=== PATIENT | male | born 1935 | race Caucasian/White ===

== ENCOUNTER → 2017-10-01 10:37 | Outpatient (CLI) | payer MEDICARE, OTHER, SELFPAY ==
[2017-10-01 12:13] LABS: INR 1.2 (0.9-1.3)
[2017-10-01 12:28] LABS: BUN Creatinine Ratio 23.9 (6-22); Blood Urea Nitrogen 55 mg/dL (9-20); Calcium 9.1 mg/dL (8.4-10.2); Carbon Dioxide 23 mmol/L (22-32); Chloride 107 mmol/L (98-107); Estimated Glomerular Filt Rate 27.5 mL/min (>60); Glucose 122 mg/dL (80-110); HEMOLYSIS < 15 (0-50); Potassium 4.6 mmol/L (3.4-5.1); Sodium 143 mmol/L (137-145); Triglycerides 289 mg/dL (35-150)
== END ==
PROVIDERS: PCP Family Medicine; Visit Provider Internal Medicine Cardiovascular Disease
DX: I25.10 Atherosclerotic heart disease of native coronary artery without angina pectoris (principal); E11.22 Type 2 diabetes mellitus with diabetic chronic kidney disease; N18.3 Chronic kidney disease, stage 3 (moderate); Z79.4 Long term (current) use of insulin; I26.99 Other pulmonary embolism without acute cor pulmonale
CPT/HCPCS: 36415; 80048; 84478; 85610

== ENCOUNTER → 2018-02-15 11:23 | Outpatient (CLI) | payer MEDICARE, OTHER, SELFPAY ==
[2018-02-15 12:21] LABS: Add Manual Diff / Slide Review NO; Basophils Percent Auto 0.3 % (0-2); Eosinophils Percent Auto 3.6 % (2-4); Hematocrit 40.9 % (41-53); Hemoglobin 13.9 g/dL (13.5-17.5); Lymphocytes Percent Auto 36.6 % (25-40); Mean Corpuscular Hemoglobin 30.9 PG (26-34); Mean Corpuscular Volume 90.9 fL (80-100); Monocytes Percent Auto 7.6 % (3-14); Neutrophils Absolute Auto 3900 /uL (3000-5900); Neutrophils Percent Auto 51.9 % (50-75); Platelet Count 137 X10^3/uL (150-400); Red Cell Distribution Width 13.9 % (11.6-14.8); White Blood Cell Count 7.4 X10^3/uL (4.5-11.0)
[2018-02-15 12:35] LABS: Albumin 4.1 g/dL (3.5-5.0); BUN Creatinine Ratio 22.1 (6-22); Blood Urea Nitrogen 53 mg/dL (9-20); Carbon Dioxide 27 mmol/L (22-32); Chloride 108 mmol/L (98-107); Estimated Glomerular Filt Rate 26.1 mL/min (>60); Glucose 130 mg/dL (80-110); HEMOLYSIS < 15 (0-50); Phosphorous 3.7 mg/dL (2.3-3.7); Potassium 4.8 mmol/L (3.4-5.1); Sodium 148 mmol/L (137-145)
[2018-02-15 15:02] LABS: Creatinine Urine Random 97.4 mg/dL; Protein (Total) Urine Random 43 mg/dL (0-12); Protein Creatinine Ratio Urine 0.44 GRAM/24H
[2018-02-15 15:17] LABS: Vitamin D 25 Hydroxy (D3) 92.8 ng/mL (30.0-100.0)
[2018-02-16 14:46] LABS: Parathyroid Hormone Int 63 pg/mL (14-64)
== END ==
PROVIDERS: Family Provider Family Medicine; PCP Family Medicine; Visit Provider Internal Medicine Nephrology
DX: N18.4 Chronic kidney disease, stage 4 (severe) (principal)
CPT/HCPCS: 36415; 80069; 82306; 82570; 83970; 84156; 85025

== ENCOUNTER → 2018-04-12 10:44 | Outpatient (CLI) | payer MEDICARE, OTHER, SELFPAY ==
[2018-04-12 11:13] LABS: INR 3.5 (0.9-1.3); Prothrombin Time 41.3 SECONDS (10.1-12.7)
== END ==
PROVIDERS: Family Provider Family Medicine; PCP Family Medicine; Visit Provider Family Medicine
DX: I26.99 Other pulmonary embolism without acute cor pulmonale (principal)
CPT/HCPCS: 36415; 85610

== ENCOUNTER → 2018-04-28 10:32 | Outpatient (CLI) | payer MEDICARE, OTHER, SELFPAY ==
[2018-04-28 11:09] LABS: INR 1.9 (0.9-1.3)
[2018-04-28 11:42] LABS: Hemoglobin A1C% w Est Avg Glu 5.5 % (4.0-6.0)
== END ==
PROVIDERS: Family Provider Family Medicine; PCP Family Medicine; Visit Provider Family Medicine
DX: I26.99 Other pulmonary embolism without acute cor pulmonale (principal); E11.9 Type 2 diabetes mellitus without complications
CPT/HCPCS: 36415; 83036; 85610

== ENCOUNTER → 2018-05-28 14:05 | Outpatient (CLI) | payer MEDICARE, OTHER, SELFPAY ==
[2018-05-28 14:52] LABS: INR 1.5 (0.9-1.3); Prothrombin Time 17.4 SECONDS (10.1-12.7)
== END ==
PROVIDERS: PCP Family Medicine; Visit Provider Family Medicine
DX: I26.99 Other pulmonary embolism without acute cor pulmonale (principal)
CPT/HCPCS: 36415; 85610

== ENCOUNTER → 2018-07-05 12:40 | Outpatient (CLI) | payer MEDICARE, OTHER, SELFPAY ==
[2018-07-05 13:50] LABS: Prothrombin Time 23.6 SECONDS (10.1-12.7)
== END ==
PROVIDERS: PCP Family Medicine; Visit Provider Family Medicine
DX: I26.99 Other pulmonary embolism without acute cor pulmonale (principal)
CPT/HCPCS: 36415; 85610

== ENCOUNTER → 2018-08-18 13:51 | Outpatient (CLI) | payer MEDICARE, OTHER, SELFPAY ==
[2018-08-18 14:49] LABS: Hemoglobin A1C% w Est Avg Glu 5.7 % (4.0-6.0)
[2018-08-18 14:50] LABS: INR 1.8 (0.9-1.3); Prothrombin Time 21.4 SECONDS (10.1-12.7)
[2018-08-18 16:03] LABS: Estimated Glomerular Filt Rate 26.1 mL/min (>60)
== END ==
PROVIDERS: PCP Family Medicine; Visit Provider Family Medicine
DX: E11.9 Type 2 diabetes mellitus without complications (principal); I26.99 Other pulmonary embolism without acute cor pulmonale; Z79.01 Long term (current) use of anticoagulants
CPT/HCPCS: 36415; 82565; 83036; 85610

== ENCOUNTER → 2018-10-18 13:54 | Outpatient (CLI) | payer MEDICARE, OTHER, SELFPAY ==
[2018-10-18 14:32] LABS: INR 2.3 (0.9-1.3); Prothrombin Time 26.6 SECONDS (10.1-12.7)
[2018-10-18 14:50] LABS: Add Manual Diff / Slide Review NO; Basophils Absolute Auto 0 /uL (0-100); Basophils Percent Auto 0.5 % (0-2); Eosinophils Absolute Auto 300 /uL (0-450); Eosinophils Percent Auto 3.3 % (2-4); Hematocrit 42.3 % (41-53); Hemoglobin 14.8 g/dL (13.5-17.5); Lymphocytes Absolute Auto 3200 /uL (1100-4500); Lymphocytes Percent Auto 39.9 % (25-40); Mean Corpuscular Hemoglobin 31.1 PG (26-34); Mean Corpuscular Volume 88.8 fL (80-100); Monocytes Absolute Auto 700 /uL (0-900); Monocytes Percent Auto 8.7 % (3-14); Neutrophils Absolute Auto 3900 /uL (1500-7000); Neutrophils Percent Auto 47.6 % (50-75); Platelet Count 159 X10^3/uL (150-400); Red Blood Cell Count 4.76 X10^6/uL (4.5-5.9); Red Cell Distribution Width 13.9 % (11.6-14.8); White Blood Cell Count 8.1 X10^3/uL (4.5-11.0)
[2018-10-18 15:15] LABS: Albumin 4.1 g/dL (3.5-5.0); BUN Creatinine Ratio 19.2 (6-22); Blood Urea Nitrogen 48 mg/dL (9-20); Calcium 9.2 mg/dL (8.4-10.2); Carbon Dioxide 24 mmol/L (22-32); Chloride 109 mmol/L (98-107); Estimated Glomerular Filt Rate 24.9 mL/min (>60); Glucose 109 mg/dL (80-110); HEMOLYSIS < 15 (0-50); Phosphorous 3.4 mg/dL (2.3-3.7); Potassium 4.7 mmol/L (3.4-5.1); Sodium 144 mmol/L (137-145)
[2018-10-18 16:00] LABS: Creatinine Urine Random 113.6 mg/dL; Protein (Total) Urine Random 92 mg/dL (0-12)
[2018-10-18 16:15] LABS: Vitamin D 25 Hydroxy (D3) 82.4 ng/mL (30.0-100.0)
[2018-10-21 14:55] LABS: Parathyroid Hormone Int 82 pg/mL (14-64)
== END ==
PROVIDERS: PCP Family Medicine; Visit Provider Internal Medicine Nephrology
DX: N18.4 Chronic kidney disease, stage 4 (severe) (principal); I26.99 Other pulmonary embolism without acute cor pulmonale
CPT/HCPCS: 36415; 80069; 82306; 82570; 83970; 84156; 85025; 85610

== ENCOUNTER 2018-11-10 07:02 | Day surgery (SDC) | payer MEDICARE, OTHER, SELFPAY ==
--- NOTE | 2018-11-07 15:24 | PM.PREOP ---
Pre-operative Note Interval Note History & Physical reviewed/Exam performed by Physician: Yes Changes to H&P: No H&P completed within 30 days and has changed as indicated here:: Fasting glucose checked prior to surgery and is adequate to proceed.
--- NOTE | 2018-11-07 15:25 | PM.OP.1 ---
Operative Date/Time/Diagnoses Date of procedure: 11/10/18 Time of procedure: 07:45 Procedure & Clinicians Procedure: Preoperative diagnoses: 1. Advanced right nuclear sclerotic and cortical cataract. 2. Diabetes without retinopathy. 3. Keratoconus 4. Previous central retinal artery occlusion left eye. 5. Amblyopia 6. Bipolar disorder 7. Previous pulmonary embolism 8. Obstructive sleep apnea 9. On Eliquis for cardiac status. 10. Peripheral neuropathy. 11. Chronic vertigo. 12. Hypertension Postoperative diagnoses: 1. Cataract removed by phacoemulsification with placement of posterior chamber intraocular lens . Procedure: Phacoemulsification with posterior chamber intraocular lens implant and use of capsular dye. Surgeon: Diane Patton MD Complications: None Specimen: None Implant: ZCBOO+ 13.0 Blood loss: None Anesthesia: Retrobulbar with monitored standby Description of procedure: Patient with a complex medical history presents with a complaint of decreased vision due to cataract which is affecting activities of daily living including distance and reading vision. He has type 2 diabetes, bipolar disorder previous pulmonary embolism, obstructive sleep apnea, peripheral neuropathy among other stable condition and is on Eliquis for his cardiac status. He has recently been cleared for cataract surgery and was admitted to the hospital in the last few months without change in treatment. He has a complicated eye history as well with keratoconus with high astigmatism previous amblyopia, this is his best seeing eye as is otherwise had a central retinal artery occlusion. The patient wants surgery to improve vision. Due to his psychiatric status a retrobulbar block was felt to be the best anesthetic with monitored standby. He start Eliquis for 2 days for surgery. He declines a toric intraocular lens implant. Will require capsular dye due to the density of his cataract. The patient was taken to the operating room and given IV sedation. A retrobulbar block insert consisting of 6 cc of 2% xylocaine without epinephrine mixed half and half with 0.5% Marcaine with 1 cc of hyaluronidase added is placed between the medial and lateral 1/3 of the inferior orbital rim. Lid akinesia is obtain with 1% xylocaine with epinephrine infiltrated along the lid margin. The eye is manually massaged for 30 sec, prepped using Betadine solution, and draped in the usual sterile fashion. Temporal approach was made, a 1 mm side-port incision was made 90? from the proposed clear corneal incision position. Phenylephrine 1.5% mixed with 1% xylocaine 0.2 cc was placed into the anterior chamber. Viscoat followed by Healon was then placed into the anterior chamber. A 2.6 mm clear incision with a 2.6 mm blade was placed. A 360 degree capsulorrhexis style capsulotomy was then performed with a cystitome needle on a Healon. Hydrodelineation and hydrodissection were performed. The phacoemulsification unit is introduced, and sculpting notice used to groove the central lens. It is then removed in chopping mode. Epi nucleus is removed with epinuclear mode and irrigation aspiration was used to remove the peripheral cortex. The posterior capsule is polished. The intraocular lens is selected, inspected, power confirmed, and placed in the posterior chamber. The pupil was constricted with Miostat.. The wound was stromally hydrated and tested for leaks, there was none and it was left sutureless. Vigamox 0.1 cc was placed into the anterior chamber. Kenalog 0.2 cc was placed in the superior subconjunctival space. A drop of antibiotic and was placed and the eye was patched and shielded. The patient was stable and returned to the recovery room in excellent condition. Dictated by: Diane Patton MD Copy to: [facility]
[2018-11-10] MEDS: PROPARACAINE 0.5% OPHTH SOL 2 DROPS EYE-OP (07:24)
[2018-11-10] MEDS: CATARACT EYE COMPOUND (10 DROPS/SYRINGE) 3 DROPS EYE-OP ×4 (07:25→07:46)
[2018-11-10 07:29] VITALS: BMI 29.5
[2018-11-10 07:30] VITALS: BP 124/74; PULSE 62; RESP 16; TEMP 36.1; O2SAT 94
--- NOTE | 2018-11-10 08:17 | SUR.OPER ---
Supine on eye stretcher, head on extension cradle secured with tape. Arms tucked at sides with blanket. Pillow under knees.
[2018-11-10] MEDS: MOXIFLOXACIN OPHTH DROPS 3 ML BOTTLE 2 DROPS INJ ×2 (08:25→08:26)
[2018-11-10] MEDS: TRIAMCINOLONE 50 MG/5 ML VIAL INJ (08:26)
[2018-11-10] MEDS: NEOMYCIN/POLY/DEX OPHTH OINT 1 APPLIC EYE-RIGHT (08:27)
[2018-11-10] MEDS: BALANCED SALT IRRIG SOLN NO.2 15 ML IRR (08:27)
[2018-11-10] MEDS: HYALURONATE SODIUM 10 MG/ML SYRINGE INJ (08:27)
[2018-11-10] MEDS: CARBACHOL 1.5 ML VIAL INJ (08:27)
[2018-11-10] MEDS: CHONDROIDTIN/SOD HYALURONATE 1.05 ML SYRINGE INTRAOCULA (08:27)
[2018-11-10] MEDS: OFLOXACIN 0.3% OPHTH 5 ML 2 DROPS EYE-RIGHT (08:28)
[2018-11-10] MEDS: BALANCED SALT IRRIG SOLN NO.2 500 ML, EPINEPHrine 1 MG IRR (08:30)
[2018-11-10] MEDS: LIDOCAINE 2% 4 ML, BUPIVACAINE 0.5% (PF) 4 ML, HYALURONIDASE 150 UNIT INJ (08:32)
[2018-11-10 08:54] VITALS: BP 108/66; PULSE 58; RESP 16; TEMP 36.6; O2SAT 97
== END 2018-11-10 09:03 | disposition home or self-care (01) ==
PROVIDERS: PCP Family Medicine; Visit Provider Ophthalmology
PROC: (CPT 66984; principal; 2018-11-10 07:45)
DX: H25.811 Combined forms of age-related cataract, right eye (principal); E11.9 Type 2 diabetes mellitus without complications; I10 Essential (primary) hypertension; G47.33 Obstructive sleep apnea (adult) (pediatric); Z79.01 Long term (current) use of anticoagulants; Z86.711 Personal history of pulmonary embolism
CPT/HCPCS: 66984; J0171; J2704; J3301; J3470

== ENCOUNTER 2018-11-24 08:04 | Day surgery (SDC) | payer MEDICARE, OTHER, SELFPAY ==
--- NOTE | 2018-11-22 19:25 | PM.PREOP ---
Pre-operative Note Interval Note History & Physical reviewed/Exam performed by Physician: Yes Changes to H&P: No H&P completed within 30 days and has changed as indicated here:: Glucose checked and stable for surgery. Eliquis stopped for 3 days for surgery.
--- NOTE | 2018-11-22 19:27 | PM.OP.1 ---
Operative Date/Time/Diagnoses Date of procedure: 11/24/18 Time of procedure: 09:45 Procedure & Clinicians Procedure: Preoperative diagnoses: 1. Left cataract surgery with PCIOL.. 2.Advanced nuclear sclerotic and cortical cataract. 3. Aortic valve. 4. Anticoagulation with history of previous pulmonary embolism. 5. Type II Diaetes. 6. Sleep Apnea. 7. Depression. 8. Vertigo and Ataxia 9. CKD stage 4 10. Esophageal reflux with dysphagia 11. HTN 12. Previous central retinal artery occlusion. 13. Keratoconus. 14. Right Amblyopia. Postoperative diagnoses: 1. Left phaciemulsufication surgery with placement of a posterior chamber intraocular lens implant. Surgeon: Diane Patton MD Complications: none Specimen: None Implant : ZCBOO+19.5 Implant: ZCBOO+19.5 Blood loss: None Anesthesia: Retrobulbar with monitored standby. Description of procedure: Dictated by: Diane Patton MD Copy to: [facility] Post operative diagnoses: 1. Left complex cataract removed with use of capsular dye with placement of a posterior chamber intraocular lens. Procedure: Phacoemulsification with posterior chamber intraocular lens implant Surgeon: Diane Patton MD Blood loss: None Anesthesia: Retrobulbar with monitored standby Description of procedure: Patient is a diabetic with multiple medical problems including cardiac disease with an aortic valve, previus pulmonary embolism, previus retinal artery occlusion,depression with anxiety and peripheral europathy with ataxia, dysphagia and vertigo. This is his best seeing eye as he also has keratoconus and right amblyopia. He is in his best possible medical condition and desires cataract surgery as his decreasing vision is limiting his quality of life. has presented with decreased vision due to cataract which is affecting activities of daily living. The patient wants surgery to improve vision. The patient was taken to the operating room and given IV sedation. A retrobulbar block consisting of 6 cc of 2% xylocaine without epinephrine mixed half and half with 0.5% Marcaine with 1 cc of hyaluronidase added is placed between the medial and lateral 1/3 of the inferior orbital rim. Lid akinesia is obtain with 1% xylocaine with epinephrine infiltrated along the lid margin. The eye is manually massaged for 30 sec, prepped using Betadine solution, and draped in the usual sterile fashion. Viscoat followed by Amish was then placed. A 2.6 mm clear incision with a 2.6 mm blade was placed. A 360 degree capsulorrhexis style capsulotomy was then performed with a cystitome needle on a [employer]. Hydrodelineation and hydrodissection were performed. The phacoemulsification unit is introduced, and sculpting used to groove the central lens. It is then removed in chopping mode. Epi nucleus is removed with epinuclear mode and irrigation aspiration was used to remove the peripheral cortex. The posterior capsule is polished. The intraocular lens is selected, inspected, power confirmed, and placed in the posterior chamber. The pupil was constricted with Miostat. The wound was stromally hydrated and tested for leaks, there was none and was left sutureless. Vigamox 0.1 cc was placed into the anterior chamber. Kenalog 0.2 cc was placed in the superior subconjunctival space. A drop of antibiotic and was placed and the eye was patched and shielded. The patient was stable and returned to the recovery room in excellent condition. Dictated by: Diane Patton MD Copy to: [facility]
[2018-11-24 09:09] VITALS: BP 140/70; PULSE 60; RESP 16; TEMP 36.8; O2SAT 96; BMI 29.5
[2018-11-24] MEDS: PROPARACAINE 0.5% OPHTH SOL 2 DROPS EYE-OP (09:20)
[2018-11-24] MEDS: CATARACT EYE COMPOUND (10 DROPS/SYRINGE) 3 DROPS EYE-OP (09:21)
[2018-11-24] MEDS: MOXIFLOXACIN OPHTH DROPS 3 ML BOTTLE 2 DROPS INJ (10:13)
[2018-11-24] MEDS: PHENYLEPHRINE/LIDOCAINE VIAL (OR) 0.2 ML EYE-OP (10:13)
[2018-11-24] MEDS: TRIAMCINOLONE 50 MG/5 ML VIAL INJ (10:14)
[2018-11-24] MEDS: CHONDROIDTIN/SOD HYALURONATE 1.05 ML SYRINGE INTRAOCULA (10:15)
[2018-11-24] MEDS: BALANCED SALT IRRIG SOLN NO.2 15 ML IRR (10:15)
[2018-11-24] MEDS: HYALURONATE SODIUM 10 MG/ML SYRINGE INJ (10:15)
[2018-11-24] MEDS: CARBACHOL 1.5 ML VIAL INJ (10:15)
[2018-11-24] MEDS: NEOMYCIN/POLY/DEX OPHTH OINT 1 APPLIC EYE-LEFT (10:16)
[2018-11-24] MEDS: LIDOCAINE 1% W/EPI INJ 20 ML INJ (10:16)
[2018-11-24] MEDS: OFLOXACIN 0.3% OPHTH 5 ML 2 DROPS EYE-LEFT (10:17)
[2018-11-24] MEDS: BALANCED SALT IRRIG SOLN NO.2 500 ML, EPINEPHrine 1 MG IRR (10:18)
[2018-11-24] MEDS: LIDOCAINE 2% 4 ML, BUPIVACAINE 0.5% (PF) 4 ML, HYALURONIDASE 150 UNIT INJ (10:19)
[2018-11-24 10:49] VITALS: BP 145/71; PULSE 56; RESP 15; TEMP 36.4; O2SAT 97
== END 2018-11-24 11:08 | disposition home or self-care (01) ==
PROVIDERS: Visit Provider Ophthalmology
PROC: (CPT 66984; principal; 2018-11-24 09:45)
DX: H25.812 Combined forms of age-related cataract, left eye (principal); Z79.01 Long term (current) use of anticoagulants; Z86.711 Personal history of pulmonary embolism; E66.9 Obesity, unspecified; G47.30 Sleep apnea, unspecified; N18.4 Chronic kidney disease, stage 4 (severe); I10 Essential (primary) hypertension
CPT/HCPCS: 66984; J0171; J2250; J2704; J3301; J3470

== ENCOUNTER → 2018-12-15 12:10 | Outpatient (CLI) | payer MEDICARE, OTHER, SELFPAY ==
[2018-12-15 12:45] LABS: INR 2.1 (0.9-1.3); Prothrombin Time 24.9 SECONDS (10.1-12.7)
== END ==
PROVIDERS: Visit Provider Student in an Organized Health Care Education/Training Program
DX: I26.99 Other pulmonary embolism without acute cor pulmonale (principal)
CPT/HCPCS: 36415; 85610

== ENCOUNTER → 2019-01-12 13:24 | Outpatient (CLI) | payer MEDICARE, OTHER, SELFPAY ==
[2019-01-12 15:33] LABS: Prothrombin Time 23.9 SECONDS (10.1-12.7)
[2019-01-12 15:42] LABS: Hemoglobin A1C% w Est Avg Glu 5.5 % (4.0-6.0)
== END ==
PROVIDERS: Visit Provider Student in an Organized Health Care Education/Training Program
DX: Z79.01 Long term (current) use of anticoagulants (principal); Z95.2 Presence of prosthetic heart valve; E11.9 Type 2 diabetes mellitus without complications
CPT/HCPCS: 36415; 83036; 85610

== ENCOUNTER → 2019-01-21 16:32 | Outpatient (CLI) | payer MEDICARE, OTHER, SELFPAY ==
--- NOTE | 2019-01-21 16:37 | DI.MRI.S_ITS ---
PROCEDURE: MR HEAD/BRAIN WO/W CON INDICATIONS: HEADACHE. DECREASED BALANCE TECHNIQUE: Noncontrast axial T1 spin echo, axial T2 fast spin echo, sagittal and axial FLAIR, coronal T2 fast spin echo, axial gradient echo, axial diffusion and ADC through the brain. After the administration of contrast, axial and coronal T1 spin echo with fat saturation through the brain. COMPARISON: None. FINDINGS: Image quality: Excellent. CSF spaces: Basal cisterns are patent. No extra-axial fluid collections. Ventricles are normal in size and shape. Brain: No midline shift. No intracranial bleeds or masses. No abnormal intracranial enhancement. There is cerebral volume loss for age. There is periventricular white matter chronic small vessel ischemic change. The brainstem appears normal. Diffusion-weighted images demonstrate no acute ischemic insults. On series 11 image 67, there is a focus of diffusion weighted hyperintensity seen within left frontal lobe deep white matter, yet this focus is hyperintense on T2-weighted imaging and does not demonstrate dark signal on the ADC map. No large chronic ischemic insults. Normal intravascular flow voids are present. Skull and face: Calvarial marrow is normal in signal. Orbits appear normal. Sinuses: There is a small mucous retention cyst seen within the left maxillary sinus. Sinuses and mastoids otherwise appear clear. IMPRESSION: No significant intracranial abnormality is seen for age, with note made of brain parenchymal volume loss and chronic small vessel ischemic change. No findings of acute or subacute infarction can be seen. No masses or abnormal enhancement can be seen. Dictated by: Rupesh Jackson M.D. on 01/21/2019 at 18:10 Approved by: Rupesh Jackson M.D. on 01/21/2019 at 18:13
== END ==
PROVIDERS: Visit Provider Student in an Organized Health Care Education/Training Program
DX: R51 Headache (principal); R26.89 Other abnormalities of gait and mobility
CPT/HCPCS: 70553

== ENCOUNTER → 2019-03-22 10:47 | Outpatient (CLI) | payer MEDICARE, OTHER, SELFPAY ==
[2019-03-22 12:08] LABS: Hemoglobin A1C% w Est Avg Glu 5.6 % (4.0-6.0)
[2019-03-22 12:09] LABS: INR 1.6 (0.9-1.3); Prothrombin Time 19.1 SECONDS (10.1-12.7)
== END ==
PROVIDERS: Visit Provider Student in an Organized Health Care Education/Training Program
DX: Z95.2 Presence of prosthetic heart valve (principal); Z79.01 Long term (current) use of anticoagulants; E11.9 Type 2 diabetes mellitus without complications
CPT/HCPCS: 36415; 83036; 85610

== ENCOUNTER → 2019-03-25 12:10 | Outpatient (CLI) | payer MEDICARE, OTHER, SELFPAY ==
--- NOTE | 2019-03-25 | DI.RAD.S_ITS ---
PROCEDURE: XR CHEST 2V INDICATIONS: cough TECHNIQUE: 2 views of the chest were acquired. COMPARISON: [facility], , CHEST 2 VIEW, 12/19/2014, 16:23. [facility], , CHEST 1 VIEW, 08/17/2017, 19:14. FINDINGS: Surgical changes and devices: Sternotomy wires and CABG clips. Linear density projecting adjacent to the left clavicle is unchanged. Status post TAVR Lungs and pleura: No pleural effusion or pneumothorax. Below, blunted appearance of the costophrenic angles. Scattered submegmental scarring and/or atelectasis. No focal consolidation. On the lateral view posterior pleural thickening/scarring is unchanged Mediastinum: Mediastinal contours are normal. Heart size is normal. Bones and chest wall: No suspicious bony abnormalities. Soft tissues appear unremarkable. IMPRESSION: Blunted appearance of the costophrenic angles, possibly trace pleural fluid, atelectasis or scarring. Scattered submegmental scarring and/or atelectasis. No focal consolidation. Dictated by: Odin Sahu M.D. on 03/25/2019 at 16:44 Approved by: Odin Sahu M.D. on 03/25/2019 at 16:47
== END ==
PROVIDERS: Visit Provider Student in an Organized Health Care Education/Training Program
DX: R05 Cough (principal)
CPT/HCPCS: 71046

== ENCOUNTER → 2019-06-06 16:40 | Outpatient (CLI) | payer MEDICARE, OTHER, SELFPAY ==
[2019-06-06 17:21] LABS: INR 1.8 (0.9-1.3)
[2019-06-06 17:26] LABS: Hemoglobin A1C% w Est Avg Glu 5.7 % (4.0-6.0)
== END ==
PROVIDERS: Referring Provider Student in an Organized Health Care Education/Training Program; Visit Provider Student in an Organized Health Care Education/Training Program
DX: Z95.2 Presence of prosthetic heart valve (principal); Z79.01 Long term (current) use of anticoagulants; E11.9 Type 2 diabetes mellitus without complications
CPT/HCPCS: 36415; 83036; 85610

== ENCOUNTER → 2019-06-10 09:25 | Outpatient (CLI) | payer MEDICARE, OTHER, SELFPAY ==
[2019-06-10 10:44] LABS: BUN Creatinine Ratio 19.1 (6-22); Blood Urea Nitrogen 44 mg/dL (9-20); Calcium 9.4 mg/dL (8.4-10.2); Carbon Dioxide 23 mmol/L (22-32); Chloride 109 mmol/L (98-107); Cholesterol 155 mg/dL (140-199); Estimated Glomerular Filt Rate 27.4 mL/min (>60); Glucose 108 mg/dL (80-110); HDL Cholesterol 23 mg/dL (40-60); HEMOLYSIS < 15 (0-50); LDL Cholesterol Calculated 76 mg/dL (<100); Potassium 5.1 mmol/L (3.4-5.1); Sodium 145 mmol/L (137-145); Triglycerides 278 mg/dL (35-150); VLDL Cholesterol Calculated 56 mg/dL (2-30)
[2019-06-10 10:46] LABS: Creatinine Urine Random 83.8 mg/dL; Protein (Total) Urine Random 71 mg/dL (0-12); Protein Creatinine Ratio Urine 0.84 GRAM/24H
== END ==
PROVIDERS: PCP Student in an Organized Health Care Education/Training Program; Referring Provider Internal Medicine Nephrology; Visit Provider Internal Medicine Nephrology
DX: N18.4 Chronic kidney disease, stage 4 (severe) (principal); E11.9 Type 2 diabetes mellitus without complications
CPT/HCPCS: 36415; 80061; 80069; 82570; 84156

== ENCOUNTER → 2019-06-24 15:34 | Outpatient (CLI) | payer MEDICARE, OTHER, SELFPAY ==
[2019-06-24 16:32] LABS: INR 1.7 (0.9-1.3); Prothrombin Time 19.9 SECONDS (10.1-12.7)
== END ==
PROVIDERS: PCP Student in an Organized Health Care Education/Training Program; Referring Provider Student in an Organized Health Care Education/Training Program; Visit Provider Student in an Organized Health Care Education/Training Program
DX: Z95.2 Presence of prosthetic heart valve (principal); Z79.01 Long term (current) use of anticoagulants; E11.9 Type 2 diabetes mellitus without complications
CPT/HCPCS: 36415; 85610

== ENCOUNTER → 2019-09-14 12:37 | Outpatient (CLI) | payer MEDICARE, OTHER, SELFPAY ==
[2019-09-14 13:31] LABS: INR 1.3 (0.9-1.3); Prothrombin Time 14.5 SECONDS (10.1-12.7)
[2019-09-14 13:41] LABS: Hemoglobin A1C% w Est Avg Glu 5.6 % (4.0-6.0)
== END ==
PROVIDERS: PCP Student in an Organized Health Care Education/Training Program; Referring Provider Student in an Organized Health Care Education/Training Program; Visit Provider Student in an Organized Health Care Education/Training Program
DX: Z95.2 Presence of prosthetic heart valve (principal); Z79.01 Long term (current) use of anticoagulants; E11.9 Type 2 diabetes mellitus without complications
CPT/HCPCS: 36415; 83036; 85610

== ENCOUNTER → 2019-10-06 15:06 | Outpatient (CLI) | payer MEDICARE, OTHER, SELFPAY ==
[2019-10-06 15:48] LABS: INR 1.9 (0.9-1.3); Prothrombin Time 21.8 SECONDS (10.1-12.7)
== END ==
PROVIDERS: PCP Student in an Organized Health Care Education/Training Program; Referring Provider Student in an Organized Health Care Education/Training Program; Visit Provider Student in an Organized Health Care Education/Training Program
DX: E11.9 Type 2 diabetes mellitus without complications (principal); Z79.01 Long term (current) use of anticoagulants; Z95.2 Presence of prosthetic heart valve
CPT/HCPCS: 36415; 85610

== ENCOUNTER → 2019-10-25 13:33 | Outpatient (CLI) | payer MEDICARE, OTHER, SELFPAY ==
[2019-10-25 15:06] LABS: Prothrombin Time 64.2 SECONDS (10.1-12.7)
[2019-10-25 15:07] LABS: Hemoglobin A1C% w Est Avg Glu 5.5 % (4.0-6.0)
[2019-10-25 15:15] LABS: INR 5.8 (0.9-1.3)
== END ==
PROVIDERS: PCP Student in an Organized Health Care Education/Training Program; Referring Provider Student in an Organized Health Care Education/Training Program; Visit Provider Student in an Organized Health Care Education/Training Program
DX: E11.9 Type 2 diabetes mellitus without complications (principal); Z95.2 Presence of prosthetic heart valve; Z79.01 Long term (current) use of anticoagulants
CPT/HCPCS: 36415; 83036; 85610

== ENCOUNTER → 2019-11-11 14:26 | Outpatient (CLI) | payer MEDICARE, OTHER, SELFPAY ==
[2019-11-11 15:46] LABS: INR 2.1 (0.9-1.3); Prothrombin Time 23.9 SECONDS (10.1-12.7)
== END ==
PROVIDERS: PCP Student in an Organized Health Care Education/Training Program; Referring Provider Student in an Organized Health Care Education/Training Program; Visit Provider Student in an Organized Health Care Education/Training Program
DX: E11.9 Type 2 diabetes mellitus without complications (principal); Z95.2 Presence of prosthetic heart valve; Z79.01 Long term (current) use of anticoagulants
CPT/HCPCS: 36415; 85610

== ENCOUNTER → 2019-11-25 12:46 | Outpatient (CLI) | payer MEDICARE, OTHER, SELFPAY ==
[2019-11-25 14:29] LABS: INR 2.1 (0.9-1.3); Prothrombin Time 23.6 SECONDS (10.1-12.7)
[2019-11-25 14:59] LABS: Albumin 4.2 g/dL (3.5-5.0); BUN Creatinine Ratio 20.5 (6-22); Blood Urea Nitrogen 46 mg/dL (9-20); Calcium 9.4 mg/dL (8.4-10.2); Carbon Dioxide 24 mmol/L (22-32); Chloride 107 mmol/L (98-107); Estimated Glomerular Filt Rate 28.2 mL/min (>60); Glucose 125 mg/dL (80-110); HEMOLYSIS 20 (0-50); Potassium 5.1 mmol/L (3.4-5.1); Sodium 140 mmol/L (137-145)
[2019-11-25 15:38] LABS: Creatinine Urine Random 96.5 mg/dL; Protein (Total) Urine Random 64 mg/dL (0-12); Protein Creatinine Ratio Urine 0.66 GRAM/24H
== END ==
PROVIDERS: PCP Student in an Organized Health Care Education/Training Program; Referring Provider Internal Medicine Nephrology; Visit Provider Internal Medicine Nephrology
DX: Z95.2 Presence of prosthetic heart valve (principal); Z79.01 Long term (current) use of anticoagulants; E11.9 Type 2 diabetes mellitus without complications
CPT/HCPCS: 36415; 80069; 82570; 84156; 85610

== ENCOUNTER → 2019-12-20 15:47 | Outpatient (CLI) | payer MEDICARE, OTHER, SELFPAY ==
[2019-12-20 17:10] LABS: INR 1.8 (0.9-1.3); Prothrombin Time 20.6 SECONDS (10.1-12.7)
== END ==
PROVIDERS: PCP Student in an Organized Health Care Education/Training Program; Referring Provider Student in an Organized Health Care Education/Training Program; Visit Provider Student in an Organized Health Care Education/Training Program
DX: E11.9 Type 2 diabetes mellitus without complications (principal); Z95.2 Presence of prosthetic heart valve; Z79.01 Long term (current) use of anticoagulants
CPT/HCPCS: 36415; 85610

== ENCOUNTER → 2020-01-17 15:54 | Outpatient (CLI) | payer MEDICARE, OTHER, SELFPAY ==
[2020-01-17 16:50] LABS: INR 2.4 (0.9-1.3); Prothrombin Time 27.8 SECONDS (10.1-12.7)
== END ==
PROVIDERS: PCP Student in an Organized Health Care Education/Training Program; Referring Provider Student in an Organized Health Care Education/Training Program; Visit Provider Student in an Organized Health Care Education/Training Program
DX: Z95.2 Presence of prosthetic heart valve (principal); Z79.01 Long term (current) use of anticoagulants; E11.9 Type 2 diabetes mellitus without complications
CPT/HCPCS: 36415; 85610

== ENCOUNTER → 2020-02-09 14:00 | Outpatient (CLI) | payer MEDICARE, OTHER, SELFPAY ==
[2020-02-09 15:10] LABS: INR 2.1 (0.9-1.3); Prothrombin Time 24.6 SECONDS (10.1-12.7)
== END ==
PROVIDERS: PCP Student in an Organized Health Care Education/Training Program; Referring Provider Student in an Organized Health Care Education/Training Program; Visit Provider Student in an Organized Health Care Education/Training Program
DX: Z79.01 Long term (current) use of anticoagulants (principal)
CPT/HCPCS: 36415; 85610

== ENCOUNTER → 2020-03-13 12:44 | Outpatient (CLI) | payer MEDICARE, OTHER, SELFPAY ==
[2020-03-13 14:15] LABS: INR 7.7 (0.9-1.3)
== END ==
PROVIDERS: PCP Student in an Organized Health Care Education/Training Program; Referring Provider Student in an Organized Health Care Education/Training Program; Visit Provider Student in an Organized Health Care Education/Training Program
DX: Z95.2 Presence of prosthetic heart valve (principal); Z79.01 Long term (current) use of anticoagulants; E11.9 Type 2 diabetes mellitus without complications
CPT/HCPCS: 36415; 85610

== ENCOUNTER → 2020-03-15 15:15 | Outpatient (CLI) | payer MEDICARE, OTHER, SELFPAY ==
[2020-03-15 16:46] LABS: Hemoglobin A1C% w Est Avg Glu 5.7 % (4.0-6.0)
[2020-03-15 16:50] LABS: Prothrombin Time 58.2 SECONDS (10.1-12.7)
[2020-03-15 16:54] LABS: INR 5.1 (0.9-1.3)
== END ==
PROVIDERS: PCP Student in an Organized Health Care Education/Training Program; Referring Provider Student in an Organized Health Care Education/Training Program; Visit Provider Student in an Organized Health Care Education/Training Program
DX: Z95.2 Presence of prosthetic heart valve (principal); Z79.01 Long term (current) use of anticoagulants; E11.9 Type 2 diabetes mellitus without complications
CPT/HCPCS: 36415; 83036; 85610

== ENCOUNTER → 2020-03-19 13:40 | Outpatient (CLI) | payer MEDICARE, OTHER, SELFPAY ==
[2020-03-19 14:27] LABS: INR 1.5 (0.9-1.3)
[2020-03-19 14:39] LABS: Hemoglobin A1C% w Est Avg Glu 5.7 % (4.0-6.0)
== END ==
PROVIDERS: PCP Student in an Organized Health Care Education/Training Program; Referring Provider Student in an Organized Health Care Education/Training Program; Visit Provider Student in an Organized Health Care Education/Training Program
DX: Z95.2 Presence of prosthetic heart valve (principal); E11.9 Type 2 diabetes mellitus without complications; Z79.01 Long term (current) use of anticoagulants
CPT/HCPCS: 36415; 83036; 85610

== ENCOUNTER → 2020-03-26 14:01 | Outpatient (CLI) | payer MEDICARE, OTHER, SELFPAY ==
[2020-03-26 15:20] LABS: Hemoglobin A1C% w Est Avg Glu 5.7 % (4.0-6.0)
[2020-03-26 15:24] LABS: INR 3.1 (0.9-1.3)
== END ==
PROVIDERS: PCP Student in an Organized Health Care Education/Training Program; Referring Provider Student in an Organized Health Care Education/Training Program; Visit Provider Student in an Organized Health Care Education/Training Program
DX: Z95.2 Presence of prosthetic heart valve (principal); E11.9 Type 2 diabetes mellitus without complications; Z79.01 Long term (current) use of anticoagulants
CPT/HCPCS: 36415; 83036; 85610

== ENCOUNTER → 2020-05-01 12:20 | Outpatient (CLI) | payer MEDICARE, OTHER, SELFPAY ==
[2020-05-01 13:55] LABS: INR 2.5 (0.9-1.3); Prothrombin Time 28.4 SECONDS (10.1-12.7)
[2020-05-01 14:04] LABS: Hemoglobin A1C% w Est Avg Glu 5.9 % (4.0-6.0)
== END ==
PROVIDERS: PCP Student in an Organized Health Care Education/Training Program; Referring Provider Student in an Organized Health Care Education/Training Program; Visit Provider Student in an Organized Health Care Education/Training Program
DX: Z95.2 Presence of prosthetic heart valve (principal); Z79.01 Long term (current) use of anticoagulants; E11.9 Type 2 diabetes mellitus without complications
CPT/HCPCS: 36415; 83036; 85610

== ENCOUNTER → 2020-06-05 15:09 | Outpatient (CLI) | payer MEDICARE, OTHER, SELFPAY ==
[2020-06-05 16:31] LABS: INR 2.3 (0.9-1.3); Prothrombin Time 26.4 SECONDS (10.1-12.7)
== END ==
PROVIDERS: PCP Student in an Organized Health Care Education/Training Program; Referring Provider Student in an Organized Health Care Education/Training Program; Visit Provider Student in an Organized Health Care Education/Training Program
DX: E11.9 Type 2 diabetes mellitus without complications (principal); Z95.2 Presence of prosthetic heart valve; Z79.01 Long term (current) use of anticoagulants
CPT/HCPCS: 36415; 85610

== ENCOUNTER → 2020-08-23 14:15 | Outpatient (CLI) | payer MEDICARE, OTHER, SELFPAY ==
[2020-08-23 15:02] LABS: Hemoglobin A1C% w Est Avg Glu 5.3 % (4.0-6.0); INR 1.7 (0.9-1.3); Prothrombin Time 19.8 SECONDS (10.1-12.7)
== END ==
PROVIDERS: PCP Student in an Organized Health Care Education/Training Program; Referring Provider Student in an Organized Health Care Education/Training Program; Visit Provider Student in an Organized Health Care Education/Training Program
DX: Z95.2 Presence of prosthetic heart valve (principal); E11.9 Type 2 diabetes mellitus without complications; Z79.01 Long term (current) use of anticoagulants
CPT/HCPCS: 36415; 83036; 85610

== ENCOUNTER → 2020-10-08 14:32 | Outpatient (CLI) | payer MEDICARE, OTHER, SELFPAY ==
[2020-10-08 16:22] LABS: INR 1.8 (0.9-1.3); Prothrombin Time 20.2 SECONDS (10.1-12.7)
== END ==
PROVIDERS: PCP Student in an Organized Health Care Education/Training Program; Referring Provider Student in an Organized Health Care Education/Training Program; Visit Provider Student in an Organized Health Care Education/Training Program
DX: I26.99 Other pulmonary embolism without acute cor pulmonale (principal); Z79.01 Long term (current) use of anticoagulants
CPT/HCPCS: 36415; 85610

== ENCOUNTER → 2020-10-19 12:22 | Outpatient (CLI) | payer MEDICARE, OTHER, SELFPAY ==
[2020-10-19 14:09] LABS: INR 2.3 (0.9-1.3); Prothrombin Time 25.8 SECONDS (10.1-12.7)
== END ==
PROVIDERS: PCP Student in an Organized Health Care Education/Training Program; Referring Provider Student in an Organized Health Care Education/Training Program; Visit Provider Student in an Organized Health Care Education/Training Program
DX: I26.99 Other pulmonary embolism without acute cor pulmonale (principal); Z79.01 Long term (current) use of anticoagulants
CPT/HCPCS: 36415; 85610

== ENCOUNTER → 2020-11-08 15:27 | Outpatient (CLI) | payer MEDICARE, OTHER, SELFPAY ==
[2020-11-08 16:02] LABS: INR 3.6 (0.9-1.3); Prothrombin Time 41.8 SECONDS (10.1-12.7)
== END ==
PROVIDERS: PCP Student in an Organized Health Care Education/Training Program; Referring Provider Student in an Organized Health Care Education/Training Program; Visit Provider Student in an Organized Health Care Education/Training Program
DX: Z79.01 Long term (current) use of anticoagulants (principal); I26.99 Other pulmonary embolism without acute cor pulmonale
CPT/HCPCS: 36415; 85610

== ENCOUNTER → 2020-12-10 08:51 | Outpatient (CLI) | payer MEDICARE, OTHER, SELFPAY ==
[2020-12-10 09:48] LABS: Add Manual Diff / Slide Review NO; Basophils Absolute Auto 0 /uL (0-100); Basophils Percent Auto 0.6 % (0-2); Eosinophils Absolute Auto 300 /uL (0-450); Eosinophils Percent Auto 4.1 % (2-4); Hematocrit 38.8 % (41-53); Hemoglobin 13.1 g/dL (13.5-17.5); Lymphocytes Absolute Auto 2900 /uL (1100-4500); Lymphocytes Percent Auto 35.4 % (25-40); Mean Corpuscular HGB Conc 33.7 % (30-36); Mean Corpuscular Hemoglobin 31.1 PG (26-34); Mean Corpuscular Volume 92.4 fL (80-100); Monocytes Absolute Auto 700 /uL (0-900); Monocytes Percent Auto 8.9 % (3-14); Neutrophils Absolute Auto 4200 /uL (1500-7000); Platelet Count 149 X10^3/uL (150-400); Red Cell Distribution Width 13.5 % (11.6-14.8); White Blood Cell Count 8.3 X10^3/uL (4.5-11.0)
[2020-12-10 10:03] LABS: Alanine Aminotransferase 17 IU/L (<50); Albumin 3.8 g/dL (3.5-5.0); Albumin Globulin Ratio 1.2 (1.0-2.8); Alkaline Phosphatase 129 U/L (38-126); Aspartate Aminotransferase 24 IU/L (17-59); BUN Creatinine Ratio 18.9 (6-22); Bilirubin Total 0.2 mg/dL (0.2-1.3); Blood Urea Nitrogen 46 mg/dL (9-20); Calcium 8.6 mg/dL (8.4-10.2); Carbon Dioxide 21 mmol/L (22-32); Chloride 112 mmol/L (98-107); Cholesterol 127 mg/dL (140-199); Estimated Glomerular Filt Rate 25.6 mL/min (>60); Globulin 3.2 g/dL (1.7-4.1); Glucose 120 mg/dL (80-110); HDL Cholesterol 25 mg/dL (40-60); HEMOLYSIS < 15 (0-50); LDL Cholesterol Calculated 52 mg/dL (<100); Potassium 4.6 mmol/L (3.4-5.1); Sodium 142 mmol/L (137-145); Triglycerides 248 mg/dL (35-150)
[2020-12-10 10:04] LABS: Hemoglobin A1C% w Est Avg Glu 5.3 % (4.0-6.0)
== END ==
PROVIDERS: PCP Student in an Organized Health Care Education/Training Program; Referring Provider Student in an Organized Health Care Education/Training Program; Visit Provider Student in an Organized Health Care Education/Training Program
DX: E11.9 Type 2 diabetes mellitus without complications (principal); E78.5 Hyperlipidemia, unspecified; N18.4 Chronic kidney disease, stage 4 (severe); I25.10 Atherosclerotic heart disease of native coronary artery without angina pectoris
CPT/HCPCS: 36415; 80053; 80061; 83036; 85025

== ENCOUNTER → 2020-12-12 15:00 | Outpatient (ROUT) | payer MEDICARE, OTHER, SELFPAY ==
[2020-12-12 15:12] LABS: INR 2.4 (0.9-1.3); Prothrombin Time 27.4 SECONDS (10.1-12.7)
== END ==
PROVIDERS: PCP Student in an Organized Health Care Education/Training Program; Visit Provider Student in an Organized Health Care Education/Training Program
DX: I26.99 Other pulmonary embolism without acute cor pulmonale (principal); Z79.01 Long term (current) use of anticoagulants
CPT/HCPCS: 85610

== ENCOUNTER → 2021-01-03 14:12 | Outpatient (CLI) | payer MEDICARE, OTHER, SELFPAY | PROVIDERS: PCP Student in an Organized Health Care Education/Training Program; Referring Provider Student in an Organized Health Care Education/Training Program; Visit Provider Student in an Organized Health Care Education/Training Program | DX: I26.99 Other pulmonary embolism without acute cor pulmonale (principal); Z79.01 Long term (current) use of anticoagulants | CPT/HCPCS: 36415; 85610 ==

== ENCOUNTER → 2021-02-01 13:07 | Outpatient (CLI) | payer MEDICARE, OTHER, SELFPAY ==
[2021-02-01 13:52] LABS: INR 2.2 (0.9-1.3); Prothrombin Time 25.8 SECONDS (10.1-12.7)
== END ==
PROVIDERS: PCP Student in an Organized Health Care Education/Training Program; Referring Provider Student in an Organized Health Care Education/Training Program; Visit Provider Student in an Organized Health Care Education/Training Program
DX: I26.99 Other pulmonary embolism without acute cor pulmonale (principal); Z79.01 Long term (current) use of anticoagulants
CPT/HCPCS: 36415; 85610

== ENCOUNTER → 2021-03-08 14:11 | Outpatient (CLI) | payer MEDICARE, OTHER, SELFPAY ==
[2021-03-08 15:36] LABS: Hemoglobin A1C% w Est Avg Glu 5.3 % (4.0-6.0)
[2021-03-08 16:48] LABS: INR 2.2 (0.9-1.3); Prothrombin Time 25.6 SECONDS (10.1-12.7)
== END ==
PROVIDERS: PCP Student in an Organized Health Care Education/Training Program; Referring Provider Student in an Organized Health Care Education/Training Program; Visit Provider Student in an Organized Health Care Education/Training Program
DX: E11.9 Type 2 diabetes mellitus without complications (principal); I26.99 Other pulmonary embolism without acute cor pulmonale; Z79.01 Long term (current) use of anticoagulants
CPT/HCPCS: 36415; 83036; 85610

== ENCOUNTER → 2021-03-27 16:06 | Outpatient (ROUT) | payer MEDICARE, OTHER, SELFPAY ==
[2021-03-27 16:20] LABS: INR 2.3 (0.9-1.3)
== END ==
PROVIDERS: PCP Student in an Organized Health Care Education/Training Program; Visit Provider Student in an Organized Health Care Education/Training Program
DX: I26.99 Other pulmonary embolism without acute cor pulmonale (principal); Z79.01 Long term (current) use of anticoagulants
CPT/HCPCS: 85610

== ENCOUNTER → 2021-05-02 11:45 | Outpatient (ROUT) | payer MEDICARE, OTHER, SELFPAY ==
[2021-05-02 11:56] LABS: INR 2.6 (0.9-1.3); Prothrombin Time 29.6 SECONDS (10.1-12.7)
== END ==
PROVIDERS: PCP Student in an Organized Health Care Education/Training Program; Visit Provider Student in an Organized Health Care Education/Training Program
DX: I26.99 Other pulmonary embolism without acute cor pulmonale (principal); Z79.01 Long term (current) use of anticoagulants
CPT/HCPCS: 85610

== ENCOUNTER → 2021-06-17 12:59 | Outpatient (ROUT) | payer MEDICARE, OTHER, SELFPAY ==
[2021-06-17 13:18] LABS: INR 1.9 (0.9-1.3); Prothrombin Time 22.2 SECONDS (10.1-12.7)
== END ==
PROVIDERS: PCP Student in an Organized Health Care Education/Training Program; Visit Provider Student in an Organized Health Care Education/Training Program
DX: I26.99 Other pulmonary embolism without acute cor pulmonale (principal); Z79.01 Long term (current) use of anticoagulants
CPT/HCPCS: 85610

== ENCOUNTER 2021-08-13 17:03 | Emergency (ER) | payer MEDICARE, OTHER, SELFPAY ==
--- NOTE | 2021-08-13 | DI.RAD.S_ITS ---
PROCEDURE: XR HIP W PEL IF DONE RT 2V INDICATIONS: FALL TECHNIQUE: AP pelvis with lateral view(s) of the right hip(s). COMPARISON: [facility], CT, ABDOMEN/PELVIS WITHOUT CONTRAS, 07/16/2016, 0:19. FINDINGS: Bones: No fractures or dislocations. Pelvic ring appears intact. No suspicious bony lesions. Bilateral total hip arthroplasties, grossly stable. Soft tissues: The visualized bowel gas pattern is normal. No suspicious soft tissue calcifications. Femoral artery vascular calcifications. IMPRESSION: No acute osseous abnormality identified. Dictated by: Anil Page M.D. on 08/13/2021 at 18:40 Approved by: Anil Page M.D. on 08/13/2021 at 18:42
--- NOTE | 2021-08-13 | DI.RAD.S_ITS ---
PROCEDURE: XR KNEE LT 3V INDICATIONS: FALL TECHNIQUE: 3 views of the knee were acquired. COMPARISON: [facility], CR, KNEE ARTHRITIC SERIES RT (P), 09/27/2014, 13:08. RG, XR KNEE 2V LT, 02/09/2006, 9:45. FINDINGS: Bones: Total knee arthroplasty appears unchanged. No fractures or dislocations. No suspicious bony lesions. Soft tissues: No significant joint effusion. No suspicious soft tissue calcifications. IMPRESSION: No acute osseous abnormality. Left total knee arthroplasty appears unchanged. Dictated by: Anil Page M.D. on 08/13/2021 at 18:37 Approved by: Anil Page M.D. on 08/13/2021 at 18:40
[2021-08-13 17:06] VITALS: BP 152/70; PULSE 66; RESP 20; TEMP 36.2; O2SAT 100; BMI 31.6
--- NOTE | 2021-08-13 17:10 | DI.RAD.S_ITS ---
PROCEDURE: XR CHEST 1V INDICATIONS: chest pain TECHNIQUE: One view of the chest was acquired. COMPARISON: [facility], CT, CT CERVICAL SPINE WO CON, 08/13/2021, 17:15. [facility], CR, XR CHEST 2V, 03/25/2019, 12:12. [facility], CR, CHEST 1 VIEW, 08/17/2017, 19:14. FINDINGS: Surgical changes and devices: Post median sternotomy and CABG. Wire projecting at the left upper thorax. TAVR stent. Lungs and pleura: Lungs appear clear. Pulmonary vasculature appears prominent. No pleural effusions or pneumothorax. Mediastinum: Mediastinal contours appear normal. Heart size is enlarged. Bones and chest wall: No suspicious bony lesions. Overlying soft tissues appear unremarkable. IMPRESSION: Possible pulmonary vasculature engorgement. Cardiomegaly. Consider follow-up two-view chest x-ray. Dictated by: Anil Page M.D. on 08/13/2021 at 18:35 Approved by: Anil Page M.D. on 08/13/2021 at 18:37
--- NOTE | 2021-08-13 17:10 | DI.CT.S_ITS ---
PROCEDURE: CT CERVICAL SPINE WO CON INDICATIONS: fall TECHNIQUE: Noncontrast 3 mm thick sections acquired from the skull base to the T4 level. Sagittal and coronal reformats were then constructed. For radiation dose reduction, the following was used: automated exposure control, adjustment of mA and/or kV according to patient size. COMPARISON: [facility], CR, XR CHEST 1V, 08/13/2021, 17:13. FINDINGS: Image quality: Excellent. Bones: No fractures or dislocations. Moderate to severe degenerative change in the cervical spine most pronounced at C6-C7. Left V4 vertebral artery atherosclerotic plaque. Visualized superior ribs are intact. Post median sternotomy. Soft tissues: Prevertebral soft tissues are normal in thickness. Carotid bulb atherosclerotic plaque. No paravertebral hematomas. No apical pneumothoraces. Trace mucosal thickening in the maxillary sinuses inferiorly. Small thyroid nodules. IMPRESSION: No acute osseous abnormality. Dictated by: Anil Page M.D. on 08/13/2021 at 18:02 Approved by: Anil Page M.D. on 08/13/2021 at 18:07
--- NOTE | 2021-08-13 17:10 | DI.CT.S_ITS ---
PROCEDURE: CT HEAD/BRAIN WO CON INDICATIONS: fall TECHNIQUE: Noncontrast 4.5 mm thick angled axial sections acquired from the foramen magnum to the vertex, with coronal and sagittal reformats. For radiation dose reduction, the following was used: automated exposure control, adjustment of mA and/or kV according to patient size. COMPARISON: [facility], CT, HEAD WITHOUT CONTRAST, 02/28/2008, 18:59. FINDINGS: Image quality: Excellent. CSF spaces: Basal cisterns are patent. No extra-axial fluid collections. Ventricles are normal in size and shape. Brain: No midline shift. No intracranial masses or hemorrhage. No area of hypodensity in a large vascular distribution to suggest acute infarction. Periventricular hypodensity consistent with chronic microvascular ischemic change. Age-related parenchymal loss. Skull and face: Calvarium and visualized facial bones are intact, without suspicious lesions. Sinuses: Visualized sinuses and mastoids are clear. IMPRESSION: No acute intracranial abnormality. Dictated by: Anil Page M.D. on 08/13/2021 at 18:00 Approved by: Anil Page M.D. on 08/13/2021 at 18:02
--- NOTE | 2021-08-13 17:25 | ED.FALL ---
HPI - Fall <Lalo Elam DO - Last Filed: 08/13/21 17:38> General Chief Complaint: Trauma Stated Complaint: GLF hit head/on blood thinners Time Seen by Provider: 08/13/21 17:05 Source: patient and EMS Mode of arrival: EMS Related Data Home Medications Medication Instructions Recorded Confirmed allopurinol 100 mg tablet 50 mg PO DAILY 08/13/21 08/13/21 amlodipine 2.5 mg tablet 5 mg PO QPM 08/13/21 08/13/21 atorvastatin 40 mg tablet 40 mg PO QPM 08/13/21 08/13/21 cholecalciferol (vitamin D3) 50 50 mcg PO DAILY 08/13/21 08/13/21 mcg (2,000 unit) capsule insulin aspart U-100 100 unit/mL See Rx Instructions .ROUTE .COMPLEX 08/13/21 08/13/21 (3 mL) subcutaneous pen (Novolog Flexpen U-100 Insulin aspart) insulin glargine 100 unit/mL (3 10 unit SUBCUT BID 08/13/21 08/13/21 mL) subcutaneous pen (Basaglar KwikPen U-100 Insulin) isosorbide mononitrate 60 mg 240 mg PO QAM 08/13/21 08/13/21 tablet,extended release 24 hr metoprolol succinate 25 mg 37.5 mg PO BID 08/13/21 08/13/21 tablet,extended release 24 hr multivitamin 1 tab PO QAM 08/13/21 08/13/21 nitroglycerin 0.4 mg sublingual 0.4 mg SUBLINGUAL Q5M PRN 08/13/21 08/13/21 tablet nystatin 100,000 unit/gram topical 1 applic TOPICAL DAILY 08/13/21 08/13/21 cream polyethylene glycol 3350 17 gram 17 g PO DAILY 08/13/21 08/13/21 oral powder packet (Miralax) warfarin 5 mg tablet 2.5 - 5 mg PO DAILY 08/13/21 08/13/21 Allergies Allergy/AdvReac Type Severity Reaction Status Date / Time metoclopramide [From REGLAN] AdvReac Severe Dyskinesia Verified 08/13/21 17:51 morphine [MORPHINE] AdvReac Unknown Hallucinati Verified 08/13/21 17:51 ons Patient History <Lalo Elam DO - Last Filed: 08/13/21 17:38> Medical History Anticoagulation therapy continued upon discharge Arthritis ASCVD (arteriosclerotic cardiovascular disease) Ataxia Chest pain CKD (chronic kidney disease), stage IV Depression with anxiety Gout History of aortic valvular stenosis Hyperlipidemia Hypertension Low back pain Obesity Obstructive sleep apnea Peripheral neuropathy Pulmonary embolism Type II diabetes mellitus Vertigo Vertigo Vitamin D deficiency Surgical History Aortic valve replaced Social History household members: spouse Smoking Status: Former smoker Smoking Status: Former smoker Substance Use Type: does not use Exam <Lalo Elam DO - Last Filed: 08/13/21 17:38> Initial Vital Signs Initial Vital Signs: Vital Signs Temperature 97.2 F L 08/13/21 17:06 Pulse Rate 66 08/13/21 17:06 Respiratory Rate 20 08/13/21 17:06 Blood Pressure 152/70 H 08/13/21 17:06 Pulse Oximetry 100 08/13/21 17:06 <Shannon Vickers MD - Last Filed: 08/13/21 18:38> Initial Vital Signs Initial Vital Signs: Vital Signs Temperature 97.2 F L 08/13/21 17:06 Pulse Rate 66 08/13/21 17:06 Respiratory Rate 20 08/13/21 17:06 Blood Pressure 152/70 H 08/13/21 17:06 Pulse Oximetry 100 08/13/21 17:06 Course <Lalo Elam DO - Last Filed: 08/13/21 17:38> Orders Ordered: ED Orders 08/13/21 17:10 CT cervical spine wo con Stat CT head/brain wo con Stat XR chest 1V Stat EKG-12 Lead Stat 08/13/21 17:55 Complete Blood Count AUTO DIFF Stat Comprehensive Metabolic Panel Stat D Dimer Stat Lipase Stat Magnesium Stat Troponin & CK Cardiac Panel Stat Vital Signs Vital signs: Vital Signs - 8 hr 08/13/21 17:06 08/13/21 17:50 08/13/21 18:00 Temperature 97.2 F L Pulse Rate 66 63 62 Respiratory Rate 20 23 Blood Pressure 152/70 H Pulse Oximetry 100 100 97 08/13/21 18:01 Temperature Pulse Rate 65 Respiratory Rate 17 Blood Pressure 151/74 H Pulse Oximetry 97 <Shannon Vickers MD - Last Filed: 08/13/21 18:38> Orders Ordered: ED Orders 08/13/21 17:10 CT cervical spine wo con Stat CT head/brain wo con Stat XR chest 1V Stat EKG-12 Lead Stat 08/13/21 17:55 Complete Blood Count AUTO DIFF Stat Comprehensive Metabolic Panel Stat D Dimer Stat Lipase Stat Magnesium Stat Troponin & CK Cardiac Panel Stat Vital Signs Vital signs: Vital Signs - 8 hr 08/13/21 17:06 08/13/21 17:50 08/13/21 18:00 Temperature 97.2 F L Pulse Rate 66 63 62 Respiratory Rate 20 23 Blood Pressure 152/70 H Pulse Oximetry 100 100 97 08/13/21 18:01 Temperature Pulse Rate 65 Respiratory Rate 17 Blood Pressure 151/74 H Pulse Oximetry 97 MDM - Fall <Lalo Elam DO - Last Filed: 08/13/21 17:38> Lab Data Result diagrams: 08/13/21 17:55 08/13/21 17:55 Labs: Lab Results 08/13/21 08/13/21 Range/Units 17:55 17:55 WBC 7.9 (4.5-11.0) X10^3/uL RBC 3.65 L (4.5-5.9) X10^6/uL Hgb 11.8 L (13.5-17.5) g/dL Hct 34.3 L (41-53) % MCV 94.0 (80-100) fL MCH 32.5 (26-34) PG MCHC 34.5 (30-36) % RDW 14.5 (11.6-14.8) % Plt Count 135 L (150-400) X10^3/uL Neut % (Auto) 50.9 (50-75) % Lymph % (Auto) 36.6 (25-40) % Ashley % (Auto) 9.0 (3-14) % Eos % (Auto) 3.0 (2-4) % Baso % (Auto) 0.5 (0-2) % Neut # (Auto) 4000 (9444-0179) /uL Lymph # (Auto) 2900 (7044-5808) /uL Ashley # (Auto) 700 (0-900) /uL Eos # (Auto) 200 (0-450) /uL Baso # (Auto) 0 (0-100) /uL Sodium 143 (137-145) mmol/L Potassium 5.5 H (3.4-5.1) mmol/L Chloride 112 H (98-107) mmol/L Carbon Dioxide 23 (22-32) mmol/L BUN 60 H (9-20) mg/dL Creatinine 2.64 H (0.66-1.25) mg/dL Estimated GFR 23.2 L (>60) mL/min BUN/Creatinine Ratio 22.7 H (6-22) Glucose 187 H (80-110) mg/dL Calcium 8.7 (8.4-10.2) mg/dL Magnesium 1.9 (1.6-2.3) mg/dL Total Bilirubin 0.3 (0.2-1.3) mg/dL AST 22 (17-59) IU/L ALT 13 (<50) IU/L Alkaline Phosphatase 97 (38-126) U/L Total Creatine Kinase 42 L (55-170) U/L CK-MB (CK-2) TNP CK-MB (CK-2) Rel Index TNP Total Protein 6.7 (6.3-8.2) g/dL Albumin 3.8 (3.5-5.0) g/dL Globulin 2.9 (1.7-4.1) g/dL Albumin/Globulin Ratio 1.3 (1.0-2.8) Lipase 56 (23-300) U/L <Shannon Vickers MD - Last Filed: 08/13/21 18:38> Lab Data Labs: Lab Results 08/13/21 08/13/21 Range/Units 17:55 17:55 WBC 7.9 (4.5-11.0) X10^3/uL RBC 3.65 L (4.5-5.9) X10^6/uL Hgb 11.8 L (13.5-17.5) g/dL Hct 34.3 L (41-53) % MCV 94.0 (80-100) fL MCH 32.5 (26-34) PG MCHC 34.5 (30-36) % RDW 14.5 (11.6-14.8) % Plt Count 135 L (150-400) X10^3/uL Neut % (Auto) 50.9 (50-75) % Lymph % (Auto) 36.6 (25-40) % Ashley % (Auto) 9.0 (3-14) % Eos % (Auto) 3.0 (2-4) % Baso % (Auto) 0.5 (0-2) % Neut # (Auto) 4000 (9254-9308) /uL Lymph # (Auto) 2900 (9603-5193) /uL Ashley # (Auto) 700 (0-900) /uL Eos # (Auto) 200 (0-450) /uL Baso # (Auto) 0 (0-100) /uL Sodium 143 (137-145) mmol/L Potassium 5.5 H (3.4-5.1) mmol/L Chloride 112 H (98-107) mmol/L Carbon Dioxide 23 (22-32) mmol/L BUN 60 H (9-20) mg/dL Creatinine 2.64 H (0.66-1.25) mg/dL Estimated GFR 23.2 L (>60) mL/min BUN/Creatinine Ratio 22.7 H (6-22) Glucose 187 H (80-110) mg/dL Calcium 8.7 (8.4-10.2) mg/dL Magnesium 1.9 (1.6-2.3) mg/dL Total Bilirubin 0.3 (0.2-1.3) mg/dL AST 22 (17-59) IU/L ALT 13 (<50) IU/L Alkaline Phosphatase 97 (38-126) U/L Total Creatine Kinase 42 L (55-170) U/L CK-MB (CK-2) TNP CK-MB (CK-2) Rel Index TNP Total Protein 6.7 (6.3-8.2) g/dL Albumin 3.8 (3.5-5.0) g/dL Globulin 2.9 (1.7-4.1) g/dL Albumin/Globulin Ratio 1.3 (1.0-2.8) Lipase 56 (23-300) U/L Imaging Data CT scan - head: Radiologist's Impression: FINDINGS:? Image quality:? Excellent.? ? CSF spaces:? Basal cisterns are patent.? No extra-axial fluid collections.? Ventricles are normal in size and shape.? ? Brain:? No midline shift.? No intracranial masses or hemorrhage.? No area of hypodensity in a large vascular distribution to suggest acute infarction. Periventricular hypodensity consistent with chronic microvascular ischemic change. Age-related parenchymal loss. ? Skull and face:? Calvarium and visualized facial bones are intact, without suspicious lesions.? ? Sinuses:? Visualized sinuses and mastoids are clear.? ? IMPRESSION:? No acute intracranial abnormality. ? ? Dictated by: Anil Page M.D. on 08/13/2021 at 18:00? ?? Discharge Plan Departure Prescriptions: No Action multivitamin [Daily Multivitamin] Tablet 1 tab PO QAM 0RF atorvastatin 40 mg tablet 40 mg PO QPM 0RF Label Comments: TAKE 1 TABLET (40 MG) BY MOUTH DAILY. amlodipine 2.5 mg tablet 5 mg PO QPM 0RF allopurinol 100 mg tablet 50 mg PO DAILY 0RF Label Comments: TAKE 1/2 TABLET BY MOUTH ONCE A DAY isosorbide mononitrate 60 mg tablet extended release 24 hr 240 mg PO QAM 0RF Label Comments: TAKE 4 TABLETS BY MOUTH EVERY MORNING nystatin 100,000 unit/gram cream 1 applic TOPICAL DAILY 0RF Label Comments: Apply 1 a small amount to affected area twice a day as needed rash warfarin 5 mg tablet 2.5 - 5 mg PO DAILY 0RF Rx Instructions: alternate 2.5 mg with 5mg every other day. nitroglycerin 0.4 mg tablet, sublingual 0.4 mg sublingual Q5M PRN (Reason: Angina) 0RF Label Comments: Place 1 tablet (0.4 mg) under the tongue every 5 minutes as needed for chest pain for up to 3 doses. If no relief, call 911. metoprolol succinate 25 mg tablet extended release 24 hr 37.5 mg PO BID 0RF Label Comments: Take 1 1/2 tablet by mouth every morning AND TAKE 1 AND 1/2 TABLETS BY MOUTH EVERY EVENING insulin aspart U-100 [Novolog Flexpen U-100 Insulin] 100 unit/mL (3 mL) insulin pen See Rx Instructions .ROUTE .COMPLEX 0RF Label Comments: inject 8 to 14 units subcutaneously three times a day Rx Instructions: SS AC Basaglar KwikPen U-100 Insulin 100 unit/mL (3 mL) insulin pen 10 unit SUBCUT BID 0RF cholecalciferol (vitamin D3) 50 mcg (2,000 unit) Capsule 50 mcg PO DAILY 0RF polyethylene glycol 3350 [Miralax] 17 gram Powder In Packet 17 g PO DAILY 0RF Referrals: Myesha Easton MD [Primary Care Provider] -
[2021-08-13 17:50] VITALS: PULSE 63; O2SAT 100
[2021-08-13 18:00] VITALS: PULSE 62; RESP 23; O2SAT 97
[2021-08-13 18:01] VITALS: BP 151/74; PULSE 65; RESP 17; O2SAT 97
[2021-08-13 18:06] LABS: Add Manual Diff / Slide Review NO; Basophils Absolute Auto 0 /uL (0-100); Basophils Percent Auto 0.5 % (0-2); Eosinophils Absolute Auto 200 /uL (0-450); Hematocrit 34.3 % (41-53); Hemoglobin 11.8 g/dL (13.5-17.5); Lymphocytes Absolute Auto 2900 /uL (1100-4500); Lymphocytes Percent Auto 36.6 % (25-40); Mean Corpuscular HGB Conc 34.5 % (30-36); Mean Corpuscular Hemoglobin 32.5 PG (26-34); Monocytes Absolute Auto 700 /uL (0-900); Neutrophils Absolute Auto 4000 /uL (1500-7000); Neutrophils Percent Auto 50.9 % (50-75); Platelet Count 135 X10^3/uL (150-400); Red Blood Cell Count 3.65 X10^6/uL (4.5-5.9); Red Cell Distribution Width 14.5 % (11.6-14.8); White Blood Cell Count 7.9 X10^3/uL (4.5-11.0)
[2021-08-13 18:28] LABS: Alanine Aminotransferase 13 IU/L (<50); Albumin 3.8 g/dL (3.5-5.0); Albumin Globulin Ratio 1.3 (1.0-2.8); Alkaline Phosphatase 97 U/L (38-126); Aspartate Aminotransferase 22 IU/L (17-59); BUN Creatinine Ratio 22.7 (6-22); Bilirubin Total 0.3 mg/dL (0.2-1.3); Blood Urea Nitrogen 60 mg/dL (9-20); Calcium 8.7 mg/dL (8.4-10.2); Carbon Dioxide 23 mmol/L (22-32); Chloride 112 mmol/L (98-107); Creatine Kinase 42 U/L (55-170); Estimated Glomerular Filt Rate 23.2 mL/min (>60); Globulin 2.9 g/dL (1.7-4.1); Glucose 187 mg/dL (80-110); HEMOLYSIS < 15 (0-50); Lipase 56 U/L (23-300); Magnesium 1.9 mg/dL (1.6-2.3); Sodium 143 mmol/L (137-145); Total Protein 6.7 g/dL (6.3-8.2)
[2021-08-13 18:30] VITALS: BP 164/69; PULSE 63; RESP 25; O2SAT 98
[2021-08-13 18:30] LABS: Potassium 5.5 mmol/L (3.4-5.1)
[2021-08-13 18:33] LABS: D Dimer 379 ng/mL (<230)
[2021-08-13 18:39] LABS: Troponin I < 0.012 ng/mL (0.01-0.034)
--- NOTE | 2021-08-13 18:46 | ED_ITS ---
HPI - General Adult General Chief complaint: Trauma Stated complaint: GLF hit head/on blood thinners Time Seen by Provider: 08/13/21 17:05 Source: patient and EMS Mode of arrival: EMS History of Present Illness HPI narrative: 85-year-old gentleman with a history of type 2 diabetes, coronary artery disease, prior pulmonary emboli with chronic anticoagulation on warfarin, chronic kidney disease, known gait disturbance, who was standing in his kitchen turned to the side lost his balance fell hitting his head. He was able to roll over to his knees and work his way back up to standing and is not complaining of any musculoskeletal pain. A few minutes after the incidence he noted that he generally was not feeling well, developed a headache and decided to present to the ER for further evaluation. He did not complain of any visual changes or change to strength in upper lower extremities no change to his baseline gait disturbance. He has not recently had any fevers, cough, chills, abdominal pain, chest pain or palpitations. Related Data Home Medications Medication Instructions Recorded Confirmed allopurinol 100 mg tablet 50 mg PO DAILY 08/13/21 08/13/21 amlodipine 2.5 mg tablet 5 mg PO QPM 08/13/21 08/13/21 atorvastatin 40 mg tablet 40 mg PO QPM 08/13/21 08/13/21 cholecalciferol (vitamin D3) 50 50 mcg PO DAILY 08/13/21 08/13/21 mcg (2,000 unit) capsule insulin aspart U-100 100 unit/mL See Rx Instructions .ROUTE .COMPLEX 08/13/21 08/13/21 (3 mL) subcutaneous pen (Novolog Flexpen U-100 Insulin aspart) insulin glargine 100 unit/mL (3 10 unit SUBCUT BID 08/13/21 08/13/21 mL) subcutaneous pen (Basaglar KwikPen U-100 Insulin) isosorbide mononitrate 60 mg 240 mg PO QAM 08/13/21 08/13/21 tablet,extended release 24 hr metoprolol succinate 25 mg 37.5 mg PO BID 08/13/21 08/13/21 tablet,extended release 24 hr multivitamin 1 tab PO QAM 08/13/21 08/13/21 nitroglycerin 0.4 mg sublingual 0.4 mg SUBLINGUAL Q5M PRN 08/13/21 08/13/21 tablet nystatin 100,000 unit/gram topical 1 applic TOPICAL DAILY 08/13/21 08/13/21 cream polyethylene glycol 3350 17 gram 17 g PO DAILY 08/13/21 08/13/21 oral powder packet (Miralax) warfarin 5 mg tablet 2.5 - 5 mg PO DAILY 08/13/21 08/13/21 Allergies Allergy/AdvReac Type Severity Reaction Status Date / Time metoclopramide [From REGLAN] AdvReac Severe Dyskinesia Verified 08/13/21 17:51 morphine [MORPHINE] AdvReac Unknown Hallucinati Verified 08/13/21 17:51 ons Review of Systems Review of Systems Narrative: Remainder of complete review of systems is otherwise unremarkable except for that included in the HPI. Patient History Medical History Anticoagulation therapy continued upon discharge Arthritis ASCVD (arteriosclerotic cardiovascular disease) Ataxia Chest pain CKD (chronic kidney disease), stage IV Depression with anxiety Gout History of aortic valvular stenosis Hyperlipidemia Hypertension Low back pain Obesity Obstructive sleep apnea Peripheral neuropathy Pulmonary embolism Type II diabetes mellitus Vertigo Vertigo Vitamin D deficiency Surgical History Aortic valve replaced Social History household members: spouse Smoking Status: Former smoker Smoking Status: Former smoker Substance Use Type: does not use Exam Initial Vital Signs Initial Vital Signs: Vital Signs Temperature 97.2 F L 08/13/21 17:06 Pulse Rate 66 08/13/21 17:06 Respiratory Rate 20 08/13/21 17:06 Blood Pressure 152/70 H 08/13/21 17:06 Pulse Oximetry 100 08/13/21 17:06 General: Chronically ill-appearing but in no acute distress. Well-nourished well-developed HEENT: Moist mucous membranes, normal sclera with reactive pupils, head is atraumatic and normocephalic Neck: No JVD, supple, no midline cervical spine tenderness Respiratory: Lungs are clear to auscultation, no wheezing no rales no rhonchi. Full and symmetrical air movement Cardiac: Regular rate and rhythm no murmurs no bruits Abdomen: Soft, nontender, good bowel tones, no flank pain Skin: Warm and dry, no rashes Neurologic: Slightly slowed speech, globally weak but otherwise Grossly sabina rologically intact with no obvious asymmetries or abnormalities Extremities: No trauma, well perfused, no lower extremity edema Psych: Cooperative, appropriate insight and affect Course Orders Ordered: ED Orders 08/13/21 17:10 CT cervical spine wo con Stat CT head/brain wo con Stat XR chest 1V Stat EKG-12 Lead Stat 08/13/21 17:55 Complete Blood Count AUTO DIFF Stat Comprehensive Metabolic Panel Stat D Dimer Stat Lipase Stat Magnesium Stat Troponin & CK Cardiac Panel Stat Vital Signs Vital signs: Vital Signs - 8 hr 08/13/21 17:06 08/13/21 17:50 08/13/21 18:00 Temperature 97.2 F L Pulse Rate 66 63 62 Respiratory Rate 20 23 Blood Pressure 152/70 H Pulse Oximetry 100 100 97 08/13/21 18:01 Temperature Pulse Rate 65 Respiratory Rate 17 Blood Pressure 151/74 H Pulse Oximetry 97 Medical Decision Making Lab Data Result diagrams: 08/13/21 17:55 08/13/21 17:55 Labs: Lab Results 08/13/21 08/13/21 08/13/21 Range/Units 17:55 17:55 17:55 WBC 7.9 (4.5-11.0) X10^3/uL RBC 3.65 L (4.5-5.9) X10^6/uL Hgb 11.8 L (13.5-17.5) g/dL Hct 34.3 L (41-53) % MCV 94.0 (80-100) fL MCH 32.5 (26-34) PG MCHC 34.5 (30-36) % RDW 14.5 (11.6-14.8) % Plt Count 135 L (150-400) X10^3/uL Neut % (Auto) 50.9 (50-75) % Lymph % (Auto) 36.6 (25-40) % Conway % (Auto) 9.0 (3-14) % Eos % (Auto) 3.0 (2-4) % Baso % (Auto) 0.5 (0-2) % Neut # (Auto) 4000 (5503-0900) /uL Lymph # (Auto) 2900 (2878-5717) /uL Conway # (Auto) 700 (0-900) /uL Eos # (Auto) 200 (0-450) /uL Baso # (Auto) 0 (0-100) /uL D-Dimer 379 H (<230) ng/mL Sodium 143 (137-145) mmol/L Potassium 5.5 H (3.4-5.1) mmol/L Chloride 112 H (98-107) mmol/L Carbon Dioxide 23 (22-32) mmol/L BUN 60 H (9-20) mg/dL Creatinine 2.64 H (0.66-1.25) mg/dL Estimated GFR 23.2 L (>60) mL/min BUN/Creatinine Ratio 22.7 H (6-22) Glucose 187 H (80-110) mg/dL Calcium 8.7 (8.4-10.2) mg/dL Magnesium 1.9 (1.6-2.3) mg/dL Total Bilirubin 0.3 (0.2-1.3) mg/dL AST 22 (17-59) IU/L ALT 13 (<50) IU/L Alkaline Phosphatase 97 (38-126) U/L Total Creatine Kinase 42 L (55-170) U/L CK-MB (CK-2) TNP CK-MB (CK-2) Rel Index TNP Troponin I < 0.012 (0.01-0.034) ng/mL Total Protein 6.7 (6.3-8.2) g/dL Albumin 3.8 (3.5-5.0) g/dL Globulin 2.9 (1.7-4.1) g/dL Albumin/Globulin Ratio 1.3 (1.0-2.8) Lipase 56 (23-300) U/L Imaging Data CT scan - head: Radiologist's Impression: FINDINGS:? Image quality:? Excellent.? ? CSF spaces:? Basal cisterns are patent.? No extra-axial fluid collections.? Ventricles are normal in size and shape.? ? Brain:? No midline shift.? No intracranial masses or hemorrhage.? No area of hypodensity in a large vascular distribution to suggest acute infarction. Periventricular hypodensity consistent with chronic microvascular ischemic change. Age-related parenchymal loss. ? Skull and face:? Calvarium and visualized facial bones are intact, without suspicious lesions.? ? Sinuses:? Visualized sinuses and mastoids are clear.? ? IMPRESSION:? No acute intracranial abnormality. ? ? Dictated by: Anil Page M.D. on 08/13/2021 at 18:00? ?? MDM Narrative Medical decision making narrative: 85-year-old gentleman with a mechanical fall with no obvious injury. Minor concussion symptoms post fall and head CT does not suggest any intracranial bleeding. Reviewed signs and symptoms of developing subdural hematoma and reasons to return to the emergency department. At this point there is no indication of preceding event to suggest infection or sepsis, stroke or TIA, acute cardiac arrhythmia or findings that would require hospitalization or furt her workup at this time. Questions are answered patient is safe for home discharge Discharge Plan Departure Patient Disposition: Home Clinical Impression: Anticoagulated on Coumadin Fall Qualifiers: Encounter type: initial encounter Qualified Code(s): W19.XXXA - Unspecified fall, initial encounter Concussion Qualifiers: Encounter type: initial encounter Loss of consciousness presence/duration: without LOC Qualified Code(s): S06.0X0A - Concussion without loss of consciousness, initial encounter Instructions: DI for Concussion Activity Restrictions/Additional Instructions: Thank you for coming in tonight Fortunately, I am finding no life-threatening issues with your workup today. There is no evidence of bleeding inside your head or fractures to your skull. There are no signs of severe infection, worsening of your chronic kidney disease, acute heart attack like syndrome, stroke or additional issues that would require hospitalization at this time. If you have any worsening symptoms or new findings this evening please feel free to call or return to the emergency department. Prescriptions: No Action multivitamin [Daily Multivitamin] Tablet 1 tab PO QAM 0RF atorvastatin 40 mg tablet 40 mg PO QPM 0RF Label Comments: TAKE 1 TABLET (40 MG) BY MOUTH DAILY. amlodipine 2.5 mg tablet 5 mg PO QPM 0RF allopurinol 100 mg tablet 50 mg PO DAILY 0RF Label Comments: TAKE 1/2 TABLET BY MOUTH ONCE A DAY isosorbide mononitrate 60 mg tablet extended release 24 hr 240 mg PO QAM 0RF Label Comments: TAKE 4 TABLETS BY MOUTH EVERY MORNING nystatin 100,000 unit/gram cream 1 applic TOPICAL DAILY 0RF Label Comments: Apply 1 a small amount to affected area twice a day as needed rash warfarin 5 mg tablet 2.5 - 5 mg PO DAILY 0RF Rx Instructions: alternate 2.5 mg with 5mg every other day. nitroglycerin 0.4 mg tablet, sublingual 0.4 mg sublingual Q5M PRN (Reason: Angina) 0RF Label Comments: Place 1 tablet (0.4 mg) under the tongue every 5 minutes as needed for chest pain for up to 3 doses. If no relief, call 911. metoprolol succinate 25 mg tablet extended release 24 hr 37.5 mg PO BID 0RF Label Comments: Take 1 1/2 tablet by mouth every morning AND TAKE 1 AND 1/2 TABLETS BY MOUTH EVERY EVENING insulin aspart U-100 [Novolog Flexpen U-100 Insulin] 100 unit/mL (3 mL) insuli n pen See Rx Instructions .ROUTE .COMPLEX 0RF Label Comments: inject 8 to 14 units subcutaneously three times a day Rx Instructions: SS AC Basaglar KwikPen U-100 Insulin 100 unit/mL (3 mL) insulin pen 10 unit SUBCUT BID 0RF cholecalciferol (vitamin D3) 50 mcg (2,000 unit) Capsule 50 mcg PO DAILY 0RF polyethylene glycol 3350 [Miralax] 17 gram Powder In Packet 17 g PO DAILY 0RF Referrals: Myesha Easton MD [Primary Care Provider] -
[2021-08-13 19:00] VITALS: BP 140/108; PULSE 62; RESP 18; O2SAT 98
== END 2021-08-13 19:20 | disposition home or self-care (01) ==
PROVIDERS: Emergency Medicine; Emergency Provider Emergency Medicine; PCP Student in an Organized Health Care Education/Training Program
DX: S06.0X0A Concussion without loss of consciousness, initial encounter (principal); Z87.891 Personal history of nicotine dependence; Z79.01 Long term (current) use of anticoagulants; W18.30XA Fall on same level, unspecified, initial encounter; Y92.000 Kitchen of unspecified non-institutional (private) residence as the place of occurrence of the external cause; I10 Essential (primary) hypertension; I25.10 Atherosclerotic heart disease of native coronary artery without angina pectoris; Z95.2 Presence of prosthetic heart valve
CPT/HCPCS: 36415; 70450; 71045; 72125; 73502; 73562; 80053; 82550; 83690; 83735; 84484; 85025; 85379; 93005; 93010; 99284

== ENCOUNTER → 2021-09-13 13:39 | Outpatient (CLI) | payer MEDICARE, OTHER, SELFPAY ==
[2021-09-13 15:06] LABS: INR 1.9 (0.9-1.3); Prothrombin Time 21.5 SECONDS (10.1-12.7)
== END ==
PROVIDERS: PCP Student in an Organized Health Care Education/Training Program; Referring Provider Student in an Organized Health Care Education/Training Program; Visit Provider Student in an Organized Health Care Education/Training Program
DX: Z79.01 Long term (current) use of anticoagulants (principal); I26.99 Other pulmonary embolism without acute cor pulmonale
CPT/HCPCS: 36415; 85610

== ENCOUNTER → 2021-10-18 12:34 | Outpatient (CLI) | payer MEDICARE, OTHER, SELFPAY ==
[2021-10-18 13:30] LABS: INR 1.4 (0.9-1.3)
[2021-10-19 02:01] LABS: Albumin 3.8 g/dL (3.5-5.0); BUN Creatinine Ratio 20.1 (6-22); Blood Urea Nitrogen 56 mg/dL (9-20); Calcium 8.7 mg/dL (8.4-10.2); Carbon Dioxide 20 mmol/L (22-32); Chloride 110 mmol/L (98-107); Estimated Glomerular Filt Rate 22 mL/min (>60); Glucose 100 mg/dL (80-110); HEMOLYSIS < 15 (0-50); Phosphorous 3.8 mg/dL (2.3-3.7); Sodium 141 mmol/L (137-145)
[2021-10-20 14:55] LABS: Hemoglobin A1C% w Est Avg Glu 5.4 % (4.0-6.0)
== END ==
PROVIDERS: PCP Student in an Organized Health Care Education/Training Program; Referring Provider Internal Medicine Nephrology; Visit Provider Internal Medicine Nephrology
DX: N18.4 Chronic kidney disease, stage 4 (severe) (principal); E11.9 Type 2 diabetes mellitus without complications; I26.99 Other pulmonary embolism without acute cor pulmonale; Z79.01 Long term (current) use of anticoagulants
CPT/HCPCS: 36415; 80069; 83036; 85610

== ENCOUNTER → 2021-11-18 12:24 | Outpatient (CLI) | payer MEDICARE, OTHER, SELFPAY ==
[2021-11-18 14:58] LABS: Creatinine Urine Random 62.6 mg/dL; INR 1.3 (0.9-1.3); Protein (Total) Urine Random 133 mg/dL (0-12); Protein Creatinine Ratio Urine 2.12 GRAM/24H; Prothrombin Time 14.7 SECONDS (10.1-12.7)
== END ==
PROVIDERS: PCP Family Medicine; Referring Provider Internal Medicine Nephrology; Visit Provider Internal Medicine Nephrology
DX: N18.4 Chronic kidney disease, stage 4 (severe) (principal); Z79.01 Long term (current) use of anticoagulants; E87.5 Hyperkalemia; I26.99 Other pulmonary embolism without acute cor pulmonale
CPT/HCPCS: 36415; 82570; 84156; 85610

== ENCOUNTER → 2022-02-28 09:28 | Outpatient (CLI) | payer MEDICARE, OTHER, SELFPAY ==
[2022-02-28 10:58] LABS: Add Manual Diff / Slide Review NO; Basophils Absolute Auto 0 /uL (0-100); Basophils Percent Auto 0.3 % (0-2); Eosinophils Absolute Auto 400 /uL (0-450); Eosinophils Percent Auto 3.1 % (2-4); Hematocrit 37.6 % (41-53); Hemoglobin 12.8 g/dL (13.5-17.5); Lymphocytes Absolute Auto 6600 /uL (1100-4500); Lymphocytes Percent Auto 51.8 % (25-40); Mean Corpuscular Hemoglobin 31.8 PG (26-34); Mean Corpuscular Volume 93.6 fL (80-100); Monocytes Absolute Auto 1000 /uL (0-900); Monocytes Percent Auto 7.9 % (3-14); Neutrophils Absolute Auto 4700 /uL (1500-7000); Neutrophils Percent Auto 36.9 % (50-75); Platelet Count 159 X10^3/uL (150-400); Red Blood Cell Count 4.01 X10^6/uL (4.5-5.9); Red Cell Distribution Width 14.3 % (11.6-14.8); White Blood Cell Count 12.7 X10^3/uL (4.5-11.0)
[2022-02-28 11:11] LABS: Hemoglobin A1C% w Est Avg Glu 5.2 % (4.0-6.0)
[2022-02-28 12:02] LABS: Alanine Aminotransferase 16 IU/L (<50); Albumin 3.9 g/dL (3.5-5.0); Albumin Globulin Ratio 1.2 (1.0-2.8); Alkaline Phosphatase 124 U/L (38-126); Aspartate Aminotransferase 19 IU/L (17-59); BUN Creatinine Ratio 19.6 (6-22); Bilirubin Total 0.4 mg/dL (0.2-1.3); Blood Urea Nitrogen 59 mg/dL (9-20); Calcium 8.9 mg/dL (8.4-10.2); Carbon Dioxide 16 mmol/L (22-32); Chloride 116 mmol/L (98-107); Cholesterol 130 mg/dL (140-199); Estimated Glomerular Filt Rate 20 mL/min (>60); Globulin 3.3 g/dL (1.7-4.1); Glucose 50 mg/dL (80-110); HDL Cholesterol 25 mg/dL (40-60); HEMOLYSIS < 15 (0-50); LDL Cholesterol Calculated 70 mg/dL (<100); Potassium 4.4 mmol/L (3.4-5.1); Sodium 144 mmol/L (137-145); Total Protein 7.2 g/dL (6.3-8.2); Triglycerides 176 mg/dL (35-150)
[2022-02-28 12:27] LABS: TSH w/ Reflex to FT4 2.58 uIU/mL (0.47-4.68)
[2022-02-28 12:30] LABS: Prostate Specific Antigen Scrn 4.13 ng/mL (0.1-4.0)
== END ==
PROVIDERS: PCP Family Medicine; Referring Provider Family Medicine; Visit Provider Family Medicine
DX: E78.5 Hyperlipidemia, unspecified (principal); E11.9 Type 2 diabetes mellitus without complications; Z12.5 Encounter for screening for malignant neoplasm of prostate
CPT/HCPCS: 36415; 80053; 80061; 83036; 84443; 85025; G0103

== ENCOUNTER → 2022-04-14 12:37 | Outpatient (CLI) | payer MEDICARE, OTHER, SELFPAY ==
[2022-04-14 13:36] LABS: Blood Urea Nitrogen 56 mg/dL (9-20); Calcium 8.6 mg/dL (8.4-10.2); Carbon Dioxide 23 mmol/L (22-32); Chloride 108 mmol/L (98-107); Estimated Glomerular Filt Rate 21 mL/min (>60); Glucose 97 mg/dL (80-110); HEMOLYSIS 33 (0-50); Phosphorous 3.6 mg/dL (2.3-3.7); Potassium 4.6 mmol/L (3.4-5.1); Sodium 139 mmol/L (137-145)
== END ==
PROVIDERS: PCP Family Medicine; Referring Provider Internal Medicine Nephrology; Visit Provider Internal Medicine Nephrology
DX: N18.4 Chronic kidney disease, stage 4 (severe) (principal)
CPT/HCPCS: 36415; 80069

== ENCOUNTER → 2022-04-15 10:29 | Outpatient (CLI) | payer MEDICARE, OTHER, SELFPAY ==
[2022-04-15 11:43] LABS: Creatinine Urine Random 44.6 mg/dL; Protein (Total) Urine Random 187 mg/dL (0-12); Protein Creatinine Ratio Urine 4.19 GRAM/24H
== END ==
PROVIDERS: PCP Family Medicine; Referring Provider Internal Medicine Nephrology; Visit Provider Internal Medicine Nephrology
DX: N18.4 Chronic kidney disease, stage 4 (severe) (principal)
CPT/HCPCS: 82570; 84156

== ENCOUNTER 2022-08-18 13:24 | Observation (INO) | payer MEDICARE, OTHER, SELFPAY ==
[2022-08-18] VITALS (20 sets, daily range): BP systolic 127–166; BP diastolic 58–124; PULSE 53–72; RESP 18; TEMP 36.2–36.6; O2SAT 93–100; BMI 29.5; BMI 29.1
--- NOTE | 2022-08-18 13:38 | DI.CT.S_ITS ---
PROCEDURE: CT HEAD/BRAIN WO CON INDICATIONS: fall on thinners, pain left hip, hematoma right temperal TECHNIQUE: Noncontrast 4.5 mm thick angled axial sections acquired from the foramen magnum to the vertex, with coronal and sagittal reformats. For radiation dose reduction, the following was used: automated exposure control, adjustment of mA and/or kV according to patient size. COMPARISON: [facility], CT, CT HEAD/BRAIN WO CON, 08/13/2021, 17:15. FINDINGS: Image quality: Excellent. CSF spaces: Basal cisterns are patent. No extra-axial fluid collections. Ventricles are normal in size and shape. Brain: No midline shift. No intracranial masses or hemorrhage. Haney-white matter interface is normal. Skull and face: Calvarium and visualized facial bones are intact, without suspicious lesions. Sinuses: Visualized sinuses and mastoids are clear. IMPRESSION: No acute intracranial pathology. Dictated by: Dave Freire M.D. on 08/18/2022 at 14:33 Approved by: Dave Freire M.D. on 08/18/2022 at 14:34
--- NOTE | 2022-08-18 13:38 | DI.CT.S_ITS ---
PROCEDURE: CT CERVICAL SPINE WO CON INDICATIONS: fall on thinners, pain left hip, hematoma right temperal TECHNIQUE: Noncontrast 3 mm thick sections acquired from the skull base to the T4 level. Sagittal and coronal reformats were then constructed. For radiation dose reduction, the following was used: automated exposure control, adjustment of mA and/or kV according to patient size. COMPARISON: [facility], CT, CT CERVICAL SPINE WO CON, 08/13/2021, 17:15. FINDINGS: Image quality: Excellent. Bones: No fractures or dislocations. Visualized superior ribs are intact. Grade 1 anterolisthesis of C7 on T1 due to facet arthrosis. 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 Moderate disc height loss at C5 through T1. Soft tissues: Prevertebral soft tissues are normal in thickness. No paravertebral hematomas. No apical pneumothoraces. IMPRESSION: No acute, displaced fracture or traumatic subluxation. Dictated by: Dave Freire M.D. on 08/18/2022 at 14:31 Approved by: Dave Freire M.D. on 08/18/2022 at 14:32
--- NOTE | 2022-08-18 13:38 | DI.RAD.S_ITS ---
PROCEDURE: XR HIP W PEL IF DONE LT 2V INDICATIONS: fall on thinners, pain left hip, hematoma right temperal TECHNIQUE: AP pelvis with lateral view(s) of the left hip(s). COMPARISON: [facility], [place], XR HIP W PEL IF DONE RT 2V, 08/13/2021, 17:29. FINDINGS: Bones: Intratrochanteric fracture of the left femur, likely extending to the prosthetic. Soft tissues: The visualized bowel gas pattern is normal. No suspicious soft tissue calcifications. IMPRESSION: Intertrochanteric fracture of the left femur, likely extending to the prosthetic. Dictated by: Dave Freire M.D. on 08/18/2022 at 14:30 Approved by: Dave Freire M.D. on 08/18/2022 at 14:31
--- NOTE | 2022-08-18 13:38 | DI.RAD.S_ITS ---
PROCEDURE: XR FEMUR LT MIN 2V INDICATIONS: fall on thinners, pain left hip, hematoma right temperal TECHNIQUE: 2 views of the femur were acquired. COMPARISON: None. FINDINGS: Bones: Intratrochanteric fracture the left hip, likely extending to the prosthetic. Soft tissues: No suspicious soft tissue calcifications or masses. IMPRESSION: Intratrochanteric fracture of the left hip, likely extending to the prosthetic. Dictated by: Dave Freire M.D. on 08/18/2022 at 14:29 Approved by: Dave Freire M.D. on 08/18/2022 at 14:30
--- NOTE | 2022-08-18 14:25 | ED.GENADULT ---
HPI - General Adult General Chief complaint: Trauma Stated complaint: Fall 08/17, femur pain Time Seen by Provider: 08/18/22 13:49 Source: patient and EMS Mode of arrival: EMS Limitations: no limitations History of Present Illness HPI narrative: Patient is an 86-year-old male who is on anticoagulation who is here for evaluation of left hip/femur pain. Apparently yesterday the patient fell while he was at home. He landed on his left hip. Has been unable to stand on his left hip since then. He did hit his head but there has been no loss of consciousness. He uses his walker at home almost exclusively there was concern that he tripped over this. No interventions prior to arrival. Patient's symptoms were not improving today so his brought to the emergency department by EMS. He reports no upper extremity pain. No right lower extremity pain. No chest pain. No shortness of breath. No abdominal pain. Related Data Home Medications Medication Instructions Recorded Confirmed allopurinol 100 mg tablet 50 mg PO DAILY 08/13/21 08/13/21 amlodipine 2.5 mg tablet 5 mg PO QPM 08/13/21 08/13/21 atorvastatin 40 mg tablet 40 mg PO QPM 08/13/21 08/13/21 cholecalciferol (vitamin D3) 50 50 mcg PO DAILY 08/13/21 08/13/21 mcg (2,000 unit) capsule insulin aspart U-100 100 unit/mL See Rx Instructions .Route .COMPLEX 08/13/21 08/13/21 (3 mL) subcutaneous pen (Novolog FlexPen U-100 Insulin aspart) insulin glargine 100 unit/mL (3 10 unit SUBCUT BID 08/13/21 08/13/21 mL) subcutaneous pen (Basaglar KwikPen U-100 Insulin) isosorbide mononitrate 60 mg 240 mg PO QAM 08/13/21 08/13/21 tablet,extended release 24 hr metoprolol succinate 25 mg 37.5 mg PO BID 08/13/21 08/13/21 tablet,extended release 24 hr multivitamin 1 tab PO QAM 08/13/21 08/13/21 nitroglycerin 0.4 mg sublingual 0.4 mg sublingual Q5M PRN Angina 08/13/21 08/13/21 tablet nystatin 100,000 unit/gram topical 1 applic topical DAILY 08/13/21 08/13/21 cream polyethylene glycol 3350 17 gram 17 g PO DAILY 08/13/21 08/13/21 oral powder packet (Miralax) warfarin 5 mg tablet 2.5 - 5 mg PO DAILY 08/13/21 08/13/21 Allergies Allergy/AdvReac Type Severity Reaction Status Date / Time metoclopramide [From REGLAN] AdvReac Severe Dyskinesia Verified 08/18/22 13:37 morphine [MORPHINE] AdvReac Unknown Hallucinati Verified 08/18/22 13:37 ons narcotics AdvReac Severe Hallucinati Uncoded 08/18/22 13:37 ng Review of Systems Review of Systems ROS Unobtainable: All systems reviewed & are unremarkable except as noted in HPI and below Patient History Medical History Anticoagulation therapy continued upon discharge Arthritis ASCVD (arteriosclerotic cardiovascular disease) Ataxia Chest pain CKD (chronic kidney disease), stage IV Depression with anxiety Gout History of aortic valvular stenosis Hyperlipidemia Hypertension Low back pain Obesity Obstructive sleep apnea Peripheral neuropathy Pulmonary embolism Type II diabetes mellitus Vertigo Vertigo Vitamin D deficiency Surgical History Aortic valve replaced Social History household members: spouse Smoking Status: Former smoker Smoking Status: Former smoker alcohol intake frequency: 0-2 drinks per day Substance Use Type: does not use Exam Initial Vital Signs Initial Vital Signs: Vital Signs Pulse Oximetry 93 08/18/22 13:29 Const General: cooperative, comfortable and No ill appearing [facility] Head: contusion (Right forehead) Face and sinus: normal facial exam Chest Chest: No crepitus and No tenderness Resp Effort & Inspection: normal respiratory effort Auscultation: clear to auscultation bilaterally Cardio Rate: regular rate Rhythm: regular rhythm GI Inspection: normal to inspection Palpation: soft and No tender Skin Other: Multiple contusions to the left upper extremity. Contusion to the right forehead. Neuro General: patient alert, patient awake and moves all extremities Speech: speech normal Extrem General: normal to inspection and capillary refill normal Psych Appearance: grossly normal and well kempt Course Orders Ordered: ED Orders 08/18/22 13:38 CT cervical spine wo con Stat CT head/brain wo con Stat XR femur LT min 2V Stat XR hip w pel if done LT 2V Stat EKG-12 Lead Stat 08/18/22 14:20 Complete Blood Count AUTO DIFF Stat Comprehensive Metabolic Panel Stat Lipase Stat Prothrombin Time INR Stat 08/18/22 15:00 CT pelvis wo con Stat 08/18/22 17:00 Urine Microscopic Stat 08/18/22 17:31 COVID19 -Nasal RAPID Stat Vital Signs Vital signs: Vital Signs - 8 hr 08/18/22 13:32 08/18/22 13:29 08/18/22 13:30 Temperature 97.1 F L Pulse Rate 55 L 58 L Respiratory Rate 18 Blood Pressure 145/68 H Pulse Oximetry 99 93 97 Oxygen Delivery Method Room Air 08/18/22 13:31 08/18/22 13:31 08/18/22 14:10 Temperature Pulse Rate 57 L 56 L Respiratory Rate Blood Pressure 145/68 H Pulse Oximetry 97 99 Oxygen Delivery Method Room Air 08/18/22 15:15 08/18/22 15:16 08/18/22 15:16 Temperature Pulse Rate 65 67 Respiratory Rate Blood Pressure 151/70 H Pulse Oximetry 100 100 Oxygen Delivery Method 08/18/22 15:30 08/18/22 15:31 08/18/22 15:31 Temperature Pulse Rate 72 72 Respiratory Rate Blood Pressure 134/58 L Pulse Oximetry 99 99 Oxygen Delivery Method 08/18/22 16:00 08/18/22 16:01 08/18/22 16:01 Temperature Pulse Rate 53 L 53 L Respiratory Rate Blood Pressure 127/58 L Pulse Oximetry 98 98 Oxygen Delivery Method 08/18/22 16:30 08/18/22 16:31 08/18/22 16:31 Temperature Pulse Rate 55 L 55 L Respiratory Rate Blood Pressure 152/67 H Pulse Oximetry 98 98 Oxygen Delivery Method Medical Decision Making Medical Records Medical records reviewed: Yes I reviewed the patient's medical records. Lab Data Lab results reviewed: Yes I reviewed the patient's lab results. 08/18/22 14:20 08/18/22 14:20 Labs: Lab Results 08/18/22 08/18/22 08/18/22 Range/Units 14:20 14:20 14:20 WBC 9.7 (4.5-11.0) X10^3/uL RBC 3.72 L (4.5-5.9) X10^6/uL Hgb 11.8 L (13.5-17.5) g/dL Hct 35.0 L (41-53) % MCV 94.0 (80-100) fL MCH 31.8 (26-34) PG MCHC 33.8 (30-36) % RDW 14.3 (11.6-14.8) % Plt Count 120 L (150-400) X10^3/uL Neut % (Auto) 56.2 (50-75) % Lymph % (Auto) 29.5 (25-40) % [place] % (Auto) 10.7 (3-14) % Eos % (Auto) 3.0 (2-4) % Baso % (Auto) 0.6 (0-2) % Neut # (Auto) 5400 (5831-7444) /uL Lymph # (Auto) 2900 (9051-3643) /uL [place] # (Auto) 1000 H (0-900) /uL Eos # (Auto) 300 (0-450) /uL Baso # (Auto) 100 (0-100) /uL PT 20.9 H (10.1-12.7) SECONDS INR 1.8 H (0.9-1.3) Sodium 137 (137-145) mmol/L Potassium 5.5 H (3.4-5.1) mmol/L Chloride 108 H (98-107) mmol/L Carbon Dioxide 22 (22-32) mmol/L BUN 69 H (9-20) mg/dL Creatinine 2.70 H (0.66-1.25) mg/dL Estimated GFR 22 L (>60) mL/min BUN/Creatinine Ratio 25.6 H (6-22) Glucose 118 H (80-110) mg/dL Calcium 8.6 (8.4-10.2) mg/dL Total Bilirubin 0.4 (0.2-1.3) mg/dL AST 20 (17-59) IU/L ALT 15 (<50) IU/L Alkaline Phosphatase 128 H (38-126) U/L Total Protein 7.4 (6.3-8.2) g/dL Albumin 3.9 (3.5-5.0) g/dL Globulin 3.5 (1.7-4.1) g/dL Albumin/Globulin Ratio 1.1 (1.0-2.8) Lipase 82 (23-300) U/L Urine RBC (0-5/HPF) Urine WBC (0-5/HPF) Urine Bacteria (None) Ur Culture Indicated? 08/18/22 Range/Units 17:00 WBC (4.5-11.0) X10^3/uL RBC (4.5-5.9) X10^6/uL Hgb (13.5-17.5) g/dL Hct (41-53) % MCV (80-100) fL MCH (26-34) PG MCHC (30-36) % RDW (11.6-14.8) % Plt Count (150-400) X10^3/uL Neut % (Auto) (50-75) % Lymph % (Auto) (25-40) % [place] % (Auto) (3-14) % Eos % (Auto) (2-4) % Baso % (Auto) (0-2) % Neut # (Auto) (8778-2814) /uL Lymph # (Auto) (2176-7884) /uL [place] # (Auto) (0-900) /uL Eos # (Auto) (0-450) /uL Baso # (Auto) (0-100) /uL PT (10.1-12.7) SECONDS INR (0.9-1.3) Sodium (137-145) mmol/L Potassium (3.4-5.1) mmol/L Chloride (98-107) mmol/L Carbon Dioxide (22-32) mmol/L BUN (9-20) mg/dL Creatinine (0.66-1.25) mg/dL Estimated GFR (>60) mL/min BUN/Creatinine Ratio (6-22) Glucose (80-110) mg/dL Calcium (8.4-10.2) mg/dL Total Bilirubin (0.2-1.3) mg/dL AST (17-59) IU/L ALT (<50) IU/L Alkaline Phosphatase (38-126) U/L Total Protein (6.3-8.2) g/dL Albumin (3.5-5.0) g/dL Globulin (1.7-4.1) g/dL Albumin/Globulin Ratio (1.0-2.8) Lipase (23-300) U/L Urine RBC 0-1/hpf (0-5/HPF) Urine WBC 0-1/hpf (0-5/HPF) Urine Bacteria None seen (None) Ur Culture Indicated? Cult not indicated Urine Dip Bedside Urine Glucose Negative Bedside Urine Bilirubin - Negative Bedside Urine Ketone - Negative Urine Specific [place] 1.020 Bedside Urine Occult Blood + Bedside Urine pH 5.5 Bedside Urine Protein ++ 100 Bedside Urine Urobilinogen - Negative Bedside Urine Nitrite - Negative Bedside Urine Leukocytes - Negative Esterase Point of care testing: Urine Dip Bedside Urine Glucose Negative Bedside Urine Bilirubin - Negative Bedside Urine Ketone - Negative Urine Specific [place] 1.020 Bedside Urine Occult Blood + Bedside Urine pH 5.5 Bedside Urine Protein ++ 100 Bedside Urine Urobilinogen - Negative Bedside Urine Nitrite - Negative Bedside Urine Leukocytes - Negative Esterase Imaging Data Extremity x-ray #1: Radiologist's Impression: PROCEDURE:? XR HIP W PEL IF DONE LT 2V ? INDICATIONS:? fall on thinners, pain left hip, hematoma right temperal ? TECHNIQUE:? AP pelvis with lateral view(s) of the left hip(s).? ? COMPARISON:? [facility], CR, XR HIP W PEL IF DONE RT 2V, 08/13/2021, 17:29. ? FINDINGS:? ? Bones:? Intratrochanteric fracture of the left femur, likely extending to the prosthetic. ? Soft tissues:? The visualized bowel gas pattern is normal.? No suspicious soft tissue calcifications.? ? ? IMPRESSION:? Intertrochanteric fracture of the left femur, likely extending to the prosthetic. Extremity x-ray #2: Radiologist's Impression: PROCEDURE:? XR FEMUR LT MIN 2V ? INDICATIONS:? fall on thinners, pain left hip, hematoma right temperal ? TECHNIQUE:? 2 views of the femur were acquired.? ? COMPARISON:? None. ? FINDINGS:? ? Bones:? Intratrochanteric fracture the left hip, likely extending to the prosthetic. ? Soft tissues:? No suspicious soft tissue calcifications or masses.? ? IMPRESSION:? Intratrochanteric fracture of the left hip, likely extending to the prosthetic. CT scan - head: Radiologist's Impression: PROCEDURE:? CT HEAD/BRAIN WO CON ? INDICATIONS:? fall on thinners, pain left hip, hematoma right temperal ? TECHNIQUE:? Noncontrast 4.5 mm thick angled axial sections acquired from the foramen magnum to the vertex, with coronal and sagittal reformats.? For radiation dose reduction, the following was used:? automated exposure control, adjustment of mA and/or kV according to patient size.? ? COMPARISON:? [facility], CT, CT HEAD/BRAIN WO CON, 08/13/2021, 17:15. ? FINDINGS:? Image quality:? Excellent.? ? CSF spaces:? Basal cisterns are patent.? No extra-axial fluid collections.? Ventricles are normal in size and shape.? ? Brain:? No midline shift.? No intracranial masses or hemorrhage.? Haney-white matter interface is normal.? ? Skull and face:? Calvarium and visualized facial bones are intact, without suspicious lesions.? ? Sinuses:? Visualized sinuses and mastoids are clear.? ? IMPRESSION:? No acute intracranial pathology.? CT - cervical spine: Radiologist's Impression: PROCEDURE:? CT CERVICAL SPINE WO CON ? INDICATIONS:? fall on thinners, pain left hip, hematoma right temperal ? TECHNIQUE:? Noncontrast 3 mm thick sections acquired from the skull base to the T4 level.? Sagittal and coronal reformats were then constructed.? For radiation dose reduction, the following was used:? automated exposure control, adjustment of mA and/or kV according to patient size.? ? COMPARISON:? [facility], CT, CT CERVICAL SPINE WO CON, 08/13/2021, 17:15. ? FINDINGS:? Image quality:? Excellent.? ? Bones:? No fractures or dislocations.? Visualized superior ribs are intact.? Grade 1 anterolisthesis of C7 on T1 due to facet arthrosis.? 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 Moderate disc height loss at C5 through T1. ? Soft tissues:? Prevertebral soft tissues are normal in thickness.? No paravertebral hematomas.? No apical pneumothoraces.? ? ? IMPRESSION:? No acute, displaced fracture or traumatic subluxation. CT pelvis: Radiologist's Impression: PROCEDURE:? CT PEL WO CON ? INDICATIONS:? L periprosthetic hip fracture ? TECHNIQUE:? Noncontrast 3 mm axial sections acquired through the bony pelvis, with coronal and sagittal reformatting.? ? COMPARISON:? [facility], CT, ABDOMEN/PELVIS WITHOUT CONTRAS, 07/16/2016, 0:19.? [facility], CR, XR HIP W PEL IF DONE LT 2V, 08/18/2022, 13:38. ? FINDINGS:? Image quality:? Excellent.? ? Bones:? 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 No evidence of hardware failure or loosening.? There is a periprosthetic trochanteric/subtrochanteric fracture of the left hip.? This involves the lateral cortex.? There is no dislocation or other fracture. ? Soft tissues:? Again noted is a multi-septated left lower pole renal cyst.? There is a moderately large rectal fecal impaction. ? ? IMPRESSION:? ? 1. Marta prosthetic trochanteric/subtrochanteric fracture of the left hip. ? 2. Rectal fecal impaction. ECG Data Attestation: I personally reviewed and interpreted this ECG as follows: Interpretation: Sinus rhythm Ventricular rate 66 Wide QRS with a QRS duration of 160 milliseconds Left bundle-branch block MDM Narrative Medical decision making narrative: Workup here in the emergency department is positive for left-sided periprosthetic intertrochanteric hip fracture. I did discuss the case with Dr. Caldwell who is on-call for Orthopedics who did review the x-ray. He recommended the CT scan. After reviewing the CT scan result he stated this would be a nonoperative injury and the patient could be 50% weight-bearing with a walker. Patient has baseline stability issues. He uses a walker at baseline. Here in the emergency department he was unable to put any pressure on his left hip. Patient has a history of responding very poorly to opioid pain medications so would like to avoid those at all cost. Given the fact that the patient can not put any weight on his left leg he does require admission to the hospital. I did discuss the case with Dr. Joyce who is on-call for the patient's primary doctor. We will admit for further evaluation and treatment. Discussed the need for admission with the patient and his at bedside. He expressed understanding and agreement. Discharge Plan Departure Patient Disposition: Admitted As Inpatient Clinical Impression: Closed intertrochanteric fracture of left hip Admit Date/Time: 08/18/22 17:48 Admit Provider: [place] Joyce
[2022-08-18 14:26] LABS: Add Manual Diff / Slide Review NO; Basophils Absolute Auto 100 /uL (0-100); Basophils Percent Auto 0.6 % (0-2); Eosinophils Absolute Auto 300 /uL (0-450); Hemoglobin 11.8 g/dL (13.5-17.5); Lymphocytes Absolute Auto 2900 /uL (1100-4500); Lymphocytes Percent Auto 29.5 % (25-40); Mean Corpuscular HGB Conc 33.8 % (30-36); Mean Corpuscular Hemoglobin 31.8 PG (26-34); Monocytes Absolute Auto 1000 /uL (0-900); Monocytes Percent Auto 10.7 % (3-14); Neutrophils Absolute Auto 5400 /uL (1500-7000); Neutrophils Percent Auto 56.2 % (50-75); Platelet Count 120 X10^3/uL (150-400); Red Blood Cell Count 3.72 X10^6/uL (4.5-5.9); Red Cell Distribution Width 14.3 % (11.6-14.8); White Blood Cell Count 9.7 X10^3/uL (4.5-11.0)
[2022-08-18 14:35] LABS: INR 1.8 (0.9-1.3); Prothrombin Time 20.9 SECONDS (10.1-12.7)
[2022-08-18 14:38] LABS: Alanine Aminotransferase 15 IU/L (<50); Albumin 3.9 g/dL (3.5-5.0); Albumin Globulin Ratio 1.1 (1.0-2.8); Alkaline Phosphatase 128 U/L (38-126); Aspartate Aminotransferase 20 IU/L (17-59); BUN Creatinine Ratio 25.6 (6-22); Bilirubin Total 0.4 mg/dL (0.2-1.3); Blood Urea Nitrogen 69 mg/dL (9-20); Calcium 8.6 mg/dL (8.4-10.2); Carbon Dioxide 22 mmol/L (22-32); Chloride 108 mmol/L (98-107); Estimated Glomerular Filt Rate 22 mL/min (>60); Globulin 3.5 g/dL (1.7-4.1); Glucose 118 mg/dL (80-110); HEMOLYSIS < 15 (0-50); Lipase 82 U/L (23-300); Potassium 5.5 mmol/L (3.4-5.1); Sodium 137 mmol/L (137-145); Total Protein 7.4 g/dL (6.3-8.2)
--- NOTE | 2022-08-18 15:00 | DI.CT.S_ITS ---
PROCEDURE: CT PEL WO CON INDICATIONS: L periprosthetic hip fracture TECHNIQUE: Noncontrast 3 mm axial sections acquired through the bony pelvis, with coronal and sagittal reformatting. COMPARISON: [facility], CT, ABDOMEN/PELVIS WITHOUT CONTRAS, 07/16/2016, 0:19. [facility], CR, XR HIP W PEL IF DONE LT 2V, 08/18/2022, 13:38. FINDINGS: Image quality: Excellent. Bones: Total bilateral hip prostheses are present. No evidence of hardware failure or loosening. There is a periprosthetic trochanteric/subtrochanteric fracture of the left hip. This involves the lateral cortex. There is no dislocation or other fracture. Soft tissues: Again noted is a multi-septated left lower pole renal cyst. There is a moderately large rectal fecal impaction. IMPRESSION: 1. Marta prosthetic trochanteric/subtrochanteric fracture of the left hip. 2. Rectal fecal impaction. Dictated by: Carlos Cobos M.D. on 08/18/2022 at 16:26 Approved by: Carlos Cobos M.D. on 08/18/2022 at 16:38
[2022-08-18 17:29] LABS: Bacteria Urine None Seen; Culture Indicated Urine Cult Not Indicated; RBC Urine 0-1/HPF (0-5/HPF); WBC Urine 0-1/HPF (0-5/HPF)
--- NOTE | 2022-08-18 17:30 | PC.NURSE ---
Per Dr. Mc order, attempted to stand pt with walker. Pt reports severe pain upon standing, only able to remain standing approximately 30 seconds before sitting r/t pain. Assisted back to stretcher and Dr. Mc notified.
[2022-08-18 17:52] LABS: COVID19 -Nasal RAPID Negative (Negative)
--- NOTE | 2022-08-18 21:38 | PC.NURSE ---
Patients stated concern for home medications not starting until tomorrow, this RN spoke to Dr. Joyce at 2120. Dr made aware of HR 57 and BP 166/64. Agreed to hold metoprolol, start amplodipine, atorvastatin, and gabapentin NOW. Orders placed and pt updated on care plan.
[2022-08-18] MEDS: ATORVASTATIN 20 MG TABLET 40 MG PO (21:43)
[2022-08-18] MEDS: AMLODIPINE 5 MG TABLET PO (21:44)
[2022-08-18] MEDS: GABAPENTIN 100 MG CAPSULE PO (21:44)
[2022-08-18] MEDS: ACETAMINOPHEN 325 MG TABLET 650 MG PO (21:44)
[2022-08-18] MEDS: INSULIN GLARGINE 100 UNIT/ML 3ML PEN 10 UNIT SUBCUT (21:45)
[2022-08-19] VITALS (7 sets, daily range): BP systolic 120–151; BP diastolic 59–76; PULSE 54–94; RESP 16–18; TEMP 36.1–36.3; O2SAT 96–98
[2022-08-19] MEDS: PANTOPRAZOLE DR 20 MG TABLET PO (05:53)
[2022-08-19 06:28] LABS: Add Manual Diff / Slide Review NO; Basophils Absolute Auto 100 /uL (0-100); Basophils Percent Auto 0.6 % (0-2); Eosinophils Absolute Auto 300 /uL (0-450); Eosinophils Percent Auto 3.9 % (2-4); Hematocrit 32.3 % (41-53); Hemoglobin 10.9 g/dL (13.5-17.5); Lymphocytes Absolute Auto 2900 /uL (1100-4500); Lymphocytes Percent Auto 34.3 % (25-40); Mean Corpuscular HGB Conc 33.6 % (30-36); Mean Corpuscular Hemoglobin 31.8 PG (26-34); Mean Corpuscular Volume 94.7 fL (80-100); Monocytes Absolute Auto 1000 /uL (0-900); Monocytes Percent Auto 11.6 % (3-14); Neutrophils Absolute Auto 4200 /uL (1500-7000); Neutrophils Percent Auto 49.6 % (50-75); Platelet Count 100 X10^3/uL (150-400); Red Blood Cell Count 3.42 X10^6/uL (4.5-5.9); White Blood Cell Count 8.5 X10^3/uL (4.5-11.0)
[2022-08-19 06:38] LABS: Alanine Aminotransferase 13 IU/L (<50); Albumin 3.3 g/dL (3.5-5.0); Alkaline Phosphatase 97 U/L (38-126); Aspartate Aminotransferase 17 IU/L (17-59); BUN Creatinine Ratio 25.1 (6-22); Bilirubin Total 0.4 mg/dL (0.2-1.3); Blood Urea Nitrogen 68 mg/dL (9-20); Calcium 8.3 mg/dL (8.4-10.2); Carbon Dioxide 19 mmol/L (22-32); Chloride 113 mmol/L (98-107); Estimated Glomerular Filt Rate 22 mL/min (>60); Globulin 3.3 g/dL (1.7-4.1); Glucose 85 mg/dL (80-110); HEMOLYSIS < 15 (0-50); Potassium 4.8 mmol/L (3.4-5.1); Sodium 140 mmol/L (137-145); Total Protein 6.6 g/dL (6.3-8.2)
--- NOTE | 2022-08-19 08:39 | P.HP_ITS ---
History of Present Illness History of Present Illness Date Patient Seen: 08/18/22 Time Patient Seen: 08:39 Date of Onset of Symptoms: 08/18/22 Chief complaint: Fall 08/17, femur pain Narrative: Patient is an 86-year-old gentleman patient of my partner who apparently in his usual state of health until Thursday when he had a fall. Unclear what happened he feels like he just lost his balance but he does not truly know. Had no chest pain palpitations or other changes. Had been feeling pretty well. Had immediate right hip pain. Also hit his head. Has no other significant new change. Due to the fact that he can put weight on his leg and was having extreme pain he was brought to the emergency room. He is otherwise been feeling well. He currently has no headache. No pain unless he moves his leg. No numbness no tingling no bowel or bladder changes. He is had no fevers no chills no other change. Patient has anticoagulation for his aortic valve. No other changes. [facility] Medical History Anticoagulation therapy continued upon discharge Arthritis ASCVD (arteriosclerotic cardiovascular disease) Ataxia Chest pain CKD (chronic kidney disease), stage IV Depression with anxiety Gout History of aortic valvular stenosis Hyperlipidemia Hypertension Low back pain Obesity Obstructive sleep apnea Peripheral neuropathy Pulmonary embolism Type II diabetes mellitus Vertigo Vertigo Vitamin D deficiency Surgical History Aortic valve replaced Social History household members: spouse Smoking Status: Former smoker alcohol intake: never Meds Home Medications and Allergies Home Medications Medication Instructions Recorded Confirmed Type allopurinol 100 mg tablet 50 mg PO DAILY 08/13/21 08/18/22 History amlodipine 2.5 mg tablet 5 mg PO QPM 08/13/21 08/18/22 History atorvastatin 40 mg tablet 40 mg PO QPM 08/13/21 08/18/22 History cholecalciferol (vitamin D3) 50 50 mcg PO DAILY 08/13/21 08/18/22 History mcg (2,000 unit) capsule insulin aspart U-100 100 unit/mL See Rx Instructions .Route .COMPLEX 08/13/21 08/18/22 History (3 mL) subcutaneous pen (Novolog FlexPen U-100 Insulin aspart) insulin glargine 100 unit/mL (3 10 unit SUBCUT BID 08/13/21 08/18/22 History mL) subcutaneous pen (Basaglar KwikPen U-100 Insulin) metoprolol succinate 25 mg 37.5 mg PO BID 08/13/21 08/18/22 History tablet,extended release 24 hr multivitamin 1 tab PO QAM 08/13/21 08/18/22 History polyethylene glycol 3350 17 gram 17 g PO DAILY 08/13/21 08/18/22 History oral powder packet (Miralax) warfarin 5 mg tablet 2.5 - 5 mg PO DAILY 08/13/21 08/18/22 History aspirin 81 mg tablet 81 mg PO DAILY 08/18/22 08/18/22 History gabapentin 100 mg capsule 100 mg PO QPM 08/18/22 08/18/22 History isosorbide mononitrate 60 mg 80 mg PO DAILY 08/18/22 08/18/22 History tablet,extended release 24 hr sertraline 100 mg tablet 125 mg PO DAILY 08/18/22 08/18/22 History Allergies Allergy/AdvReac Type Severity Reaction Status Date / Time metoclopramide [From REGLAN] AdvReac Severe Dyskinesia Verified 08/18/22 13:37 morphine [MORPHINE] AdvReac Unknown Hallucinati Verified 08/18/22 13:37 ons narcotics AdvReac Severe Hallucinati Uncoded 08/18/22 13:37 ng Review of Systems Review of Systems Narrative: See above Exam Vital Signs (past 8 hours): - 08/19/22 01:30 Temperature 97 F L Pulse Rate 57 L Respiratory Rate 16 Blood Pressure 123/61 Pulse Oximetry 96 Oxygen Delivery Method CPAP Oxygen Flow Rate 0 Narrative Exam Narrative: Alert elderly male lying comfortably in bed no acute distress Has small bruise right above his right eye. But no tenderness on his face ot herwise. Scope was otherwise unremarkable. Pupils are equal and responsive to light. No jaw pain neck supple without adenopathy lungs are clear heart is regular rate and rhythm with unchanged murmur abdomen is soft positive bowel sounds nontender extremities without cyanosis clubbing edema did not rotate hip. Neurologic exam is nonfocal. Objective Labs 08/19/22 05:52 08/19/22 05:52 Labs: Laboratory Results - last 24 hr 08/18/22 08/18/22 08/18/22 14:20 14:20 14:20 WBC 9.7 RBC 3.72 L Hgb 11.8 L Hct 35.0 L MCV 94.0 MCH 31.8 MCHC 33.8 RDW 14.3 Plt Count 120 L Neut % (Auto) 56.2 Lymph % (Auto) 29.5 [place] % (Auto) 10.7 Eos % (Auto) 3.0 Baso % (Auto) 0.6 Neut # (Auto) 5400 Lymph # (Auto) 2900 [place] # (Auto) 1000 H Eos # (Auto) 300 Baso # (Auto) 100 PT 20.9 H INR 1.8 H Sodium 137 Potassium 5.5 H Chloride 108 H Carbon Dioxide 22 BUN 69 H Creatinine 2.70 H Estimated GFR 22 L BUN/Creatinine Ratio 25.6 H Glucose 118 H Calcium 8.6 Total Bilirubin 0.4 AST 20 ALT 15 Alkaline Phosphatase 128 H Total Protein 7.4 Albumin 3.9 Globulin 3.5 Albumin/Globulin Ratio 1.1 Lipase 82 Urine RBC Urine WBC Urine Bacteria Ur Culture Indicated? SARS-CoV-2 (PCR) 08/18/22 08/18/22 08/19/22 17:00 17:31 05:52 WBC 8.5 RBC 3.42 L Hgb 10.9 L Hct 32.3 L MCV 94.7 MCH 31.8 MCHC 33.6 RDW 14.0 Plt Count 100 L Neut % (Auto) 49.6 L Lymph % (Auto) 34.3 [place] % (Auto) 11.6 Eos % (Auto) 3.9 Baso % (Auto) 0.6 Neut # (Auto) 4200 Lymph # (Auto) 2900 [place] # (Auto) 1000 H Eos # (Auto) 300 Baso # (Auto) 100 PT INR Sodium Potassium Chloride Carbon Dioxide BUN Creatinine Estimated GFR BUN/Creatinine Ratio Glucose Calcium Total Bilirubin AST ALT Alkaline Phosphatase Total Protein Albumin Globulin Albumin/Globulin Ratio Lipase Urine RBC 0-1/hpf Urine WBC 0-1/hpf Urine Bacteria None seen Ur Culture Indicated? Cult not indicated SARS-CoV-2 (PCR) Negative 08/19/22 05:52 WBC RBC Hgb Hct MCV MCH MCHC RDW Plt Count Neut % (Auto) Lymph % (Auto) [place] % (Auto) Eos % (Auto) Baso % (Auto) Neut # (Auto) Lymph # (Auto) [place] # (Auto) Eos # (Auto) Baso # (Auto) PT INR Sodium 140 Potassium 4.8 Chloride 113 H Carbon Dioxide 19 L BUN 68 H Creatinine 2.71 H Estimated GFR 22 L BUN/Creatinine Ratio 25.1 H Glucose 85 Calcium 8.3 L Total Bilirubin 0.4 AST 17 ALT 13 Alkaline Phosphatase 97 Total Protein 6.6 Albumin 3.3 L Globulin 3.3 Albumin/Globulin Ratio 1.0 Lipase Urine RBC Urine WBC Urine Bacteria Ur Culture Indicated? SARS-CoV-2 (PCR) Assessment & Plan Assessment & Plan narrative: Left hip fracture in hip with previous replacement. Orthopedist was contacted and felt like it would be adequate to rehab with no surgery. Patient understands. At this point patient was unable to ambulate and will get PT OT evaluation. Apparently can give 50% weight bearing and see how the day goes. If unable to slowly work towards home care will need placement. Coronary artery disease stable. Diabetes will cover with Lantus as usual and sliding scale. History of aortic valve. Continue Coumadin. Will have to follow INR tomorrow. Re-evaluate. May need to increase his Coumadin. Would like to hold 1 day. GI prophylaxis no need at this time. Code status. Pulse form from clinic says no code. Will follow. Disposition. Will have to see how today goes. May need placement will see how he does certainly 5th PT and OT will be very significant in this. Quality VTE Deep Vein Thrombosis/Pulmonary Embolism Present on Admission: No
[2022-08-19] MEDS: SERTRALINE 50 MG TABLET 125 MG PO (09:40)
[2022-08-19] MEDS: METOPROLOL ER 25 MG TABLET 37.5 MG PO ×2 (09:41→20:57)
[2022-08-19] MEDS: ASPIRIN 81 MG CHEW TAB PO (09:43)
[2022-08-19] MEDS: CHOLECALCIFEROL (VITAMIN D3) 1,000 UNIT TABLET 2000 UNIT PO (09:43)
[2022-08-19] MEDS: ACETAMINOPHEN 325 MG TABLET 650 MG PO (09:43)
[2022-08-19] MEDS: MULTIVITAMIN 1 TABLET 1 TAB PO (09:43)
[2022-08-19] MEDS: allopurinoL 100 MG TABLET 50 MG PO (09:44)
[2022-08-19] MEDS: polyethylene glycoL 3350 17 GM POWD.PACK PO (09:44)
[2022-08-19] MEDS: INSULIN GLARGINE 100 UNIT/ML 3ML PEN 10 UNIT SUBCUT ×2 (09:45→20:57)
--- NOTE | 2022-08-19 11:02 | PT.IIE ---
Current Diagnoses Fracture of unspecified part of neck of left femur, initial encounter for closed fracture (08/18/22) Surgical History (Last Reviewed 08/19/22 @ 08:42 by Mod[place] Joyce MD) Aortic valve replaced Medical History (Last Reviewed 08/19/22 @ 08:42 by Modesto Joyce MD) Anticoagulation therapy continued upon discharge Arthritis ASCVD (arteriosclerotic cardiovascular disease) Ataxia Chest pain CKD (chronic kidney disease), stage IV Depression with anxiety Gout History of aortic valvular stenosis Hyperlipidemia Hypertension Low back pain Obesity Obstructive sleep apnea Peripheral neuropathy Pulmonary embolism Type II diabetes mellitus Vertigo Vertigo Vitamin D deficiency Physical Therapy Inpatient Evaluation/Re-Eval M1 PT/OT-IP Prior Functional Status Start: 08/19/22 08:06 Freq: NEEDED Status: Active Protocol: Document 08/19/22 10:44 [facility] (Rec: 08/19/22 11:00 [facility] [id number]) Medical Review Prior Functional Status Medical History Reviewed Yes Diet/Fluid Consistency Regular Communication No limitations except [place], wears federico hearing aids Mobility and Gait no limitations, no device, has 4WW, to bring in Activities of Daily Living and IADL's indep Social History Household Members spouse Living Arrangements House Number of Floors (Floors) One Floor Number of Stairs To Enter/Railing? 0 stairs Home Environment Standard Height Toilet,Tub/ Shower Home Equipment Four Wheel Walker,Grab Bars Near Toilet,Grab Bars In Shower M2 PT-IP Current Condition Start: 08/19/22 08:06 Freq: NEEDED Status: Active Protocol: Document 08/19/22 10:44 SAK (Rec: 08/19/22 11:00 [facility] [id number]) Physical Therapy Current Condition Current Condition Evaluation Date 08/19/22 Treatment Diagnosis left hip fracure Onset Date 08/18/22 M3 PT-IP Subjective Start: 08/19/22 08:06 Freq: NEEDED Status: Active Protocol: Document 08/19/22 10:44 SAK (Rec: 08/19/22 11:00 [facility] [id number]) Subjective Physical Therapy Visit Type Type Initial Evaluation Visit Start Time 10:15 Visit Stop Time 10:44 Total Visit Minutes 29 Number of SEAT NAILER Visits 0 Physical Therapy Visit Comments Patient Comments Patient reports no pain laying in bed, states was 14/10 when tried to stand yesterday in ER Patient Goals discharge home with assist of Therapy Pain Assessment Pain When Pain Assessed At Rest Location Left hip / femur Intensity 5 Description Aching,Pressure,Spasm,With Movement Pain Management Techniques Timing of Activity with Medications M4 PT-IP Mobility and Gait Start: 08/19/22 08:06 Freq: NEEDED Status: Active Protocol: Document 08/19/22 10:44 [facility] (Rec: 08/19/22 11:00 [facility] [id number]) PT-Bed Mobility Assessment Supine to Sit Supine to Sit Moderate Assistance Scooting Scooting to Edge of Bed Contact Guard Assistance PT-Transfer Assessment Sit to and From Stand Sit to and from Stand Moderate Assistance Equipment Transfer Assistive Device Gait Belt,Front Wheeled Walker Transfers Transfer Destination Chair Transfer Technique Stand Step Pivot Transfer Ability Level of Assist Moderate Assistance Comments Mobility Comments Patient required moderate physical assist and cues for hand placement, left LE in front with transfers 50% WB allowed. Gait Assessment Gait Gait Assistance Required: Moderate Assistance Distance (Feet) 3 Able to Maintain Weight Bearing Status Yes During Gait Assistive Devices Assistive Device Gait Belt,Front Wheeled Walker Gait Deviations General Gait Pattern Antalgic Factors Limiting Gait Function Factors Limiting Gait Function Decreased Strength,Pain Comments Gait Comments Cues for 50% WB, support with hands, small steps. Stair Climbing Assessment Comments Stair Climbing Comments no stairs at home PT-Balance Assessment Sitting Balance and Reactions Static Sitting Balance Ability Normal Dynamic Sitting Balance Ability Normal Standing Balance and Reactions Static Standing Balance Ability Fair Dynamic Standing Balance Ability Fair Device Used FWW M5 PT-IP Objective Assessments Start: 08/19/22 08:06 Freq: NEEDED Status: Active Protocol: Document 08/19/22 10:44 [facility] (Rec: 08/19/22 11:00 [facility] [id number]) Orientation Orientation/Cognition Level of Alertness Alert Orientation Name,Day of Week,Place, Situation Language Function Ability No Deficits Noted,Hard of Hearing Safety Awareness Understands Safety Issues Memory Description No Deficits Noted Gross Range of Motion Upper Extremity ROM Assessment Within Functional Limits Lower Extremity ROM Assessment Left Impaired Strength Upper Extremity Strength Assessment Within Functional Limits Lower Extremity Strength Assessment Left Impaired Comments Strength Comments No MMT performed. Patient able to perform ankle pumps federico ankles, needed mod assist with left LE supine to sit. Indep LAQ federico LE's Coordination Assessment Gross Coordination Gross Coordination WNL Sensation Assessment Sensation Gross Sensation WNL M6 PT-IP Treatment Start: 08/19/22 08:06 Freq: NEEDED Status: Active Protocol: Document 08/19/22 10:44 [facility] (Rec: 08/19/22 11:00 [facility] [id number]) Physical Therapy Treatment Education Education Provided Precautions,Weight Bearing Status,Safety M7 PT-IP Assessment and Plan Start: 08/19/22 08:06 Freq: NEEDED Status: Active Protocol: Document 08/19/22 10:44 [facility] (Rec: 08/19/22 11:00 [facility] [id number]) PT Summary Assessment and Plan Potential Rehabilitation Potential Good Status of Condition at Evaluation Evolving Summary Impairments Pain,Strength,Bed Mobility, Transfers,Gait,Activity Tolerance Assessment Summary Patient seen for PT evaluation s/p left hip fracture sustained 08/18/22. Fracture deemed non-operative by orthopedist, weight-bearing status ordered 50% left LE. Patient reported minimal pain when supine in bed, required mod assist for bed mobility, transfers, and gait/transfer to bedside chair with FWW 50% WB left LE. He has no stairs at home that he will need to negotiate. Patient reported less pain today than yesterday when trying to move, didn't c /o pain during evaluation, but did report pain 14/10 after transfer to chair despite denying inc pain during mobility. Patient adamant that he wants to be discharged home and have Home Health PT as he has had with prior surgeries, has available to assist. Verbalized understanding that his discharge destination will depend on his mobility needs Goals Bed Mobility Goal Independent,Standby Assistance Transfer Goal Independent,Standby Assistance Gait Goal Independent,Standby Assistance Gait Distance 50 Days to Meet Goals 5 Frequency of Treatment Frequency Of Treatment Twice a Day Treatment Plan Physical Therapy Treatment Plan Bed Mobility Training,Transfer Training,Gait Training, Therapeutic Exercise,Discharge Planning,Hot or Cold Pack Other Recommendations and Next Treatment 50% weight-bearing Focus Weight Bearing Status Weight Bearing Status Partial Weight Bearing Allowed Weight Bearing Amount (enter % 50% or #) (%) Recommendations To Nursing Amount of Assist Needed 2 Person Assist Discharge Recommendations PT Discharge Recommendations Home Health,Home vs SNF,SNF vs Acute Rehab Transportation Needs at Discharge Private Vehicle,Wheelchair/ Cabulance
--- NOTE | 2022-08-19 12:04 | CM.DANOTE ---
Initial DCP Assessment Note Patient is an 86 yo male, resident of [place], arrives to the ER after GLF and subsequent left hip fx that has been determined to be non-operable> Ortho group has consulted, 50% weight bearing on the left side recommended Patient was being prepared for discharge home from the ER when he complained of 14 out of 10 pain when attempting to stand. Patient brought to the acute care floor under an observation status for pain management and PT/OT evals. PT eval this morning identifies two person assist, patient made it from his bed to the chair this morning. Home w/ HH vs SNF recommended PCP Dr Tabitha PEGUERO/[facility] Conversation w/patient and spouse Jacy this morning; introduced self and role. Spoke at length about observation vs inpatient and how observation status effects patient's Medicare SNF benefit, patient will need to pay privately for SNF. Patient A+O, speech is slow and affect is very flat. Patient is adamantly refusing SNF at this time however spouse is challenging patient- she asks that he consider his and her safety if returning home while patient requiring 2 person assist Karen Morales driving up from [place] to assist through the week and weekend. Discussed home health and machine stemmer options Spouse tells this SHIPWRIGHT SUPERVISOR she will consider the dispo options and discuss w/her -the patient. Spouse understands that at this time, they will need to pay privately for SNF r/t OBS status. Spouse asks to speak with someone in the Ortho team which this SHIPWRIGHT SUPERVISOR relayed to Ortho PA Walker Encouraged spouse to consider that patient may be discharged as early as tomorrow, CM team following closely to assist in coordination of DCP RANDAL Leonardo Discharge Planning/Care Management CM Discharge Assessment Start: 08/19/22 11:53 Freq: Status: Active Protocol: Document 08/19/22 11:53 [facility] (Rec: 08/19/22 12:04 [facility] [id number]) Discharge Planning Assessment Assigned Stonemason Helper RANDAL Giles DPOA/Assigned Designee Name Jacy Sánchez, spouse Contact Information [phone] Advance Directives? Yes Advance Directives on File Yes: pt states is on file from previous admission History Provided By Patient,Significant Other, Medical Record Prior Living Arrangements House Household Members spouse Type of transporation used prior to Relies on Others admit Independent with ADL's Yes Is patient alert and oriented? Yes Needs Assistance With Meal Prep,Managing Medications ,Home Chores / Shopping Comment No stairs at home Barriers to Discharge Yes Comment See narrative Discharge Plan Home with Home Health Transportation Arrangement Spouse vs cabulance Additional Comment Patient and spouse still discussing the plan. Following closely for HH vs SNF referral. SNF will need to be paid for privately
--- NOTE | 2022-08-19 14:20 | PT.IPTN ---
Current Diagnoses Fracture of unspecified part of neck of left femur, initial encounter for closed fracture (08/18/22) Physical Therapy Treatment Note M2 PT-IP Current Condition Start: 08/19/22 08:06 Freq: NEEDED Status: Active Protocol: Document 08/19/22 10:44 [facility] (Rec: 08/19/22 11:00 [facility] [id number]) Physical Therapy Current Condition Current Condition Evaluation Date 08/19/22 Treatment Diagnosis left hip fracure Onset Date 08/18/22 M3 PT-IP Subjective Start: 08/19/22 08:06 Freq: NEEDED Status: Active Protocol: Document 08/19/22 14:25 TS (Rec: 08/19/22 14:45 TS [id number]) Subjective Physical Therapy Visit Type Type Treatment Note Visit Start Time 13:58 Visit Stop Time 14:20 Total Visit Minutes 22 Number of SOLAR FIELD SERVICE TECHNICIAN Visits 1 Physical Therapy Visit Comments Patient Comments Pt reports pain is feeling better this afternoon, wants to go home. M4 PT-IP Mobility and Gait Start: 08/19/22 08:06 Freq: NEEDED Status: Active Protocol: Document 08/19/22 14:25 TS (Rec: 08/19/22 14:45 [facility] [id number]) PT-Bed Mobility Assessment Sit to Supine Sit to Supine Moderate Assistance Scooting Scooting Up and Down in Bed Standby Assistance PT-Transfer Assessment Sit to and From Stand Sit to and from Stand Minimal Assistance,Maximum Assistance,1 Person Assistance ,2 Person Assistance Equipment Transfer Assistive Device Gait Belt,Front Wheeled Walker Comments Mobility Comments Pt found resting in bed, agreeable to PT session. PT attempted sit to stand from chair x2 MaxA 1, could not come fully into standing, Sit to stand x1 MaxA x2 from chair with 4ww, pt declined FWW. Pt ambulated ModA around bed ~12 ' before requiring rest break sitting on bed. Pt performed sit to stand x1 from bed Tom (higher surface) in 4ww, provided cues for BUE support pushing from bed. Pt sidestepped EOB x5 w/4ww, stand to sit CGA. Sit to supine ModA for LEs back in bed. Pt scooted to HOB SBA, provided tactile cues and hand over hand assist for use of handrails to pull self up. Pt was left in bed with call light nearby, all needs met. Gait Assessment Gait Gait Assistance Required: Moderate Assistance Distance (Feet) 14 Able to Maintain Weight Bearing Status Yes During Gait Assistive Devices Assistive Device Gait Belt,Front Wheeled Walker Gait Deviations General Gait Pattern Antalgic,Decreased Stride Length,Decreased Feet Clearance,Step-to Gait Factors Limiting Gait Function Factors Limiting Gait Function Decreased Strength,Pain Comments Gait Comments Pt ambulated with ModA in 4WW ~14' with step to gait, posterior lean. Stair Climbing Assessment Comments Stair Climbing Comments no stairs at home PT-Balance Assessment Sitting Balance and Reactions Static Sitting Balance Ability Normal Dynamic Sitting Balance Ability Good Standing Balance and Reactions Static Standing Balance Ability Fair Dynamic Standing Balance Ability Fair Device Used FWW M5 PT-IP Objective Assessments Start: 08/19/22 08:06 Freq: NEEDED Status: Active Protocol: Document 08/19/22 10:44 [facility] (Rec: 08/19/22 11:00 [facility] [id number]) Orientation Orientation/Cognition Level of Alertness Alert Orientation Name,Day of Week,Place, Situation Language Function Ability No Deficits Noted,Hard of Hearing Safety Awareness Understands Safety Issues Memory Description No Deficits Noted Gross Range of Motion Upper Extremity ROM Assessment Within Functional Limits Lower Extremity ROM Assessment Left Impaired Strength Upper Extremity Strength Assessment Within Functional Limits Lower Extremity Strength Assessment Left Impaired Comments Strength Comments No MMT performed. Patient able to perform ankle pumps federico ankles, needed mod assist with left LE supine to sit. Indep LAQ federico LE's Coordination Assessment Gross Coordination Gross Coordination WNL Sensation Assessment Sensation Gross Sensation WNL M6 PT-IP Treatment Start: 08/19/22 08:06 Freq: NEEDED Status: Active Protocol: Document 08/19/22 14:25 TS (Rec: 08/19/22 14:45 TS [id number]) Physical Therapy Treatment Education Education Provided Precautions,Weight Bearing Status,Safety M7 PT-IP Assessment and Plan Start: 08/19/22 08:06 Freq: NEEDED Status: Active Protocol: Document 08/19/22 14:25 TS (Rec: 08/19/22 14:45 TS [id number]) PT Summary Assessment and Plan Potential Rehabilitation Potential Good Status of Condition at Evaluation Evolving Summary Impairments Pain,Strength,Bed Mobility, Transfers,Gait,Activity Tolerance Assessment Summary Pt performed sit to stand x4, initally MaxA x1 with x2 attempts from low chair, required MaxA x2 from chair to come fully into standing, Tom x1 from bed to come into standing from higher service. Pt progressed ambulation to ~ 14' in room ModA for posterior lean. Pt required cue for 50% wbering status prior to ambulation. PT continues to recommend Home w/home health vs SNF at this time. Spoke with pt about getting in touch with spouse and daughter to set up time for caregiver training tomorrow morning to assess how much assist they can provide at home. If family is not comfortable with assist levels pt may need SNF/ acute rehab. Goals Bed Mobility Goal Independent,Standby Assistance Transfer Goal Independent,Standby Assistance Gait Goal Independent,Standby Assistance Gait Distance 50 Days to Meet Goals 5 Frequency of Treatment Frequency Of Treatment Twice a Day Treatment Plan Physical Therapy Treatment Plan Bed Mobility Training,Transfer Training,Gait Training, Therapeutic Exercise,Discharge Planning,Hot or Cold Pack Other Recommendations and Next Treatment 50% weight-bearing Focus Weight Bearing Status Weight Bearing Status Partial Weight Bearing Allowed Weight Bearing Amount (enter % 50% or #) (%) Recommendations To Nursing Amount of Assist Needed 2 Person Assist Discharge Recommendations PT Discharge Recommendations Home Health,Home vs SNF,SNF vs Acute Rehab Transportation Needs at Discharge Private Vehicle,Wheelchair/ Cabulance
[2022-08-19] MEDS: HYDROMORPHONE 2 MG TABLET PO (14:31)
--- NOTE | 2022-08-19 16:34 | OT.IP.EVAL ---
Current Diagnoses Fracture of unspecified part of neck of left femur, initial encounter for closed fracture (08/18/22) Past Medical History (Last Reviewed 08/19/22 @ 08:42 by Modesto Joyce MD) Anticoagulation therapy continued upon discharge Arthritis ASCVD (arteriosclerotic cardiovascular disease) Ataxia Chest pain CKD (chronic kidney disease), stage IV Depression with anxiety Gout History of aortic valvular stenosis Hyperlipidemia Hypertension Low back pain Obesity Obstructive sleep apnea Peripheral neuropathy Pulmonary embolism Type II diabetes mellitus Vertigo Vertigo Vitamin D deficiency Surgical History (Last Reviewed 08/19/22 @ 08:42 by Modesto Joyce MD) Aortic valve replaced Occupational Therapy Inpatient Evaluation/Re-Eval M1 PT/OT-IP Prior Functional Status Start: 08/19/22 16:46 Freq: NEEDED Status: Active Protocol: Document 08/19/22 15:55 [facility] (Rec: 08/19/22 17:25 [facility] [id number]) Medical Review Prior Functional Status Medical History Reviewed Yes Diet/Fluid Consistency Regular Communication No limitations except [place], wears [employer] hearing aids Mobility and Gait no limitations, no device, has 4WW, to bring in Activities of Daily Living and IADL's indep Social History Household Members spouse Living Arrangements House Number of Floors (Floors) One Floor Number of Stairs To Enter/Railing? 0 stairs Home Environment Standard Height Toilet,Tub/ Shower Home Equipment Four Wheel Walker,Grab Bars Near Toilet,Grab Bars In Shower Additional Social History Comment Pt's daughter from [place] coming to assist. M2 OT-IP Current Condition Start: 08/19/22 16:46 Freq: Status: Active Protocol: Document 08/19/22 15:55 [facility] (Rec: 08/19/22 17:25 [facility] [id number]) Occupational Therapy Current Condition Current Condition Evaluation Date 08/19/22 Treatment Diagnosis S/p left interchochanteric hip fx Diagnosis Onset Date 08/18/22 Weight Bearing Status Weight Bearing Status Partial Weight Bearing Allowed Weight Bearing Amount (enter % 50% WBAT for LLE or #) (%) M3 OT- IP Subjective and Pain Start: 08/19/22 16:46 Freq: Status: Active Protocol: Document 08/19/22 15:55 [facility] (Rec: 08/19/22 17:25 [facility] [id number]) OT- Subjective Occupational Therapy Visit Type Type Initial Evaluation Visit Start Time 15:55 Visit Stop Time 16:34 Total Visit Minutes 39 Occupational Therapy Visit Comments Patient Comments Pt's present for caregiver training. Able to notify pt's concerns for of pt taking opiods as pt had a bad reaction and experience last time when he was in the hospital. Patient/Caregiver Goals To go home. OT Pain Assessment Pain When Pain Assessed During Mobility Pain Present Pain Present Pain Reported Location Left hip / femur Intensity 27 M4 OT- IP ADL's Start: 08/19/22 16:46 Freq: Status: Active Protocol: Document 08/19/22 15:55 [facility] (Rec: 08/19/22 17:25 [facility] [id number]) OT HGN-Lrbz-Lctgevo Comments OT Self-Feeding Comments Not at meal time. OT ADL-Grooming Comments OT Grooming Comments Not completed OT ADL-Oral Care Comments Oral Care Comments Not completed. OT ADL-Bathing Comments OT Bathing Comments Sponge bath more appropriate at this time. Pt's able to get a tub bench. M5 OT- IP IADL's Start: 08/19/22 16:46 Freq: Status: Active Protocol: Document 08/19/22 15:55 [facility] (Rec: 08/19/22 17:25 [facility] [id number]) OT-Instrumental Activities of Daily Living Deficits IADL Deficits Identified Deficits Home Safety Awareness Awareness of Need for Assistance at Home Decreased Awareness Home Safety Comments Pt a bit slow to respond to questions. At this time pt's to assist with all needs. M6 OT- IP Functional Cognition Start: 08/19/22 16:46 Freq: Status: Active Protocol: Document 08/19/22 15:55 [facility] (Rec: 08/19/22 17:25 [facility] [id number]) Cognitive Factors Limiting Selfcare Function Cognitive Ability Level of Alertness Alert,Confusional State Patient Orientation Name,Place Attention Span Ability Capable of Focused Attention, Unable to Sustain Attention Ability to Follow Commands Able to Follow One Step Commands with Increased Time, Able to Follow One Step Commands with Repetition Cognitive Comments Cognitive Assessment Comments Pt easily distracted and increased time to process. Pt' s states pt appears to be close to his baseline cognitively. OT- Vision and Hearing OT- Hearing Assessment OT- Hearing Assessment Use of Hearing Aids OT- Vision Assessment Visual Acuity Glasses All The Time M7 OT- IP Mobility and Balance Start: 08/19/22 16:46 Freq: Status: Active Protocol: Document 08/19/22 15:55 [facility] (Rec: 08/19/22 17:25 [facility] [id number]) OT-Transfer Assessment Sit to and From Stand Sit to and from Stand Moderate Assistance,1 Person Assistance Transfers Transfer Ability Moderate Assistance,Maximum Assistance,1 Person Assistance ,2 Person Assistance Technique Transfer Destination Bed Transfer Technique Stand Step Pivot Devices Transfer Assistive Devices Gait Belt,Front Wheeled Walker Comments Mobility Comments Pt at times needing MAX AX 2 to stand from lower surfaces and JON for high surfaces. It was determined that it may be safer for pt to sleep in his lift chair at this time and just use the wheelchair from [facility] to get around after. Therefore just to do transfers only as pt has difficulty to follow the 50 % wb status for LLE. Encourgaed pt to transfer to the right and have his left leg slightly forwards when trying to come to stand and also to push with his hands on the surface to assist to stand. Educated pt' s on how to monik/doff the gait belt. Pt able to take steps however not able to follow 50% weight bearing on the LLE. OT- Balance Assessment Sitting Balance and Reactions Static Sitting Balance Ability Good Dynamic Sitting Balance Ability Fair Standing Balance and Reactions Static Standing Balance Ability Fair Dynamic Standing Balance Ability Poor M8 OT- IP Objective Assessments Start: 08/19/22 16:46 Freq: Status: Active Protocol: Document 08/19/22 15:55 [facility] (Rec: 08/19/22 17:25 [facility] [id number]) OT-Muscle Tone Assessment Muscle Tone WNL Yes M9 OT- IP Assessment and Plan Start: 08/19/22 16:46 Freq: Status: Active Protocol: Document 08/19/22 15:55 [facility] (Rec: 08/19/22 17:25 [facility] [id number]) OT Summary Assessment and Plan Potential Rehabilitation Potential Good Analytic Complexity at Evaluation Low Summary OT Impairments Pain,Balance,Functional Cognition,Functional Mobility, Grooming,Dressing,Toileting, Bathing,Toilet Transfers, Shower Transfers,Activity Tolerance Progress Towards Goals Slow Progress due to Pain,Slow Progress due to Activity Tolerance Assessment Summary Pt MOD complexity and main barriers are pain, decreased strength and pt's ability to follow 50% WB for LLE. Initiated caregiver training for pt's how to assist for ADl and mobility needs. Pt 's able to picker/puller tub bench and wc. Pt's agreeing to get a barriatric FWW issued and to come tomorrow with her daughter for caregiver training. Pt would greatly benefit from skilled rehab , but pt refusing and preferring to go home with home health. Pt will also benefit from a bath aid. Goals Grooming Goal Independent Dressing Goal Minimal Assistance Toileting Goal Minimal Assistance Bathing Goal Moderate Assistance Toilet Transfer Goal Contact Guard Assistance Shower Transfer Goal Minimal Assistance Days to Meet Goals 7 Frequency of Treatment Frequency Of Treatment Once a Day Treatment Plan OT Treatment Plan ADL Training,Functional Cognition Training,Functional Mobility,Patient/Family Education,Discharge Planning Other Treatment Recommendations and Next caregiver training Treatment Focus Discharge Recommendations OT Discharge Recommendations Home with 24/11 Assist Available,Home Health,SNF Rehab,Home vs SNF Home Equipment Needs WC, FWW, shower chair Transportation Needs at Discharge Private Vehicle,Wheelchair/ Cabulance
[2022-08-19] MEDS: INSULIN LISPRO 100 UNIT/ML 3ML VIAL SUBCUT (17:15)
[2022-08-19] MEDS: GABAPENTIN 100 MG CAPSULE PO (17:15)
[2022-08-19] MEDS: ATORVASTATIN 20 MG TABLET 40 MG PO (17:15)
[2022-08-19] MEDS: AMLODIPINE 5 MG TABLET PO (17:15)
[2022-08-19] MEDS: WARFARIN 5 MG TABLET 10 MG PO (17:26)
--- NOTE | 2022-08-19 17:54 | PM.CN ---
History of Present Illness Consult details Date Patient Seen: 08/19/22 Time Patient Seen: 17:55 Chief complaint: Fall 08/17, femur pain Reason for consult: left hip periprosthetic fracture Narrative: Patient had fall on 08/17/2022. His is requesting consult to explain why this is a nonoperative fracture. He originally underwent a left total hip arthroplasty in April of [address] Griffin. He denies any new numbness or tingling. He has significant pain with weight-bearing. He has been working with physical therapy in his working on 50% weight-bearing. His and their friend are at bedside. He also has a history of a left total knee arthroplasty and a right total hip arthroplasty. Meds Home Medications and Allergies Home Medications Medication Instructions Recorded Confirmed Type allopurinol 100 mg tablet 50 mg PO DAILY 08/13/21 08/18/22 History amlodipine 2.5 mg tablet 5 mg PO QPM 08/13/21 08/18/22 History atorvastatin 40 mg tablet 40 mg PO QPM 08/13/21 08/18/22 History cholecalciferol (vitamin D3) 50 50 mcg PO DAILY 08/13/21 08/18/22 History mcg (2,000 unit) capsule insulin aspart U-100 100 unit/mL See Rx Instructions .Route .COMPLEX 08/13/21 08/18/22 History (3 mL) subcutaneous pen (Novolog FlexPen U-100 Insulin aspart) insulin glargine 100 unit/mL (3 10 unit SUBCUT BID 08/13/21 08/18/22 History mL) subcutaneous pen (Basaglar KwikPen U-100 Insulin) metoprolol succinate 25 mg 37.5 mg PO BID 08/13/21 08/18/22 History tablet,extended release 24 hr multivitamin 1 tab PO QAM 08/13/21 08/18/22 History polyethylene glycol 3350 17 gram 17 g PO DAILY 08/13/21 08/18/22 History oral powder packet (Miralax) warfarin 5 mg tablet 2.5 - 5 mg PO DAILY 08/13/21 08/18/22 History aspirin 81 mg tablet 81 mg PO DAILY 08/18/22 08/18/22 History gabapentin 100 mg capsule 100 mg PO QPM 08/18/22 08/18/22 History isosorbide mononitrate 60 mg 80 mg PO DAILY 08/18/22 08/18/22 History tablet,extended release 24 hr sertraline 100 mg tablet 125 mg PO DAILY 08/18/22 08/18/22 History Allergies Allergy/AdvReac Type Severity Reaction Status Date / Time metoclopramide [From REGLAN] AdvReac Severe Dyskinesia Verified 08/18/22 13:37 morphine [MORPHINE] AdvReac Unknown Hallucinati Verified 08/18/22 13:37 ons narcotics AdvReac Severe Hallucinati Uncoded 08/18/22 13:37 ng Exam Vital Signs (past 8 hours): - 08/19/22 17:19 Pulse Rate 59 L Respiratory Rate 16 Blood Pressure 120/60 Pulse Oximetry 97 Oxygen Flow Rate 0 Oxygen Delivery Method Room Air Oxygen Flow Rate 0 Narrative Exam Narrative: Pleasant 86-year-old male, resting comfortably in bed, no acute distress. His and their friend are at bedside. Bilateral lower extremity: Motor functions are grossly intact, sensation is grossly intact to light touch, calves are soft and nontender to palpation. Objective Labs 08/19/22 05:52 08/19/22 05:52 Labs: Laboratory Results - last 24 hr 08/19/22 08/19/22 05:52 05:52 WBC 8.5 RBC 3.42 L Hgb 10.9 L Hct 32.3 L MCV 94.7 MCH 31.8 MCHC 33.6 RDW 14.0 Plt Count 100 L Neut % (Auto) 49.6 L Lymph % (Auto) 34.3 Armstrong % (Auto) 11.6 Eos % (Auto) 3.9 Baso % (Auto) 0.6 Neut # (Auto) 4200 Lymph # (Auto) 2900 Armstrong # (Auto) 1000 H Eos # (Auto) 300 Baso # (Auto) 100 Sodium 140 Potassium 4.8 Chloride 113 H Carbon Dioxide 19 L BUN 68 H Creatinine 2.71 H Estimated GFR 22 L BUN/Creatinine Ratio 25.1 H Glucose 85 Calcium 8.3 L Total Bilirubin 0.4 AST 17 ALT 13 Alkaline Phosphatase 97 Total Protein 6.6 Albumin 3.3 L Globulin 3.3 Albumin/Globulin Ratio 1.0 PFSH Medical History Anticoagulation therapy continued upon discharge Arthritis ASCVD (arteriosclerotic cardiovascular disease) Ataxia Chest pain CKD (chronic kidney disease), stage IV Depression with anxiety Gout History of aortic valvular stenosis Hyperlipidemia Hypertension Low back pain Obesity Obstructive sleep apnea Peripheral neuropathy Pulmonary embolism Type II diabetes mellitus Vertigo Vertigo Vitamin D deficiency Surgical History Aortic valve replaced Social History household members: spouse Tobacco & Substance Use Smoking Status: Former smoker alcohol intake: never Assessment & Plan Assessment & Plan narrative: -left hip subtrochanteric periprosthetic fracture Dr. Caldwell has previously reviewed the XRs and CT and has recommended non operative treatment -mobilize with PT. 50% weight-bearing on left lower extremity x6 weeks. -continue with multimodal pain management -We will need DVT prophylaxis for 4 weeks, aspirin 81 mg b.i.d. if mobilizing well, otherwise per primary team -follow-up with ortho in 2 weeks for repeat x-rays, or sooner as needed
[2022-08-19 20:07] LABS: INR 1.8 (0.9-1.3); Prothrombin Time 21.3 SECONDS (10.1-12.7)
[2022-08-20] MEDS: HYDROMORPHONE 2 MG TABLET PO ×3 (03:21→16:48)
[2022-08-20] MEDS: PANTOPRAZOLE DR 20 MG TABLET PO (06:27)
[2022-08-20 08:30] VITALS: O2SAT 97
[2022-08-20 08:35] LABS: Add Manual Diff / Slide Review NO; Basophils Absolute Auto 0 /uL (0-100); Basophils Percent Auto 0.3 % (0-2); Eosinophils Absolute Auto 300 /uL (0-450); Eosinophils Percent Auto 3.1 % (2-4); Hematocrit 32.1 % (41-53); Hemoglobin 10.9 g/dL (13.5-17.5); Lymphocytes Absolute Auto 3800 /uL (1100-4500); Lymphocytes Percent Auto 37.2 % (25-40); Mean Corpuscular Hemoglobin 32.1 PG (26-34); Mean Corpuscular Volume 94.4 fL (80-100); Monocytes Absolute Auto 1200 /uL (0-900); Monocytes Percent Auto 11.5 % (3-14); Neutrophils Absolute Auto 4800 /uL (1500-7000); Neutrophils Percent Auto 47.9 % (50-75); Platelet Count 100 X10^3/uL (150-400); Red Cell Distribution Width 14.6 % (11.6-14.8); White Blood Cell Count 10.1 X10^3/uL (4.5-11.0)
[2022-08-20 08:44] LABS: INR 2.2 (0.9-1.3)
--- NOTE | 2022-08-20 09:05 | PM.DS.1 ---
History of Present Illness History of Present Illness Date Patient Seen: 08/21/22 Time Patient Seen: 09:05 Date of Onset of Symptoms: 08/18/22 Chief complaint: Fall 08/17, femur pain Narrative: This pleasant elderly gentleman was admitted via ED for GLF and L hip pain at site of prior arthroplasty. Imaging demonstrated new fracture which was deemed nonoperable. He was admitted for pain control and PT/OT eval. Discharge Providers Provider Date of admission: 08/18/22 17:48 Discharge Date: 08/21/22 Primary care physician: Armando Lu MD Consults: 08/18/22 19:34 Consult to Occupational Therapy Evaluate & Treat Comment: Physician Instructions: Evaluate and treat Consult to Physical Therapy Evaluate & Treat Comment: Physician Instructions: Evaluate and Treat 08/19/22 10:19 Consult to Occupational Therapy Evaluate & Treat Comment: Physician Instructions: Evaluate and treat 08/20/22 08:16 Consult to Home Health Routine Comment: Reason For Exam: Home health services upon discharge 08/20/22 08:25 Consult to Physical Therapy Evaluate & Treat Comment: Physician Instructions: Bariatric FWW For Home Use Discharge provider: Armando Lu MD Summary Hospital Course Discharge Diagnosis: #Left hip fracture in hip with previous replacement #Coronary artery disease #Diabetes #History of aortic valve replacement Hospital Course: Pt admitted observation status, did ok with pain control and transferring required max assist - not suitable for going home iwth family - they arranged private pay facility placement. Ortho recommends his his for nonoperative management, 50% nonweight bearing for 6 weeks, reeval at 2 week edgar. ASA bid for anticoagulation with warfarin. Status at Discharge Cognitive/behavioral status at discharge: oriented and calm Functional status at discharge: wheelchair bound Overall status at discharge: patient is not back to baseline Exam Vital Signs (past 8 hours): Oxygen Delivery Method Room Air Oxygen Flow Rate 0 Narrative Exam Narrative: older patient sitting up in bed alert eating agarwal Const Nutritional Appearance: well nourished HENMT Other: contusion on R sabianism Eyes General: appearance normal, both eyes and all related structures Resp Other: moving air well, clear to auscultation bilaterally Cardio Other: regular rate and rhythm GI Other: soft nontender active bowel sounds Neuro General: patient alert, patient awake, patient oriented x3 and moves all extremities Speech: other (delayed speech) Extrem Other: LLE distal NV intact, minimal bruising over lateral L hip Objective Labs 08/20/22 07:57 08/19/22 05:52 Labs: Laboratory Results - last 24 hr 08/19/22 08/20/22 08/20/22 19:51 07:57 07:57 WBC 10.1 RBC 3.40 L Hgb 10.9 L Hct 32.1 L MCV 94.4 MCH 32.1 MCHC 34.0 RDW 14.6 Plt Count 100 L Neut % (Auto) 47.9 L Lymph % (Auto) 37.2 Morrison % (Auto) 11.5 Eos % (Auto) 3.1 Baso % (Auto) 0.3 Neut # (Auto) 4800 Lymph # (Auto) 3800 Morrison # (Auto) 1200 H Eos # (Auto) 300 Baso # (Auto) 0 PT 21.3 H 25.0 H INR 1.8 H 2.2 H PFSH Medical History Anticoagulation therapy continued upon discharge Arthritis ASCVD (arteriosclerotic cardiovascular disease) Ataxia Chest pain CKD (chronic kidney disease), stage IV Depression with anxiety Gout History of aortic valvular stenosis Hyperlipidemia Hypertension Low back pain Obesity Obstructive sleep apnea Peripheral neuropathy Pulmonary embolism Type II diabetes mellitus Vertigo Vertigo Vitamin D deficiency Surgical History Aortic valve replaced Social History household members: spouse Smoking Status: Former smoker alcohol intake: never Discharge Assessment & Plan Assessment and Plan Assessment: #Left hip fracture in hip with previous replacement Per ortho this is non-op, advised rehab with no surgery.? Per PT eval and family consult not able to go home.? Per ortho that limb is 50% weight bearing for 6 weeks they also advised ASA 81 bid for AC if he is mobilizing. Pain controlled does well if he doesn't move. #Coronary artery disease stable continue home meds #Diabetes stable, continue home regimen as usual and sliding scale. #History of aortic valve replacement Continue Coumadin, last INR 2.2 continue to monitor weekly. ? Diet: diabetic - eating well Code status: no code per POLST Disposition: pending placement likely dc tomorrow MDM: Jacy PCP: Tabitha Time spent: 45 min Discharge Plan Discharge Plan Patient Disposition: Xfer Inpatient Rehab Transfer to: [facility] Provider Discharge Comment: mobilize as tolerated 50% WBAT on affected limb aspirin 81 bid for AC oxycodone prn for pain I certify the postop hospital longterm care is medically necessary on a continuing basis for any conditions for which he/ she received care during this hospitalization.: Yes The receiving facility has agreed to accept transfer and provide medical treatment.: Yes Discharge orders & Medications Discharge Orders: Discharge (Order); Ordered 08/21/22 Ordered By: Armando Lu Prescriptions: New aspirin 81 mg Tablet,Chewable 81 mg PO BID 30 Days Qty: 60 0RF oxycodone 5 mg tablet 5 mg PO Q6H PRN (Reason: pain) Qty: 20 0RF Continued multivitamin Tablet 1 tab PO QAM atorvastatin 40 mg tablet 40 mg PO QPM Patient Comments: TAKE 1 TABLET (40 MG) BY MOUTH DAILY. amlodipine 2.5 mg tablet 5 mg PO QPM allopurinol 100 mg tablet 50 mg PO DAILY Patient Comments: TAKE 1/2 TABLET BY MOUTH ONCE A DAY warfarin 5 mg tablet 2.5 - 5 mg PO DAILY Rx Instructions: alternate 2.5 mg with 5mg every other day. metoprolol succinate 25 mg tablet extended release 24 hr 37.5 mg PO BID Patient Comments: Take 1 1/2 tablet by mouth every morning AND TAKE 1 AND 1/2 TABLETS BY MOUTH EVERY EVENING insulin aspart U-100 [Novolog FlexPen U-100 Insulin] 100 unit/mL (3 mL) insulin pen See Rx Instructions .ROUTE .COMPLEX Patient Comments: inject 8 to 14 units subcutaneously three times a day Rx Instructions: SS AC insulin glargine [Basaglar KwikPen U-100 Insulin] 100 unit/mL (3 mL) insulin pen 10 unit SUBCUT BID cholecalciferol (vitamin D3) 50 mcg (2,000 unit) Capsule 50 mcg PO DAILY polyethylene glycol 3350 [Miralax] 17 gram Powder In Packet 17 g PO DAILY sertraline 100 mg tablet 125 mg PO DAILY isosorbide mononitrate 60 mg tablet extended release 24 hr 80 mg PO DAILY gabapentin 100 mg capsule 100 mg PO QPM aspirin 81 mg Tablet 81 mg PO DAILY Follow up/Referrals: Harsh Caldwell MD [Physician] - (Please call as soon as possible to make an appointment in approximately 2 weeks for x-rays in office) Armando Lu MD [Primary Care Provider] - Diet/Activity/Treatments Diet: Carb-consistent/Diabetic Other treatments: - 50% weight-bearing on left lower extremity x6 weeks. Use front-wheeled walker or cane. -follow-up with ortho in 2 weeks for repeat x-rays, or sooner as needed Special Rehabilitation Services Rehab type: Physical therapy and Occupational therapy Visit Report/Discharge Packet Stand Alone Forms: Patient Portal/API, Stroke Signs & Symptoms Discharge Data Primary Care Provider: Armando Lu Attending Provider: [place]esto Joyce Admit Date/Time: 08/18/22 17:48 Quality VTE Deep Vein Thrombosis/Pulmonary Embolism Present on Admission: No
[2022-08-20 09:06] VITALS: BP 125/60; PULSE 71; RESP 16; TEMP 36.6; O2SAT 97
[2022-08-20] MEDS: SERTRALINE 50 MG TABLET 125 MG PO (09:16)
[2022-08-20] MEDS: polyethylene glycoL 3350 17 GM POWD.PACK PO (09:16)
[2022-08-20] MEDS: MULTIVITAMIN 1 TABLET 1 TAB PO (09:17)
[2022-08-20] MEDS: METOPROLOL ER 25 MG TABLET 37.5 MG PO (09:17)
[2022-08-20] MEDS: allopurinoL 100 MG TABLET 50 MG PO (09:17)
[2022-08-20] MEDS: CHOLECALCIFEROL (VITAMIN D3) 1,000 UNIT TABLET 2000 UNIT PO (09:17)
[2022-08-20] MEDS: ASPIRIN 81 MG CHEW TAB PO (09:18)
[2022-08-20] MEDS: INSULIN GLARGINE 100 UNIT/ML 3ML PEN 10 UNIT SUBCUT ×2 (09:18→20:47)
--- NOTE | 2022-08-20 10:39 | OT.IP.TRT ---
Current Diagnoses Fracture of unspecified part of neck of left femur, initial encounter for closed fracture (08/18/22) Occupational Therapy Treatment Note M2 OT-IP Current Condition Start: 08/19/22 16:46 Freq: Status: Active Protocol: Document 08/19/22 15:55 [facility] (Rec: 08/19/22 17:25 [facility] [id number]) Occupational Therapy Current Condition Current Condition Evaluation Date 08/19/22 Treatment Diagnosis S/p left interchochanteric hip fx Diagnosis Onset Date 08/18/22 Weight Bearing Status Weight Bearing Status Partial Weight Bearing Allowed Weight Bearing Amount (enter % 50% WBAT for LLE or #) (%) M3 OT- IP Subjective and Pain Start: 08/19/22 16:46 Freq: Status: Active Protocol: Document 08/20/22 11:11 [facility] (Rec: 08/20/22 11:19 [facility] [id number]) OT- Subjective Occupational Therapy Visit Type Type Treatment Note Visit Start Time 10:15 Visit Stop Time 10:39 Total Visit Minutes 24 Occupational Therapy Visit Comments Patient Comments Pt's and daughter in the room for caregiver training, BIBLIOGRAPHIC SERVICES SPECIALIST also present for part of the session. Patient/Caregiver Goals TO go home, but pt's family realizing that pt's current level is too great for family to take care of at this time. OT Pain Assessment Pain When Pain Assessed During Mobility Pain Present Pain Present Denied Pain M4 OT- IP ADL's Start: 08/19/22 16:46 Freq: Status: Active Protocol: Document 08/19/22 15:55 [facility] (Rec: 08/19/22 17:25 [facility] [id number]) OT [id number] Comments OT Self-Feeding Comments Not at meal time. OT ADL-Grooming Comments OT Grooming Comments Not completed OT ADL-Oral Care Comments Oral Care Comments Not completed. OT ADL-Bathing Comments OT Bathing Comments Sponge bath more appropriate at this time. Pt's able to get a tub bench. M5 OT- IP IADL's Start: 08/19/22 16:46 Freq: Status: Active Protocol: Document 08/19/22 15:55 [facility] (Rec: 08/19/22 17:25 [facility] [id number]) OT-Instrumental Activities of Daily Living Deficits IADL Deficits Identified Deficits Home Safety Awareness Awareness of Need for Assistance at Home Decreased Awareness Home Safety Comments Pt a bit slow to respond to questions. At this time pt's to assist with all needs. M6 OT- IP Functional Cognition Start: 08/19/22 16:46 Freq: Status: Active Protocol: Document 08/20/22 11:11 [facility] (Rec: 08/20/22 11:19 [facility] [id number]) Cognitive Factors Limiting Selfcare Function Cognitive Ability Level of Alertness Alert,Confusional State Patient Orientation Name,Place Attention Span Ability Capable of Focused Attention, Unable to Sustain Attention Ability to Follow Commands Able to Follow One Step Commands with Increased Time, Able to Follow One Step Commands with Repetition Cognitive Comments Cognitive Assessment Comments Pt still needing increased time to follow commands. Pt however is cooperative and pleasant. M7 OT- IP Mobility and Balance Start: 08/19/22 16:46 Freq: Status: Active Protocol: Document 08/20/22 11:11 [facility] (Rec: 08/20/22 11:19 [facility] [id number]) OT- Bed Mobility Assessment Sit to Supine Sit to Supine Assist Maximum Assistance,1 Person Assistance OT-Transfer Assessment Comments Mobility Comments Attempted to do sliding board transfer, pt getting too tired , and also not moving well and unable to come to stand from the recliner from his family. Pt's family realizing that going home will not be work and wanting to look into other possibilities. OT- Balance Assessment Sitting Balance and Reactions Static Sitting Balance Ability Good Dynamic Sitting Balance Ability Fair M8 OT- IP Objective Assessments Start: 08/19/22 16:46 Freq: Status: Active Protocol: Document 08/19/22 15:55 [facility] (Rec: 08/19/22 17:25 [facility] [id number]) OT-Muscle Tone Assessment Muscle Tone WNL Yes M9 OT- IP Assessment and Plan Start: 08/19/22 16:46 Freq: Status: Active Protocol: Document 08/20/22 11:11 [facility] (Rec: 08/20/22 11:19 [facility] [id number]) OT Summary Assessment and Plan Potential Rehabilitation Potential Good Analytic Complexity at Evaluation Low Summary OT Impairments Pain,Balance,Functional Cognition,Functional Mobility, Grooming,Dressing,Toileting, Bathing,Toilet Transfers, Shower Transfers,Activity Tolerance Progress Towards Goals Slow Progress due to Pain,Slow Progress due to Activity Tolerance Assessment Summary Pt's and daughter able to participate in caregiver training and his family unable to get him up as pt needing too much assist at this time. Pt is also 50% WB status for LLE also making it more difficulty for pt to mobilize. Pt will greatly benefit from skilled rehab. Goals Grooming Goal Independent Dressing Goal Minimal Assistance Toileting Goal Minimal Assistance Bathing Goal Moderate Assistance Toilet Transfer Goal Contact Guard Assistance Shower Transfer Goal Minimal Assistance Days to Meet Goals 20 Frequency of Treatment Frequency Of Treatment Once a Day Treatment Plan OT Treatment Plan ADL Training,Functional Cognition Training,Functional Mobility,Patient/Family Education,Discharge Planning Discharge Recommendations OT Discharge Recommendations SNF Rehab Transportation Needs at Discharge Wheelchair/Cabulance
--- NOTE | 2022-08-20 11:37 | CM.DPNOTE ---
DCP Note Caregiver training w/spouse and daughter did not go well this morning; patient is demonstrating no core or upper body strength today, he cannot participate in self transfers - patient and family requesting SNF search today. Offered MCR choice list but family determined that [facility] be given this referral; explained that back up options will be needed if [facility] cannot admit Discussed approx cost of privately paid SNF and spouse Jacy agreeable to this DON Atwood, kindly agreed to discuss this referral w/October at [facility], awaiting review and CB Updated Dr Lu Family aware that patient remains observation JW
--- NOTE | 2022-08-20 13:00 | PT.IPTN ---
Current Diagnoses Fracture of unspecified part of neck of left femur, initial encounter for closed fracture (08/18/22) Physical Therapy Treatment Note M2 PT-IP Current Condition Start: 08/19/22 08:06 Freq: NEEDED Status: Active Protocol: Document 08/19/22 10:44 [facility] (Rec: 08/19/22 11:00 [facility] [id number]) Physical Therapy Current Condition Current Condition Evaluation Date 08/19/22 Treatment Diagnosis left hip fracure Onset Date 08/18/22 M3 PT-IP Subjective Start: 08/19/22 08:06 Freq: NEEDED Status: Active Protocol: Document 08/20/22 13:29 [facility] (Rec: 08/20/22 13:40 [facility] [id number]) Subjective Physical Therapy Visit Type Type Treatment Note Visit Start Time 13:00 Visit Stop Time 13:25 Total Visit Minutes 25 Physical Therapy Visit Comments Patient Comments Pt reports some pain at rest, would like to get up to the chair. Therapy Pain Assessment Pain When Pain Assessed At Rest Pain Present Pain Present Pain Reported M4 PT-IP Mobility and Gait Start: 08/19/22 08:06 Freq: NEEDED Status: Active Protocol: Document 08/20/22 13:29 [facility] (Rec: 08/20/22 13:40 TS [id number]) PT-Bed Mobility Assessment Supine to Sit Supine to Sit Moderate Assistance Scooting Scooting to Edge of Bed Maximum Assistance PT-Transfer Assessment Sit to and From Stand Sit to and from Stand Maximum Assistance,1 Person Assistance Equipment Transfer Assistive Device Gait Belt,Front Wheeled Walker Transfers Transfer Destination Chair Transfer Technique Stand Step Pivot Comments Mobility Comments Pt found resting in bed, agreeable to PT session. Supine to sit ModA with handheld assist for uprighting trunk. PT required MaxA for scooting to EOB, provided cues for BUE support and lifting hips. Sit to stand with FWW x1 and x1 with 4WW MaxA, cues for weight forward, uright posture and UE support. Pt in standing requires cues for 50% wbering precaution, pt unable to maintain 75% of the time. Performed stand step pivot transfer to chair ModA with 4WW, diffuclty maintaining wbering status, requires cues for 4WW management. Pt was left in chair, with call light nearby, chair alarm, nursing staff notified. Gait Assessment Gait Gait Assistance Required: Minimum Assistance Distance (Feet) 4 Able to Maintain Weight Bearing Status Yes During Gait Assistive Devices Assistive Device Gait Belt,Front Wheeled Walker Gait Deviations General Gait Pattern Antalgic,Decreased Stride Length,Decreased Feet Clearance,Step-to Gait Factors Limiting Gait Function Factors Limiting Gait Function Decreased Strength,Pain Comments Gait Comments See mobility comments Stair Climbing Assessment Comments Stair Climbing Comments no stairs at home PT-Balance Assessment Sitting Balance and Reactions Static Sitting Balance Ability Good Dynamic Sitting Balance Ability Fair Standing Balance and Reactions Static Standing Balance Ability Fair Dynamic Standing Balance Ability Poor Device Used FWW Comments Other Balance Tests/Deviations/Treatment Pt requires cues in standing : for 50% wbering, retroleans requiring Tom for correction. M5 PT-IP Objective Assessments Start: 08/19/22 08:06 Freq: NEEDED Status: Active Protocol: Document 08/19/22 10:44 [facility] (Rec: 08/19/22 11:00 [facility] [id number]) Orientation Orientation/Cognition Level of Alertness Alert Orientation Name,Day of Week,Place, Situation Language Function Ability No Deficits Noted,Hard of Hearing Safety Awareness Understands Safety Issues Memory Description No Deficits Noted Gross Range of Motion Upper Extremity ROM Assessment Within Functional Limits Lower Extremity ROM Assessment Left Impaired Strength Upper Extremity Strength Assessment Within Functional Limits Lower Extremity Strength Assessment Left Impaired Comments Strength Comments No MMT performed. Patient able to perform ankle pumps federico ankles, needed mod assist with left LE supine to sit. Indep LAQ federico LE's Coordination Assessment Gross Coordination Gross Coordination WNL Sensation Assessment Sensation Gross Sensation WNL M6 PT-IP Treatment Start: 08/19/22 08:06 Freq: NEEDED Status: Active Protocol: Document 08/20/22 13:29 TS (Rec: 08/20/22 13:40 [id number]) Physical Therapy Treatment Education Education Provided Precautions,Weight Bearing Status,Safety M7 PT-IP Assessment and Plan Start: 08/19/22 08:06 Freq: NEEDED Status: Active Protocol: Document 08/20/22 13:29 TS (Rec: 08/20/22 13:40 TS [id number]) PT Summary Assessment and Plan Potential Rehabilitation Potential Good Status of Condition at Evaluation Evolving Summary Impairments Pain,Strength,Bed Mobility, Transfers,Gait,Activity Tolerance Assessment Summary Pt continues to perform supine to sit with Mod handheld assist and MaxA for sit to stand. Provided education to pt on using FWW vs 4WW, pt wants to use 4WW but has more difficulty performing sit to stand with 4WW and ambulating maintaining his 50% wbering precaution. PT recommends SNF at this time due to family not being able to provide assist level required for return to home. Goals Bed Mobility Goal Independent,Standby Assistance Transfer Goal Independent,Standby Assistance Gait Goal Independent,Standby Assistance Gait Distance 50 Days to Meet Goals 5 Frequency of Treatment Frequency Of Treatment Twice a Day Treatment Plan Physical Therapy Treatment Plan Bed Mobility Training,Transfer Training,Gait Training, Therapeutic Exercise,Discharge Planning,Hot or Cold Pack Other Recommendations and Next Treatment 50% weight-bearing Focus Weight Bearing Status Weight Bearing Status Partial Weight Bearing Allowed Weight Bearing Amount (enter % 50% WBAT for LLE or #) (%) Recommendations To Nursing Amount of Assist Needed 2 Person Assist Discharge Recommendations PT Discharge Recommendations SNF Rehab Transportation Needs at Discharge Private Vehicle,Wheelchair/ Cabulance
--- NOTE | 2022-08-20 16:47 | P.PN_ITS ---
Subjective Subjective Interval history: CC: L hip pain Doing ok today - failed working with PT ruslan does not want him to come home will plan on facility private pay perhaps looking at tomorrow. eating well, slep t well, pain ok if he's not moving. Exam Vital Signs (past 8 hours): - 08/20/22 09:06 Temperature 97.9 F Pulse Rate 71 Respiratory Rate 16 Blood Pressure 125/60 Pulse Oximetry 97 Oxygen Delivery Method Room Air Oxygen Flow Rate 0 Narrative Exam Narrative: cheerful alert elder in bed listening to podcast Const General: cooperative and comfortable Resp Other: clear to auscultation bilaterally Cardio Other: regular rate and rhythm, S1/S2 GI Other: soft nontender nondistended Neuro General: patient alert, patient awake, moves all extremities and normal light touch, pain and propioception Extrem General: other (L leg rotated externally, distal NV ok) Objective Labs 08/20/22 07:57 08/19/22 05:52 Labs: Laboratory Results - last 24 hr 08/19/22 08/20/22 08/20/22 19:51 07:57 07:57 WBC 10.1 RBC 3.40 L Hgb 10.9 L Hct 32.1 L MCV 94.4 MCH 32.1 MCHC 34.0 RDW 14.6 Plt Count 100 L Neut % (Auto) 47.9 L Lymph % (Auto) 37.2 [place] % (Auto) 11.5 Eos % (Auto) 3.1 Baso % (Auto) 0.3 Neut # (Auto) 4800 Lymph # (Auto) 3800 [place] # (Auto) 1200 H Eos # (Auto) 300 Baso # (Auto) 0 PT 21.3 H 25.0 H INR 1.8 H 2.2 H PFSH Medical History Anticoagulation therapy continued upon discharge Arthritis ASCVD (arteriosclerotic cardiovascular disease) Ataxia Chest pain CKD (chronic kidney disease), stage IV Depression with anxiety Gout History of aortic valvular stenosis Hyperlipidemia Hypertension Low back pain Obesity Obstructive sleep apnea Peripheral neuropathy Pulmonary embolism Type II diabetes mellitus Vertigo Vertigo Vitamin D deficiency Surgical History Aortic valve replaced Social History household members: spouse Smoking Status: Former smoker alcohol intake: never Assessment & Plan Assessment & Plan narrative: #Left hip fracture in hip with previous replacement Per ortho this is non-op, advised rehab with no surgery.? Patient understands.? PT eval today not cleared to go home.? Per ortho that limb is 50% weight bearing for 6 weeks they also advised ASA 81 bid for AC if he is mobilizing. pain controlled does well if he doesn't move. #Coronary artery disease stable continue home meds #Diabetes stable, cover with Lantus as usual and sliding scale. #History of aortic valve replacement Continue Coumadin.? Diet: diabetic - eating well Code status: no code per POLST Disposition: pending placement likely dc tomorrow MDM: Jacy PCP: Tabitha Cardenas [facility] Deep Vein Thrombosis/Pulmonary Embolism Present on Admission: No
[2022-08-20] MEDS: GABAPENTIN 100 MG CAPSULE PO (17:11)
[2022-08-20] MEDS: INSULIN LISPRO 100 UNIT/ML 3ML VIAL SUBCUT (17:11)
[2022-08-20] MEDS: AMLODIPINE 5 MG TABLET PO (17:11)
[2022-08-20] MEDS: ATORVASTATIN 20 MG TABLET 40 MG PO (17:11)
[2022-08-20] MEDS: WARFARIN 5 MG TABLET 10 MG PO (17:11)
[2022-08-20 19:00] VITALS: O2SAT 97
[2022-08-20 19:58] VITALS: BP 130/60; PULSE 57; RESP 16; TEMP 36.3; O2SAT 98
[2022-08-20] MEDS: OXYCODONE IR 10 MG TABLET PO (20:39)
[2022-08-20 20:40] VITALS: BP 130/60; PULSE 55
[2022-08-21] MEDS: HYDROMORPHONE 2 MG TABLET PO ×2 (03:19→11:17)
[2022-08-21] MEDS: OXYCODONE IR 10 MG TABLET PO (05:57)
[2022-08-21] MEDS: PANTOPRAZOLE DR 20 MG TABLET PO (05:58)
[2022-08-21 08:00] VITALS: BP 120/68; PULSE 69; RESP 16; TEMP 36.3; O2SAT 97
[2022-08-21] MEDS: CHOLECALCIFEROL (VITAMIN D3) 1,000 UNIT TABLET 2000 UNIT PO (09:18)
[2022-08-21] MEDS: allopurinoL 100 MG TABLET 50 MG PO (09:18)
[2022-08-21] MEDS: MULTIVITAMIN 1 TABLET 1 TAB PO (09:18)
[2022-08-21] MEDS: SERTRALINE 50 MG TABLET 125 MG PO (09:19)
[2022-08-21] MEDS: ASPIRIN 81 MG CHEW TAB PO (09:19)
[2022-08-21 09:20] VITALS: BP 120/68; PULSE 69
[2022-08-21] MEDS: METOPROLOL ER 25 MG TABLET 37.5 MG PO (09:20)
[2022-08-21] MEDS: polyethylene glycoL 3350 17 GM POWD.PACK PO (09:21)
[2022-08-21] MEDS: INSULIN GLARGINE 100 UNIT/ML 3ML PEN 10 UNIT SUBCUT (09:31)
--- NOTE | 2022-08-21 10:39 | CM.DPNOTE ---
DC Note Discharge today. Patient and family decided to pay privately for rehab at [facility] prepared for this admission today and so DON Atwood, kindly agreed to coordinate Transport scheduled for approx 1400, payment arrangements are directly between October/[facility] and family, COVID does not need to be updated Dr Lu completed all DC ppk and this SENIOR JAVA PROGRAMMER completed and signed PASRR Plan: Discharge to [facility] via w/c van, private payment (patient remains OBS) JW
--- NOTE | 2022-08-21 10:41 | PT.IPTN ---
Current Diagnoses Fracture of unspecified part of neck of left femur, initial encounter for closed fracture (08/18/22) Physical Therapy Treatment Note M2 PT-IP Current Condition Start: 08/19/22 08:06 Freq: NEEDED Status: Active Protocol: Document 08/19/22 10:44 [facility] (Rec: 08/19/22 11:00 [facility] [id number]) Physical Therapy Current Condition Current Condition Evaluation Date 08/19/22 Treatment Diagnosis left hip fracure Onset Date 08/18/22 M3 PT-IP Subjective Start: 08/19/22 08:06 Freq: NEEDED Status: Active Protocol: Document 08/21/22 10:18 [facility] (Rec: 08/21/22 11:58 [facility] [id number]) Subjective Physical Therapy Visit Type Type Treatment Note Visit Start Time 10:18 Visit Stop Time 10:41 Total Visit Minutes 23 Notes TELEPHONE CLERK present for additional assistance. Number of INFORMATION SYSTEMS PLANNER Visits 4 Therapy Pain Assessment Pain When Pain Assessed At Rest Pain Present Pain Present Pain Reported Location Left hip / femur Scale Used did not quantify Pain Behaviors Calling Out,Guarding,Holding Area,Wincing Pain Management Techniques Modification of Treatment,Re- positioning,Timing of Activity with Medications M4 PT-IP Mobility and Gait Start: 08/19/22 08:06 Freq: NEEDED Status: Active Protocol: Document 08/21/22 10:18 [facility] (Rec: 08/21/22 11:58 [facility] [id number]) PT-Bed Mobility Assessment Supine to Sit Supine to Sit Moderate Assistance Sit to Supine Sit to Supine Maximum Assistance Scooting Scooting to Edge of Bed Maximum Assistance PT-Transfer Assessment Sit to and From Stand Sit to and from Stand Maximum Assistance,2 Person Assistance,Use of Upper Extremities Equipment Transfer Assistive Device Gait Belt,Front Wheeled Walker Transfers Transfer Destination Bed Transfer Technique sit<>Stand Comments Mobility Comments Pt in bed upon arrival, agreeable to working w/ PT. Required Mod A for Sup<>sit and Max A for scooting EOB. Pt requires repeated cues for correct sequencing. Attempted sit<>Stand w/ FWW but unable and TELEPHONE CLERK arrived to provide additional assistance. Attempted second sit<>stand and unable to fuly complete w/ Max A x2. Successful sit<> Stand on third attempt w/ FWW Max A x2. Able to stand ~ 2 min however required Max A to remains upright due to heavy posterior lean and difficulty maintaining PWB status of LLE. Max A for sit<>sup. Pt left in bed w/ all needs in reach. Gait Assessment Comments Gait Comments Unable Stair Climbing Assessment Comments Stair Climbing Comments no stairs at home PT-Balance Assessment Sitting Balance and Reactions Static Sitting Balance Ability Fair Dynamic Sitting Balance Ability Fair Standing Balance and Reactions Static Standing Balance Ability Poor Dynamic Standing Balance Ability Poor Device Used FWW Comments Other Balance Tests/Deviations/Treatment Pt requires cues in standing : for 50% wbering, retroleans requiring Max A for correction . M5 PT-IP Objective Assessments Start: 08/19/22 08:06 Freq: NEEDED Status: Active Protocol: Document 08/19/22 10:44 [facility] (Rec: 08/19/22 11:00 [facility] [id number]) Orientation Orientation/Cognition Level of Alertness Alert Orientation Name,Day of Week,Place, Situation Language Function Ability No Deficits Noted,Hard of Hearing Safety Awareness Understands Safety Issues Memory Description No Deficits Noted Gross Range of Motion Upper Extremity ROM Assessment Within Functional Limits Lower Extremity ROM Assessment Left Impaired Strength Upper Extremity Strength Assessment Within Functional Limits Lower Extremity Strength Assessment Left Impaired Comments Strength Comments No MMT performed. Patient able to perform ankle pumps federico ankles, needed mod assist with left LE supine to sit. Indep LAQ federico LE's Coordination Assessment Gross Coordination Gross Coordination WNL Sensation Assessment Sensation Gross Sensation WNL M6 PT-IP Treatment Start: 08/19/22 08:06 Freq: NEEDED Status: Active Protocol: Document 08/21/22 10:18 [facility] (Rec: 08/21/22 11:58 [facility] [id number]) Physical Therapy Treatment Education Education Provided Precautions,Weight Bearing Status,Safety M7 PT-IP Assessment and Plan Start: 08/19/22 08:06 Freq: NEEDED Status: Active Protocol: Document 08/21/22 10:18 [facility] (Rec: 08/21/22 11:58 [facility] [id number]) PT Summary Assessment and Plan Potential Rehabilitation Potential Good Summary Impairments Pain,Strength,Bed Mobility, Transfers,Gait,Activity Tolerance Progress Towards Goals Slow Progress due to Pain,Slow Progress due to Activity Tolerance Assessment Summary Pt remains limited by pain and weakness as well as PWB LLE. He requires Mod to Max A for bed mobility and Max A x2 for sit<>stand. He is at high risk for falls and not safe to return home. He will require SNF to improve strength and functional mobility. Goals Bed Mobility Goal Independent,Standby Assistance Transfer Goal Independent,Standby Assistance Gait Goal Independent,Standby Assistance Gait Distance 50 Days to Meet Goals 5 Frequency of Treatment Frequency Of Treatment Twice a Day Treatment Plan Physical Therapy Treatment Plan Bed Mobility Training,Transfer Training,Gait Training, Therapeutic Exercise,Discharge Planning,Hot or Cold Pack Other Recommendations and Next Treatment 50% weight-bearing Focus Weight Bearing Status Weight Bearing Status Partial Weight Bearing Allowed Weight Bearing Amount (enter % 50% WBAT for LLE or #) (%) Recommendations To Nursing Amount of Assist Needed 2 Person Assist Discharge Recommendations PT Discharge Recommendations SNF Rehab Transportation Needs at Discharge Private Vehicle,Wheelchair/ Cabulance
--- NOTE | 2022-08-21 14:35 | OT.IP.TRT ---
Current Diagnoses Fracture of unspecified part of neck of left femur, initial encounter for closed fracture (08/18/22) Occupational Therapy Treatment Note M2 OT-IP Current Condition Start: 08/19/22 16:46 Freq: Status: Active Protocol: Document 08/19/22 15:55 [facility] (Rec: 08/19/22 17:25 [facility] [id number]) Occupational Therapy Current Condition Current Condition Evaluation Date 08/19/22 Treatment Diagnosis S/p left interchochanteric hip fx Diagnosis Onset Date 08/18/22 Weight Bearing Status Weight Bearing Status Partial Weight Bearing Allowed Weight Bearing Amount (enter % 50% WBAT for LLE or #) (%) M3 OT- IP Subjective and Pain Start: 08/19/22 16:46 Freq: Status: Active Protocol: Document 08/21/22 14:27 [facility] (Rec: 08/21/22 14:49 [facility] [id number]) OT- Subjective Occupational Therapy Visit Type Type Treatment Note Visit Start Time 14:27 Visit Stop Time 14:35 Total Visit Minutes 8 Occupational Therapy Visit Comments Patient Comments Pt to be going to skilled rehab. Patient/Caregiver Goals To go to skilled rehab. OT Pain Assessment Pain When Pain Assessed During Mobility Pain Present Pain Present Pain Reported Location Left hip / femur Pain Behaviors Facial Grimacing M4 OT- IP ADL's Start: 08/19/22 16:46 Freq: Status: Active Protocol: Document 08/19/22 15:55 [facility] (Rec: 08/19/22 17:25 [facility] [id number]) OT [id number] Comments OT Self-Feeding Comments Not at meal time. OT ADL-Grooming Comments OT Grooming Comments Not completed OT ADL-Oral Care Comments Oral Care Comments Not completed. OT ADL-Bathing Comments OT Bathing Comments Sponge bath more appropriate at this time. Pt's able to get a tub bench. M5 OT- IP IADL's Start: 08/19/22 16:46 Freq: Status: Active Protocol: Document 08/19/22 15:55 [facility] (Rec: 08/19/22 17:25 [facility] [id number]) OT-Instrumental Activities of Daily Living Deficits IADL Deficits Identified Deficits Home Safety Awareness Awareness of Need for Assistance at Home Decreased Awareness Home Safety Comments Pt a bit slow to respond to questions. At this time pt's to assist with all needs. M6 OT- IP Functional Cognition Start: 08/19/22 16:46 Freq: Status: Active Protocol: Document 08/20/22 11:11 [facility] (Rec: 08/20/22 11:19 [facility] [id number]) Cognitive Factors Limiting Selfcare Function Cognitive Ability Level of Alertness Alert,Confusional State Patient Orientation Name,Place Attention Span Ability Capable of Focused Attention, Unable to Sustain Attention Ability to Follow Commands Able to Follow One Step Commands with Increased Time, Able to Follow One Step Commands with Repetition Cognitive Comments Cognitive Assessment Comments Pt still needing increased time to follow commands. Pt however is cooperative and pleasant. M7 OT- IP Mobility and Balance Start: 08/19/22 16:46 Freq: Status: Active Protocol: Document 08/21/22 14:27 [facility] (Rec: 08/21/22 14:49 [facility] [id number]) OT- Bed Mobility Assessment Supine to Sit Supine to Sit Assist Total Assistance,2 Person Assistance OT-Transfer Assessment Sit to and From Stand Sit to and from Stand Maximum Assistance,2 Person Assistance Comments Mobility Comments Total assist to help move his legs to the edge of the bed and green pad to get his hips over. MAX MAX A x2 to stand to FWW with bed raised so able to switch the bed and wc out. OT- Balance Assessment Sitting Balance and Reactions Static Sitting Balance Ability Fair Standing Balance and Reactions Static Standing Balance Ability Poor M8 OT- IP Objective Assessments Start: 08/19/22 16:46 Freq: Status: Active Protocol: Document 08/19/22 15:55 [facility] (Rec: 08/19/22 17:25 [facility] [id number]) OT-Muscle Tone Assessment Muscle Tone WNL Yes M9 OT- IP Assessment and Plan Start: 08/19/22 16:46 Freq: Status: Active Protocol: Document 08/21/22 14:27 [facility] (Rec: 08/21/22 14:49 [facility] [id number]) OT Summary Assessment and Plan Potential Rehabilitation Potential Fair Analytic Complexity at Evaluation Low Summary OT Impairments Pain,Balance,Functional Cognition,Functional Mobility, Grooming,Dressing,Toileting, Bathing,Toilet Transfers, Shower Transfers,Activity Tolerance Progress Towards Goals Slow Progress due to Pain,Slow Progress due to Activity Tolerance Assessment Summary Pt needing more assist today for mobility needs and needing 3 person assist. Pt going to skilled rehab. Goals Grooming Goal Independent Dressing Goal Minimal Assistance Toileting Goal Minimal Assistance Bathing Goal Moderate Assistance Toilet Transfer Goal Contact Guard Assistance Shower Transfer Goal Minimal Assistance Days to Meet Goals 30 Frequency of Treatment Frequency Of Treatment Once a Day Treatment Plan OT Treatment Plan ADL Training,Functional Cognition Training,Functional Mobility,Patient/Family Education,Discharge Planning Discharge Recommendations OT Discharge Recommendations SNF Rehab Transportation Needs at Discharge Wheelchair/Cabulance
--- NOTE | 2022-08-21 14:49 | PC.NURSE ---
IV removed. Transferred to / and taken out by [employer] transport. Gave report to Sherine- answered all questions.
== END 2022-08-21 14:51 ==
LOC: ED 13:49 → AC 17:51
PROVIDERS: Admitting Provider Family Medicine; Emergency Provider Emergency Medicine; PCP Family Medicine; Referring Provider Emergency Medicine; Visit Provider Family Medicine
DX: S72.092A Other fracture of head and neck of left femur, initial encounter for closed fracture (principal); S00.03XA Contusion of scalp, initial encounter; W01.10XA Fall on same level from slipping, tripping and stumbling with subsequent striking against unspecified object, initial encounter; Y92.009 Unspecified place in unspecified non-institutional (private) residence as the place of occurrence of the external cause; Z96.643 Presence of artificial hip joint, bilateral; E11.9 Type 2 diabetes mellitus without complications; Z79.4 Long term (current) use of insulin; Z79.01 Long term (current) use of anticoagulants; Z95.2 Presence of prosthetic heart valve; I25.10 Atherosclerotic heart disease of native coronary artery without angina pectoris; Z20.822 Contact with and (suspected) exposure to COVID-19
CPT/HCPCS: 36415; 70450; 72125; 72192; 73502; 73552; 80053; 81003; 81015; 82962; 83690; 85025; 85610; 87635; 93005; 93010; 96372; 97162; 97165; 97530; 99284; C9803; G0378; J1815

== ENCOUNTER → 2022-10-03 13:17 | Outpatient (CLI) | payer MEDICARE, OTHER, SELFPAY ==
[2022-08-18 17:56] VITALS: BMI 29.1
--- NOTE | 2022-10-03 | DI.RAD.S_ITS ---
PROCEDURE: XR HIP W PEL IF DONE LT 2V INDICATIONS: Periprosthetic fracture around internal prosthetic left hip TECHNIQUE: AP pelvis with lateral view(s) of the left hip(s). COMPARISON: [facility], CT, CT PEL WO CON, 08/18/2022, 15:11. [facility], CR, XR HIP W PEL IF DONE LT 2V, 08/18/2022, 13:38. FINDINGS: Bones: Stable alignment with less prominent appearance of fracture lucency within the left subtrochanteric region. Bilateral hip arthroplasties are present. Hardware is intact without hardware fracture or periprosthetic lucency to suggest loosening Soft tissues: The visualized bowel gas pattern is normal. No suspicious soft tissue calcifications. IMPRESSION: Stable alignment and mild interval healing of left subtrochanteric fracture. Dictated by: Vianney Martel M.D. on 10/03/2022 at 17:03 Approved by: Vianney Martel M.D. on 10/03/2022 at 17:04
== END ==
PROVIDERS: PCP Family Medicine; Referring Provider Orthopaedic Surgery; Visit Provider Orthopaedic Surgery
DX: M97.02XA Periprosthetic fracture around internal prosthetic left hip joint, initial encounter (principal)
CPT/HCPCS: 73502

== ENCOUNTER → 2022-10-08 10:10 | Outpatient (CLI) | payer MEDICARE, OTHER, SELFPAY ==
[2022-08-18 17:56] VITALS: BMI 29.1
--- NOTE | 2022-10-08 | DI.RAD.S_ITS ---
PROCEDURE: FL BARIUM SWALLOW W SPEECH INDICATIONS: Dysphagia, oropharyngeal phase COMPARISON: None. TECHNIQUE: Examination was conducted in conjunction with speech pathology per standard protocol. In the lateral projection, filming was performed of the patient swallowing. AP projection filming may also be performed with patient swallowing. COMPARISON: FINDINGS: Function: The oral preparatory phase appears abnormal, with early spilling of contrast into the piriform sinuses and vallecula. There is significant residual contrast following a swallow. There was penetration with possible aspiration of residual contrast within the vallecula, following a swallow of water. Morphology: No cricopharyngeal bar is identified. No cervical esophageal webs. No Zenker's diverticulum. No strictures. IMPRESSION: Abnormal exam. Please see dedicated speech pathologist note. Dictated by: Dave Freire M.D. on 10/08/2022 at 11:32 Approved by: Dave Freire M.D. on 10/08/2022 at 11:34
--- NOTE | 2022-10-08 15:33 | ST.SWALLOW ---
Visit Care Team Role Provider Type Armando Lu MD Primary Care Provider Physician Specialty: Family Practice Address: [address] [place], [address] Email: [email or web address] ZACHERY Lozada Attending Provider Non-Staff Referring Provider Specialty: [facility] Address: [address] [place] [address], [id number] Fax: Email: ST Modified Barium Swallow Study UX RESEARCHER Modified Barium Swallow Study Start: 10/08/22 11:16 Freq: Status: Active Protocol: Document 10/08/22 11:17 [facility] (Rec: 10/08/22 11:17 [facility] [id number]) Modified Barium Swallow Study Total Time Visit Start Time 10:30 Visit Stop Time 11:10 Total Visit Minutes 40 Setting Setting Outpatient Care Patient Information Identification Type Name,Date of Patient History Per H&P from inpatient stay in 08/2022: Patient is an 86-year -old gentleman patient who apparently in his usual state of health until Thursday when he had a fall. Unclear what happened he feels like he just lost his balance but he does not truly know. Had no chest pain palpitations or other changes. Had been feeling pretty well. Had immediate right hip pain. Also hit his head. Has no other significant new change. Due to the fact that he can put weight on his leg and was having extreme pain he was brought to the emergency room. He is otherwise been feeling well. He currently has no headache. Since discharge from [facility], the pt has been at a [facility] facility ( [facility]) where he has been receiving PT /OT/ST. UX RESEARCHER at [facility], who is also present at this [facility] evaluation, reports that the pt was admitted with pneumonia which was suspected to be 2/ aspiration. Throughout the course of his stay, pt has continued to exhibit intermittent overt s/sx aspiration on thin liquids. The pt?s dysphagia is exacerbated by difficulty tolerating upright positioning . Due to this, the pt often attempt PO intake while reclined despite UX RESEARCHER recommendations and training. Even while upright, the pt demonstrates overt s/sx aspiration on thin liquids in 25-50% of trials. These overt s/sx are reduced with the use of a thin (coffee stirrer) straw to reduce bolus flow. Chin tuck was attempted but either had no effect or exacerbated symptoms across multiple trials. In addition to dysphagia, the pt has presented with altered mental status throughout his stay at [facility], though not being formally treated for cognition. He is intermittently oriented to time and place, and benefits from external aids for orientation. He does have a dx of CKD stage 4 which may be impacting cognition. The pt benefits from frequent redirection and clear, concise one-step directions. He is referred for this MBS at the request of [facility] UX RESEARCHER (via Emiliano Wei NP) due to concern for silent aspiration given intermittent overt s/sx aspiration. Subjective Observations Pt was accompanied to the MBS by SNF staff to aid in pt transfer to the MBS chair. Pt' s was also present. Instructions and directions were described for the pt who indicated he understood and agreed to continue. Patient Positioning Position View Lateral Imaging Lateral View Textures Administered Trials Presented Thin Liquid via Spoon (IDDSI 0 ),Mildly Thick Liquid via Spoon (IDDSI 2),Mildly Thick Liquid via Cup (IDDSI 2),Puree (IDDSI 4),Minced & Moist ( IDDSI 5),Soft & Bite-sized ( IDDSI The IDDSI Framework Protocol: IDDSI.1 Oral Impairment Source: The Modified Barium Swallow Impairment Profile (MBSImP??) Lip Closure Escape progressing to mid-chin Tongue Control During Bolus Hold Cohesive bolus between tongue to palatal seal Bolus Preparation/Mastication Disorganized chewing/mashing with solid pieces of bolus unchewed Bolus Transport/Lingual Motion Repetitive/disorganized tongue motion Oral Residue Residue collection on oral structures Initiation of Pharyngeal Swallow Bolus head at pyriforms Additional Oral Impairment Observations Pt presented with several teeth missing. Bilateral weakness of the tongue with dyscoordinated lateral movement observed. Slight tremor of tongue body during rest and upon protrusion. Bolus hold in the mouth was adequate. However, A-P transition resulted in disorganized tongue movements and premature spillage of more than half of the bolus to the pyriforms. Swallow initiation was significantly delayed, requiring frequent cuing to swallow by the UX RESEARCHER. Mastication demonstrated a munching pattern of chewing primarily with the anterior teeth. Pharyngeal Impairment Source: The Modified Barium Swallow Impairment Profile (MBSImP??) Soft Palate Elevation No bolus between soft palate & pharyngeal wall Laryngeal Elevation Part.sup.move.thyroid cart/ part.approx.arytenoids to epiglot.petiole Anterior Hyoid Excursion Partial anterior movement Epiglottic Movement Partial inversion Laryngeal Vestibular Closure Complete; no air/contrast in laryngeal vestibule Pharyngeal Stripping Wave Present - diminished Pharyngoesophageal Segment Opening Complete distention & complete duration; no obstruction of flow Tongue Base Retraction Narrow column of contrast/air between tongue base & post. pharyngeal wall Pharyngeal Residue Majority of contrast within/on pharyngeal structures Location Diffuse (>3 areas) Additional Pharyngeal Impairment The pt presented with a Observations significantly delayed swallow response with premature spillage to the pyriforms. All subsequent swallows were significantly delayed. Weak tongue base muscles negatively affected the elevation and movement of the hyolaryngeal structures. The epiglottis partially inverted, contributing to the significant pharyngeal pooling noted, especially following the semi-solid trials (pudding and minced/moist cookie crumbs). The residue of the semi-solid trials was very slow moving and was observed to span the airway from the epiglottis to the pyriforms and the UES. The valecullar residue of the semi-solid foods was noted to thin with secretions and, with subsequent swallows, trace penetration flowed into the larynx from the valeculla. The pt was able to safely tolerate nectar thick liquids as thin liquids were difficult for the pt to control pharyngeally. Additionally, with nectar thick liquids, the pt's swallow response appeared to be improved with less pharyngeal pooling. This may be due to increased awareness of the bolus and NTL being heavier and flow slower than thin liquids, allowing the pt time to initiate swallowing. A/P View The IDDSI Framework Protocol: IDDSI.1 Clinical Impressions Dysphagia Type Oral,Pharyngeal Findings Pt presents with moderately severe oropharyngeal dysphagia characterized by poor OM ROM and strength, reduced coordination of the tongue muscles. Further, the pt appears unaware that the bolus has entered the pharynx to swallow and/or hasa significant difficulty initiating a swallow. Pt is currently on a minced/moist diet texture, which is recommended to continue. Silas thick liquids are recommended as the pt demonstrated improved swallow over thin liquids. Pt was observed to present with neurological s/sx that indicate further assessment. These include bilateral lingual weakness, a lingual tremor art rest and with protrusion, reduced coordination and/or sensation within the oropharyngeal structures. A Additionally, the pt presented with flattened affect and a soft voice. A neurological referral and evaluation is recommended. Rehabilitation Potential Good Patient Appropriate for Therapy Yes: Pt is currently receiving UX RESEARCHER services at [facility] Recommendations Diet Liquids Order Mildly Thick (IDDSI 2) Diet Order Minced & Moist (IDDSI 5) Medication Recommendation Crushed in Carrier Aspiration Precautions Recommended Precautions Upright at 90 Degrees, Alternate Liquids/Solids, Double Swallow Treatment Plan Therapy Recommendations Base of Tongue Exercises Recommended Referrals Neurology Therapy Strategy Recommendations Sitting Upright (90 deg), Double Swallow,Alternate Liquids/Solids Short Term Goals pt to continue ST services while at SNF
== END ==
PROVIDERS: PCP Family Medicine; Referring Provider Nurse Practitioner Family; Visit Provider Nurse Practitioner Family
DX: R13.12 Dysphagia, oropharyngeal phase (principal)
CPT/HCPCS: 74230; 92611

== ENCOUNTER → 2022-10-29 14:11 | Outpatient (CLI) | payer MEDICARE, OTHER, SELFPAY ==
[2022-08-18 17:56] VITALS: BMI 29.1
--- NOTE | 2022-10-29 | DI.RAD.S_ITS ---
PROCEDURE: XR CHEST 2V INDICATIONS: Pneumonitis due to inhalation of food and vomit TECHNIQUE: 2 views of the chest were acquired. COMPARISON: [facility], CR, XR CHEST 2V, 03/25/2019, 12:12. FINDINGS: Surgical changes and devices: Sternotomy and CABG. The most superior sternal wire is fractured. 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 Lungs and pleura: Left lower lobe infiltrate suspicious for pneumonia. No large pleural effusion or pneumothorax. Mediastinum: Mediastinal contours are normal. Heart size is normal. Bones and chest wall: No suspicious bony abnormalities. Soft tissues appear unremarkable. IMPRESSION: Suspect left lower lobe pneumonia. Dictated by: Kimberly Jackson M.D. on 10/29/2022 at 15:42 Approved by: Kimberly Jackson M.D. on 10/29/2022 at 15:44
[2022-10-29 14:54] LABS: Add Manual Diff / Slide Review NO; Basophils Absolute Auto 0 /uL (0-100); Basophils Percent Auto 0.3 % (0-2); Eosinophils Absolute Auto 200 /uL (0-450); Eosinophils Percent Auto 1.1 % (2-4); Hematocrit 33.8 % (41-53); Hemoglobin 10.9 g/dL (13.5-17.5); Lymphocytes Absolute Auto 3600 /uL (1100-4500); Lymphocytes Percent Auto 25.6 % (25-40); Mean Corpuscular HGB Conc 32.3 % (30-36); Mean Corpuscular Hemoglobin 29.3 PG (26-34); Mean Corpuscular Volume 90.6 fL (80-100); Monocytes Absolute Auto 1100 /uL (0-900); Neutrophils Absolute Auto 9200 /uL (1500-7000); Platelet Count 226 X10^3/uL (150-400); Red Blood Cell Count 3.73 X10^6/uL (4.5-5.9); White Blood Cell Count 14.1 X10^3/uL (4.5-11.0)
[2022-10-29 15:13] LABS: BUN Creatinine Ratio 16.3 (6-22); Blood Urea Nitrogen 68 mg/dL (9-20); Calcium 8.5 mg/dL (8.4-10.2); Carbon Dioxide 21 mmol/L (22-32); Chloride 103 mmol/L (98-107); Estimated Glomerular Filt Rate 13 mL/min (>60); Glucose 153 mg/dL (80-110); HEMOLYSIS < 15 (0-50); Potassium 5.1 mmol/L (3.4-5.1); Sodium 136 mmol/L (137-145)
== END ==
PROVIDERS: PCP Family Medicine; Referring Provider Nurse Practitioner Family; Visit Provider Nurse Practitioner Family
DX: J69.0 Pneumonitis due to inhalation of food and vomit (principal); S72.002D Fracture of unspecified part of neck of left femur, subsequent encounter for closed fracture with routine healing; M97.02XD Periprosthetic fracture around internal prosthetic left hip joint, subsequent encounter
CPT/HCPCS: 36415; 71046; 80048; 85025

== ENCOUNTER 2022-10-29 15:57 | Inpatient (IN) | payer MEDICARE, OTHER, SELFPAY ==
[2022-08-18 17:56] VITALS: BMI 29.1
[2022-10-29] VITALS (18 sets, daily range): BP systolic 91–122; BP diastolic 49–65; PULSE 84–91; RESP 14–30; TEMP 36.4–36.9; O2SAT 87–96; BMI 25.2; BMI 24.5
--- NOTE | 2022-10-29 16:06 | ED_ITS ---
HPI - General Adult <Dash Mc DO - Last Filed: 10/29/22 18:30> General Chief complaint: Nausea/Vomiting/Diarrhea Stated complaint: Hypotension, N/V/D Time Seen by Provider: 10/29/22 16:04 Source: patient and EMS Mode of arrival: EMS Limitations: no limitations History of Present Illness HPI narrative: Patient is an 86-year-old male. He is had [facility] after sustaining a femur fracture. For the past couple days he has had nausea vomiting and diarrhea. He is also having generalized abdominal discomfort. He actually states that his nausea has improved but is still having diarrhea. Unsure if he is having blood in his stool. He had his blood pressure taken at the facility and the patient was found to be hypotensive with a systolic blood pressure in the 80s. He is received fluid by EMS prior to arrival. No nausea medication given prior to arrival. No fevers. No chest pain. No shortness of breath. Related Data Home Medications Medication Instructions Recorded Confirmed atorvastatin 40 mg tablet 40 mg PO QPM 08/13/21 10/29/22 cholecalciferol (vitamin D3) 50 2,000 mcg PO DAILY 08/13/21 10/29/22 mcg (2,000 unit) capsule insulin glargine 100 unit/mL (3 10 unit SUBCUT BEDTIME 08/13/21 10/29/22 mL) subcutaneous pen (Basaglar KwikPen U-100 Insulin) metoprolol succinate 25 mg 37.5 mg PO BID 08/13/21 10/29/22 tablet,extended release 24 hr multivitamin 1 tab PO QAM 08/13/21 10/29/22 polyethylene glycol 3350 17 gram 17 g PO DAILY 08/13/21 10/29/22 oral powder packet (Miralax) gabapentin 100 mg capsule 100 mg PO QPM 08/18/22 10/29/22 isosorbide mononitrate 60 mg 80 mg PO DAILY 08/18/22 10/29/22 tablet,extended release 24 hr sertraline 100 mg tablet 125 mg PO DAILY 08/18/22 10/29/22 acetaminophen 500 mg tablet 1,000 mg PO TID PRN Pain (Scale 10/29/22 10/29/22 Score 1-3) bisacodyl 10 mg rectal suppository 10 mg ID DAILY PRN Constipation 10/29/22 10/29/22 (Dulcolax (bisacodyl)) warfarin 1 mg tablet 1 mg PO DAILY 10/29/22 10/29/22 Allergies Allergy/AdvReac Type Severity Reaction Status Date / Time metoclopramide [From REGLAN] AdvReac Severe Dyskinesia Verified 08/18/22 13:37 morphine [MORPHINE] AdvReac Unknown Hallucinati Verified 08/18/22 13:37 ons narcotics AdvReac Severe Hallucinati Uncoded 08/18/22 13:37 ng Review of Systems <Dash Mc DO - Last Filed: 10/29/22 18:30> Constitutional Constitutional: Reports system reviewed and no additional complaints, except as documented Cardiovascular Cardiovascular: Reports system reviewed and no additional complaints, except as documented Respiratory Respiratory: Reports system reviewed and no additional complaints, except as documented Gastrointestinal Gastrointestinal: Reports system reviewed and no additional complaints, except as documented Integumentary/Breasts Skin/Breast: Reports system reviewed and no additional complaints, except as documented Neurologic Neurologic: Reports system reviewed and no additional complaints, except as documented Patient History <Dash Mc DO - Last Filed: 10/29/22 18:30> Medical History Anticoagulation therapy continued upon discharge Arthritis ASCVD (arteriosclerotic cardiovascular disease) Ataxia Chest pain CKD (chronic kidney disease), stage IV Depression with anxiety Gout History of aortic valvular stenosis Hyperlipidemia Hypertension Low back pain Obesity Obstructive sleep apnea Peripheral neuropathy Pulmonary embolism Type II diabetes mellitus Vertigo Vertigo Vitamin D deficiency Surgical History Aortic valve replaced Social History household members: other Smoking Status: Former smoker alcohol intake: never Smoking Status: Former smoker alcohol intake frequency: 0-2 drinks per day Substance Use Type: does not use Exam <DO Shayna España Last Filed: 10/29/22 18:30> Initial Vital Signs Initial Vital Signs: Vital Signs Temperature 97.8 F 10/29/22 16:06 Pulse Rate 85 10/29/22 16:06 Respiratory Rate 20 10/29/22 16:06 Blood Pressure 115/58 L 10/29/22 16:06 Pulse Oximetry 92 10/29/22 16:06 Const General: cooperative, comfortable and No ill appearing [facility] Head: normal to inspection and normocephalic Resp Effort & Inspection: normal respiratory effort Auscultation: clear to auscultation bilaterally Cardio Rate: regular rate Rhythm: regular rhythm GI Inspection: normal to inspection and non-distended Skin General: no rashes or lesions noted Neuro General: patient alert, patient awake, patient oriented x3 and moves all extremities Extrem General: capillary refill normal Psych Appearance: grossly normal and well kempt <Lalo Elam, DO - Last Filed: 10/30/22 01:41> Initial Vital Signs Initial Vital Signs: Vital Signs Temperature 97.8 F 10/29/22 16:06 Pulse Rate 85 10/29/22 16:06 Respiratory Rate 20 10/29/22 16:06 Blood Pressure 115/58 L 10/29/22 16:06 Pulse Oximetry 92 10/29/22 16:06 Course <Dash Mc DO - Last Filed: 10/29/22 18:30> Orders Ordered: ED Orders 10/29/22 18:25 BMP [Basic Metabolic Panel] Stat 10/29/22 18:27 US renal complete Stat XR abdomen min 2V Stat 10/29/22 20:14 Creatinine Urine Random Stat Sodium Urine Random Stat Urinalysis and Microscopic Stat Urine Culture Stat Acetaminophen (Acetaminophen 325 Mg Tablet) 650 mg PO Q6H PRN PRN Reason: Fever/Mild Pain (1-3) Amlodipine Besylate (Amlodipine 5 Mg Tablet) 5 mg PO QPM KASSANDRA Atorvastatin Calcium (Atorvastatin 20 Mg Tablet) 40 mg PO QPM KASSANDRA Gabapentin (Gabapentin 100 Mg Capsule) 100 mg PO QPM KASSANDRA Sodium Chloride (Normal Saline 0.9%) 1,000 mls @ 125 mls/hr IV CONT KASSANDRA Last Admin: 10/30/22 00:18 Dose: 125 mls/hr Documented By: Infusion: 10/30/22 00:18 Dose: 125 mls/hr Documented By: Admin: 10/29/22 18:37 Dose: 125 mls/hr Documented By: JOEY Insulin Glargine (Insulin Glargine 100 Unit/Ml 3ml Pen) 10 unit SUBCUT BID KASSANDRA Isosorbide Mononitrate (Isosorbide Mononitrate Er 30 Mg Tablet) 80 mg PO DAILY KASSANDRA Metoprolol Succinate (Metoprolol Er 25 Mg Tablet) 37.5 mg PO BID KASSANDRA Oxycodone HCl (Oxycodone Ir 5 Mg Tablet) 5 mg PO Q6H PRN PRN Reason: pain Sertraline HCl (Sertraline 50 Mg Tablet) 125 mg PO DAILY KASSANDRA Discontinued Medications Sodium Chloride (Normal Saline 0.9%) 1,000 mls @ 1,000 mls/hr IV BOLUS ONE Stop: 10/29/22 17:03 Last Infusion: 10/29/22 18:30 Dose: 0 mls/hr Documented By: Admin: 10/29/22 17:15 Dose: 1,000 mls/hr Documented By: JOEY Ceftriaxone Sodium 1,000 mg/ (Sodium Chloride) 100 mls @ 200 mls/hr IV NOW ONE Stop: 10/29/22 21:03 Last Infusion: 10/29/22 21:52 Dose: 0 mls/hr Documented By: Admin: 10/29/22 21:11 Dose: 200 mls/hr Documented By: JOEY Lidocaine HCl (Lidocaine 2% (Glydo) 6 Ml Gel) 6 ml TOP NOW ONE Stop: 10/29/22 19:57 Last Admin: 10/29/22 20:03 Dose: 6 ml Documented By: GARY Ondansetron HCl (Ondansetron 4 Mg/2 Ml Inj) 4 mg IV NOW ONE Stop: 10/29/22 17:20 Last Admin: 10/29/22 17:25 Dose: 4 mg Documented By: JOEY Vital Signs Vital signs: Vital Signs - 8 hr 10/29/22 18:00 10/29/22 18:00 10/29/22 18:30 Temperature Pulse Rate 89 Respiratory Rate 30 H Blood Pressure 101/55 L 102/53 L Pulse Oximetry 95 10/29/22 18:30 10/29/22 19:00 10/29/22 19:02 Temperature Pulse Rate 84 89 Respiratory Rate 21 23 Blood Pressure 91/55 L Pulse Oximetry 95 91 10/29/22 19:02 10/29/22 20:22 10/29/22 19:30 Temperature 98.4 F Pulse Rate 88 Respiratory Rate 22 Blood Pressure 106/55 L Pulse Oximetry 92 10/29/22 19:30 10/29/22 20:00 10/29/22 20:00 Temperature Pulse Rate 91 H 85 Respiratory Rate 22 25 H Blood Pressure 98/54 L Pulse Oximetry 93 92 10/29/22 20:29 10/29/22 20:30 10/29/22 20:30 Temperature Pulse Rate 86 86 Respiratory Rate 25 H 20 Blood Pressure 101/57 L Pulse Oximetry 92 91 10/29/22 21:00 10/29/22 21:00 Temperature Pulse Rate 87 Respiratory Rate 15 Blood Pressure 110/56 L Pulse Oximetry 91 <Lalo Elam, DO - Last Filed: 10/30/22 01:41> Orders Ordered: ED Orders 10/29/22 18:25 BMP [Basic Metabolic Panel] Stat 10/29/22 18:27 US renal complete Stat XR abdomen min 2V Stat 10/29/22 20:14 Creatinine Urine Random Stat Sodium Urine Random Stat Urinalysis and Microscopic Stat Urine Culture Stat Acetaminophen (Acetaminophen 325 Mg Tablet) 650 mg PO Q6H PRN PRN Reason: Fever/Mild Pain (1-3) Amlodipine Besylate (Amlodipine 5 Mg Tablet) 5 mg PO QPM KASSANDRA Atorvastatin Calcium (Atorvastatin 20 Mg Tablet) 40 mg PO QPM KASSANDRA Gabapentin (Gabapentin 100 Mg Capsule) 100 mg PO QPM KASSANDRA Sodium Chloride (Normal Saline 0.9%) 1,000 mls @ 125 mls/hr IV CONT KASSANDRA Last Admin: 10/30/22 00:18 Dose: 125 mls/hr Documented By: Infusion: 10/30/22 00:18 Dose: 125 mls/hr Documented By: Admin: 10/29/22 18:37 Dose: 125 mls/hr Documented By: JOEY Insulin Glargine (Insulin Glargine 100 Unit/Ml 3ml Pen) 10 unit SUBCUT BID KASSANDRA Isosorbide Mononitrate (Isosorbide Mononitrate Er 30 Mg Tablet) 80 mg PO DAILY KASSANDRA Metoprolol Succinate (Metoprolol Er 25 Mg Tablet) 37.5 mg PO BID KASSANDRA Oxycodone HCl (Oxycodone Ir 5 Mg Tablet) 5 mg PO Q6H PRN PRN Reason: pain Sertraline HCl (Sertraline 50 Mg Tablet) 125 mg PO DAILY KASSANDRA Discontinued Medications Sodium Chloride (Normal Saline 0.9%) 1,000 mls @ 1,000 mls/hr IV BOLUS ONE Stop: 10/29/22 17:03 Last Infusion: 10/29/22 18:30 Dose: 0 mls/hr Documented By: Admin: 10/29/22 17:15 Dose: 1,000 mls/hr Documented By: JOEY Ceftriaxone Sodium 1,000 mg/ (Sodium Chloride) 100 mls @ 200 mls/hr IV NOW ONE Stop: 10/29/22 21:03 Last Infusion: 10/29/22 21:52 Dose: 0 mls/hr Documented By: Admin: 10/29/22 21:11 Dose: 200 mls/hr Documented By: JOEY Lidocaine HCl (Lidocaine 2% (Glydo) 6 Ml Gel) 6 ml TOP NOW ONE Stop: 10/29/22 19:57 Last Admin: 10/29/22 20:03 Dose: 6 ml Documented By: GARY Ondansetron HCl (Ondansetron 4 Mg/2 Ml Inj) 4 mg IV NOW ONE Stop: 10/29/22 17:20 Last Admin: 10/29/22 17:25 Dose: 4 mg Documented By: JOEY Vital Signs Vital signs: Vital Signs - 8 hr 10/29/22 18:00 10/29/22 18:00 10/29/22 18:30 Temperature Pulse Rate 89 Respiratory Rate 30 H Blood Pressure 101/55 L 102/53 L Pulse Oximetry 95 10/29/22 18:30 10/29/22 19:00 10/29/22 19:02 Temperature Pulse Rate 84 89 Respiratory Rate 21 23 Blood Pressure 91/55 L Pulse Oximetry 95 91 10/29/22 19:02 10/29/22 20:22 10/29/22 19:30 Temperature 98.4 F Pulse Rate 88 Respiratory Rate 22 Blood Pressure 106/55 L Pulse Oximetry 92 10/29/22 19:30 10/29/22 20:00 10/29/22 20:00 Temperature Pulse Rate 91 H 85 Respiratory Rate 22 25 H Blood Pressure 98/54 L Pulse Oximetry 93 92 10/29/22 20:29 10/29/22 20:30 10/29/22 20:30 Temperature Pulse Rate 86 86 Respiratory Rate 25 H 20 Blood Pressure 101/57 L Pulse Oximetry 92 91 10/29/22 21:00 10/29/22 21:00 Temperature Pulse Rate 87 Respiratory Rate 15 Blood Pressure 110/56 L Pulse Oximetry 91 Medical Decision Making <Dash Mc DO - Last Filed: 10/29/22 18:30> Medical Records Medical records reviewed: Yes I reviewed the patient's medical records. Lab Data Lab results reviewed: Yes I reviewed the patient's lab results. 10/29/22 16:34 10/29/22 18:25 Labs: Lab Results 10/29/22 10/29/22 10/29/22 Range/Units 16:34 16:34 16:34 WBC 12.3 H (4.5-11.0) X10^3/uL RBC 3.43 L (4.5-5.9) X10^6/uL Hgb 10.1 L (13.5-17.5) g/dL Hct 31.1 L (41-53) % MCV 90.6 (80-100) fL MCH 29.3 (26-34) PG MCHC 32.4 (30-36) % RDW 16.7 H (11.6-14.8) % Plt Count 164 (150-400) X10^3/uL Neut % (Auto) 86.9 H D (50-75) % Lymph % (Auto) 7.6 L (25-40) % [place] % (Auto) 4.7 (3-14) % Eos % (Auto) 0.6 L (2-4) % Baso % (Auto) 0.2 (0-2) % Neut # (Auto) 45036 H (0299-7929) /uL Lymph # (Auto) 900 L (7431-7773) /uL [place] # (Auto) 600 (0-900) /uL Eos # (Auto) 100 (0-450) /uL Baso # (Auto) 0 (0-100) /uL PT 30.1 H (10.1-12.7) SECONDS INR 2.6 H (0.9-1.3) Sodium 136 L (137-145) mmol/L Potassium 5.1 (3.4-5.1) mmol/L Chloride 106 (98-107) mmol/L Carbon Dioxide 21 L (22-32) mmol/L BUN 66 H (9-20) mg/dL Creatinine 4.00 H (0.66-1.25) mg/dL Estimated GFR 14 L (>60) mL/min BUN/Creatinine Ratio 16.5 (6-22) Glucose 160 H (80-110) mg/dL Calcium 7.9 L (8.4-10.2) mg/dL Total Bilirubin 0.4 (0.2-1.3) mg/dL AST 26 (17-59) IU/L ALT 17 (<50) IU/L Alkaline Phosphatase 138 H (38-126) U/L Total Protein 6.4 (6.3-8.2) g/dL Albumin 2.9 L (3.5-5.0) g/dL Globulin 3.5 (1.7-4.1) g/dL Albumin/Globulin Ratio 0.8 L (1.0-2.8) Lipase 98 (23-300) U/L Urine Color Urine Appearance Urine pH (4.5-8.0) Ur Specific [place] (1.000-1.035) Urine Protein (Negative) Urine Glucose (UA) (Negative) g/dL Urine Ketones (NEGATIVE) Urine Occult Blood (Negative) Urine Nitrate (Negative) Urine Bilirubin (NEGATIVE) Urine Urobilinogen (0.2) E.U./dL Ur Leukocyte Esterase (NEGATIVE) Urine RBC (0-5/HPF) Urine WBC (0-5/HPF) Ur Squamous Epith Cells (0-5/HPF) Urine Bacteria (None) Ur Culture Indicated? Ur Random Sodium (30-90) mmol/L Urine Creatinine mg/dL 10/29/22 10/29/22 10/29/22 Range/Units 18:25 20:14 20:14 WBC (4.5-11.0) X10^3/uL RBC (4.5-5.9) X10^6/uL Hgb (13.5-17.5) g/dL Hct (41-53) % MCV (80-100) fL MCH (26-34) PG MCHC (30-36) % RDW (11.6-14.8) % Plt Count (150-400) X10^3/uL Neut % (Auto) (50-75) % Lymph % (Auto) (25-40) % [place] % (Auto) (3-14) % Eos % (Auto) (2-4) % Baso % (Auto) (0-2) % Neut # (Auto) (8306-8628) /uL Lymph # (Auto) (0191-2656) /uL [place] # (Auto) (0-900) /uL Eos # (Auto) (0-450) /uL Baso # (Auto) (0-100) /uL PT (10.1-12.7) SECONDS INR (0.9-1.3) Sodium 137 (137-145) mmol/L Potassium 5.1 (3.4-5.1) mmol/L Chloride 106 (98-107) mmol/L Carbon Dioxide 22 (22-32) mmol/L BUN 65 H (9-20) mg/dL Creatinine 3.89 H (0.66-1.25) mg/dL Estimated GFR 14 L (>60) mL/min BUN/Creatinine Ratio 16.7 (6-22) Glucose 152 H (80-110) mg/dL Calcium 7.7 L (8.4-10.2) mg/dL Total Bilirubin (0.2-1.3) mg/dL AST (17-59) IU/L ALT (<50) IU/L Alkaline Phosphatase (38-126) U/L Total Protein (6.3-8.2) g/dL Albumin (3.5-5.0) g/dL Globulin (1.7-4.1) g/dL Albumin/Globulin Ratio (1.0-2.8) Lipase (23-300) U/L Urine Color [place] Urine Appearance Sl cloudy Urine pH 6.0 (4.5-8.0) Ur Specific [place] 1.020 (1.000-1.035) Urine Protein 1+ H (Negative) Urine Glucose (UA) Negative (Negative) g/dL Urine Ketones Negative (NEGATIVE) Urine Occult Blood Trace-intact (Negative) Urine Nitrate Positive H (Negative) Urine Bilirubin Negative (NEGATIVE) Urine Urobilinogen 0.2 (0.2) E.U./dL Ur Leukocyte Esterase 3+ H (NEGATIVE) Urine RBC None seen (0-5/HPF) Urine WBC 30-100/hpf H (0-5/HPF) Ur Squamous Epith Cells 0-1 /hpf (0-5/HPF) Urine Bacteria Many (>30) H (None) Ur Culture Indicated? Specimen cultured Ur Random Sodium 40 (30-90) mmol/L Urine Creatinine 85.8 mg/dL ECG Data Attestation: I personally reviewed and interpreted this ECG as follows: Interpretation: Sinus rhythm Ventricular rate 85 First-degree AV block with a ID interval 256 milliseconds Normal QRS Nonspecific ST T wave changes MDM Narrative Medical decision making narrative: 86-year-old male. At least 24 hours if not longer of nausea vomiting and diarrhea. Reported hypotension at his nursing facility. He received 1 L fluids by EMS prior to arrival. He received another L fluids here. He does have an acute kidney injury. His potassium is unremarkable. No fevers. Has a soft abdomen. He states that his nausea is better. Care turned over to Dr. Elam to follow-up on repeat labs to evaluate for improvement of his creatinine and most likely admission for acute kidney injury. <Lalo Elam, DO - Last Filed: 10/30/22 01:41> Lab Data Labs: Lab Results 10/29/22 10/29/22 10/29/22 Range/Units 16:34 16:34 16:34 WBC 12.3 H (4.5-11.0) X10^3/uL RBC 3.43 L (4.5-5.9) X10^6/uL Hgb 10.1 L (13.5-17.5) g/dL Hct 31.1 L (41-53) % MCV 90.6 (80-100) fL MCH 29.3 (26-34) PG MCHC 32.4 (30-36) % RDW 16.7 H (11.6-14.8) % Plt Count 164 (150-400) X10^3/uL Neut % (Auto) 86.9 H D (50-75) % Lymph % (Auto) 7.6 L (25-40) % [place] % (Auto) 4.7 (3-14) % Eos % (Auto) 0.6 L (2-4) % Baso % (Auto) 0.2 (0-2) % Neut # (Auto) 68626 H (0256-5436) /uL Lymph # (Auto) 900 L (6971-1952) /uL [place] # (Auto) 600 (0-900) /uL Eos # (Auto) 100 (0-450) /uL Baso # (Auto) 0 (0-100) /uL PT 30.1 H (10.1-12.7) SECONDS INR 2.6 H (0.9-1.3) Sodium 136 L (137-145) mmol/L Potassium 5.1 (3.4-5.1) mmol/L Chloride 106 (98-107) mmol/L Carbon Dioxide 21 L (22-32) mmol/L BUN 66 H (9-20) mg/dL Creatinine 4.00 H (0.66-1.25) mg/dL Estimated GFR 14 L (>60) mL/min BUN/Creatinine Ratio 16.5 (6-22) Glucose 160 H (80-110) mg/dL Calcium 7.9 L (8.4-10.2) mg/dL Total Bilirubin 0.4 (0.2-1.3) mg/dL AST 26 (17-59) IU/L ALT 17 (<50) IU/L Alkaline Phosphatase 138 H (38-126) U/L Total Protein 6.4 (6.3-8.2) g/dL Albumin 2.9 L (3.5-5.0) g/dL Globulin 3.5 (1.7-4.1) g/dL Albumin/Globulin Ratio 0.8 L (1.0-2.8) Lipase 98 (23-300) U/L Urine Color Urine Appearance Urine pH (4.5-8.0) Ur Specific [place] (1.000-1.035) Urine Protein (Negative) Urine Glucose (UA) (Negative) g/dL Urine Ketones (NEGATIVE) Urine Occult Blood (Negative) Urine Nitrate (Negative) Urine Bilirubin (NEGATIVE) Urine Urobilinogen (0.2) E.U./dL Ur Leukocyte Esterase (NEGATIVE) Urine RBC (0-5/HPF) Urine WBC (0-5/HPF) Ur Squamous Epith Cells (0-5/HPF) Urine Bacteria (None) Ur Culture Indicated? Ur Random Sodium (30-90) mmol/L Urine Creatinine mg/dL 10/29/22 10/29/22 10/29/22 Range/Units 18:25 20:14 20:14 WBC (4.5-11.0) X10^3/uL RBC (4.5-5.9) X10^6/uL Hgb (13.5-17.5) g/dL Hct (41-53) % MCV (80-100) fL MCH (26-34) PG MCHC (30-36) % RDW (11.6-14.8) % Plt Count (150-400) X10^3/uL Neut % (Auto) (50-75) % Lymph % (Auto) (25-40) % [place] % (Auto) (3-14) % Eos % (Auto) (2-4) % Baso % (Auto) (0-2) % Neut # (Auto) (5642-5919) /uL Lymph # (Auto) (7576-7789) /uL [place] # (Auto) (0-900) /uL Eos # (Auto) (0-450) /uL Baso # (Auto) (0-100) /uL PT (10.1-12.7) SECONDS INR (0.9-1.3) Sodium 137 (137-145) mmol/L Potassium 5.1 (3.4-5.1) mmol/L Chloride 106 (98-107) mmol/L Carbon Dioxide 22 (22-32) mmol/L BUN 65 H (9-20) mg/dL Creatinine 3.89 H (0.66-1.25) mg/dL Estimated GFR 14 L (>60) mL/min BUN/Creatinine Ratio 16.7 (6-22) Glucose 152 H (80-110) mg/dL Calcium 7.7 L (8.4-10.2) mg/dL Total Bilirubin (0.2-1.3) mg/dL AST (17-59) IU/L ALT (<50) IU/L Alkaline Phosphatase (38-126) U/L Total Protein (6.3-8.2) g/dL Albumin (3.5-5.0) g/dL Globulin (1.7-4.1) g/dL Albumin/Globulin Ratio (1.0-2.8) Lipase (23-300) U/L Urine Color [place] Urine Appearance Sl cloudy Urine pH 6.0 (4.5-8.0) Ur Specific [place] 1.020 (1.000-1.035) Urine Protein 1+ H (Negative) Urine Glucose (UA) Negative (Negative) g/dL Urine Ketones Negative (NEGATIVE) Urine Occult Blood Trace-intact (Negative) Urine Nitrate Positive H (Negative) Urine Bilirubin Negative (NEGATIVE) Urine Urobilinogen 0.2 (0.2) E.U./dL Ur Leukocyte Esterase 3+ H (NEGATIVE) Urine RBC None seen (0-5/HPF) Urine WBC 30-100/hpf H (0-5/HPF) Ur Squamous Epith Cells 0-1 /hpf (0-5/HPF) Urine Bacteria Many (>30) H (None) Ur Culture Indicated? Specimen cultured Ur Random Sodium 40 (30-90) mmol/L Urine Creatinine 85.8 mg/dL MDM Narrative Medical decision making narrative: 86-year-old male. At least 24 hours if not longer of nausea vomiting and diarrhea. Reported hypotension at his nursing facility. He received 1 L fluids by EMS prior to arrival. He received another L fluids here. He does have an acute kidney injury. His potassium is unremarkable. No fevers. Has a soft abdomen. He states that his nausea is better. Care turned over to Dr. Elam to follow-up on repeat labs to evaluate for improvement of his creatinine and most likely admission for acute kidney injury. [1800] (Papa) Patient received in sign out from [Jesusita]. I have reviewed the clinical course and performed an independent history and physical exam. Not in significant distress. Not yet tolerating orals. Waiting on urine, renal US, AAS. 2000 - bedside US notes full bladder, order for holder placed. 2100 -patient is tolerating orals now and there is a slight downward trend in his creatinine. He is clinically dry with poor skin turgor and dry mucous membranes, he has had vomiting and diarrhea. He has been given fluids. Renal ultrasound demonstrates no obvious obstructive uropathy, he did have urinary retention and Holder catheter is placed. There is evidence of UTI. Patient requires hospitalization for further treatment and stabilization of his cond ition. Dr. Rios happy to admit to his service Discharge Plan Departure Patient Disposition: Admitted As Inpatient Clinical Impression: Acute dehydration, Vomiting, Acute UTI, Acute kidney injury Admit Date/Time: 10/29/22 21:08 Admit Provider: Armando Lu
[2022-10-29 16:48] LABS: INR 2.6 (0.9-1.3); Prothrombin Time 30.1 SECONDS (10.1-12.7)
[2022-10-29 16:54] LABS: Alanine Aminotransferase 17 IU/L (<50); Albumin 2.9 g/dL (3.5-5.0); Albumin Globulin Ratio 0.8 (1.0-2.8); Alkaline Phosphatase 138 U/L (38-126); Aspartate Aminotransferase 26 IU/L (17-59); BUN Creatinine Ratio 16.5 (6-22); Bilirubin Total 0.4 mg/dL (0.2-1.3); Blood Urea Nitrogen 66 mg/dL (9-20); Calcium 7.9 mg/dL (8.4-10.2); Carbon Dioxide 21 mmol/L (22-32); Chloride 106 mmol/L (98-107); Estimated Glomerular Filt Rate 14 mL/min (>60); Globulin 3.5 g/dL (1.7-4.1); Glucose 160 mg/dL (80-110); HEMOLYSIS < 15 (0-50); Lipase 98 U/L (23-300); Potassium 5.1 mmol/L (3.4-5.1); Sodium 136 mmol/L (137-145); Total Protein 6.4 g/dL (6.3-8.2)
[2022-10-29 16:59] LABS: Add Manual Diff / Slide Review NO; Basophils Absolute Auto 0 /uL (0-100); Basophils Percent Auto 0.2 % (0-2); Eosinophils Absolute Auto 100 /uL (0-450); Eosinophils Percent Auto 0.6 % (2-4); Hematocrit 31.1 % (41-53); Hemoglobin 10.1 g/dL (13.5-17.5); Lymphocytes Absolute Auto 900 /uL (1100-4500); Lymphocytes Percent Auto 7.6 % (25-40); Mean Corpuscular HGB Conc 32.4 % (30-36); Mean Corpuscular Hemoglobin 29.3 PG (26-34); Mean Corpuscular Volume 90.6 fL (80-100); Monocytes Absolute Auto 600 /uL (0-900); Monocytes Percent Auto 4.7 % (3-14); Neutrophils Absolute Auto 10700 /uL (1500-7000); Neutrophils Percent Auto 86.9 % (50-75); Platelet Count 164 X10^3/uL (150-400); Red Blood Cell Count 3.43 X10^6/uL (4.5-5.9); Red Cell Distribution Width 16.7 % (11.6-14.8); White Blood Cell Count 12.3 X10^3/uL (4.5-11.0)
[2022-10-29] MEDS: SODIUM CHLORIDE 0.9% 1,000 ML 1000 ML IV (17:15)
[2022-10-29] MEDS: ONDANSETRON 4 MG/2 ML INJ IV (17:25)
--- NOTE | 2022-10-29 18:27 | DI.US.S_ITS ---
PROCEDURE: US RENAL COMPLETE INDICATIONS: RENAL FAILURE TECHNIQUE: Real-time scanning was performed of the kidneys and bladder, with image documentation. COMPARISON: [facility], CT, ABDOMEN/PELVIS WITHOUT CONTRAS, 07/16/2016, 0:19. FINDINGS: Kidneys: Right kidney measures 11.4 cm long; left kidney measures 9.8 cm long. There are multiple cysts noted in the right kidney compatible with previously seen hypodensities on CT. There also numerous noted in the left kidney with elongated appearance of the renal collecting system which may represent minimal hydronephrosis versus multiple renal cyst as suggested on comparison CT. No nephrolithiasis. No suspicious solid mass lesions. Bladder: Pre-void bladder volume was not measured mL. Urinary bladder was mostly decompressed. On pre-void images, bilateral ureteral jets were not visualized with color Doppler interrogation. (Of note, ureteral jets may not be detectable in up to 25% of cases due to insufficient differences in specific gravity between ureteral and bladder urine). Miscellaneous: No free pelvic fluid. IMPRESSION: Multiple bilateral renal cysts consistent with findings seen on prior CT. Possible mild left hydronephrosis versus cysts as noted on comparison CT. No suspicious solid lesions identified in either kidney. No evidence for obstructive uropathy in the right kidney. Dictated by: Gray Stone M.D. on 10/29/2022 at 20:33 Approved by: Gray Stone M.D. on 10/29/2022 at 20:38
--- NOTE | 2022-10-29 18:27 | DI.RAD.S_ITS ---
PROCEDURE: XR ABDOMEN MIN 2V INDICATIONS: N/V, gen abdominal pain TECHNIQUE: 2 views of the abdomen were acquired. COMPARISON: None. FINDINGS: Surgical changes and devices: Median sternotomy wires appear intact. Prior valvular replacement. Bowel: No pneumoperitoneum. The bowel gas pattern is nonobstructive. Soft tissues: No masses; visualized solid organ contours appear normal in size. No suspicious abdominal calcifications. Bones: No suspicious bony abnormalities. Status post bilateral total hip arthroplasty. IMPRESSION: Nonobstructive bowel gas pattern. No acute radiographic abnormalities identified. Dictated by: Gray Stone M.D. on 10/29/2022 at 19:43 Approved by: Gray Stone M.D. on 10/29/2022 at 19:44
[2022-10-29] MEDS: SODIUM CHLORIDE 0.9% 1,000 ML 125 ML IV (18:37)
[2022-10-29 18:46] LABS: BUN Creatinine Ratio 16.7 (6-22); Blood Urea Nitrogen 65 mg/dL (9-20); Calcium 7.7 mg/dL (8.4-10.2); Carbon Dioxide 22 mmol/L (22-32); Chloride 106 mmol/L (98-107); Estimated Glomerular Filt Rate 14 mL/min (>60); Glucose 152 mg/dL (80-110); HEMOLYSIS < 15 (0-50); Potassium 5.1 mmol/L (3.4-5.1); Sodium 137 mmol/L (137-145)
[2022-10-29] MEDS: LIDOCAINE 2% (GLYDO) 6 ML GEL TOP (20:03)
[2022-10-29 20:24] LABS: Appearance Urine UA SL CLOUDY; Bilirubin Urine UA NEGATIVE (NEGATIVE); Color Urine UA ORANGE; Glucose Urine UA NEGATIVE (Negative); Ketones Urine UA NEGATIVE (NEGATIVE); Leukocyte Esterase Urine UA 3+ (NEGATIVE); Nitrite Urine UA POSITIVE (Negative); Occult Blood Urine UA TRACE-INTACT (Negative); Protein Urine UA 1+ (Negative); Urobilinogen Urine UA 0.2 E.U./dL (0.2)
[2022-10-29 20:49] LABS: Creatinine Urine Random 85.8 mg/dL; Sodium Urine Random 40 mmol/L (30-90)
[2022-10-29 20:51] LABS: Bacteria Urine Many (>30); RBC Urine None Seen (0-5/HPF); Squamous Epithelial Cell Urine 0-1 /HPF (0-5/HPF); WBC Urine 30-100/HPF (0-5/HPF)
[2022-10-29 20:52] LABS: Culture Indicated Urine Specimen Cultured
[2022-10-29] MEDS: cefTRIAXone 1,000 MG in SODIUM CHLORIDE 0.9% 100 ML 200 MG IV (21:11)
--- NOTE | 2022-10-29 23:25 | PC.ADMIT ---
[email or web address] Admission Note: The patient,Modesto Renee,86 y/o, was given written information regarding hospital policies, unit procedures and contact persons. Patient's smoking status: Former smoker. Vital Signs - 8 hr 10/29/22 16:06 10/29/22 16:21 10/29/22 16:30 Temperature 97.8 F 97.8 F Pulse Rate 85 85 Respiratory Rate 20 22 Blood Pressure 115/58 L 115/58 L 115/59 L Pulse Oximetry 92 92 Oxygen Delivery Method Room Air 10/29/22 16:30 10/29/22 17:00 10/29/22 17:00 Temperature Pulse Rate 85 85 Respiratory Rate 26 H Blood Pressure 111/53 L Pulse Oximetry 95 93 Oxygen Delivery Method 10/29/22 17:30 10/29/22 17:31 10/29/22 17:31 Temperature Pulse Rate 87 88 Respiratory Rate 24 22 Blood Pressure 94/65 Pulse Oximetry 88 L 87 L Oxygen Delivery Method 10/29/22 18:00 10/29/22 18:00 10/29/22 18:30 Temperature Pulse Rate 89 Respiratory Rate 30 H Blood Pressure 101/55 L 102/53 L Pulse Oximetry 95 Oxygen Delivery Method 10/29/22 18:30 10/29/22 19:00 10/29/22 19:02 Temperature Pulse Rate 84 89 Respiratory Rate 21 23 Blood Pressure 91/55 L Pulse Oximetry 95 91 Oxygen Delivery Method 10/29/22 19:02 10/29/22 20:22 10/29/22 19:30 Temperature 98.4 F Pulse Rate 88 Respiratory Rate 22 Blood Pressure 106/55 L Pulse Oximetry 92 Oxygen Delivery Method 10/29/22 19:30 10/29/22 20:00 10/29/22 20:00 Temperature Pulse Rate 91 H 85 Respiratory Rate 22 25 H Blood Pressure 98/54 L Pulse Oximetry 93 92 Oxygen Delivery Method 10/29/22 20:29 10/29/22 20:30 10/29/22 20:30 Temperature Pulse Rate 86 86 Respiratory Rate 25 H 20 Blood Pressure 101/57 L Pulse Oximetry 92 91 Oxygen Delivery Method 10/29/22 21:00 10/29/22 21:00 10/29/22 21:30 Temperature Pulse Rate 87 Respiratory Rate 15 Blood Pressure 110/56 L 98/49 L Pulse Oximetry 91 Oxygen Delivery Method 10/29/22 21:30 10/29/22 23:15 Temperature Pulse Rate 85 Respiratory Rate 14 Blood Pressure Pulse Oximetry 92 Oxygen Delivery Method Nasal Cannula Patient admitted to room 206 at 2215 per stretcher from ER. He is unable to state reason he was [facility]. His speech is delayed and has word finding difficulty, poor articulation and is soft spoken making it difficult to understand him at times. Is oriented to self and birthdate and does know he is in [place] but not that he is in the hospital. History provided by patient is unreliable. Breath sounds CTA with sat of 96% on oxygen per NC at 2L/min; RT contacted as patient uses CPAP at night and home CPAP is in the room. HRR. Denies nausea but does complain of abdominal discomfort although states it is tolerable. BT present and abdomen is soft. Has what appears to be IV tubing intact to left abdomen which is reported by STAINED GLASS JOINER to be IV for SQ hydration at rehab facility he came from. Indwelling catheter is patent; urine is cloudy, chavo. Is able to turn himself in bed but James score was 16 so will have staff reposition patient q2h to ensure no skin breakdown. Patient reports he is incontinent of stool so is wearing a brief. Per STAINED GLASS JOINER he has been NWB up until 2 weeks ago so basically non ambulatory; will await assessment by PT in a.m. prior to attempting to transfer out of bed. Patient states he was walking at facility but with difficulty and using a walker. Fall risk score is high and bed alarm is activated. Oriented to call light and bed controls.
[2022-10-30] MEDS: SODIUM CHLORIDE 0.9% 1,000 ML 125 ML IV ×3 (00:18→16:43)
[2022-10-30 06:16] LABS: Add Manual Diff / Slide Review NO; Basophils Absolute Auto 0 /uL (0-100); Basophils Percent Auto 0.2 % (0-2); Eosinophils Absolute Auto 0 /uL (0-450); Eosinophils Percent Auto 0.2 % (2-4); Hematocrit 25.4 % (41-53); Hemoglobin 8.5 g/dL (13.5-17.5); Lymphocytes Absolute Auto 2700 /uL (1100-4500); Lymphocytes Percent Auto 25.1 % (25-40); Mean Corpuscular HGB Conc 33.3 % (30-36); Monocytes Absolute Auto 700 /uL (0-900); Monocytes Percent Auto 6.3 % (3-14); Neutrophils Absolute Auto 7400 /uL (1500-7000); Neutrophils Percent Auto 68.2 % (50-75); Platelet Count 136 X10^3/uL (150-400); Red Blood Cell Count 2.83 X10^6/uL (4.5-5.9); Red Cell Distribution Width 16.4 % (11.6-14.8); White Blood Cell Count 10.8 X10^3/uL (4.5-11.0)
[2022-10-30 06:25] LABS: BUN Creatinine Ratio 17.1 (6-22); Blood Urea Nitrogen 64 mg/dL (9-20); Calcium 7.6 mg/dL (8.4-10.2); Carbon Dioxide 21 mmol/L (22-32); Chloride 110 mmol/L (98-107); Estimated Glomerular Filt Rate 15 mL/min (>60); Glucose 110 mg/dL (80-110); HEMOLYSIS < 15 (0-50); Potassium 5.3 mmol/L (3.4-5.1); Sodium 139 mmol/L (137-145)
[2022-10-30 08:00] VITALS: BP 116/55; PULSE 63; RESP 18; TEMP 37; O2SAT 95
[2022-10-30 10:15] VITALS: O2SAT 99
--- NOTE | 2022-10-30 10:39 | PM.HP.1 ---
History of Present Illness History of Present Illness Date Patient Seen: 10/30/22 Time Patient Seen: 09:30 Date of Onset of Symptoms: 10/26/22 Chief complaint: Hypotension, N/V/D Narrative: chief complaint: UTI, renal failure Pt w/hx of non-op hip fx 2 months ago presented to ED from [facility] with hypotension and acute renal failure. The hip has been doing ok with PT and is not weight bearing but he is not back to walking yet and has been fairly immobile. He has also been having some new dysphagia issues and has been on a thickened diet for ease of swallowing. His notes that about 3-4 days before presentation - his cough seemed to get worse and his mentation seemed to decline. Yesterday he appeared quite ill and EMS was summoned where they found him with a systolic pressure of 80 which improved with hydration. He appears to have a urine infection and possibly some obstruction also as notes he had prodigious UOP on placement of catheter in ED. also notes he just has not been that hungry lately and seems to have lost about 50 pounds. Discuss with [facility] they have been working on him last couple months at [facility] he has been on thickened liquids after seeing anything thin seems to aspirate Now he doesn't want thickened fluids wants thin which he will probably aspirate needs a plan for how to proceed will plan on goals of care conversation [facility] Medical History Anticoagulation therapy continued upon discharge Arthritis ASCVD (arteriosclerotic cardiovascular disease) Ataxia Chest pain CKD (chronic kidney disease), stage IV Depression with anxiety Gout History of aortic valvular stenosis Hyperlipidemia Hypertension Low back pain Obesity Obstructive sleep apnea Peripheral neuropathy Pulmonary embolism Type II diabetes mellitus Vertigo Vertigo Vitamin D deficiency Surgical History Aortic valve replaced Social History household members: spouse Smoking Status: Former smoker alcohol intake: never Meds Home Medications and Allergies Home Medications Medication Instructions Recorded Confirmed Type atorvastatin 40 mg tablet 40 mg PO QPM 08/13/21 10/29/22 History cholecalciferol (vitamin D3) 50 2,000 mcg PO DAILY 08/13/21 10/29/22 History mcg (2,000 unit) capsule insulin glargine 100 unit/mL (3 10 unit SUBCUT BEDTIME 08/13/21 10/29/22 History mL) subcutaneous pen (Gerriaglar VictoriaPen U-100 Insulin) metoprolol succinate 25 mg 37.5 mg PO BID 08/13/21 10/29/22 History tablet,extended release 24 hr multivitamin 1 tab PO QAM 08/13/21 10/29/22 History polyethylene glycol 3350 17 gram 17 g PO DAILY 08/13/21 10/29/22 History oral powder packet (Miralax) gabapentin 100 mg capsule 100 mg PO QPM 08/18/22 10/29/22 History isosorbide mononitrate 60 mg 80 mg PO DAILY 08/18/22 10/29/22 History tablet,extended release 24 hr sertraline 100 mg tablet 125 mg PO DAILY 08/18/22 10/29/22 History acetaminophen 500 mg tablet 1,000 mg PO TID PRN Pain (Scale 10/29/22 10/29/22 History Score 1-3) bisacodyl 10 mg rectal suppository 10 mg CA DAILY PRN Constipation 10/29/22 10/29/22 History (Dulcolax (bisacodyl)) warfarin 1 mg tablet 1 mg PO DAILY 10/29/22 10/29/22 History Allergies Allergy/AdvReac Type Severity Reaction Status Date / Time metoclopramide [From REGLAN] AdvReac Severe Dyskinesia Verified 08/18/22 13:37 morphine [MORPHINE] AdvReac Unknown Hallucinati Verified 08/18/22 13:37 ons narcotics AdvReac Severe Hallucinati Uncoded 08/18/22 13:37 ng Review of Systems Review of Systems Narrative: all systems reviewed and negative except as otherwise documented in HPI Exam Vital Signs (past 8 hours): - 10/30/22 08:00 Temperature 98.6 F Pulse Rate 63 Respiratory Rate 18 Blood Pressure 116/55 L Pulse Oximetry 95 Oxygen Flow Rate 2 Oxygen Delivery Method Nasal Cannula Oxygen Flow Rate 2 Narrative Exam Narrative: ill allert elder laying in bed with at bedside Const General: cooperative and well developed Other: appears to have lost weight HENMT Head: normocephalic and atraumatic Resp Other: moving air ok, satting ok on room air, generally clear to auscultation but has deep rattling gurgling cough Cardio Rate: regular rate Heart Sounds: S1 normal and S2 normal GI Other: soft nontender active bowel sounds Other: holder draining clear yellow Neuro General: patient alert and moves all extremities Extrem General: capillary refill normal and no pedal edema Objective Labs 10/30/22 05:30 10/30/22 05:30 Labs: Laboratory Results - last 24 hr 10/29/22 10/29/22 10/29/22 16:34 16:34 16:34 WBC 12.3 H RBC 3.43 L Hgb 10.1 L Hct 31.1 L MCV 90.6 MCH 29.3 MCHC 32.4 RDW 16.7 H Plt Count 164 Neut % (Auto) 86.9 H D Lymph % (Auto) 7.6 L [place] % (Auto) 4.7 Eos % (Auto) 0.6 L Baso % (Auto) 0.2 Neut # (Auto) 40442 H Lymph # (Auto) 900 L [place] # (Auto) 600 Eos # (Auto) 100 Baso # (Auto) 0 PT 30.1 H INR 2.6 H Sodium 136 L Potassium 5.1 Chloride 106 Carbon Dioxide 21 L BUN 66 H Creatinine 4.00 H Estimated GFR 14 L BUN/Creatinine Ratio 16.5 Glucose 160 H Calcium 7.9 L Total Bilirubin 0.4 AST 26 ALT 17 Alkaline Phosphatase 138 H Total Protein 6.4 Albumin 2.9 L Globulin 3.5 Albumin/Globulin Ratio 0.8 L Lipase 98 Urine Color Urine Appearance Urine pH Ur Specific [place] Urine Protein Urine Glucose (UA) Urine Ketones Urine Occult Blood Urine Nitrate Urine Bilirubin Urine Urobilinogen Ur Leukocyte Esterase Urine RBC Urine WBC Ur Squamous Epith Cells Urine Bacteria Ur Culture Indicated? Ur Random Sodium Urine Creatinine 10/29/22 10/29/22 10/29/22 18:25 20:14 20:14 WBC RBC Hgb Hct MCV MCH MCHC RDW Plt Count Neut % (Auto) Lymph % (Auto) [place] % (Auto) Eos % (Auto) Baso % (Auto) Neut # (Auto) Lymph # (Auto) [place] # (Auto) Eos # (Auto) Baso # (Auto) PT INR Sodium 137 Potassium 5.1 Chloride 106 Carbon Dioxide 22 BUN 65 H Creatinine 3.89 H Estimated GFR 14 L BUN/Creatinine Ratio 16.7 Glucose 152 H Calcium 7.7 L Total Bilirubin AST ALT Alkaline Phosphatase Total Protein Albumin Globulin Albumin/Globulin Ratio Lipase Urine Color [place] Urine Appearance Sl cloudy Urine pH 6.0 Ur Specific [place] 1.020 Urine Protein 1+ H Urine Glucose (UA) Negative Urine Ketones Negative Urine Occult Blood Trace-intact Urine Nitrate Positive H Urine Bilirubin Negative Urine Urobilinogen 0.2 Ur Leukocyte Esterase 3+ H Urine RBC None seen Urine WBC 30-100/hpf H Ur Squamous Epith Cells 0-1 /hpf Urine Bacteria Many (>30) H Ur Culture Indicated? Specimen cultured Ur Random Sodium 40 Urine Creatinine 85.8 10/30/22 10/30/22 05:30 05:30 WBC 10.8 RBC 2.83 L Hgb 8.5 L Hct 25.4 L MCV 90.0 MCH 30.0 MCHC 33.3 RDW 16.4 H Plt Count 136 L Neut % (Auto) 68.2 Lymph % (Auto) 25.1 [place] % (Auto) 6.3 Eos % (Auto) 0.2 L Baso % (Auto) 0.2 Neut # (Auto) 7400 H Lymph # (Auto) 2700 [place] # (Auto) 700 Eos # (Auto) 0 Baso # (Auto) 0 PT INR Sodium 139 Potassium 5.3 H Chloride 110 H Carbon Dioxide 21 L BUN 64 H Creatinine 3.74 H Estimated GFR 15 L BUN/Creatinine Ratio 17.1 Glucose 110 Calcium 7.6 L Total Bilirubin AST ALT Alkaline Phosphatase Total Protein Albumin Globulin Albumin/Globulin Ratio Lipase Urine Color Urine Appearance Urine pH Ur Specific [place] Urine Protein Urine Glucose (UA) Urine Ketones Urine Occult Blood Urine Nitrate Urine Bilirubin Urine Urobilinogen Ur Leukocyte Esterase Urine RBC Urine WBC Ur Squamous Epith Cells Urine Bacteria Ur Culture Indicated? Ur Random Sodium Urine Creatinine Assessment & Plan Assessment & Plan narrative: #hypotension #UTI #Urinary retention with Holder placed in ED #Acute on chronic renal failure to level 5 failure #aspiration pneumonia continue rocephin and add azithromycin to cover UTI and PNA with IVF. #Dysphagia thickened feeds only. ST consulted appreciate their input poor PO intake generally - may benefit from megace depending on goals #Hx of L hip fracture 2 months ago Per he is now full weight bearing on that hip but hasn't been able to mobilize much, PT/OT consulted #diabetes takes lantus outpatient, will hold due to poor po intake with fingersticks and si #hx of CAD stable continue home meds Dispo: obs for now, may meet inpatient, coming from [facility] has bed there to go back to potentially diet: thickened code: DNR MDM: Jacy time spent: 60min
[2022-10-30 10:45] VITALS: O2SAT 97
[2022-10-30] MEDS: ISOSORBIDE MONONITRATE ER 30 MG TABLET 75 MG PO (11:50)
[2022-10-30 11:54] VITALS: BP 122/59; PULSE 66
[2022-10-30] MEDS: METOPROLOL ER 25 MG TABLET 37.5 MG PO ×2 (11:54→21:02)
[2022-10-30] MEDS: ENOXAPARIN 30 MG/0.3 ML SYRINGE SUBCUT (11:59)
--- NOTE | 2022-10-30 12:00 | CM.DANOTE ---
DCP Cont: Case received, EMR reviewed and met with patient. Introduced self and role. Was able to obtain information regarding patient's baseline activity level prior to admission. DCP assessment completed with information currently available. Patient is an 86 year old male who admitted yesterday evening to the care of the hospitalist team. PCP: Dr. Lu. Payer: confimed: Medicare/[facility]. Patient came to the hospital via ambulance secondary to having nausea and vomiting. Patient came from [facility], he has been there for rehab from last admission secondary to femur fracture. Patient had been hypotensive, as well. Patient had noted systolic BP in the 80s. He also was noted to have a UTI, urinary obstruction. Patient had holder placed. Patient diagnosed with urinary retention, acute on chronic renal failure. Confirmed with Mariela at [facility] that he is their resident. He just started walking, weight bearing as tolerated, patient is there under private pay, since last admission was non-operative. Spouse, Jacy, at bedside. Had discussion regarding observation versus inpatient, had conversation regarding [facility] care needs for patient. She would like to speak to someone at [facility], is costing them a lot of money for him to be there, and would also like to look into [facility]. Called Mariela at [facility] and asked her to speak to patient's spouse, Jacy. Asked spouse if she has spoken to their INVESTOR RELATIONS ASSOCIATE, Greta, at [facility] regarding some intermediate school teacher planning, and financial burdens, stated that she has been out. P: DCP to continue to follow. Patient will need to return to [facility], as can't yet manage him at home. Patient is currently OBS, unless it changes, spouse is aware. Almita Coleman RN/Nutrition Program Instructor Discharge Planning/Care Management CM Discharge Assessment Start: 10/30/22 11:57 Freq: Status: Active Protocol: Document 10/30/22 11:57 (Rec: 10/30/22 12:00 [id number]) Discharge Planning Assessment Assigned Boarder Machine Almita Coleman RN/Nutrition Program Instructor Advance Directives? Yes Advance Directives on File Yes: pt states is on file from previous admission History Provided By Patient,Medical Record Prior Living Arrangements Skilled Nurse Facility Household Members other Type of transporation used prior to Relies on Others admit Facility Name Admitted From: [facility] Willing to Return to Facility? Yes Independent with ADL's No Is patient alert and oriented? No Needs Assistance With Bathing,Grooming,Meal Prep, Toileting,Managing Medications ,Home Chores / Shopping Caregiver for Another No DME Already Rented / Owned Wheelchair,FWW / Walker Barriers to Discharge No Discharge Plan Half-Way Facility Transportation Arrangement facility Referrals Initiated Half-Way Whiteboard Updated in Patient Room with Yes name and ext. # of Boarder Machine Review Status In Process Next Review Type Continued Stay Review
[2022-10-30] MEDS: DOXYCYCLINE 100 MG in SODIUM CHLORIDE 0.9% 100 ML IV ×2 (12:05→23:27)
--- NOTE | 2022-10-30 13:19 | PT-IP ANOTE ---
checked on pt and with senior case manager in room. checked back on pt and nurse in room doing pt care. checked back again but pt eating lunch. will f/u in the afternoon.
--- NOTE | 2022-10-30 14:25 | PT.IIE ---
Surgical History (Last Reviewed 10/30/22 @ 16:06 by Armando Lu MD) Aortic valve replaced Medical History (Last Reviewed 10/30/22 @ 16:06 by Armando Lu MD) Anticoagulation therapy continued upon discharge Arthritis ASCVD (arteriosclerotic cardiovascular disease) Ataxia Chest pain CKD (chronic kidney disease), stage IV Depression with anxiety Gout History of aortic valvular stenosis Hyperlipidemia Hypertension Low back pain Obesity Obstructive sleep apnea Peripheral neuropathy Pulmonary embolism Type II diabetes mellitus Vertigo Vertigo Vitamin D deficiency Physical Therapy Inpatient Evaluation/Re-Eval M1 PT/OT-IP Prior Functional Status Start: 10/30/22 17:07 Freq: NEEDED Status: Active Protocol: Document 10/30/22 14:25 AB (Rec: 10/30/22 17:25 AB [email or web address]) Medical Review Prior Functional Status Medical History Reviewed Yes Communication able to make needs known; with difficulty following directions and needs repetitions Mobility and Gait pt admitted to the hospital august 18 to of this year s/ p fall sustaining a L hip periprosthetic fx and is non- operable. pt was PWB of 50% at that time. pt d/c to [facility] after hospitalization and has been there since august. Per pt, he has been ambulating at SNF without AD but pt has cognitive and memory issues and may not be providing accurate information. prior to august 18 hospitalization, pt was independent with all mobilities and ambulation without AD Social History Household Members spouse Living Arrangements House Number of Floors (Floors) One Floor Number of Stairs To Enter/Railing? no steps to enter Home Environment Walk in Shower Home Equipment Four Wheel Walker,Shower Seat without Backrest,Hand Held Shower M2 PT-IP Current Condition Start: 10/30/22 17:07 Freq: NEEDED Status: Active Protocol: Document 10/30/22 14:25 AB (Rec: 10/30/22 17:25 AB [email or web address]) Physical Therapy Current Condition Current Condition Evaluation Date 10/30/22 Treatment Diagnosis UTI; acute dehydration; hypotension; difficulty in walking Onset Date 10/29/22 M3 PT-IP Subjective Start: 10/30/22 17:07 Freq: NEEDED Status: Active Protocol: Document 10/30/22 14:25 AB (Rec: 10/30/22 17:25 AB [email or web address]) Subjective Physical Therapy Visit Type Type Initial Evaluation Visit Start Time 14:25 Visit Stop Time 14:57 Total Visit Minutes 32 Number of SHOE STITCHER Visits 0 Physical Therapy Visit Comments Patient Comments agreeable to do PT M4 PT-IP Mobility and Gait Start: 10/30/22 17:07 Freq: NEEDED Status: Active Protocol: Document 10/30/22 14:25 AB (Rec: 10/30/22 17:25 AB [email or web address]) PT-Bed Mobility Assessment Supine to Sit Supine to Sit Maximum Assistance,1 Person Assistance,2 Person Assistance PT-Transfer Assessment Sit to and From Stand Sit to and from Stand Maximum Assistance,1 Person Assistance,2 Person Assistance ,Use of Upper Extremities Equipment Transfer Assistive Device Gait Belt,Front Wheeled Walker Orthotic/Prosthetic Devices or Brace: No Transfers Transfer Destination Chair Transfer Technique Stand Step Pivot Transfer Ability Level of Assist Maximum Assistance,1 Person Assistance,Use of Upper Extremities Comments Mobility Comments [facility] informed that pt is WBAT. BP in supine: 116/55. completed supine to sit max A and max cues. CGA to min A for sitting on EOB. no c/o dizziness. BP: 118/56. completed sit to stand from EOB max A x 1-2 and max cues and step transfer to chair using FWW max A and max cues. pt agreed to ambulate. attempted sit to stand from chair x 4 reps and requires max A x 2 and max cues. pt unable to follow instructions for sit to stand techniques and tends to push backwards instead of downward to stand up. pt ambulated in room using FWW ~ 10 ft max A and max cues and with chair follow . positioned pt on the chair. call light and table placed within reach. BP: 124/59 Gait Assessment Gait Gait Assistance Required: Maximum Assistance Distance (Feet) 10 Able to Maintain Weight Bearing Status Yes During Gait Assistive Devices Assistive Device Gait Belt,Front Wheeled Walker Orthotic/Prosthetic Devices or Brace: No Gait Deviations General Gait Pattern Antalgic,Decreased Stride Length,Decreased Feet Clearance Factors Limiting Gait Function Factors Limiting Gait Function Decreased Activity Tolerance, Decreased Strength,Difficulty Following Directions,Limited Range of Motion,Pain,Poor Balance,Poor Safety Awareness PT-Balance Assessment Sitting Balance and Reactions Static Sitting Balance Ability Good Dynamic Sitting Balance Ability Fair Standing Balance and Reactions Static Standing Balance Ability Poor Dynamic Standing Balance Ability Poor Device Used FWW M5 PT-IP Objective Assessments Start: 10/30/22 17:07 Freq: NEEDED Status: Active Protocol: Document 10/30/22 14:25 AB (Rec: 10/30/22 17:25 AB [email or web address]) Orientation Orientation/Cognition Level of Alertness Alert Orientation Name Safety Awareness Decreased Safety Awareness Memory Description Short Term Impaired,Hydraulic Chair Assembler Impaired Strength Lower Extremity Strength Hip 4-/5 Knee 4-/5 Muscle Tone Muscle Tone WNL Yes M6 PT-IP Treatment Start: 10/30/22 17:07 Freq: NEEDED Status: Active Protocol: Document 10/30/22 14:25 AB (Rec: 10/30/22 17:25 AB [email or web address]) Physical Therapy Treatment Education Education Provided Safety M7 PT-IP Assessment and Plan Start: 10/30/22 17:07 Freq: NEEDED Status: Active Protocol: Document 10/30/22 14:25 AB (Rec: 10/30/22 17:25 AB [email or web address]) PT Summary Assessment and Plan Potential Rehabilitation Potential Fair Status of Condition at Evaluation Evolving Summary Impairments Pain,ROM,Strength,Balance, Coordination,Sensation,Tone, Cognition,Bed Mobility, Transfers,Gait,Activity Tolerance Assessment Summary pt came from [facility] SN[facility] after hospitalization last august due to a fall sustaining a L hip periprosthetic fx that was non-operative. pt was PWB at that time but currently is WBAT per [facility] PT. pt admitted again to the hospital for UTI, acute dehydration and hypotension. Pt requiring max A for bed mobility and max A x 1-2 for transfers and ambulation using FWW ~ 10 ft. pt will need further SNF to improve mobility. will continue to assess progress. Goals Bed Mobility Goal Minimal Assistance Transfer Goal Minimal Assistance,Front Wheeled Walker Gait Goal Minimal Assistance,Front Wheel Walker Gait Distance 50 Other Goals improve bed mobility, transfers and ambulation using FWW 100 ft CGA Days to Meet Goals 10 Frequency of Treatment Frequency Of Treatment Once a Day Treatment Plan Physical Therapy Treatment Plan Bed Mobility Training,Transfer Training,Gait Training, Therapeutic Exercise,Balance Retraining,Discharge Planning, Hot or Cold Pack,Neuromuscular Re-ed,Coordination Retraining ,Manual Therapy Precautions Other Precautions falls Recommendations To Nursing Amount of Assist Needed 2 Person Assist Discharge Recommendations PT Discharge Recommendations SNF Rehab Transportation Needs at Discharge Wheelchair/Cabulance
--- NOTE | 2022-10-30 17:34 | ST.IPIE ---
Visit Care Team Role Provider Type Lalo Elam DO Emergency Provider Physician Referring Provider Specialty: Emergency Medicine Address: [address] [place] [address], [id number] Email: [email or web address] Armando Lu MD Admit Provider Physician Attending Provider Primary Care Provider Specialty: Family Practice Address: [facility] [place], [address] Email: [email or web address] Past Medical History (Last Reviewed 10/30/22 @ 16:06 by Armando Lu MD) Anticoagulation therapy continued upon discharge (Medical) Arthritis (Medical) ASCVD (arteriosclerotic cardiovascular disease) (Medical) Ataxia (Medical) Chest pain (Medical) CKD (chronic kidney disease), stage IV (Medical) Depression with anxiety (Medical) Gout (Medical) History of aortic valvular stenosis (Medical) Hyperlipidemia (Medical) Hypertension (Medical) Low back pain (Medical) Obesity (Medical) Obstructive sleep apnea (Medical) Peripheral neuropathy (Medical) Lower extremity Pulmonary embolism (Medical) Type II diabetes mellitus (Medical) Vertigo (Medical) Vertigo (Medical) Vitamin D deficiency (Medical) ST IP Initial Evaluation Report MUSHROOM CUTTER Adult Cognitive Linguistic Eval Start: 10/30/22 14:41 Freq: Status: Active Protocol: Document 10/30/22 14:43 CG (Rec: 10/30/22 14:53 [id number]) Adult Cognitive Linguistic Evaluation Session Time Visit Start Time 14:55 Visit Stop Time 15:25 Total Visit Minutes 30 Visit Information Visit Number 1 Referral Referring Provider Tabitha Reason for Referral Dysphagia Setting Assessment Location Acute Care Visit Type Note Type Initial evaluation Next Note Type Next Note Type Treatment Note Patient Information Patient History Per H&P: Pt w/hx of non-op hip fx 2 months ago presented to ED from [facility] with hypotension and acute renal failure. The hip has been doign ok with PT and is not weight bearing but he is not back to walking yet and has been fairly immobile. He has also been having some new dysphagia issues and has been on a thickened diet for ease of swallowing. His notes that about 3-4 days before presentation - his cough seemed to get worse and his mentation seemed to decline. Yesterday he appeared quite ill and EMS was summoned where they found him with a systolic pressure of 80 which improved with hydration. He appears to have a urine infection and possibly some obstruction also as notes he had prodigious UOP on placement of catheter in ED. also notes he just has not been that hungry lately and seems to have lost about 50 pounds. This evaluating MUSHROOM CUTTER has previously worked with this pt at [facility]. He was placed on a diet of IDDSI 2 mildly thickened liquids (nectar thick liquids) after completing a modified barium swallow study on 10/08/22 at this hospital. This decision was made after a joint discussion with MUSHROOM CUTTER, pt, and pt's (who is POA). Benefits and limitations of thickened liquids were discussed with regards to safety vs quality of life, and pt and ultimately decided to pursue thickened liquids in order to decrease risk of aspiration and subsequent pneumonia. MUSHROOM CUTTER services at [facility] have focused on monitoring of current diet as well as introduction of pharyngeal strengthening exercises. According to nursing, pt was initially given thin liquids this morning upon admission before orders for thickened liquids had been processed, and was observed to cough with these liquids. Hearing Hearing Level Hearing Aids Previous Therapy Previous Speech-Language Therapy Yes: With evaluating MUSHROOM CUTTER at [facility] Rehab History of Therapy Pt has been seen by the evaluating MUSHROOM CUTTER at [facility] for multiple months. Throughout the course of therapy at [facility], his swallowing and cognitive status has fluctuated in part due to overall health status and concomitant factors including a severe Covid-19 infection. Informal Assessment Receptive Language Normal No Receptive Language Impairment(s) Comprehension of complex yes/ no questions,Following 2-step commands,Comprehension of conversation Expressive Language Normal No: Halting speech Pragmatic Language Normal No Pragmatic Language Impairment(s) Topic maintenance,Flat affect Speech Normal No Speech Impairment(s) Slow speech rate Cognition Normal No Cognitive Impairment(s) Orientation,Attention,Short- term memory,Long-term memory, Executive functioning,Problem solving Findings/Results Language Function Mild-moderately impaired Cognitive Function Moderately-severely impaired Findings Based on informal assessment, pt demonstrates difficulty following multi-step directions and is not oriented to purpose. He has difficulty recalling medical history and his executive functioning limits his safety awareness and understanding of precautions including aspiration precautions. Based on previous experience from treating this pt at [facility], pt appears to be at his cognitive baseline. Cognitive Communication Deficits Self-awareness of Cognitive- Predictive awareness (able to Communication Deficits predict problem; impact of impairments) Prognosis Prognosis Guarded Based on Cognitive status,Comorbidities ,Duration of symptoms/severity Plan of Care Speech-Language Treatment No Discharge Recommendations snf facility,[facility] terminal manager care facility MUSHROOM CUTTER Clinical Swallow Evaluation Start: 10/30/22 14:41 Freq: Status: Active Protocol: Document 10/30/22 14:43 CG (Rec: 10/30/22 14:53 CG [id number]) Clinical Swallow Evaluation Session Time Visit Start Time 14:55 Visit Stop Time 15:25 Total Visit Minutes 30 Referral Referring Provider Tauxe Reason for Referral Dysphagia Setting Assessment Location Acute Care Visit Type Note Type Initial evaluation Next Note Type Next Note Type Treatment Note Patient Information Subjective Observations Pt was seated upright in chair at bedside following PT evaluation upon ST entry to the room. He was alert, but not fully oriented. Did not at first appear to recognize evaluating MUSHROOM CUTTER, thought eventually he stated you were the one that started this mess of goofing up the water. The pt presented with wet, congested vocal quality and cough. After MUSHROOM CUTTER explained role and swallowing evaluation , pt stated he wanted regular water. Throughout the evaluation, he continued requesting thin water despite MUSHROOM CUTTER reminding the pt that he had been put on thickened liquids following an instrumental evaluation and discussion together with his regarding diet orders. Pt's affect is flat, and he presents with prolongued processing time. Additionally , initiation of speech and motor movements appears delayed. Together with cognitive deficits, these symptoms are concerning for neurological etiology. Neurologist referral was put in place by ACTIVITIES SPECIALIST at [facility] following request from this MUSHROOM CUTTER as of 10/08/22. Reported by Patient/Caregiver Other Symptoms Coughing,Difficulty swallowing liquids,History of aspiration or pneumonia,Weight loss Comment Pt has a hx of aspiration pneumonia and has ongoing dysphagia since earlier this spring. He was placed on a diet of thickened liquids and minced and moist solids following a modified barium swallow completed earlier this month. Overt s/sx of aspiration include coughing on thin liquids. Current Diet Minced & Moist (IDDSI 5) Baseline Feeding Method Independent in self-feeding The IDDSI Framework Protocol: IDDSI.1 Objective Assessment Mental Status Alert,Responsive,Confused Oral Integrity WFL Dentition Missing teeth Lip Function Moderate impairment Observation of Lips at Rest Symmetrical Pucker Within normal limits Lip Retraction Within normal limits Alternating Pucker/Lip Retraction Incoordination Tongue Function Moderate impairment Observations of Tongue at Rest Involuntary movement(s) Tongue Protrusion Within normal limits Tongue Lateralization Within normal limits Comment Pt presents with bilateral lingual weakness as well as discoordination, which appears to be due in part to difficulty planning and initiating motor sequences. Pt 's additionally presents with flat affect. During MBSS from 10/08/22, the pt additionally presented with tongue pumping and munch chew pattern, indicative of oral discoordination. Based on affect and lingual movement pattern, there was concern for underlying neurological deficits. This MUSHROOM CUTTER requested neurologist referral from [facility] SPECIAL[facility] at [facility], which was completed, though unsure of the status of this referral. Food and Liquid Trials Position During Assessment Upright (90 degrees) Liquids Trialed Ice chips,Thin (IDDSI 0), Mildly Thick (IDDSI 2) Solid Trials Purred (IDDSI 4) Administration Type Tea spoon,Cup single sip,Self- feeding Oral Impairment Within functional limits Oral Phase Comments Trials nectar/mildly thick via teaspoon: Pt required cues to initiate oral seal around teaspoon. A-P transit appeared adequate and no oral residue was observed. Trials thin via teaspoon: Pt required cues to initiated oral seal around teaspoon. Bolus appeared to move posteriorly within oral cavity before bolus hold was initiated, based on external observations of oral movements , although this cannot be definitively determined without instrumental imaging. Pharyngeal Impairment Moderately impaired Pharyngeal Phase Comments Trials nectar/mildly thick via teaspoon: No overt s/sx aspiration. Trials ice chips: No overt s/ sx aspiration. Trials thin via teaspoon: Delayed cough and wet vocal quality, consistent with aspiration. Trials thin via cup sip: Immediate cough, delayed cough , and wet vocal quality, all consistent with aspiration. Dougherty Swallow Protocol No The IDDSI Framework Protocol: IDDSI.1 Findings Swallowing Function Oropharyngeal phase dysphagia Severity of Swallow Impairment Moderately-severely impaired Contributing Factors to Swallow Difficulty following Impairment directions,Delayed swallow initiation,Impaired airway protection,Excessive pharyngeal residue Prognosis Guarded Based on Cognitive status,History of aspiration/aspiration pneumonia,Comorbidities, Duration of symptoms/severity Impact on Safety and Functioning Risk for aspiration,Risk for inadequate nutrition/hydration Recommendations Instrumental Assessment No Swallowing Treatment Yes Duration Throughout hospital stay Recommended Solids Minced & Moist (IDDSI 5) Recommended Liquids Thin (IDDSI 0) Other Recommendations 1. Initiate new discussion with pt, , and physician regarding goals of care in terms of measures to increase safety vs measures to increase QOL, specifically in regards to providing the pt with thin liquids as requested. 2. While continuing thickened liquids, consider maintaining IV hydration due to pt declining thickened liquids. 3. Check status of neurologist referral. 3. Pt would be a good candidate for Perrin free water protocol; however, this is impossible to implement correctly without strict training of hospital staff and caregivers. 4. Chest x-ray may be considered to determine if aspiration PNA is present. Safety Precautions/Swallowing 1 to 1 distant supervision, Recommendations Feed only when alert,Reduce distractions,Remain upright ( 90 degrees) during all oral intake,Upright position at least 30 minutes after meals, Small bites and sips when eating,Check for pocketing Medication Recommendations Whole in Carrier,Crushed in Carrier Discharge Recommendations snf facility,truck terminal manager care facility,Home with Hospice Referrals Recommended Referrals Neurology Education Patient/Caregiver Education Described results of evaluation,Patient expressed understanding of safety precautions,Patient expressed understanding of feeding recommendations,Patient requires further education/ training,Family/caregivers require further education/ training Goals Short-term Goals Pt will tolerate current diet of nectar thin liquids and minced and moist solids without overt s/sx aspiration/ penetration in order to maintain adequate nutrition and hydration. Pt will complete pharyngeal/ laryngeal strengthening exercises with 80% accuracy given minimal verbal cues from MUSHROOM CUTTER in order to restore and maintain pharyngeal strength and decrease risk of aspiration.
[2022-10-30] MEDS: ATORVASTATIN 20 MG TABLET 40 MG PO (17:35)
[2022-10-30] MEDS: GABAPENTIN 100 MG CAPSULE PO (17:35)
[2022-10-30] MEDS: AMLODIPINE 5 MG TABLET PO (17:35)
--- NOTE | 2022-10-30 18:54 | PC.NURSE ---
During routine skin assessment earlier today, an IV was encountered on patients abdomen. [facility] confirmed that this was a subq IV used to administer fluids when pt had become dehydrated at their facility. OK to remove per Dr. Lu. IV removed without complication at 1845, needle intact, dressing to abdomen c/d/i/.
[2022-10-30 19:00] VITALS: BP 118/58; PULSE 70; RESP 18; TEMP 35.6; O2SAT 98
[2022-10-30] MEDS: DOCUSATE 100 MG CAPSULE PO (21:03)
[2022-10-30] MEDS: cefTRIAXone 1,000 MG in SODIUM CHLORIDE 0.9% 100 ML 200 MG IV (21:07)
[2022-10-30] MEDS: INSULIN GLARGINE 100 UNIT/ML 3ML PEN 10 UNIT SUBCUT (21:08)
[2022-10-30 21:37] VITALS: BP 108/45; PULSE 59
[2022-10-31] MEDS: SODIUM CHLORIDE 0.9% 1,000 ML 125 ML IV ×2 (02:25→10:51)
--- NOTE | 2022-10-31 02:32 | PC.NURSE ---
When taking patients vitals and getting patient ready for bed, I told him I would be back in a couple of hours to check on him and to reposition him again. Patient told me he does not want me to wake him up at all, he would like to wake up naturally, Nurse notified of what patient said.
[2022-10-31 06:06] LABS: Add Manual Diff / Slide Review NO; Basophils Absolute Auto 0 /uL (0-100); Basophils Percent Auto 0.2 % (0-2); Eosinophils Absolute Auto 300 /uL (0-450); Eosinophils Percent Auto 3.5 % (2-4); Hematocrit 23.9 % (41-53); Hemoglobin 7.7 g/dL (13.5-17.5); Lymphocytes Absolute Auto 2900 /uL (1100-4500); Mean Corpuscular HGB Conc 32.3 % (30-36); Mean Corpuscular Hemoglobin 29.4 PG (26-34); Mean Corpuscular Volume 90.9 fL (80-100); Monocytes Absolute Auto 800 /uL (0-900); Monocytes Percent Auto 8.6 % (3-14); Neutrophils Absolute Auto 5300 /uL (1500-7000); Neutrophils Percent Auto 56.7 % (50-75); Platelet Count 126 X10^3/uL (150-400); Red Blood Cell Count 2.63 X10^6/uL (4.5-5.9); White Blood Cell Count 9.4 X10^3/uL (4.5-11.0)
[2022-10-31 06:18] LABS: Alanine Aminotransferase 12 IU/L (<50); Albumin 2.2 g/dL (3.5-5.0); Albumin Globulin Ratio 0.7 (1.0-2.8); Alkaline Phosphatase 102 U/L (38-126); Aspartate Aminotransferase 22 IU/L (17-59); BUN Creatinine Ratio 16.8 (6-22); Bilirubin Total 0.2 mg/dL (0.2-1.3); Blood Urea Nitrogen 55 mg/dL (9-20); Calcium 7.6 mg/dL (8.4-10.2); Carbon Dioxide 20 mmol/L (22-32); Chloride 113 mmol/L (98-107); Estimated Glomerular Filt Rate 18 mL/min (>60); Globulin 3.2 g/dL (1.7-4.1); Glucose 93 mg/dL (80-110); HEMOLYSIS < 15 (0-50); Potassium 4.5 mmol/L (3.4-5.1); Sodium 139 mmol/L (137-145); Total Protein 5.4 g/dL (6.3-8.2)
[2022-10-31 09:00] VITALS: BP 132/57; PULSE 59; RESP 17; TEMP 36.7; O2SAT 99
[2022-10-31] MEDS: ENOXAPARIN 30 MG/0.3 ML SYRINGE SUBCUT (09:14)
[2022-10-31] MEDS: polyethylene glycoL 3350 17 GM POWD.PACK PO (09:15)
[2022-10-31] MEDS: ISOSORBIDE MONONITRATE ER 30 MG TABLET 75 MG PO (09:16)
[2022-10-31 09:17] VITALS: BP 132/57; PULSE 59
[2022-10-31] MEDS: DOCUSATE 100 MG CAPSULE PO ×2 (09:17→20:04)
[2022-10-31] MEDS: METOPROLOL ER 25 MG TABLET 37.5 MG PO ×2 (09:17→20:05)
[2022-10-31] MEDS: SERTRALINE 50 MG TABLET 125 MG PO (09:19)
[2022-10-31 11:14] LABS: Prothrombin Time 46.3 SECONDS (10.1-12.7)
[2022-10-31] MEDS: TAMSULOSIN 0.4 MG CAPSULE PO (12:00)
[2022-10-31] MEDS: DOXYCYCLINE 100 MG in SODIUM CHLORIDE 0.9% 100 ML IV ×2 (12:00→22:53)
[2022-10-31 12:11] VITALS: BP 125/59
--- NOTE | 2022-10-31 14:22 | PT.IPTN ---
Physical Therapy Treatment Note M2 PT-IP Current Condition Start: 10/30/22 17:07 Freq: NEEDED Status: Active Protocol: Document 10/30/22 14:25 AB (Rec: 10/30/22 17:25 AB [id number]) Physical Therapy Current Condition Current Condition Evaluation Date 10/30/22 Treatment Diagnosis UTI; acute dehydration; hypotension; difficulty in walking Onset Date 10/29/22 M3 PT-IP Subjective Start: 10/30/22 17:07 Freq: NEEDED Status: Active Protocol: Document 10/31/22 15:25 TS (Rec: 10/31/22 15:46 TS [id number]) Subjective Physical Therapy Visit Type Type Treatment Note Visit Start Time 14:22 Visit Stop Time 14:54 Total Visit Minutes 32 Notes Spouse present. Number of LAPPING MACHINE OPERATOR Visits 1 Physical Therapy Visit Comments Patient Comments agreeable to do PT M4 PT-IP Mobility and Gait Start: 10/30/22 17:07 Freq: NEEDED Status: Active Protocol: Document 10/31/22 15:25 TS (Rec: 10/31/22 15:46 TS [id number]) PT-Bed Mobility Assessment Sit to Supine Sit to Supine Moderate Assistance PT-Transfer Assessment Sit to and From Stand Sit to and from Stand Maximum Assistance,2 Person Assistance,Use of Upper Extremities Equipment Transfer Assistive Device Gait Belt,Front Wheeled Walker Orthotic/Prosthetic Devices or Brace: No Transfers Transfer Destination Bed Transfer Technique Stand Pivot Transfer Ability Level of Assist Maximum Assistance,2 Person Assistance,Use of Upper Extremities Comments Mobility Comments Pt found resting in chair, agreeable to PT. Sit to stand x3 MaxA x2 from chair, provided cues for UE support pushing from arms of chair to come into standing. In standing pt retroleans and has weight back on heels, slightly improves with weight forward when provided cues. He ambulated ~15' initially MaxA x2 progressed to MaxA x1, pt is unsteady with gait and weight back on heels. Pt fatigued after ~15 with gait and required a rest break in chair. Chair was brenden to side of bed for stand pviot transfer into bed MaxA x2, pt continues to retrolean, requires cues for slow descent into chair, pt wants to fall quickly into sitting. Sit to supine into bed ModA for LEs back into bed. Pt was left in bed with call light nearby, spouse in room. Gait Assessment Gait Gait Assistance Required: Maximum Assistance,1 Person Assist,2 Person Assist Distance (Feet) 10 Able to Maintain Weight Bearing Status Yes During Gait Assistive Devices Assistive Device Gait Belt,Front Wheeled Walker Orthotic/Prosthetic Devices or Brace: No Gait Deviations General Gait Pattern Antalgic,Decreased Stride Length,Decreased Feet Clearance Factors Limiting Gait Function Factors Limiting Gait Function Decreased Activity Tolerance, Decreased Strength,Difficulty Following Directions,Limited Range of Motion,Pain,Poor Balance,Poor Safety Awareness Comments Gait Comments See mobility comments. PT-Balance Assessment Sitting Balance and Reactions Static Sitting Balance Ability Good Dynamic Sitting Balance Ability Fair Standing Balance and Reactions Static Standing Balance Ability Poor Dynamic Standing Balance Ability Poor Device Used FWW M5 PT-IP Objective Assessments Start: 10/30/22 17:07 Freq: NEEDED Status: Active Protocol: Document 10/30/22 14:25 AB (Rec: 10/30/22 17:25 AB [id number]) Orientation Orientation/Cognition Level of Alertness Alert Orientation Name Safety Awareness Decreased Safety Awareness Memory Description Short Term Impaired,Senior Care Impaired Strength Lower Extremity Strength Hip 4-/5 Knee 4-/5 Muscle Tone Muscle Tone WNL Yes M6 PT-IP Treatment Start: 10/30/22 17:07 Freq: NEEDED Status: Active Protocol: Document 10/31/22 15:25 TS (Rec: 10/31/22 15:46 TS [id number]) Physical Therapy Treatment Education Education Provided Safety M7 PT-IP Assessment and Plan Start: 10/30/22 17:07 Freq: NEEDED Status: Active Protocol: Document 10/31/22 15:25 TS (Rec: 10/31/22 15:46 TS [id number]) PT Summary Assessment and Plan Potential Rehabilitation Potential Fair Summary Impairments Pain,ROM,Strength,Balance, Coordination,Sensation,Tone, Cognition,Bed Mobility, Transfers,Gait,Activity Tolerance Progress Towards Goals Slow Progress due to Medical Issues,Slow Progress due to Activity Tolerance Assessment Summary Pt is MaxA x2 for sit to stands x3 from chair, in standing pt retroleans heavily and requires Max cues for weight forward on toes. Pt did progress his ambulation to ~ 15' initially MaxA x2 progressed to MaxAx1. With increased duration with gait pt has more difficulty progressing feet and balance became more unsteady, he required a rest break in chair before getting back to bed. Pt has some confusion but can follow single step instructions well. PT is recommending SNF for progression of bed mobility, transfers and gait. Goals Bed Mobility Goal Minimal Assistance Transfer Goal Minimal Assistance,Front Wheeled Walker Gait Goal Minimal Assistance,Front Wheel Walker Gait Distance 50 Other Goals improve bed mobility, transfers and ambulation using FWW 100 ft CGA Days to Meet Goals 10 Frequency of Treatment Frequency Of Treatment Once a Day Treatment Plan Physical Therapy Treatment Plan Bed Mobility Training,Transfer Training,Gait Training, Therapeutic Exercise,Balance Retraining,Discharge Planning, Hot or Cold Pack,Neuromuscular Re-ed,Coordination Retraining ,Manual Therapy Other Recommendations and Next Treatment 50% weight-bearing Focus Precautions Other Precautions falls Recommendations To Nursing Amount of Assist Needed 2 Person Assist Discharge Recommendations PT Discharge Recommendations SNF Rehab Transportation Needs at Discharge Wheelchair/Cabulance
--- NOTE | 2022-10-31 14:40 | ST.IPDYTX ---
Visit Care Team Role Provider Type Lalo Elam DO Emergency Provider Physician Referring Provider Specialty: Emergency Medicine Address: [address] [place] [address], [id number] Email: [email or web address] Armando Lu MD Admit Provider Physician Attending Provider Primary Care Provider Specialty: Family Practice Address: [facility] [place], [address] Email: [email or web address] ACCOUNT MANAGER Dysphagia Treatment CLAIMS ACCOUNT MANAGER Dysphagia Treatment Start: 10/31/22 14:18 Freq: Status: Active Protocol: Document 10/31/22 14:18 CG (Rec: 10/31/22 14:29 CG [id number]) Dysphagia Treatment Session Time Visit Start Time 13:05 Visit Stop Time 14:05 Total Visit Minutes 60 Visit Information Visit Number 2 Setting Assessment Location Acute Care Next Note Type Next Note Type Treatment Note Patient Information Subjective Observations Pt was seated upright in chair at bedside upon ST entry to room. He was alert and much more oriented than yesterday. He stated that his had just left, but called her to return as CLAIMS ACCOUNT MANAGER needed to discuss goals of care and diet together with pt (pt's is POA). The pt continued to present with wet, congested cough. He was agreeable to continue conversation regarding diet orders with his present. A cup of thickened liquids with ice chips was present at bedside, which had melted to thin out to a liquid consistency thinner than prescribed IDDSI 2 Mildly thick liquids. Pt had been drinking this thinned liquid. Treatment Liquids Trialed Thin (IDDSI 0),Mildly Thick ( IDDSI 2) Solids Trialed Purred (IDDSI 4) Administration Type Cup Single Sip Oral Strategies Upright at 90 degrees Pharyngeal Strategies Sitting Upright (90 deg) Treatment Activities CLAIMS ACCOUNT MANAGER conducted PO trials to assess for tolerance of current diet. Pt tolerated mildly thick liquids and puree solids without overt s/sx aspiration. Pt was observed to sip thinned liquid ( originally thickened but with ice chips that melted) which resulted in immediate cough. Once pt's was present, CLAIMS ACCOUNT MANAGER led the pt and through an extensive discussion regarding goals of care and options for safety versus comfort with regards to swallowing recomendations. Additionally, discussed prognosis for dysphagia and care needed after discharge. Provided pt and caregiver counseling on necessity for rigorous adherance to swallowing exercise regimin in order to increase chance of recovery of function. The IDDSI Framework Protocol: IDDSI.1 Assessment Patient Response to Treatment Good Rehab Potential Fair Assessment of Improvement Pt is tolerating current diet, but continues to request thin liquids and will drink thin liquids if presented to him despite knowing he is on an altered liquid diet. Pt continues to express that he prefers thin liquids; however, he states that his wants him to drink thickened liquids. Based on lengthy discussion regarding plan and goals of care together with pt and pt's , the following was discussed/determined: 1. The pt will continue on current diet order of mildly thick liquids and minced and moist solids. However, ice chips will be added for pt comfort, which may be consumed one at a time while upright. 2. Pt and will continue to have a discussion (possibly together with their physician ) regarding goals for comfort vs. safety in regards to dysphagia. Pt and do not want the pt to become repeatedly hospitalized for pneumonia if he switches to thin liquids for comfort. They want the pt to be able to come home and stay home. 3. Pt and will continue with dysphagia exercises with the goal of rehabilitating swallow ability. 4. Pt and are aware that it is difficult to determine the prognosis of the pt's dysphagia given there is no clear healing pattern occuring after an acute neurologic injury. CLAIMS ACCOUNT MANAGER discussed how it is possible that pt's swallowing ability may be rehabilitated by exercises, but there is a real possibility that pt's dysphagia will be lifelong and goals of care must therefore be considered in this context. 5. Pt's was provided with a handout of IDDSI food texture levels in order to better understand diet texture alteration for safety and in preparation for preparing meals at home if pt is able to return home with . 6. Plan going forward is to continue on current diet order with added ice chips for comfort and continue training on how to accurately complete restorative swallowing exercises. Recommendations Recommendations Continue Current Diet Comment Add ice chips for comfort Liquids Order Thin (IDDSI 0) Diet Order Minced & Moist (IDDSI 5) Medication Recommendations Whole in Carrier,Crushed in Carrier Comments Add ice chips for comfort Aspiration Precautions Recommended Precautions Upright at 90 Degrees,Small Bites/Sips,Check for Pocketing Treatment Plan Placement Recommendation after Discharge Fdc Facility,Long-Term Care Facility Appropriate for Continued Therapy Yes Therapy Recommendations Continue with instruction in dysphagia exercises. Referrals/Other Recommended Referrals Neurology
--- NOTE | 2022-10-31 14:55 | OT.IP.EVAL ---
Current Diagnoses Pneumonitis due to inhalation of food and vomit (10/29/22) Past Medical History (Last Reviewed 10/30/22 @ 16:06 by Armando Lu MD) Anticoagulation therapy continued upon discharge Arthritis ASCVD (arteriosclerotic cardiovascular disease) Ataxia Chest pain CKD (chronic kidney disease), stage IV Depression with anxiety Gout History of aortic valvular stenosis Hyperlipidemia Hypertension Low back pain Obesity Obstructive sleep apnea Peripheral neuropathy Pulmonary embolism Type II diabetes mellitus Vertigo Vertigo Vitamin D deficiency Surgical History (Last Reviewed 10/30/22 @ 16:06 by Armando Lu MD) Aortic valve replaced Occupational Therapy Inpatient Evaluation/Re-Eval M1 PT/OT-IP Prior Functional Status Start: 10/31/22 16:26 Freq: NEEDED Status: Active Protocol: Document 10/31/22 14:23 [facility] (Rec: 10/31/22 16:44 [facility] [id number]) Medical Review Prior Functional Status Medical History Reviewed Yes Communication able to make needs known; with difficulty following directions and needs repetitions Mobility and Gait pt admitted to the hospital august 18 to of this year s/ p fall sustaining a L hip periprosthetic fx and is non- operable. pt was PWB of 50% at that time. pt d/c to [facility] after hospitalization and has been there since august. Per pt, he has been ambulating at SNF without AD but pt has cognitive and memory issues and may not be providing accurate information. prior to august 18 hospitalization, pt was independent with all mobilities and ambulation without AD Activities of Daily Living and IADL's Prior to fall in August, pt's states has progressively having to assist pt more for ADl needs in the past 3 months prior to his fall. Social History Household Members spouse Living Arrangements House Number of Floors (Floors) One Floor Number of Stairs To Enter/Railing? no steps to enter Home Environment Walk in Shower Home Equipment Four Wheel Walker,Shower Seat without Backrest,Hand Held Shower M2 OT-IP Current Condition Start: 10/31/22 16:26 Freq: Status: Active Protocol: Document 10/31/22 14:23 [facility] (Rec: 10/31/22 16:44 [facility] [id number]) Occupational Therapy Current Condition Current Condition Evaluation Date 10/31/22 Treatment Diagnosis UTI, Dehydration Diagnosis Onset Date 10/29/22 Weight Bearing Status Weight Bearing Status Weight Bear as Tolerated M3 OT- IP Subjective and Pain Start: 10/31/22 16:26 Freq: Status: Active Protocol: Document 10/31/22 14:23 [facility] (Rec: 10/31/22 16:44 [facility] [id number]) OT- Subjective Occupational Therapy Visit Type Type Initial Evaluation Visit Start Time 11:32 Visit Stop Time 14:55 Total Visit Minutes 80 Occupational Therapy Visit Comments Patient Comments Able to see pt with RUBBER BELT SPLICER for PM , present. Patient/Caregiver Goals TO get better. OT Pain Assessment Pain When Pain Assessed At Rest Pain Present Pain Present Denied Pain M4 OT- IP ADL's Start: 10/31/22 16:26 Freq: Status: Active Protocol: Document 10/31/22 14:23 [facility] (Rec: 10/31/22 16:44 [facility] [id number]) OT [id number] Comments OT Self-Feeding Comments Pt on thicken liquids OT ADL-Grooming Comments OT Grooming Comments Pt able to wash his face and his able to brush his hair. Pt's RUE tremors at times. OT ADL-Oral Care Comments Oral Care Comments Not performed OT ADL-Dressing General Eval Lower Body Dressing Ability Total Assistance OT ADL-Toileting General Evaluation Toileting Ability Total Assistance Comments OT Toileting Comments Damian in place OT ADL-Bathing Bathing Type Bathing Type Bed Bath Comments OT Bathing Comments bed bath more appropriate at this time M5 OT- IP IADL's Start: 10/31/22 16:26 Freq: Status: Active Protocol: Document 10/31/22 14:23 [facility] (Rec: 10/31/22 16:44 [facility] [id number]) OT-Instrumental Activities of Daily Living Deficits IADL Deficits Identified Deficits Medication Management Medication Management Caregiver Administers Money Management Money Management Caregiver Provides Assistance Meal Preparation Meal Preparation Caregiver Provides Assist Insole Cementer Insole Cementer Caregiver Provides Assist M6 OT- IP Functional Cognition Start: 10/31/22 16:26 Freq: Status: Active Protocol: Document 10/31/22 14:23 [facility] (Rec: 10/31/22 16:44 [facility] [id number]) Cognitive Factors Limiting Selfcare Function Cognitive Ability Level of Alertness Alert Patient Orientation Name Attention Span Ability Capable of Focused Attention, Capable of Sustained Attention Ability to Follow Commands Able to Follow One Step Commands with Increased Time, Able to Follow One Step Commands with Repetition Memory Description Short Term Impaired Cognitive Comments Cognitive Assessment Comments Pt needing concrete cues to follow and reminders to hands placement so able to assist for mobility needs. OT- Vision and Hearing OT- Hearing Assessment OT- Hearing Assessment Use of Hearing Aids M7 OT- IP Mobility and Balance Start: 10/31/22 16:26 Freq: Status: Active Protocol: Document 10/31/22 14:23 [facility] (Rec: 10/31/22 16:44 [facility] [id number]) OT- Bed Mobility Assessment Supine to Sit Supine to Sit Assist Moderate Assistance Sit to Supine Sit to Supine Assist Moderate Assistance OT-Transfer Assessment Sit to and From Stand Sit to and from Stand Maximum Assistance,2 Person Assistance Transfers Transfer Ability Maximum Assistance,2 Person Assistance Technique Transfer Destination Bed,Chair Transfer Technique Stand Step Pivot Devices Transfer Assistive Devices None,Gait Belt,Front Wheeled Walker Comments Mobility Comments MAX AX 2 to stand to FWW and heavily leans to the right and needing cue to lean to the left. Once on his feet when well balanced on his feet able to walk with one person MAX assist and close chair follow. Pt getting too tired to attempt again and needing MAXA x2 squat pivot to the recliner. OT- Balance Assessment Sitting Balance and Reactions Static Sitting Balance Ability Good Dynamic Sitting Balance Ability Fair Standing Balance and Reactions Static Standing Balance Ability Poor Dynamic Standing Balance Ability Poor M8 OT- IP Objective Assessments Start: 10/31/22 16:26 Freq: Status: Active Protocol: Document 10/31/22 14:23 [facility] (Rec: 10/31/22 16:44 [facility] [id number]) OT Gross Range of Motion Upper Extremity Range of Motion Assessment Bilaterally Impaired OT Strength Comments Strength Comments BUE distally 4/5 OT- Coordination Assessment Upper Extremity Finger to Nose Test Left UE Impaired M9 OT- IP Assessment and Plan Start: 10/31/22 16:26 Freq: Status: Active Protocol: Document 10/31/22 14:23 [facility] (Rec: 10/31/22 16:44 [facility] [id number]) OT Summary Assessment and Plan Potential Rehabilitation Potential Fair Analytic Complexity at Evaluation Moderate Summary OT Impairments Pain,Range of Motion,Strength, Balance,Coordination, Functional Cognition, Functional Mobility,Self- Feeding,Grooming,Dressing, Toileting,Bathing,Toilet Transfers,Shower Transfers, Activity Tolerance Progress Towards Goals Slow Progress due to Medical Issues,Slow Progress due to Activity Tolerance,Slow Progress due to Cognition Assessment Summary Pt mod complexity and main barriers are decreased endurance, activity tolerance, strength, and balance. Pt needing extensive two person assist for mobility needs at this time. Pt will benefit from returning to skilled rehab when medically stable. Goals Self-Feeding Goal Standby Assistance Grooming Goal Standby Assistance Dressing Goal Minimal Assistance Toileting Goal Minimal Assistance Bathing Goal Moderate Assistance Toilet Transfer Goal Minimal Assistance Shower Transfer Goal Moderate Assistance Days to Meet Goals 30 Frequency of Treatment Frequency Of Treatment Once a Day Treatment Plan OT Treatment Plan ADL Training,Functional Cognition Training,Functional Mobility,Patient/Family Education,Discharge Planning Other Treatment Recommendations and Next Transfer BSC with MODA X2 with Treatment Focus FWW. Discharge Recommendations OT Discharge Recommendations SNF Rehab Transportation Needs at Discharge Wheelchair/Cabulance
[2022-10-31] MEDS: INSULIN LISPRO 100 UNIT/ML 3ML VIAL SUBCUT (16:55)
[2022-10-31] MEDS: GABAPENTIN 100 MG CAPSULE PO (16:56)
[2022-10-31] MEDS: ATORVASTATIN 20 MG TABLET 40 MG PO (16:56)
[2022-10-31] MEDS: AMLODIPINE 5 MG TABLET PO (16:56)
--- NOTE | 2022-10-31 17:13 | PM.DS.1 ---
History of Present Illness History of Present Illness Date Patient Seen: 10/31/22 Time Patient Seen: 17:00 Chief complaint: Hypotension, N/V/D Narrative: chief complaint: UTI, renal failure Pt w/hx of non-op hip fx 2 months ago presented to ED from [facility] with hypotension and acute renal failure. The hip has been doing ok with PT and is not weight bearing but he is not back to walking yet and has been fairly immobile. He has also been having some new dysphagia issues and has been on a thickened diet for ease of swallowing. His notes that about 3-4 days before presentation - his cough seemed to get worse and his mentation seemed to decline. Yesterday he appeared quite ill and EMS was summoned where they found him with a systolic pressure of 80 which improved with hydration. He appears to have a urine infection and possibly some obstruction also as notes he had prodigious UOP on placement of catheter in ED. also notes he just has not been that hungry lately and seems to have lost about [address]. [address] they have been working on him last couple months at [facility] he has been on thickened liquids after seeing anything thin seems to aspirate Now he doesn't want thickened fluids wants thin which he will probably aspirate needs a plan for how to proceed will plan on goals of care conversation Discharge Providers Provider Date of admission: 10/29/22 21:08 Primary care physician: Armando Lu MD Consults: 10/29/22 23:04 Consult to Dietitian, Adult Routine Comment: Reason For Exam: MNA = 7 10/30/22 09:05 Consult to Occupational Therapy Evaluate & Treat Comment: Physician Instructions: Evaluate and treat 10/30/22 09:06 Consult to Physical Therapy Evaluate & Treat Comment: Physician Instructions: Evaluate and Treat 10/30/22 10:15 Consult to Speech Therapy Evaluate & Treat Comment: Physician Instructions: Evaluate and treat Discharge provider: Armando Lu MD Exam Vital Signs (past 8 hours): - 10/31/22 09:17 10/31/22 12:11 Pulse Rate 59 L Blood Pressure 132/57 L 125/59 L Oxygen Delivery Method Room Air Oxygen Flow Rate 0 Objective Labs 10/31/22 05:38 10/31/22 05:38 Labs: Laboratory Results - last 24 hr 10/31/22 10/31/22 10/31/22 05:38 05:38 10:45 WBC 9.4 RBC 2.63 L Hgb 7.7 L Hct 23.9 L MCV 90.9 MCH 29.4 MCHC 32.3 RDW 17.0 H Plt Count 126 L Neut % (Auto) 56.7 Lymph % (Auto) 31.0 [place] % (Auto) 8.6 Eos % (Auto) 3.5 Baso % (Auto) 0.2 Neut # (Auto) 5300 Lymph # (Auto) 2900 [place] # (Auto) 800 Eos # (Auto) 300 Baso # (Auto) 0 PT 46.3 H D INR 4.0 H Sodium 139 Potassium 4.5 Chloride 113 H Carbon Dioxide 20 L BUN 55 H Creatinine 3.27 H Estimated GFR 18 L BUN/Creatinine Ratio 16.8 Glucose 93 Calcium 7.6 L Total Bilirubin 0.2 AST 22 ALT 12 Alkaline Phosphatase 102 Total Protein 5.4 L Albumin 2.2 L Globulin 3.2 Albumin/Globulin Ratio 0.7 L PFSH Medical History Anticoagulation therapy continued upon discharge Arthritis ASCVD (arteriosclerotic cardiovascular disease) Ataxia Chest pain CKD (chronic kidney disease), stage IV Depression with anxiety Gout History of aortic valvular stenosis Hyperlipidemia Hypertension Low back pain Obesity Obstructive sleep apnea Peripheral neuropathy Pulmonary embolism Type II diabetes mellitus Vertigo Vertigo Vitamin D deficiency Surgical History Aortic valve replaced Social History household members: spouse Smoking Status: Former smoker alcohol intake: never Discharge Plan Discharge Plan Patient Disposition: Home Discharge orders & Medications Prescriptions: Continued multivitamin Tablet 1 tab PO QAM atorvastatin 40 mg tablet 40 mg PO QPM Patient Comments: TAKE 1 TABLET (40 MG) BY MOUTH DAILY. metoprolol succinate 25 mg tablet extended release 24 hr 37.5 mg PO BID Patient Comments: Take 1 1/2 tablet by mouth every morning AND TAKE 1 AND 1/2 TABLETS BY MOUTH EVERY EVENING insulin glargine [Basaglar KwikPen U-100 Insulin] 100 unit/mL (3 mL) insulin pen 10 unit SUBCUT BEDTIME cholecalciferol (vitamin D3) 50 mcg (2,000 unit) Capsule 2,000 mcg PO DAILY polyethylene glycol 3350 [Miralax] 17 gram Powder In Packet 17 g PO DAILY sertraline 100 mg tablet 125 mg PO DAILY isosorbide mononitrate 60 mg tablet extended release 24 hr 80 mg PO DAILY gabapentin 100 mg capsule 100 mg PO QPM acetaminophen 500 mg Tablet 1,000 mg PO TID PRN (Reason: Pain (Scale Score 1-3)) bisacodyl [Dulcolax (bisacodyl)] 10 mg Suppository 10 mg [place] DAILY PRN (Reason: Constipation) warfarin 1 mg Tablet 1 mg PO DAILY Follow up/Referrals: Armando Lu MD [Primary Care Provider] - Visit Report/Discharge Packet Stand Alone Forms: Patient Portal/API, Stroke Signs & Symptoms Discharge Data Primary Care Provider: Armando Lu
--- NOTE | 2022-10-31 17:15 | PM.PN.1 ---
Subjective Subjective Date Patient Seen: 10/31/22 Time Patient Seen: 09:30 Interval history: CC: SOB, weak Doing a bit better today kidneys improving appetite ok, mobilizing with PT admit status inpatient extended retroactively to thursday; will plan on d/c back to rehab tomorrow Exam Vital Signs (past 8 hours): - 10/31/22 09:17 10/31/22 12:11 Pulse Rate 59 L Blood Pressure 132/57 L 125/59 L Oxygen Delivery Method Room Air Oxygen Flow Rate 0 Narrative Exam Narrative: alert in bed with at bedside HENMT Head: normocephalic and atraumatic Eyes General: appearance normal, both eyes and all related structures Resp Other: moving air well clear bilaterally no crackles on auscultation Cardio Other: regular rate and rhythm s1/S2 no pedal edema GI Other: active bowel sounds Neuro General: patient alert, patient awake and patient oriented x3 Objective Labs 10/31/22 05:38 10/31/22 05:38 Labs: Laboratory Results - last 24 hr 10/31/22 10/31/22 10/31/22 05:38 05:38 10:45 WBC 9.4 RBC 2.63 L Hgb 7.7 L Hct 23.9 L MCV 90.9 MCH 29.4 MCHC 32.3 RDW 17.0 H Plt Count 126 L Neut % (Auto) 56.7 Lymph % (Auto) 31.0 [place] % (Auto) 8.6 Eos % (Auto) 3.5 Baso % (Auto) 0.2 Neut # (Auto) 5300 Lymph # (Auto) 2900 [place] # (Auto) 800 Eos # (Auto) 300 Baso # (Auto) 0 PT 46.3 H D INR 4.0 H Sodium 139 Potassium 4.5 Chloride 113 H Carbon Dioxide 20 L BUN 55 H Creatinine 3.27 H Estimated GFR 18 L BUN/Creatinine Ratio 16.8 Glucose 93 Calcium 7.6 L Total Bilirubin 0.2 AST 22 ALT 12 Alkaline Phosphatase 102 Total Protein 5.4 L Albumin 2.2 L Globulin 3.2 Albumin/Globulin Ratio 0.7 L PFSH Medical History Anticoagulation therapy continued upon discharge Arthritis ASCVD (arteriosclerotic cardiovascular disease) Ataxia Chest pain CKD (chronic kidney disease), stage IV Depression with anxiety Gout History of aortic valvular stenosis Hyperlipidemia Hypertension Low back pain Obesity Obstructive sleep apnea Peripheral neuropathy Pulmonary embolism Type II diabetes mellitus Vertigo Vertigo Vitamin D deficiency Surgical History Aortic valve replaced Social History household members: spouse Smoking Status: Former smoker alcohol intake: never Assessment & Plan Assessment & Plan narrative: #hypotension #UTI #Urinary retention with Damian placed in ED #Acute on chronic renal failure to level 5 failure #aspiration pneumonia goal has been 3 days of IVF and abx, improvement noted, ok to dc to rehab on i suggest oral levaquin course #Dysphagia thickened feeds only.? ST consulted they are following patient at [facility], appreciate their input poor PO intake generally - may benefit from megace depending on goals #Hx of L hip fracture 2 months ago Per he is now full weight bearing on that hip but hasn't been mobilized much, PT/OT consulted #diabetes takes lantus outpatient, will adjust due to poor po intake with fingersticks and si, continue on d/c #hx of CAD stable continue home meds Dispo: retroactive inpatient to the , improving, plan to dc back to [facility] tomorrow diet: thickened only no free fluids code: DNR MDM: Jacy time spent: 40min
--- NOTE | 2022-10-31 18:22 | PC.NURSE ---
Day shift: Notified MD Corrales at 1800 as pt reports that MD Corrales told him d/c tomorrow back to SNF and that Medicare will kick in for payment. Did not hear back from [facility] this shift. Pt's has questions about discharge and payment. Relayed this information to shift lab technician RN.
[2022-10-31 19:00] VITALS: BP 123/58; PULSE 69; RESP 16; TEMP 36.9; O2SAT 100
[2022-10-31 20:05] VITALS: BP 125/58; PULSE 69
[2022-10-31] MEDS: INSULIN GLARGINE 100 UNIT/ML 3ML PEN 10 UNIT SUBCUT (20:16)
[2022-11-01] MEDS: SODIUM CHLORIDE 0.9% 1,000 ML 82 ML IV (01:16)
[2022-11-01 05:16] LABS: Add Manual Diff / Slide Review NO; Basophils Absolute Auto 100 /uL (0-100); Basophils Percent Auto 0.7 % (0-2); Eosinophils Absolute Auto 300 /uL (0-450); Eosinophils Percent Auto 4.2 % (2-4); Hematocrit 23.8 % (41-53); Hemoglobin 7.7 g/dL (13.5-17.5); Lymphocytes Absolute Auto 2900 /uL (1100-4500); Mean Corpuscular HGB Conc 32.4 % (30-36); Mean Corpuscular Hemoglobin 29.3 PG (26-34); Mean Corpuscular Volume 90.7 fL (80-100); Monocytes Absolute Auto 700 /uL (0-900); Monocytes Percent Auto 8.8 % (3-14); Neutrophils Absolute Auto 3900 /uL (1500-7000); Neutrophils Percent Auto 49.3 % (50-75); Platelet Count 122 X10^3/uL (150-400); Red Blood Cell Count 2.62 X10^6/uL (4.5-5.9); Red Cell Distribution Width 16.9 % (11.6-14.8); White Blood Cell Count 7.8 X10^3/uL (4.5-11.0)
[2022-11-01 05:25] LABS: Alanine Aminotransferase 12 IU/L (<50); Albumin 2.3 g/dL (3.5-5.0); Albumin Globulin Ratio 0.8 (1.0-2.8); Alkaline Phosphatase 95 U/L (38-126); Aspartate Aminotransferase 21 IU/L (17-59); BUN Creatinine Ratio 16.6 (6-22); Bilirubin Total 0.3 mg/dL (0.2-1.3); Blood Urea Nitrogen 48 mg/dL (9-20); Calcium 7.5 mg/dL (8.4-10.2); Carbon Dioxide 20 mmol/L (22-32); Chloride 116 mmol/L (98-107); Estimated Glomerular Filt Rate 21 mL/min (>60); Glucose 84 mg/dL (80-110); HEMOLYSIS < 15 (0-50); Potassium 4.2 mmol/L (3.4-5.1); Sodium 140 mmol/L (137-145); Total Protein 5.3 g/dL (6.3-8.2)
[2022-11-01 07:00] VITALS: BP 130/63; PULSE 63; RESP 18; TEMP 36.7; O2SAT 94
[2022-11-01] MEDS: polyethylene glycoL 3350 17 GM POWD.PACK PO (08:23)
[2022-11-01] MEDS: SERTRALINE 50 MG TABLET 125 MG PO (08:23)
[2022-11-01] MEDS: DOCUSATE 100 MG CAPSULE PO (08:24)
[2022-11-01] MEDS: ISOSORBIDE MONONITRATE ER 30 MG TABLET 75 MG PO (08:24)
[2022-11-01 08:25] VITALS: BP 130/63; PULSE 63
[2022-11-01] MEDS: METOPROLOL ER 25 MG TABLET 37.5 MG PO (08:25)
[2022-11-01] MEDS: TAMSULOSIN 0.4 MG CAPSULE PO (08:25)
--- NOTE | 2022-11-01 08:25 | P.DS_ITS ---
History of Present Illness History of Present Illness Chief complaint: Hypotension, N/V/D Discharge Providers Provider Date of admission: 10/29/22 21:08 Discharge Date: 11/01/22 Primary care physician: Armando Lu MD Consults: 10/29/22 23:04 Consult to Dietitian, Adult Routine Comment: Reason For Exam: MNA = 7 10/30/22 09:05 Consult to Occupational Therapy Evaluate & Treat Comment: Physician Instructions: Evaluate and treat 10/30/22 09:06 Consult to Physical Therapy Evaluate & Treat Comment: Physician Instructions: Evaluate and Treat 10/30/22 10:15 Consult to Speech Therapy Evaluate & Treat Comment: Physician Instructions: Evaluate and treat Discharge provider: Oni Rios MD Summary Hospital Course Discharge Diagnosis: Acute kidney injury with chronic renal failure stage 4 Aspiration pneumonia Dysphagia with aspiration Acute urinary retention Acute urinary tract infection Anemia chronic status post blood loss from surgery Insulin-dependent diabetes Coronary artery disease without active symptoms Left hip fracture with repair Hospital Course: Patient admitted to the hospital with weakness dehydration acute kidney injury signs and symptoms consistent with infection due to urinary tract infection and aspiration pneumonia. Patient was given IV fluids IV antibiotics. Patient's creatinine and kidney failure improved with hydration he had close monitoring of his electrolytes due to his urinary tract infection and concerns about aspiration pneumonia was started on IV antibiotics. Patient had stabilization. Patient had mild signs of urinary obstruction and had a Damian catheter placed in the emergency department patient was placed on Flomax and urinary catheter was used during the hospital stay to manage this this was removed at the time of discharge. Patient worked with physical therapy during hospital stay. Patient needed 2 person assist. At the time of discharge patient was eating still significantly weak and needing physical therapy had improvement of all laboratory tests. Discharge plan will be back to [facility] Exam Vital Signs (past 8 hours): - 11/01/22 07:00 Temperature 98.1 F Pulse Rate 63 Respiratory Rate 18 Blood Pressure 130/63 Pulse Oximetry 94 Oxygen Delivery Method CPAP Oxygen Flow Rate 0 Objective Labs 11/01/22 05:07 11/01/22 05:07 Labs: Laboratory Results - last 24 hr 10/31/22 11/01/22 11/01/22 10:45 05:07 05:07 WBC 7.8 RBC 2.62 L Hgb 7.7 L Hct 23.8 L MCV 90.7 MCH 29.3 MCHC 32.4 RDW 16.9 H Plt Count 122 L Neut % (Auto) 49.3 L Lymph % (Auto) 37.0 [place] % (Auto) 8.8 Eos % (Auto) 4.2 H Baso % (Auto) 0.7 Neut # (Auto) 3900 Lymph # (Auto) 2900 [place] # (Auto) 700 Eos # (Auto) 300 Baso # (Auto) 100 PT 46.3 H D INR 4.0 H Sodium 140 Potassium 4.2 Chloride 116 H Carbon Dioxide 20 L BUN 48 H Creatinine 2.90 H Estimated GFR 21 L BUN/Creatinine Ratio 16.6 Glucose 84 Calcium 7.5 L Total Bilirubin 0.3 AST 21 ALT 12 Alkaline Phosphatase 95 Total Protein 5.3 L Albumin 2.3 L Globulin 3.0 Albumin/Globulin Ratio 0.8 L PFSH Medical History Anticoagulation therapy continued upon discharge Arthritis ASCVD (arteriosclerotic cardiovascular disease) Ataxia Chest pain CKD (chronic kidney disease), stage IV Depression with anxiety Gout History of aortic valvular stenosis Hyperlipidemia Hypertension Low back pain Obesity Obstructive sleep apnea Peripheral neuropathy Pulmonary embolism Type II diabetes mellitus Vertigo Vertigo Vitamin D deficiency Surgical History Aortic valve replaced Social History household members: spouse Smoking Status: Former smoker alcohol intake: never Discharge Plan Discharge Plan Patient Disposition: Home Discharge orders & Medications Prescriptions: New tamsulosin [Flomax] 0.4 mg capsule 0.4 mg PO BEDTIME Qty: 30 0RF levofloxacin 500 mg tablet 500 mg PO DAILY 5 Days Qty: 5 0RF Continued multivitamin Tablet 1 tab PO QAM atorvastatin 40 mg tablet 40 mg PO QPM Patient Comments: TAKE 1 TABLET (40 MG) BY MOUTH DAILY. metoprolol succinate 25 mg tablet extended release 24 hr 37.5 mg PO BID Patient Comments: Take 1 1/2 tablet by mouth every morning AND TAKE 1 AND 1/2 TABLETS BY MOUTH EVERY EVENING insulin glargine [Basaglar KwikPen U-100 Insulin] 100 unit/mL (3 mL) insulin pen 10 unit SUBCUT BEDTIME cholecalciferol (vitamin D3) 50 mcg (2,000 unit) Capsule 2,000 mcg PO DAILY polyethylene glycol 3350 [Miralax] 17 gram Powder In Packet 17 g PO DAILY sertraline 100 mg tablet 125 mg PO DAILY isosorbide mononitrate 60 mg tablet extended release 24 hr 80 mg PO DAILY gabapentin 100 mg capsule 100 mg PO QPM acetaminophen 500 mg Tablet 1,000 mg PO TID PRN (Reason: Pain (Scale Score 1-3)) bisacodyl [Dulcolax (bisacodyl)] 10 mg Suppository 10 mg [place] DAILY PRN (Reason: Constipation) warfarin 1 mg Tablet 1 mg PO DAILY Follow up/Referrals: Armando Lu MD [Primary Care Provider] - Visit Report/Discharge Packet Stand Alone Forms: Patient Portal/API, Stroke Signs & Symptoms Discharge Data Primary Care Provider: Armando Lu
--- NOTE | 2022-11-01 09:07 | CM.DPC ---
DCP Discharge SNF Per MD, pt is medically stable to d/c to SNF today and no identified barriers to discharge and d/c'd holder. JARROD called [facility] admissions October and confirmed they can still accept pt today and will provide transport at 1100 and since pt is a return no PASRR needed. Pt does not need to void prior to d/c and they will monitor with bladder scanner etc if pt hasn't voided by transport. SW updated pt bedside and he remains agreeable to d/c to [facility] and requested SW call spouse to update. SW called spouse and updated on d/c at 1100 to [facility] and she is very appreciative and inquired if pt met his 3 night qualifying medicare stay and SW confirmed that EHR deemed pt Inpt since time of admit and pt has had his 3 night qualifying stay and spouse very relieved as they have been paying privately for some time for rehab. JARROD updated RN, information systems security specialist and PRESSER MACHINE. JARROD faxed signed med list, no PASRR needed, no covid swab needed, MD orders and d/c summary completed. Plan: Patient to d/c back to [facility] for ongoing rehab before plan of return home with spouse. RANDAL [place]
--- NOTE | 2022-11-01 09:44 | ST.IPDYTX ---
Visit Care Team Role Provider Type Lalo Elam DO Emergency Provider Physician Referring Provider Specialty: Emergency Medicine Address: [address] [place] [address], [id number] Email: [email or web address] Armando Lu MD Admit Provider Physician Attending Provider Primary Care Provider Specialty: Family Practice Address: [facility] [place], [address] Email: [email or web address] FLAT BED OPERATOR Dysphagia Treatment FLAT BED OPERATOR Dysphagia Treatment Start: 10/31/22 14:18 Freq: Status: Active Protocol: Document 11/01/22 09:33 MG (Rec: 11/01/22 09:43 MG [id number]) Dysphagia Treatment Session Time Visit Start Time 09:20 Visit Stop Time 09:35 Total Visit Minutes 15 Visit Information Visit Number 3 Setting Assessment Location Acute Care Next Note Type Next Note Type Treatment Note Patient Information Subjective Observations Pt was resting in bed with the lights off upon FLAT BED OPERATOR arrival. Agreeable to ST entering the room. Pt has discharge orders and planned pickup at 11:00 this morning. Nothing to note of breakfast - the pt reported it was hard to eat due to the texture/taste of the meal vs the difficulty of swallowing it. Treatment Treatment Activities FLAT BED OPERATOR went over discharge recommendations and exercises with the pt. Pt demonstrated using them with this FLAT BED OPERATOR and mentioned that they feel hard to do. FLAT BED OPERATOR answered any questions/concerns the pt had prior to leaving the room. The IDDSI Framework Protocol: IDDSI.1 Assessment Patient Response to Treatment Good Rehab Potential Fair Assessment of Improvement Pt appears to be tolerating diet of thickened liquids and miced & moist solids at this time and has been made aware of ST recommendations and safe swallowing precautions. Recommend continue to see ST at care facility for diet tolerance and follow up of exercise program. Recommendations Recommendations Continue Current Diet Comment Add ice chips for comfort Liquids Order Thin (IDDSI 0) Diet Order Minced & Moist (IDDSI 5) Medication Recommendations Whole in Carrier,Crushed in Carrier Comments Add ice chips for comfort Aspiration Precautions Recommended Precautions Upright at 90 Degrees,Small Bites/Sips,Check for Pocketing Treatment Plan Placement Recommendation after Discharge Longterm Facility,[facility] Appropriate for Continued Therapy Yes Therapy Recommendations Continue with instruction in dysphagia exercises. Dysphagia Goals Pt will tolerate least restrictive diet without demonstrating overt s/sx of aspiration. Pt will follow through on exercise program to improve swallowing function. Referrals/Other Recommended Referrals Neurology,Dietary Consult
[2022-11-01 09:45] VITALS: BP 122/49; PULSE 62
[2022-11-01 10:11] VITALS: BP 122/49; PULSE 62
--- NOTE | 2022-11-01 11:39 | PC.NURSE ---
Day shift: Called MD Rios this AM due to laboratory results coming back with sensitivities for bacteria. changed discharge antibiotic prescription per pharmacist request. D/c'ed holder. D/c'ed PIV. Called report to DNS at [facility]. Pt discharged to [facility] this AM. Gave packet to transport employee of [facility]. Let Jacy, pt's , know about change in PO antibiotic prescription that was discussed and ordered by MD Rios. 2 person assist to wheelchair for transport. Pt was able to stand and pivot safely with walker and gait belt. Pt's went with him to [facility]. All belongings went with patient.
== END 2022-11-01 11:00 | DRG 178 ==
LOC: ED 21:02 → AC 22:03
PROVIDERS: Emergency Medicine; Admitting Provider Family Medicine; Emergency Provider Emergency Medicine; PCP Family Medicine; Referring Provider Emergency Medicine; Visit Provider Family Medicine
DX: J69.0 Pneumonitis due to inhalation of food and vomit (principal); N17.9 Acute kidney failure, unspecified; N39.0 Urinary tract infection, site not specified; N18.4 Chronic kidney disease, stage 4 (severe); R13.10 Dysphagia, unspecified; I25.10 Atherosclerotic heart disease of native coronary artery without angina pectoris; N13.9 Obstructive and reflux uropathy, unspecified; R33.9 Retention of urine, unspecified; I12.9 Hypertensive chronic kidney disease with stage 1 through stage 4 chronic kidney disease, or unspecified chronic kidney disease; E86.0 Dehydration; E11.22 Type 2 diabetes mellitus with diabetic chronic kidney disease; E78.5 Hyperlipidemia, unspecified; F32.A Depression, unspecified; Z79.01 Long term (current) use of anticoagulants; Z87.891 Personal history of nicotine dependence; Z20.822 Contact with and (suspected) exposure to COVID-19; Z66 Do not resuscitate; Z87.81 Personal history of (healed) traumatic fracture; Z79.4 Long term (current) use of insulin; S72.002D Fracture of unspecified part of neck of left femur, subsequent encounter for closed fracture with routine healing; M97.02XD Periprosthetic fracture around internal prosthetic left hip joint, subsequent encounter
CPT/HCPCS: 36415; 51702; 51798; 71046; 74019; 76770; 80048; 80053; 81001; 82570; 82962; 83690; 84300; 85025; 85610; 87077; 87086; 87186; 92523; 92526; 92610; 93005; 93010; 96365; 96375; 97116; 97162; 97166; 97530; 99284; 99285; J0696; J1650; J1815; J2405

== ENCOUNTER → 2022-11-14 13:30 | Outpatient (CLI) | payer MEDICARE, OTHER, SELFPAY ==
[2022-10-29 22:47] VITALS: BMI 24.5
--- NOTE | 2022-11-14 | DI.RAD.S_ITS ---
PROCEDURE: XR HIP W PEL IF DONE RT 2V INDICATIONS: right hip pain TECHNIQUE: AP pelvis with lateral view(s) of the right hip(s). COMPARISON: [facility], CR, XR HIP W PEL IF DONE LT 2V, 10/03/2022, 14:07. [facility], CR, XR HIP W PEL IF DONE LT 2V, 08/18/2022, 13:38. FINDINGS: Bones: Bilateral hip arthroplasties are present. Right hip arthroplasty hardware and imaged portions of the left hip arthroplasty hardware appear intact. No acute fracture identified. No evidence of right hip dislocation. Soft tissues: No pathologically dilated gas-filled loops of bowel. Large rectal stool ball present. Vascular calcifications are present. IMPRESSION: No acute osseous abnormality. If symptoms persist, follow-up radiographs and/or CT may be helpful for further evaluation. Dictated by: Dong Monzon M.D. on 11/14/2022 at 16:51 Approved by: Dong Monzon M.D. on 11/14/2022 at 16:54
== END ==
PROVIDERS: PCP Family Medicine; Referring Provider Nurse Practitioner Family; Visit Provider Nurse Practitioner Family
DX: M25.551 Pain in right hip (principal); R29.6 Repeated falls
CPT/HCPCS: 73502

== ENCOUNTER 2022-12-11 08:17 | Emergency (ER) | payer MEDICARE, OTHER, SELFPAY ==
[2022-10-29 22:47] VITALS: BMI 24.5
[2022-12-11] VITALS (23 sets, daily range): BP systolic 117–145; BP diastolic 56–67; PULSE 56–66; RESP 12–22; TEMP 36.4; O2SAT 97–100
--- NOTE | 2022-12-11 08:28 | DI.RAD.S_ITS ---
PROCEDURE: XR CHEST 1V INDICATIONS: chest pain TECHNIQUE: One view of the chest was acquired. COMPARISON: [facility], CT, CT CERVICAL SPINE WO CON, 08/18/2022, 14:05. [facility], CR, XR CHEST 2V, 10/29/2022, 14:11. FINDINGS: Surgical changes and devices: CABG, percutaneous aortic valve. Fracture of the most superior cerclage wire with multiple wire fragments present at a distance from the initial placement. This is unchanged. Lungs and pleura: Slight improvement in patchy density in the left lung base, suggesting improving pneumonia with possible underlying scarring. No pleural effusions or pneumothorax. Mediastinum: Mediastinal contours appear normal. Heart size is normal. Bones and chest wall: No suspicious bony lesions. Overlying soft tissues appear unremarkable. Bilateral chronic rotator cuff tears. IMPRESSION: Improving left basilar pneumonia and possible underlying scarring. No acute process. Dictated by: Carlos Cobos M.D. on 12/11/2022 at 9:03 Approved by: Carlos Cobos M.D. on 12/11/2022 at 9:06
--- NOTE | 2022-12-11 08:29 | ED_ITS ---
HPI - Syncope General Chief Complaint: Syncope Stated Complaint: syncope Time Seen by Provider: 12/11/22 08:25 Source: patient, EMS, RN notes reviewed and old records reviewed Mode of arrival: EMS Limitations: other (dementia) History of Present Illness HPI narrative: This is an 86-year-old male with history of type 2 diabetes, coronary artery disease, prior pulmonary emboli on warfarin, chronic kidney disease, history of gait disturbance and reported memory issues. Patient came from [facility], he was seated in a wheelchair and had a witnessed episode where he passed out. Patient states his knees are bothering him a little bit. He denies any other symptoms currently. Medics state when they arrived they were told he did not have a heart rate but he did have a pulse and did not have any other interventions on scene. Patient's glucose was 120s in the field. Systolic pressure was 80 seated was 100 lying flat. Patient did start to receive fluids EN route. Patient denies any chest pain, no shortness of breath, no lightheadedness or feeling like he is going to pass out. No headache. No vision changes. No numbness, tingling or weakness. Denies any nausea or vomiting. Denies any diarrhea or constipation, denies any urinary symptoms such as dysuria urgency frequency or incontinence. Patient states he was doing something he was not supposed to be doing prior to the episode. When asked specifically he states he was trying to work with his boat. When asked if he has memory issues he states that he does. Patient has had prior knee surgery and reports prior valve replacement. Allergies include Reglan, morphine and other narcotics causing hallucinations. Former tobacco user, no alcohol or illicit. Related Data Home Medications Medication Instructions Recorded Confirmed atorvastatin 40 mg tablet 40 mg PO QPM 08/13/21 10/29/22 cholecalciferol (vitamin D3) 50 2,000 mcg PO DAILY 08/13/21 10/29/22 mcg (2,000 unit) capsule insulin glargine 100 unit/mL (3 10 unit SUBCUT BEDTIME 08/13/21 10/29/22 mL) subcutaneous pen (Basaglar KwikPen U-100 Insulin) metoprolol succinate 25 mg 37.5 mg PO BID 08/13/21 10/29/22 tablet,extended release 24 hr multivitamin 1 tab PO QAM 08/13/21 10/29/22 polyethylene glycol 3350 17 gram 17 g PO DAILY 08/13/21 10/29/22 oral powder packet (Miralax) gabapentin 100 mg capsule 100 mg PO QPM 08/18/22 10/29/22 isosorbide mononitrate 60 mg 80 mg PO DAILY 08/18/22 10/29/22 tablet,extended release 24 hr sertraline 100 mg tablet 125 mg PO DAILY 08/18/22 10/29/22 acetaminophen 500 mg tablet 1,000 mg PO TID PRN Pain (Scale 10/29/22 10/29/22 Score 1-3) bisacodyl 10 mg rectal suppository 10 mg ME DAILY PRN Constipation 10/29/22 10/29/22 (Dulcolax (bisacodyl)) warfarin 1 mg tablet 1 mg PO DAILY 10/29/22 10/29/22 Previous Rx's Medication Instructions Recorded cefdinir 300 mg capsule 300 mg PO BID #10 caps 11/01/22 tamsulosin 0.4 mg capsule (Flomax) 0.4 mg PO BEDTIME #30 caps 11/01/22 Allergies Allergy/AdvReac Type Severity Reaction Status Date / Time metoclopramide [From REGLAN] AdvReac Severe Dyskinesia Verified 12/11/22 08:32 morphine [MORPHINE] AdvReac Unknown Hallucinati Verified 12/11/22 08:32 ons narcotics AdvReac Severe Hallucinati Uncoded 12/11/22 08:32 ng Review of Systems Review of Systems ROS Unobtainable: All systems reviewed & are unremarkable except as noted in HPI and below Patient History Medical History Anticoagulation therapy continued upon discharge Arthritis ASCVD (arteriosclerotic cardiovascular disease) Ataxia Chest pain CKD (chronic kidney disease), stage IV Depression with anxiety Gout History of aortic valvular stenosis Hyperlipidemia Hypertension Low back pain Obesity Obstructive sleep apnea Peripheral neuropathy Pulmonary embolism Type II diabetes mellitus Vertigo Vertigo Vitamin D deficiency Surgical History Aortic valve replaced Social History household members: spouse Smoking Status: Former smoker alcohol intake: never Smoking Status: Former smoker alcohol intake frequency: 0-2 drinks per day Substance Use Type: does not use Exam Narrative Exam Narrative: GEN: Well-nourished male, alert and oriented x 2 self and location as well as majority of medical history, patient does have issues with more short term history, patient appears to be in mild distress. HEENT: Atraumatic, pupils are equal round reactive to light, extraocular movements are intact, nares are clear, TMs are clear with no fluid, there is no conjunctival pallor. Throat is clear without any exudates, erythema, tonsillar enlargement or uvular deviation, no facial droop HEART: Regular rate and rhythm without murmur, clicks, rubs. Pulses are equal in upper and lower extremities LUNGS:Lungs clear to auscultation, no wheezes, rales, crackles, chest moves symmetrically ABD:bowel sounds normal, soft, non-tender, no guarding, rebound, rigidity, no masses noted, no hepatosplenomegaly :No CVA tenderness MSCL: Non-tender, no muscle atrophy, muscles strength 5/5 upper and lower extre mities, full range of motion, no drift. NEURO:CN 2-12 intact, sensation normal SKIN: No rash, erythema or other skin changes noted. Initial Vital Signs Initial Vital Signs: Vital Signs Temperature 97.5 F L 12/11/22 08:15 Pulse Rate 63 12/11/22 08:15 Respiratory Rate 20 12/11/22 08:15 Blood Pressure 145/65 H 12/11/22 08:15 Pulse Oximetry 98 12/11/22 08:15 Oxygen Delivery Method Room Air 12/11/22 08:15 Course Orders Ordered: ED Orders 12/11/22 10:15 Trop I [Troponin I] Stat 12/11/22 10:25 EKG-12 Lead Stat 12/11/22 10:26 US perip venous low extrem bi Stat Discontinued Medications Sodium Chloride (Normal Saline 0.9%) 1,000 mls @ 1,000 mls/hr IV BOLUS ONE Stop: 12/11/22 09:28 Last Infusion: 12/11/22 10:30 Dose: 0 mls/hr Documented By: Admin: 12/11/22 08:50 Dose: 1,000 mls/hr Documented By: OW Vital Signs Vital signs: Vital Signs - 8 hr 12/11/22 11:00 12/11/22 11:00 12/11/22 11:15 Pulse Rate 60 58 L Respiratory Rate 21 20 Blood Pressure 139/65 Pulse Oximetry 99 98 12/11/22 11:15 12/11/22 11:30 12/11/22 11:30 Pulse Rate 57 L Respiratory Rate 16 Blood Pressure 140/63 120/59 L Pulse Oximetry 100 12/11/22 11:45 12/11/22 11:45 12/11/22 12:00 Pulse Rate 57 L Respiratory Rate 13 Blood Pressure 121/59 L 126/60 Pulse Oximetry 97 12/11/22 12:00 12/11/22 12:15 12/11/22 12:15 Pulse Rate 60 58 L Respiratory Rate 13 14 Blood Pressure 136/64 Pulse Oximetry 97 97 12/11/22 12:30 12/11/22 12:30 12/11/22 12:45 Pulse Rate 56 L 57 L Respiratory Rate 17 12 Blood Pressure 129/62 Pulse Oximetry 98 12/11/22 12:45 12/11/22 13:00 12/11/22 13:00 Pulse Rate 61 Respiratory Rate 15 Blood Pressure 137/66 137/65 Pulse Oximetry 99 MDM - Syncope Lab Data 12/11/22 08:18 12/11/22 08:18 Labs: Lab Results 12/11/22 12/11/22 12/11/22 Range/Units 08:18 08:18 08:18 WBC 10.4 (4.5-11.0) X10^3/uL RBC 3.21 L (4.5-5.9) X10^6/uL Hgb 9.8 L (13.5-17.5) g/dL Hct 29.1 L (41-53) % MCV 90.9 (80-100) fL MCH 30.5 (26-34) PG MCHC 33.6 (30-36) % RDW 16.0 H (11.6-14.8) % Plt Count 151 (150-400) X10^3/uL Neut % (Auto) 34.0 L (50-75) % Lymph % (Auto) 55.5 H (25-40) % Randolph % (Auto) 7.3 (3-14) % Eos % (Auto) 2.6 (2-4) % Baso % (Auto) 0.6 (0-2) % Neut # (Auto) 3500 (0688-1177) /uL Lymph # (Auto) 5800 H (9121-7981) /uL Randolph # (Auto) 800 (0-900) /uL Eos # (Auto) 300 (0-450) /uL Baso # (Auto) 100 (0-100) /uL PT 12.3 (10.1-12.7) SECONDS INR 1.1 (0.9-1.3) APTT 28 (26-36) SECONDS D-Dimer 1606 H (<500) ng/ml Sodium 138 (137-145) mmol/L Potassium 4.6 (3.4-5.1) mmol/L Chloride 106 (98-107) mmol/L Carbon Dioxide 26 (22-32) mmol/L BUN 47 H (9-20) mg/dL Creatinine 3.73 H (0.66-1.25) mg/dL Estimated GFR 15 L (>60) mL/min BUN/Creatinine Ratio 12.6 (6-22) Glucose 113 H (80-110) mg/dL Calcium 8.6 (8.4-10.2) mg/dL Total Bilirubin 0.2 (0.2-1.3) mg/dL AST 24 (17-59) IU/L ALT 13 (<50) IU/L Alkaline Phosphatase 127 H (38-126) U/L Total Creatine Kinase 21 L (55-170) U/L Troponin I 0.054 H (0.01-0.034) ng/mL NT-Pro-B Natriuret Pep 6180 H (<450) pg/mL Total Protein 6.4 (6.3-8.2) g/dL Albumin 3.2 L (3.5-5.0) g/dL Globulin 3.2 (1.7-4.1) g/dL Albumin/Globulin Ratio 1.0 (1.0-2.8) Lipase 74 (23-300) U/L Urine RBC (0-5/HPF) Urine WBC (0-5/HPF) Ur Squamous Epith Cells (0-5/HPF) Urine Bacteria (None) Ur Culture Indicated? 12/11/22 12/11/22 Range/Units 09:06 10:15 WBC (4.5-11.0) X10^3/uL RBC (4.5-5.9) X10^6/uL Hgb (13.5-17.5) g/dL Hct (41-53) % MCV (80-100) fL MCH (26-34) PG MCHC (30-36) % RDW (11.6-14.8) % Plt Count (150-400) X10^3/uL Neut % (Auto) (50-75) % Lymph % (Auto) (25-40) % Randolph % (Auto) (3-14) % Eos % (Auto) (2-4) % Baso % (Auto) (0-2) % Neut # (Auto) (9618-8567) /uL Lymph # (Auto) (3096-9479) /uL Randolph # (Auto) (0-900) /uL Eos # (Auto) (0-450) /uL Baso # (Auto) (0-100) /uL PT (10.1-12.7) SECONDS INR (0.9-1.3) APTT (26-36) SECONDS D-Dimer (<500) ng/ml Sodium (137-145) mmol/L Potassium (3.4-5.1) mmol/L Chloride (98-107) mmol/L Carbon Dioxide (22-32) mmol/L BUN (9-20) mg/dL Creatinine (0.66-1.25) mg/dL Estimated GFR (>60) mL/min BUN/Creatinine Ratio (6-22) Glucose (80-110) mg/dL Calcium (8.4-10.2) mg/dL Total Bilirubin (0.2-1.3) mg/dL AST (17-59) IU/L ALT (<50) IU/L Alkaline Phosphatase (38-126) U/L Total Creatine Kinase (55-170) U/L Troponin I 0.048 H (0.01-0.034) ng/mL NT-Pro-B Natriuret Pep (<450) pg/mL Total Protein (6.3-8.2) g/dL Albumin (3.5-5.0) g/dL Globulin (1.7-4.1) g/dL Albumin/Globulin Ratio (1.0-2.8) Lipase (23-300) U/L Urine RBC None seen (0-5/HPF) Urine WBC None seen (0-5/HPF) Ur Squamous Epith Cells None seen (0-5/HPF) Urine Bacteria None seen (None) Ur Culture Indicated? Cult not indicated Point of Care Testing Glucose POC 122 Urine Dip Bedside Urine Glucose Negative Bedside Urine Bilirubin - Negative Bedside Urine Ketone - Negative Urine Specific [place] 1 Bedside Urine Occult Blood - Negative Bedside Urine pH 8 Bedside Urine Protein +/- 15 Bedside Urine Urobilinogen - Negative Bedside Urine Nitrite - Negative Bedside Urine Leukocytes - Negative Esterase Imaging Data Chest x-ray: Radiologist's Impression: Close Chest X-Ray (Signed) Carlos Cobos - 12/11/22 Hip X-Ray (Signed) Dong Monzon - 11/14/22 Renal Ultrasound (Signed) Gray Stone - 10/29/22 Abdomen X-Ray (Signed) Gray Stone - 10/29/22 Chest X-Ray (Signed) Kimberly Jackson - 10/29/22 Modified Barium Swallow (Signed) Dave Freire - 10/08/22 Hip X-Ray (Signed) Vianney Martel - 10/03/[address] (Signed) Carlos Cobos - 08/18/22 Hip X-Ray (Signed) Dave Freire - 08/18/[address] (Signed) Dave Freire - 08/18/22 Femur X-Ray (Signed) Dave Freire - 08/18/[address] (Signed) Dave Freire - 08/18/[address] (Signed) Call,Anil - 08/13/21 Chest X-Ray (Signed) Call,Anil - 08/13/[address] (Signed) Call,Anil - 08/13/21 Knee X-Ray (Signed) Call,Anil - 08/13/21 Hip X-Ray (Signed) Call,Anil - 08/13/21 Chest X-Ray (Signed) Odin Sahu - 03/25/19 Brain MRI (Signed) Rupesh Jackson - 01/21/19 Telemetry Strips 08/17/17 Launch?[address] [address] XRay Report Signed Patient: Modesto Renee MR#: [id number] : 1935 Acct:[id number] Age/Sex: 86 / M Date of Service: 12/11/22 Loc: ED Accession Number: [id number] ?? Procedure: XR chest 1V Ordering Provider: Yudy Rodney D.O. PROCEDURE:? XR CHEST 1V ? INDICATIONS:? chest pain ? TECHNIQUE:? One view of the chest was acquired.? ? COMPARISON:? [facility], CT, CT CERVICAL SPINE WO CON, 08/18/2022, 14:05.? [facility], CR, XR CHEST 2V, 10/29/2022, 14:11. ? FINDINGS:? ? Surgical changes and devices:? CABG, percutaneous aortic valve.? Fracture of the most superior cerclage wire with multiple wire fragments present at a distance from the initial placement.? This is unchanged. ? Lungs and pleura:? Slight improvement in patchy density in the left lung base, suggesting improving pneumonia with possible underlying scarring.? No pleural effusions or pneumothorax.? ? Mediastinum:? Mediastinal contours appear normal.? Heart size is normal.? ? Bones and chest wall:? No suspicious bony lesions.? Overlying soft tissues appear unremarkable.? Bilateral chronic rotator cuff tears.? ? IMPRESSION:? Improving left basilar pneumonia and possible underlying scarring.? No acute process. ? ? Dictated by: Carlos Cobos M.D. on 12/11/2022 at 9:03 ? ? Approved by: Carlos Cobos M.D. on 12/11/2022 at 9:06?? US - DVT: Radiologist's Impression: Close Vascular Ultrasound (Signed) Carlos Cobos - 12/11/22 Chest X-Ray (Signed) Carlos Cobos - 12/11/22 Launch?[place] [address] Ultrasound Report Signed Patient: Modesto Renee MR#: [id number] : 1935 Acct:[id number] Age/Sex: 86 / M Date of Service: 12/11/22 Loc: ED Accession Number: [id number] ?? Procedure: US periph venous low extrem bi Ordering Provider: Yudy Rodney D.O. PROCEDURE:? US PERIPH VENOUS LOW EXTREM BI ? INDICATIONS:? SYNCOPE, CKD ? TECHNIQUE:? Real-time imaging, as well as color and pulse Doppler interrogation, were performed of the deep veins of both legs from the inguinal ligament to the popliteal fossa, with documentation of the visualized calf veins.? ? COMPARISON:? None. ? FINDINGS:? ? Right: The common femoral, femoral, popliteal, and the visualized calf veins are normally compressible, and free of intraluminal thrombus.? Color and pulse Doppler demo nstrate normal phasic intravascular flow.? There is normal augmentation response to distal compression maneuver.? ? Left: The common femoral, femoral, popliteal, and the visualized calf veins are normally compressible, and free of intraluminal thrombus.? Color and pulse Doppler demonstrate normal phasic intravascular flow.? There is normal augmentation response to distal compression maneuver.? ? ? IMPRESSION:? No findings of deep venous thrombosis in either lower extremity. ? ? Dictated by: Carlos Cobos M.D. on 12/11/2022 at 11:42 ? ? Approved by: Carlos Cobos M.D. on 12/11/2022 at 11:42?? ECG Data Attestation: I personally reviewed and interpreted this ECG as follows: Interpretation: Sinus rhythm first-degree AV block with prolonged ME 432. QRS is 98 and QTC is 470. Patient does not appear to have any dropped beats or prolonging ME interval. Patient has priors, 10/29/2022. Similar ME at that time was 2:56 a.m. prior show a ME in the 340 range. No acute ST changes appreciated. Sinus bradycardia first-degree block rate of 58 ME 328 QRS of 98 QTC of 481. No acute ST elevation or depression. MDM Narrative Medical decision making narrative: This is an 86 year old male with reported witnessed syncopal episode who regained consciousness was hypotensive in the field at 80 systolic normal glucose, patient's EKG does show prolonged ME interval of 432 but no 2nd degree block appreciated prior EKGs do have a first-degree AV block 340s ME appears to be she on prior. Patient has had labs, chest x-ray, urine CBC shows hemoglobin of 9.8 was 7.7 in November, white count 10 platelets are 151, INR is 1.1 patient is still reportedly on warfarin he was INR of 4 in October of 2022, dimer was elevated at 16 0 6 he had reported history of hip fracture in August. Patient's creatinine is 3.73 he has ranged between and 2.9 recently in the past 2 months. Patient's electrolytes otherwise normal troponin was 0.054 with a BNP of 6100. Point of care urine is negative. Chest x-ray shows improvement of prior aspiration pneumonia. Patient case was discussed with the . He has been doing PT daily but has been lying around in bed a lot. We discussed possibility of DVTs or pulmonary emboli, he is not hypoxic he is not tachycardic but is on medication that could patient's decrease his cardiac response. Because of his renal function will hold off on CT with contrast but will obtain bilateral lower extremity DVTs and repeat troponin. She notes his blood pressures been 90 systolic more recently over the past several months. He has had a decrease in weight and muscle mass and she notes they have been dropping his insulin levels. She is not sure if they have decreased his blood pressure medication such as his metoprolol for that time. Patient has bilateral lower extremity DVTs are negative. Repeat troponin is trending down words. After discussing with she feels comfortable holding off on CT angio we discussed there is a small chance that he could have blood clot but seems less likely at this time. We discussed whether not to adjust his anticoagulation she defers to his primary care. Spoke with Dr. Lu, his PCP. Patient had appointment today at 4:30 p.m. he will see patient tomorrow asked that family call today to reschedule. He and I discussed his anticoagulation will hold off on additional anticoagulation but increase his warfarin to 2 mg today and have recheck tomorrow with close follow- up. Also reviewed patient's creatinine has bumped up somewhat from his last but still within range of priors over the past 1-2 months. Patient and family both note that he is DNR/DNI with limited intervention so they feel comfortable with him returning home to his facility today. Updated patient and . All questions answered. Discharge Plan Departure Patient Disposition: Home Clinical Impression: Syncope, Subtherapeutic anticoagulation Activity Restrictions/Additional Instructions: Follow up with Dr. Lu tomorrow. Please call the office today to reschedule a time. You can let the front office assistant know that Dr. Spear wants to see him tomorrow. Increase your warfarin to [address] Lu will follow with your INR and adjust your warfarin/coumadin level as needed. Continue your other home medications as prescribed. Please return for new or worsening symptoms, recurrent episodes of passing out, chest pain, shortness of breath, persistent vomiting, black or bloody stools, new swelling of your extremities or other new or concerning changes. Prescriptions: No Action multivitamin Tablet 1 tab PO QAM atorvastatin 40 mg tablet 40 mg PO QPM Patient Comments: TAKE 1 TABLET (40 MG) BY MOUTH DAILY. metoprolol succinate 25 mg tablet extended release 24 hr 37.5 mg PO BID Patient Comments: Take 1 1/2 tablet by mouth every morning AND TAKE 1 AND 1/2 TABLETS BY MOUTH EVERY EVENING insulin glargine [Basaglar KwikPen U-100 Insulin] 100 unit/mL (3 mL) insulin pen 10 unit SUBCUT BEDTIME cholecalciferol (vitamin D3) 50 mcg (2,000 unit) Capsule 2,000 mcg PO DAILY polyethylene glycol 3350 [Miralax] 17 gram Powder In Packet 17 g PO DAILY sertraline 100 mg tablet 125 mg PO DAILY isosorbide mononitrate 60 mg tablet extended release 24 hr 80 mg PO DAILY gabapentin 100 mg capsule 100 mg PO QPM acetaminophen 500 mg Tablet 1,000 mg PO TID PRN (Reason: Pain (Scale Score 1-3)) bisacodyl [Dulcolax (bisacodyl)] 10 mg Suppository 10 mg ME DAILY PRN (Reason: Constipation) warfarin 1 mg Tablet 1 mg PO DAILY tamsulosin [Flomax] 0.4 mg capsule 0.4 mg PO BEDTIME Qty: 30 0RF cefdinir 300 mg Capsule 300 mg PO BID Qty: 10 0RF Rx Instructions: 300mg BID for 5 days Referrals: Armando Lu MD [Primary Care Provider] - Stand Alone Forms: Patient Portal/API
[2022-12-11 08:36] LABS: Add Manual Diff / Slide Review NO; Basophils Absolute Auto 100 /uL (0-100); Basophils Percent Auto 0.6 % (0-2); Eosinophils Absolute Auto 300 /uL (0-450); Eosinophils Percent Auto 2.6 % (2-4); Hematocrit 29.1 % (41-53); Hemoglobin 9.8 g/dL (13.5-17.5); Lymphocytes Absolute Auto 5800 /uL (1100-4500); Lymphocytes Percent Auto 55.5 % (25-40); Mean Corpuscular HGB Conc 33.6 % (30-36); Mean Corpuscular Hemoglobin 30.5 PG (26-34); Mean Corpuscular Volume 90.9 fL (80-100); Monocytes Absolute Auto 800 /uL (0-900); Monocytes Percent Auto 7.3 % (3-14); Neutrophils Absolute Auto 3500 /uL (1500-7000); Platelet Count 151 X10^3/uL (150-400); Red Blood Cell Count 3.21 X10^6/uL (4.5-5.9); White Blood Cell Count 10.4 X10^3/uL (4.5-11.0)
--- NOTE | 2022-12-11 08:37 | PC.NURSE ---
Pt arrived with POLST form indicating DNR. form placed in pt's chart.
[2022-12-11 08:40] LABS: INR 1.1 (0.9-1.3); Prothrombin Time 12.3 SECONDS (10.1-12.7)
[2022-12-11 08:42] LABS: Alanine Aminotransferase 13 IU/L (<50); Albumin 3.2 g/dL (3.5-5.0); Alkaline Phosphatase 127 U/L (38-126); Aspartate Aminotransferase 24 IU/L (17-59); BUN Creatinine Ratio 12.6 (6-22); Bilirubin Total 0.2 mg/dL (0.2-1.3); Blood Urea Nitrogen 47 mg/dL (9-20); Calcium 8.6 mg/dL (8.4-10.2); Carbon Dioxide 26 mmol/L (22-32); Chloride 106 mmol/L (98-107); Creatine Kinase 21 U/L (55-170); D Dimer 1606 ng/ml (<500); Estimated Glomerular Filt Rate 15 mL/min (>60); Globulin 3.2 g/dL (1.7-4.1); Glucose 113 mg/dL (80-110); HEMOLYSIS < 15 (0-50); Lipase 74 U/L (23-300); Potassium 4.6 mmol/L (3.4-5.1); Sodium 138 mmol/L (137-145); Total Protein 6.4 g/dL (6.3-8.2)
[2022-12-11 08:43] LABS: PTT Partial Thromboplastin Tim 28 SECONDS (26-36)
[2022-12-11] MEDS: SODIUM CHLORIDE 0.9% 1,000 ML 1000 ML IV (08:50)
[2022-12-11 08:54] LABS: NT-proBNP (BNP-Adult 18+) 6180 pg/mL (<450); Troponin I 0.054 ng/mL (0.01-0.034)
[2022-12-11 09:27] LABS: Bacteria Urine None Seen; Culture Indicated Urine Cult Not Indicated; RBC Urine None Seen (0-5/HPF); Squamous Epithelial Cell Urine None Seen (0-5/HPF); WBC Urine None Seen (0-5/HPF)
--- NOTE | 2022-12-11 10:26 | DI.US.S_ITS ---
PROCEDURE: US PERIPH VENOUS LOW EXTREM BI INDICATIONS: SYNCOPE, CKD TECHNIQUE: Real-time imaging, as well as color and pulse Doppler interrogation, were performed of the deep veins of both legs from the inguinal ligament to the popliteal fossa, with documentation of the visualized calf veins. COMPARISON: None. FINDINGS: Right: The common femoral, femoral, popliteal, and the visualized calf veins are normally compressible, and free of intraluminal thrombus. Color and pulse Doppler demonstrate normal phasic intravascular flow. There is normal augmentation response to distal compression maneuver. Left: The common femoral, femoral, popliteal, and the visualized calf veins are normally compressible, and free of intraluminal thrombus. Color and pulse Doppler demonstrate normal phasic intravascular flow. There is normal augmentation response to distal compression maneuver. IMPRESSION: No findings of deep venous thrombosis in either lower extremity. Dictated by: Carlos Cobos M.D. on 12/11/2022 at 11:42 Approved by: Carlos Cobos M.D. on 12/11/2022 at 11:42
[2022-12-11 10:45] LABS: Troponin I 0.048 ng/mL (0.01-0.034)
== END 2022-12-11 13:47 | disposition home or self-care (01) ==
PROVIDERS: Emergency Provider Emergency Medicine; PCP Family Medicine
DX: R55 Syncope and collapse (principal); R07.9 Chest pain, unspecified; R79.89 Other specified abnormal findings of blood chemistry; Z79.01 Long term (current) use of anticoagulants; Z79.899 Other long term (current) drug therapy
CPT/HCPCS: 36415; 71045; 80053; 81003; 81015; 82550; 83690; 83880; 84484; 85025; 85379; 85610; 85730; 87086; 93005; 93010; 93970; 99284

== ENCOUNTER → 2022-12-12 11:42 | Outpatient (ROUT) | payer MEDICARE, OTHER, SELFPAY ==
[2022-10-29 22:47] VITALS: BMI 24.5
[2022-12-12 12:02] LABS: INR 1.2 (0.9-1.3); Prothrombin Time 13.2 SECONDS (10.1-12.7)
== END ==
PROVIDERS: PCP Family Medicine; Visit Provider Family Medicine
DX: Z51.81 Encounter for therapeutic drug level monitoring (principal)
CPT/HCPCS: 85610

== ENCOUNTER → 2022-12-24 07:05 | Outpatient (ROUT) | payer MEDICARE, OTHER, SELFPAY ==
[2022-10-29 22:47] VITALS: BMI 24.5
[2022-12-24 08:14] LABS: INR 3.9 (0.9-1.3)
== END ==
PROVIDERS: PCP Family Medicine; Visit Provider Family Medicine
DX: I48.91 Unspecified atrial fibrillation (principal)
CPT/HCPCS: 36415; 85610

== ENCOUNTER → 2022-12-29 13:11 | Outpatient (ROUT) | payer MEDICARE, OTHER, SELFPAY ==
[2022-10-29 22:47] VITALS: BMI 24.5
[2022-12-29 13:36] LABS: Prothrombin Time 64.7 SECONDS (10.1-12.7)
[2022-12-29 13:37] LABS: INR 5.5 (0.9-1.3)
== END ==
PROVIDERS: PCP Family Medicine; Visit Provider Family Medicine
DX: Z51.81 Encounter for therapeutic drug level monitoring (principal); Z79.01 Long term (current) use of anticoagulants
CPT/HCPCS: 85610

== ENCOUNTER 2022-12-30 09:39 | Emergency (ER) | payer MEDICARE, OTHER, SELFPAY ==
[2022-10-29 22:47] VITALS: BMI 24.5
[2022-12-30] VITALS (9 sets, daily range): BP systolic 166–194; BP diastolic 74–76; PULSE 56–63; RESP 12–23; TEMP 36.4; O2SAT 96–99
--- NOTE | 2022-12-30 09:41 | DI.CT.S_ITS ---
PROCEDURE: CT CERVICAL SPINE WO CON INDICATIONS: Fall on warfarin TECHNIQUE: Noncontrast 3 mm thick sections acquired from the skull base to the T4 level. Sagittal and coronal reformats were then constructed. For radiation dose reduction, the following was used: automated exposure control, adjustment of mA and/or kV according to patient size. COMPARISON: [facility], CT, CT CERVICAL SPINE WO CON, 08/18/2022, 14:05. FINDINGS: Image quality: Excellent. Bones: No fractures or dislocations. Visualized superior ribs are intact. Diffuse spondylitic change. There is chronic mild anterolisthesis of C7 on T1. There is multilevel disc height loss and uncovertebral joint hypertrophy and facet hypertrophy. There is severe bilateral foraminal narrowing secondary to osteophyte at C5-C6 and C6-C7. Soft tissues: Prevertebral soft tissues are normal in thickness. No paravertebral hematomas. No apical pneumothoraces. IMPRESSION: 1. No acute cervical fracture or dislocation. 2. Cervical spondylosis. Dictated by: Carlos Cobos M.D. on 12/30/2022 at 10:12 Approved by: Carlos Cobos M.D. on 12/30/2022 at 10:16
--- NOTE | 2022-12-30 09:41 | DI.CT.S_ITS ---
PROCEDURE: CT HEAD/BRAIN WO CON INDICATIONS: Fall on warfarin TECHNIQUE: Noncontrast 4.5 mm thick angled axial sections acquired from the foramen magnum to the vertex, with coronal and sagittal reformats. For radiation dose reduction, the following was used: automated exposure control, adjustment of mA and/or kV according to patient size. COMPARISON: [facility], CT, CT HEAD/BRAIN WO CON, 08/18/2022, 14:05. FINDINGS: Image quality: Excellent. CSF spaces: Basal cisterns are patent. No extra-axial fluid collections. The ventricles are symmetric in size and shape. Brain: No intracranial bleeds or masses. There is cerebral volume loss for age, with resultant ventricular and sulcal prominence. There are periventricular and deep white matter chronic small vessel ischemic changes. There is intracranial internal carotid artery atherosclerosis. Skull and face: Calvarium and visualized facial bones appear intact, without suspicious lesions. Sinuses: Visualized sinuses and mastoids are clear. IMPRESSION: No acute intracranial pathology Dictated by: Carlos Cobos M.D. on 12/30/2022 at 10:17 Approved by: Carlos Cobos M.D. on 12/30/2022 at 10:20
--- NOTE | 2022-12-30 09:42 | ED.GENADULT ---
HPI - General Adult General Chief complaint: Fall Stated complaint: fall on warfarin Time Seen by Provider: 12/30/22 09:41 Source: patient and EMS Mode of arrival: EMS History of Present Illness HPI narrative: Patient is a 87-year-old male. Is on anticoagulation. Was brought to EMS from the nursing facility where he lives for evaluation potential injuries sustained from a fall. Patient reports that he is unsure exactly how he fell. He states he does remember falling. He states he ?just fell over? he is no specific pain. Does have a skin tear to his left forearm. This was an unwitnessed fall. Related Data Home Medications Medication Instructions Recorded Confirmed atorvastatin 40 mg tablet 40 mg PO QPM 08/13/21 10/29/22 cholecalciferol (vitamin D3) 50 2,000 mcg PO DAILY 08/13/21 10/29/22 mcg (2,000 unit) capsule insulin glargine 100 unit/mL (3 10 unit SUBCUT BEDTIME 08/13/21 10/29/22 mL) subcutaneous pen (YesmywineikPen U-100 Insulin) metoprolol succinate 25 mg 37.5 mg PO BID 08/13/21 10/29/22 tablet,extended release 24 hr multivitamin 1 tab PO QAM 08/13/21 10/29/22 polyethylene glycol 3350 17 gram 17 g PO DAILY 08/13/21 10/29/22 oral powder packet (Miralax) gabapentin 100 mg capsule 100 mg PO QPM 08/18/22 10/29/22 isosorbide mononitrate 60 mg 80 mg PO DAILY 08/18/22 10/29/22 tablet,extended release 24 hr sertraline 100 mg tablet 125 mg PO DAILY 08/18/22 10/29/22 acetaminophen 500 mg tablet 1,000 mg PO TID PRN Pain (Scale 10/29/22 10/29/22 Score 1-3) bisacodyl 10 mg rectal suppository [address] DAILY PRN Constipation 10/29/22 10/29/22 (Dulcolax (bisacodyl)) warfarin 1 mg tablet 1 mg PO DAILY 10/29/22 10/29/22 Previous Rx's Medication Instructions Recorded cefdinir 300 mg capsule 300 mg PO BID #10 caps 11/01/22 tamsulosin 0.4 mg capsule (Flomax) 0.4 mg PO BEDTIME #30 caps 11/01/22 Allergies Allergy/AdvReac Type Severity Reaction Status Date / Time metoclopramide [From REGLAN] AdvReac Severe Dyskinesia Verified 12/11/22 08:32 morphine [MORPHINE] AdvReac Unknown Hallucinati Verified 12/11/22 08:32 ons narcotics AdvReac Severe Hallucinati Uncoded 12/11/22 08:32 ng Review of Systems Cardiovascular Comments: Denies chest pain Respiratory Comments: Denies shortness of breath Gastrointestinal Comments: Denies abdominal pain or nausea or vomiting Musculoskeletal Comments: No arm or leg pain Integumentary/Breasts Comments: Skin tear to left forearm Patient History Medical History Anticoagulation therapy continued upon discharge Arthritis ASCVD (arteriosclerotic cardiovascular disease) Ataxia Chest pain CKD (chronic kidney disease), stage IV Depression with anxiety Gout History of aortic valvular stenosis Hyperlipidemia Hypertension Low back pain Obesity Obstructive sleep apnea Peripheral neuropathy Pulmonary embolism Type II diabetes mellitus Vertigo Vertigo Vitamin D deficiency Surgical History Aortic valve replaced Social History household members: spouse Smoking Status: Former smoker alcohol intake: never Smoking Status: Former smoker alcohol intake frequency: 0-2 drinks per day Substance Use Type: does not use Exam Initial Vital Signs Initial Vital Signs: Vital Signs Temperature 97.6 F 12/30/22 09:47 Pulse Rate 62 12/30/22 09:47 Respiratory Rate 17 12/30/22 09:47 Blood Pressure 194/75 H 12/30/22 09:47 Pulse Oximetry 96 12/30/22 09:47 Oxygen Delivery Method Room Air 12/30/22 09:47 Const General: cooperative, comfortable and No ill appearing HENMT Head: normal to inspection and normocephalic Resp Effort & Inspection: normal respiratory effort Auscultation: clear to auscultation bilaterally Cardio Rate: regular rate Rhythm: regular rhythm GI Inspection: normal to inspection Skin Other: Patient with a skin tear to his left forearm Neuro Other: Alert to person and place. Does have some recollection of falling. Does not know what year it is. Extrem Other: No discomfort with palpation of hips. No gross deformities noted. Course Orders Ordered: ED Orders 12/30/22 09:41 CT cervical spine wo con Stat CT head/brain wo con Stat EKG-12 Lead Stat 12/30/22 09:55 Prothrombin Time INR Stat 12/30/22 10:01 Covid-19 + FLU A/B + RSV - PCR Stat 12/30/22 10:25 Urine Microscopic Stat Discontinued Medications Bacitracin (Bacitracin Oint 0.9 Gm Pckt) 1 applic TOP NOW ONE Stop: 12/30/22 09:42 Last Admin: 12/30/22 11:30 Dose: 1 applic Vital Signs Vital signs: Vital Signs - 8 hr 12/30/22 09:47 12/30/22 09:57 12/30/22 10:08 Temperature 97.6 F Pulse Rate 62 63 59 L Respiratory Rate 17 19 Blood Pressure 194/75 H Pulse Oximetry 96 99 Oxygen Delivery Method Room Air 12/30/22 10:10 12/30/22 10:10 12/30/22 10:30 Temperature Pulse Rate 59 L Respiratory Rate 18 Blood Pressure 173/76 H 176/76 H Pulse Oximetry 96 Oxygen Delivery Method 12/30/22 10:30 12/30/22 11:00 12/30/22 11:00 Temperature Pulse Rate 56 L 56 L Respiratory Rate 12 16 Blood Pressure 166/74 H Pulse Oximetry 98 99 Oxygen Delivery Method 12/30/22 11:30 12/30/22 11:31 12/30/22 11:31 Temperature Pulse Rate 56 L 56 L Respiratory Rate 17 Blood Pressure 173/75 H Pulse Oximetry 99 99 Oxygen Delivery Method Medical Decision Making Medical Records Medical records reviewed: Yes I reviewed the patient's medical records. Lab Data Lab results reviewed: Yes I reviewed the patient's lab results. Labs: Lab Results 12/30/22 12/30/22 12/30/22 Range/Units 09:55 10:01 10:25 PT 56.5 H D (10.1-12.7) SECONDS INR 4.8 H* (0.9-1.3) Urine RBC 0-1/hpf (0-5/HPF) Urine WBC None seen (0-5/HPF) Ur Squamous Epith Cells 0-1 /hpf (0-5/HPF) Urine Bacteria None seen (None) Ur Culture Indicated? Cult not indicated SARS-CoV-2 (PCR) Negative (Negative) Influenza A (RT-PCR) Flu a negative (NEGATIVE) Influenza B (RT-PCR) Flu b negative (NEGATIVE) RSV (PCR) Negative (Negative) Urine Dip Bedside Urine Glucose Negative Bedside Urine Bilirubin - Negative Bedside Urine Ketone - Negative Urine Specific [place] 1.010 Bedside Urine Occult Blood - Negative Bedside Urine pH 7.5 Bedside Urine Protein +/- 15 Bedside Urine Urobilinogen - Negative Bedside Urine Nitrite - Negative Bedside Urine Leukocytes - Negative Esterase Point of care testing: Urine Dip Bedside Urine Glucose Negative Bedside Urine Bilirubin - Negative Bedside Urine Ketone - Negative Urine Specific [place] 1.010 Bedside Urine Occult Blood - Negative Bedside Urine pH 7.5 Bedside Urine Protein +/- 15 Bedside Urine Urobilinogen - Negative Bedside Urine Nitrite - Negative Bedside Urine Leukocytes - Negative Esterase Imaging Data CT scan - head: Radiologist's Impression: PROCEDURE:? CT HEAD/BRAIN WO CON ? INDICATIONS:? Fall on warfarin ? TECHNIQUE:? Noncontrast 4.5 mm thick angled axial sections acquired from the foramen magnum to the vertex, with coronal and sagittal reformats.? For radiation dose reduction, the following was used:? automated exposure control, adjustment of mA and/or kV according to patient size.? ? COMPARISON:? [place], CT, CT HEAD/BRAIN WO CON, 08/18/2022, 14:05. ? FINDINGS:? Image quality:? Excellent.? ? CSF spaces:? Basal cisterns are patent.? No extra-axial fluid collections.? The ventricles are symmetric in size and shape.? ? Brain:? No intracranial bleeds or masses.? There is cerebral volume loss for age, with resultant ventricular and sulcal prominence.? There are periventricular and deep white matter chronic small vessel ischemic changes.? There is intracranial internal carotid artery atherosclerosis.? ? Skull and face:? Calvarium and visualized facial bones appear intact, without suspicious lesions.? ? Sinuses:? Visualized sinuses and mastoids are clear.? ? IMPRESSION:? No acute intracranial pathology CT - cervical spine: Radiologist's Impression: PROCEDURE:? CT CERVICAL SPINE WO CON ? INDICATIONS:? Fall on warfarin ? TECHNIQUE:? Noncontrast 3 mm thick sections acquired from the skull base to the T4 level.? Sagittal and coronal reformats were then constructed.? For radiation dose reduction, the following was used:? automated exposure control, adjustment of mA and/or kV according to patient size.? ? COMPARISON:? [facility], CT, CT CERVICAL SPINE WO CON, 08/18/2022, 14:05. ? FINDINGS:? Image quality:? Excellent.? ? Bones:? No fractures or dislocations.? Visualized superior ribs are intact.? Diffuse spondylitic change.? There is chronic mild anterolisthesis of C7 on T1.? There is multilevel disc height loss and uncovertebral joint hypertrophy and facet hypertrophy.? There is severe bilateral foraminal narrowing secondary to osteophyte at C5-C6 and C6-C7. ? Soft tissues:? Prevertebral soft tissues are normal in thickness.? No paravertebral hematomas.? No apical pneumothoraces.? ? ? IMPRESSION:? ? 1. No acute cervical fracture or dislocation. ? 2. Cervical spondylosis. ECG Data Attestation: I personally reviewed and interpreted this ECG as follows: Interpretation: Sinus bradycardia Ventricular rate of 57 First-degree AV block CT interval 402 milliseconds Some artifact noted Nonspecific ST T wave changes MDM Narrative Medical decision making narrative: Patient is at his baseline mental status. His imaging studies here in the ER are unremarkable. He is a skin tear on his left arm that was bandaged not requiring any repair. His INR is 4.8. Yesterday was 5.5. His is at bedside. She is unsure as to whether not they made any changes to his Coumadin after yesterday's INR. She does not think that he is taken any of his warfarin today. The plan will be to have him hold on his warfarin for 2 days and then have his INR rechecked. He was given return precautions. and patient expressed agreement with plan. Discharge Plan Departure Patient Disposition: Home Clinical Impression: Supratherapeutic INR, Skin tear, Fall Instructions: How to Prevent Falls Activity Restrictions/Additional Instructions: I do recommend that his Coumadin is held for the next 2 days and then he will need a repeat INR to see if this needs to be held longer or if he can start back on his normal dose. Prescriptions: No Action multivitamin Tablet 1 tab PO QAM atorvastatin 40 mg tablet 40 mg PO QPM Patient Comments: TAKE 1 TABLET (40 MG) BY MOUTH DAILY. metoprolol succinate 25 mg tablet extended release 24 hr 37.5 mg PO BID Patient Comments: Take 1 1/2 tablet by mouth every morning AND TAKE 1 AND 1/2 TABLETS BY MOUTH EVERY EVENING insulin glargine [Basaglar KwikPen U-100 Insulin] 100 unit/mL (3 mL) insulin pen 10 unit SUBCUT BEDTIME cholecalciferol (vitamin D3) 50 mcg (2,000 unit) Capsule 2,000 mcg PO DAILY polyethylene glycol 3350 [Miralax] 17 gram Powder In Packet 17 g PO DAILY sertraline 100 mg tablet 125 mg PO DAILY isosorbide mononitrate 60 mg tablet extended release 24 hr 80 mg PO DAILY gabapentin 100 mg capsule 100 mg PO QPM acetaminophen 500 mg Tablet 1,000 mg PO TID PRN (Reason: Pain (Scale Score 1-3)) bisacodyl [Dulcolax (bisacodyl)] 10 mg Suppository [address] DAILY PRN (Reason: Constipation) warfarin 1 mg Tablet 1 mg PO DAILY tamsulosin [Flomax] 0.4 mg capsule 0.4 mg PO BEDTIME Qty: 30 0RF cefdinir 300 mg Capsule 300 mg PO BID Qty: 10 0RF Rx Instructions: 300mg BID for 5 days Referrals: Armando Lu MD [Primary Care Provider] - Stand Alone Forms: Patient Portal/API
[2022-12-30 10:18] LABS: Prothrombin Time 56.5 SECONDS (10.1-12.7)
[2022-12-30 10:19] LABS: INR 4.8 (0.9-1.3)
[2022-12-30 11:02] LABS: Influenza A - CEPHEID Flu A NEGATIVE (NEGATIVE); Influenza B - CEPHEID Flu B NEGATIVE (NEGATIVE); Respiratory Syncytial Virus Negative (Negative)
[2022-12-30 11:03] LABS: COVID-19 CEPHEID 4-PLEX PCR Negative (Negative)
--- NOTE | 2022-12-30 11:13 | PC.NURSE ---
Jacy at bedside. Reports that pt's mentation and communication are at current baseline.
[2022-12-30] MEDS: BACITRACIN OINT 0.9 GM PCKT 1 APPLIC TOP (11:30)
--- NOTE | 2022-12-30 11:30 | PC.NURSE ---
Dressed skin tear
[2022-12-30 11:33] LABS: Bacteria Urine None Seen; RBC Urine 0-1/HPF (0-5/HPF); Squamous Epithelial Cell Urine 0-1 /HPF (0-5/HPF); WBC Urine None Seen (0-5/HPF)
[2022-12-30 11:34] LABS: Culture Indicated Urine Cult Not Indicated
== END 2022-12-30 12:00 | disposition home or self-care (01) ==
PROVIDERS: Emergency Provider Emergency Medicine; PCP Family Medicine
DX: S51.812A Laceration without foreign body of left forearm, initial encounter (principal); W18.30XA Fall on same level, unspecified, initial encounter; Z79.01 Long term (current) use of anticoagulants; Z79.899 Other long term (current) drug therapy; Z20.822 Contact with and (suspected) exposure to COVID-19; R00.1 Bradycardia, unspecified; I44.0 Atrioventricular block, first degree
CPT/HCPCS: 0241U; 70450; 72125; 81003; 81015; 85610; 93005; 99284

== ENCOUNTER 2022-12-31 12:05 | Emergency (ER) | payer MEDICARE, OTHER, SELFPAY ==
[2022-10-29 22:47] VITALS: BMI 24.5
[2022-12-31 12:12] VITALS: BP 116/58; PULSE 69; RESP 16; TEMP 36.4; O2SAT 99
--- NOTE | 2022-12-31 12:14 | DI.RAD.S_ITS ---
PROCEDURE: XR HIP W PEL IF DONE LT 2V INDICATIONS: fall t-1, lef thip pain TECHNIQUE: AP pelvis with lateral view(s) of the left hip(s). COMPARISON: [facility], , XR HIP W PEL IF DONE RT 2V, 11/14/2022, 13:31. FINDINGS: Bones: Expected appearance of total left hip arthroplasty. No evidence of hardware failure or loosening. Incompletely imaged total right hip arthroplasty is unremarkable as visualized. No fractures or dislocations. Pelvic ring appears intact. No suspicious bony lesions. Soft tissues: The visualized bowel gas pattern is normal. No suspicious soft tissue calcifications. IMPRESSION: No acute bony abnormality. Expected appearance of total left hip arthroplasty. Comment: If clinically suspect occult fracture, consider CT. Dictated by: Carlos Cobos M.D. on 12/31/2022 at 12:41 Approved by: Carlos Cobos M.D. on 12/31/2022 at 12:43
[2022-12-31 12:54] VITALS: BP 104/58; PULSE 65; O2SAT 100
[2022-12-31 13:00] VITALS: BP 110/56; PULSE 67; O2SAT 100
[2022-12-31 13:30] VITALS: BP 119/61; PULSE 67; O2SAT 99
--- NOTE | 2022-12-31 13:46 | ED.LOWEXIN ---
HPI - Extremity Injury (Lower) General Chief Complaint: Extremity Injury, Lower Stated Complaint: L Hip Pain Time Seen by Provider: 12/31/22 13:36 Source: patient, family and EMS Mode of arrival: EMS Limitations: no limitations History of Present Illness HPI Narrative: Patient is an 87-year-old male. I evaluated him here in the emergency department yesterday after having a fall. He was not complaining of left hip pain during that time. Patient was brought back to the emergency department by EMS because last evening he apparently started to have left hip pain. His was at bedside stated that she was notified about this from the facility about that time. It was not until this morning when he was being rolled back and forth and during occupational therapy where they tried to stand him that he had fairly significant left hip pain. At the time of my evaluation he states he is having some discomfort but is much better than what it was. No other orthopedic complaints. Related Data Home Medications Medication Instructions Recorded Confirmed atorvastatin 40 mg tablet 40 mg PO QPM 08/13/21 10/29/22 cholecalciferol (vitamin D3) 50 2,000 mcg PO DAILY 08/13/21 10/29/22 mcg (2,000 unit) capsule insulin glargine 100 unit/mL (3 10 unit SUBCUT BEDTIME 08/13/21 10/29/22 mL) subcutaneous pen (Basaglar KwikPen U-100 Insulin) metoprolol succinate 25 mg 37.5 mg PO BID 08/13/21 10/29/22 tablet,extended release 24 hr multivitamin 1 tab PO QAM 08/13/21 10/29/22 polyethylene glycol 3350 17 gram 17 g PO DAILY 08/13/21 10/29/22 oral powder packet (Miralax) gabapentin 100 mg capsule 100 mg PO QPM 08/18/22 10/29/22 isosorbide mononitrate 60 mg 80 mg PO DAILY 08/18/22 10/29/22 tablet,extended release 24 hr sertraline 100 mg tablet 125 mg PO DAILY 08/18/22 10/29/22 acetaminophen 500 mg tablet 1,000 mg PO TID PRN Pain (Scale 10/29/22 10/29/22 Score 1-3) bisacodyl 10 mg rectal suppository 10 mg [place] DAILY PRN Constipation 06/28/23 06/28/23 (Dulcolax (bisacodyl)) warfarin 1 mg tablet 1 mg PO DAILY 10/29/22 10/29/22 Previous Rx's Medication Instructions Recorded cefdinir 300 mg capsule 300 mg PO BID #10 caps 11/01/22 tamsulosin 0.4 mg capsule (Flomax) 0.4 mg PO BEDTIME #30 caps 11/01/22 Allergies Allergy/AdvReac Type Severity Reaction Status Date / Time metoclopramide [From REGLAN] AdvReac Severe Dyskinesia Verified 12/11/22 08:32 morphine [MORPHINE] AdvReac Unknown Hallucinati Verified 12/11/22 08:32 ons narcotics AdvReac Severe Hallucinati Uncoded 12/11/22 08:32 ng Review of Systems Constitutional Constitutional: Reports system reviewed and no additional complaints, except as documented Musculoskeletal Musculoskeletal: Reports system reviewed and no additional complaints, except as documented Integumentary/Breasts Skin/Breast: Reports system reviewed and no additional complaints, except as documented Neurologic Neurologic: Reports system reviewed and no additional complaints, except as documented Hematologic/Lymphatic On Anticoagulants: No Patient History Medical History Anticoagulation therapy continued upon discharge Arthritis ASCVD (arteriosclerotic cardiovascular disease) Ataxia Chest pain CKD (chronic kidney disease), stage IV Depression with anxiety Gout History of aortic valvular stenosis Hyperlipidemia Hypertension Low back pain Obesity Obstructive sleep apnea Peripheral neuropathy Pulmonary embolism Type II diabetes mellitus Vertigo Vertigo Vitamin D deficiency Surgical History Aortic valve replaced Social History household members: spouse Smoking Status: Former smoker alcohol intake: never Smoking Status: Former smoker alcohol intake frequency: 0-2 drinks per day Substance Use Type: does not use Exam Initial Vital Signs Initial Vital Signs: Vital Signs Temperature 97.6 F 12/31/22 12:12 Pulse Rate 69 12/31/22 12:12 Respiratory Rate 16 12/31/22 12:12 Blood Pressure 116/58 L 12/31/22 12:12 Pulse Oximetry 99 12/31/22 12:12 Oxygen Delivery Method Room Air 12/31/22 12:12 Const General: cooperative Resp Effort & Inspection: normal respiratory effort GI Inspection: normal to inspection and non-distended Skin General: no rashes or lesions noted Extrem Other: Patient is able to flex and extend had his left knee and left hip. He is some discomfort to palpation over the left greater trochanter. There is no gross deformities. Course Orders Ordered: ED Orders 12/31/22 12:14 XR hip w pel if done LT 2V Stat Vital Signs Vital signs: Vital Signs - 8 hr 12/31/22 12:12 12/31/22 12:54 12/31/22 12:54 Temperature 97.6 F Pulse Rate 69 65 Respiratory Rate 16 Blood Pressure 116/58 L 104/58 L Pulse Oximetry 99 100 Oxygen Delivery Method Room Air 12/31/22 13:00 12/31/22 13:00 12/31/22 13:30 Temperature Pulse Rate 67 Respiratory Rate Blood Pressure 110/56 L 119/61 Pulse Oximetry 100 Oxygen Delivery Method 12/31/22 13:30 12/31/22 14:00 12/31/22 14:00 Temperature Pulse Rate 67 66 Respiratory Rate Blood Pressure 112/62 Pulse Oximetry 99 99 Oxygen Delivery Method MDM - Extremity Injury (Lower) Imaging Data Extremity x-ray #1: Radiologist's Impression: No acute bony abnormality expected appearance of total left hip arthroplasty MDM Narrative Medical decision making narrative: X-ray shows no acute fracture. He is a very small bruise on his left lateral hip. Patient is able to stand at bedside. He is able to take a few steps and seems to be at baseline with this. I do not feel the need for advanced imaging. He states he is not having any discomfort right now. He did not receive any pain medication here in the emergency department or by EMS so whatever they gave him at the facility where he lives seems to be working for him. His thinks that this is just Tylenol. Will discharge patient home with return precautions. Discharge Plan Departure Patient Disposition: Home Clinical Impression: Hip pain Instructions: DI for Hip Pain Activity Restrictions/Additional Instructions: Or were no fractures noted on the x-ray and [place] was able to stand on his left leg here in the ER. He received no pain medications here in the emergency department or by EMS so whatever he was given at the facility does seem to be working. I recommend that he continue to take all of this has directed. Return to the emergency department for new symptoms. Prescriptions: No Action multivitamin Tablet 1 tab PO QAM atorvastatin 40 mg tablet 40 mg PO QPM Patient Comments: TAKE 1 TABLET (40 MG) BY MOUTH DAILY. metoprolol succinate 25 mg tablet extended release 24 hr 37.5 mg PO BID Patient Comments: Take 1 1/2 tablet by mouth every morning AND TAKE 1 AND 1/2 TABLETS BY MOUTH EVERY EVENING insulin glargine [Basaglar KwikPen U-100 Insulin] 100 unit/mL (3 mL) insulin pen 10 unit SUBCUT BEDTIME cholecalciferol (vitamin D3) 50 mcg (2,000 unit) Capsule 2,000 mcg PO DAILY polyethylene glycol 3350 [Miralax] 17 gram Powder In Packet 17 g PO DAILY sertraline 100 mg tablet 125 mg PO DAILY isosorbide mononitrate 60 mg tablet extended release 24 hr 80 mg PO DAILY gabapentin 100 mg capsule 100 mg PO QPM acetaminophen 500 mg Tablet 1,000 mg PO TID PRN (Reason: Pain (Scale Score 1-3)) bisacodyl [Dulcolax (bisacodyl)] 10 mg Suppository 10 mg [place] DAILY PRN (Reason: Constipation) warfarin 1 mg Tablet 1 mg PO DAILY tamsulosin [Flomax] 0.4 mg capsule 0.4 mg PO BEDTIME Qty: 30 0RF cefdinir 300 mg Capsule 300 mg PO BID Qty: 10 0RF Rx Instructions: 300mg BID for 5 days Referrals: Armando Lu MD [Primary Care Provider] - Stand Alone Forms: Patient Portal/API
[2022-12-31 14:00] VITALS: BP 112/62; PULSE 66; O2SAT 99
--- NOTE | 2022-12-31 14:14 | PC.NURSE ---
pt sat up to side of bed with minimal assistance. gait belt place around patient waist and walker set in front of patient. patient was able to stand with minimal assistance. states that this did not cause him any pain.
== END 2022-12-31 14:37 | disposition home or self-care (01) ==
PROVIDERS: Emergency Provider Emergency Medicine; PCP Family Medicine
DX: M25.552 Pain in left hip (principal)
CPT/HCPCS: 73502; 99281; 99282

== ENCOUNTER → 2023-01-08 12:53 | Outpatient (CLI) | payer MEDICARE, OTHER, SELFPAY ==
[2022-10-29 22:47] VITALS: BMI 24.5
[2023-01-08 13:21] LABS: INR 3.8 (0.9-1.3); Prothrombin Time 44.6 SECONDS (10.1-12.7)
== END ==
PROVIDERS: PCP Family Medicine; Referring Provider Family Medicine; Visit Provider Family Medicine
DX: I48.20 Chronic atrial fibrillation, unspecified (principal)
CPT/HCPCS: 36415; 85610

== ENCOUNTER → 2023-01-15 12:39 | Outpatient (CLI) | payer MEDICARE, OTHER, SELFPAY ==
[2022-10-29 22:47] VITALS: BMI 24.5
[2023-01-15 13:50] LABS: Albumin 3.4 g/dL (3.5-5.0); BUN Creatinine Ratio 16.9 (6-22); Blood Urea Nitrogen 58 mg/dL (9-20); Calcium 8.5 mg/dL (8.4-10.2); Carbon Dioxide 24 mmol/L (22-32); Chloride 105 mmol/L (98-107); Estimated Glomerular Filt Rate 17 mL/min (>60); Glucose 147 mg/dL (80-110); HEMOLYSIS < 15 (0-50); Phosphorous 4.2 mg/dL (2.3-3.7); Sodium 139 mmol/L (137-145)
[2023-01-15 16:18] LABS: Creatinine Urine Random 111.2 mg/dL; Protein (Total) Urine Random 40 mg/dL (0-12); Protein Creatinine Ratio Urine 0.35 GRAM/24H
== END ==
PROVIDERS: Family Provider Family Medicine; PCP Family Medicine; Referring Provider Internal Medicine Nephrology; Visit Provider Internal Medicine Nephrology
DX: N18.4 Chronic kidney disease, stage 4 (severe) (principal)
CPT/HCPCS: 36415; 80069; 82570; 84156

== ENCOUNTER → 2023-01-16 10:51 | Outpatient (CLI) | payer MEDICARE, OTHER, SELFPAY ==
[2022-10-29 22:47] VITALS: BMI 24.5
[2023-01-16 13:39] LABS: INR 3.9 (0.9-1.3); Prothrombin Time 45.9 SECONDS (10.1-12.7)
== END ==
PROVIDERS: Family Provider Family Medicine; PCP Family Medicine; Referring Provider Family Medicine; Visit Provider Family Medicine
DX: R79.1 Abnormal coagulation profile (principal)
CPT/HCPCS: 36415; 85610

== ENCOUNTER → 2023-01-28 07:15 | Outpatient (ROUT) | payer MEDICARE, OTHER, SELFPAY ==
[2022-10-29 22:47] VITALS: BMI 24.5
[2023-01-28 07:27] LABS: Prothrombin Time 71.1 SECONDS (10.1-12.7)
[2023-01-28 08:11] LABS: INR 6.1 (0.9-1.3)
== END ==
PROVIDERS: Family Provider Family Medicine; PCP Family Medicine; Visit Provider Family Medicine
DX: I48.19 Other persistent atrial fibrillation (principal)
CPT/HCPCS: 36415; 85610

== ENCOUNTER → 2023-03-18 13:24 | Outpatient (CLI) | payer MEDICARE, OTHER, SELFPAY ==
[2022-10-29 22:47] VITALS: BMI 24.5
[2023-03-18 14:50] LABS: Bilirubin Urine UA NEGATIVE (NEGATIVE); Color Urine UA YELLOW; Glucose Urine UA NEGATIVE (Negative); Ketones Urine UA NEGATIVE (NEGATIVE); Leukocyte Esterase Urine UA 2+ (NEGATIVE); Nitrite Urine UA NEGATIVE (Negative); Occult Blood Urine UA NEGATIVE (Negative); Protein Urine UA 2+ (Negative); Urobilinogen Urine UA 0.2 E.U./dL (0.2); pH Urine UA 5.5 (4.5-8.0)
[2023-03-18 15:01] LABS: Appearance Urine UA Slightly Cloudy; Bacteria Urine Moderate (10-30); Culture Indicated Urine Specimen Cultured; RBC Urine 0-1/HPF (0-5/HPF); Squamous Epithelial Cell Urine 1-5 /HPF (0-5/HPF); WBC Urine 30-100/HPF (0-5/HPF)
== END ==
PROVIDERS: Family Provider Family Medicine; PCP Family Medicine; Referring Provider Family Medicine; Visit Provider Family Medicine
DX: R39.9 Unspecified symptoms and signs involving the genitourinary system (principal)
CPT/HCPCS: 81001; 87077; 87086; 87147; 87186

== ENCOUNTER → 2023-03-31 13:44 | Outpatient (CLI) | payer MEDICARE, OTHER, SELFPAY ==
[2022-10-29 22:47] VITALS: BMI 24.5
[2023-03-31 14:36] LABS: Albumin 3.7 g/dL (3.5-5.0); BUN Creatinine Ratio 19.3 (6-22); Blood Urea Nitrogen 70 mg/dL (9-20); Calcium 9.1 mg/dL (8.4-10.2); Carbon Dioxide 27 mmol/L (22-32); Chloride 104 mmol/L (98-107); Estimated Glomerular Filt Rate 16 mL/min (>60); Glucose 166 mg/dL (80-110); HEMOLYSIS < 15 (0-50); Phosphorous 4.1 mg/dL (2.3-3.7); Sodium 138 mmol/L (137-145)
[2023-03-31 14:40] LABS: Potassium 5.9 mmol/L (3.4-5.1)
[2023-03-31 19:22] LABS: Creatinine Urine Random 79.6 mg/dL; Protein (Total) Urine Random 136 mg/dL (0-12)
== END ==
PROVIDERS: Family Provider Family Medicine; PCP Family Medicine; Referring Provider Internal Medicine Nephrology; Visit Provider Internal Medicine Nephrology
DX: N18.4 Chronic kidney disease, stage 4 (severe) (principal)
CPT/HCPCS: 36415; 80069; 82570; 84156

== ENCOUNTER 2023-04-16 14:30 | Outpatient (RCR) | payer MEDICARE, OTHER, SELFPAY ==
[2022-10-29 22:47] VITALS: BMI 24.5
--- NOTE | 2023-02-05 15:27 | PT.OIE ---
Current Diagnoses Muscle weakness (generalized) (02/05/23) Unsteadiness on feet (02/05/23) Other fatigue (02/05/23) History of falling (02/05/23) Past Medical History (Last Reviewed 12/31/22 @ 13:53 by Dash Mc DO) Anticoagulation therapy continued upon discharge Arthritis ASCVD (arteriosclerotic cardiovascular disease) Ataxia Chest pain CKD (chronic kidney disease), stage IV Depression with anxiety Gout History of aortic valvular stenosis Hyperlipidemia Hypertension Low back pain Obesity Obstructive sleep apnea Peripheral neuropathy Pulmonary embolism Type II diabetes mellitus Vertigo Vertigo Vitamin D deficiency Past Surgical History (Last Reviewed 12/11/22 @ 08:32 by Yudy Rodney DO) Aortic valve replaced Visit Care Team Role Provider Type Armando Lu MD Attending Provider Physician Family Provider Primary Care Provider Referring Provider Specialty: [facility] Address: [facility] [place], [facility] Email: [email or web address] Physical Therapy Initial Evaluation PT-OP-A Visit Information Start: 02/05/23 14:49 Freq: Status: Active Protocol: Document 02/05/23 12:00 DCW (Rec: 02/05/23 15:11 [facility] [id number]) Out-Patient Physical Therapy Visit Information Visit Information Visit Type Initial Evaluation Visit Start Time 12:00 Visit Stop Time 12:45 Total Visit Minutes 45 Visit Number 1 Number of ART FRAMING MANAGER Visits 0 Evaluation Information Evaluation Date 02/05/23 PT-OP-B Current Condition Start: 02/05/23 14:49 Freq: Status: Active Protocol: Document 02/05/23 12:00 DCW (Rec: 02/05/23 15:11 [facility] [id number]) Current Condition History of Current Condition Onset Date 08/17/22 Current Complaints Decreased mobility, gait difficulty, poor activity tolerance, weakness History of Current Condition Pt is an 87 year old male presenting to skilled therapy nearly six month after a fall at home, resulting in an intratrochanteric fracture of the left hip, which extended into 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 Following in-patient stay, pt was put on NWB status, and was discharged to a SNF due to inability for his family to care for him at home. Pt was NWB for approximately 3 months , and is now staying at [facility], attempting to return to prior levels of ambulation, strength, and activity tolerance in order to return home. Pt has finished home health pt at [facility], and patient, family, and [facility] feel he will benefit most from participating in out-patient therapy at this time. Has had multiple falls recently. Notes through this ordeal, he has not been moving much, and actually reports a 50 pound weight loss. Currently mostly gets around using a manual wheelchair, which he can self- propel using his LEs, does get up and walk a few hundred feet at [facility], usually with a w/c follow due to fatigue. Has had multiple falls since this all began in August. Treatment Goals Patient/Caregiver Goals Strengthen his legs, improve his gait, and decrease falls in order to be able to safely return home with family. PT-OP-C Subjective Start: 02/05/23 14:49 Freq: Status: Active Protocol: Document 02/05/23 12:00 DCW (Rec: 02/05/23 15:11 DCW [id number]) OP-PT Subjective Patient Comments Patient Comments Pt reports he uses a FWW for transfers, and a 4WW for walking, but his 4WW is different that the available 4WW at PT, so he doesn't feel as confident using it. PT-OP-E Functional Tests Start: 02/05/23 14:49 Freq: Status: Active Protocol: Document 02/05/23 12:00 DCW (Rec: 02/05/23 15:11 DCW [id number]) Functional Tests 2 Minute Walk Test Distance 115' Device Used 4WW Comments 0.95 ft/sec 30 Second Sit to Stand Test Score x5 repetitions Comments Raised table to height of 21.5 Timed Up and Go (TUG) Score 33.35 /c 4WW Comments Single Trial - required repeated instructions TUG Impairment Rating 100% Impaired (Score 20) PT-OP-M Strength Start: 02/05/23 14:49 Freq: Status: Active Protocol: Document 02/05/23 12:00 DCW (Rec: 02/05/23 15:11 DCW [id number]) Hip Strength Hip Manual Muscle Testing Right Flexion (L2) 4 Good Abduction 3+ Fair+ Adduction 4- Good- External Rotation 4 Good Internal Rotation 4 Good Left Flexion (L2) 4 Good Abduction 3+ Fair+ Adduction 4- Good- External Rotation 3+ Fair+ Internal Rotation 4 Good Knee Strength Knee Manual Muscle Testing Right Flexion (S2) 5 Normal Extension (L3) 5 Normal Left Flexion (S2) 5 Normal Extension (L3) 5 Normal Ankle/Foot Strength Ankle and Foot Manual Muscle Testing Right Dorsiflexion (L4) 4+ Good+ Left Dorsiflexion (L4) 4- Good- PT-OP-T Assessment and Plan Start: 02/05/23 14:49 Freq: Status: Active Protocol: Document 02/05/23 12:00 DCW (Rec: 02/05/23 15:27 DCW [id number]) Physical Therapy Assessment Rehab Potential Rehabilitation Potential Good Evaluation Complexity Number of Personal Factors/Comorbidities 3 or More Number of Body Systems Impaired 4 or More Clinical Presentation at Evaluation Unstable Impairments Impairments Activity Tolerance,Balance, Functional Activities, Functional Mobility,Gait,Soft Tissue Mobility,Strength, Transfers Goals Three Impairment TUG score of 33.35 places pt within an increased falls risk category Half-Way Goal (LTG) Pt should improve TUG score to a max time of 19 using the LRAD in order to demonstrate a decreasing falls risk LTG Duration 05/06/23 Two Impairment Pt ambulates 115' using a 4WW during a Two Minute Walk test Reflow Operator Goal (LTG) A gait speed less than 1.97 ft /sec is indicative of a risk of further functional decline in older adults. Pt should demonstrate ability to ambulate at least 709' during a 6MWT in order to demonstrate improved activity tolerance and an increased gait speed. LTG Duration 05/06/23 One Impairment Pt does not have an appropriate home exercise program Short Term Goal (STG) Pt to be independent and compliant with an appropriate HEP STG Duration 03/28/23 Assessment Summary Assessment Pt presents with LE weakness, increased falls risk, poor activity tolerance, gait and balance difficulty, and increased burden of care nearly 6 weeks s/p intratrochanteric fracture of the left hip, which extended into 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 Pt spent an extended time during recovery non-weight bearing, which has greatly impacted his functional mobility and level of independence. Pt currently living at [facility] due to inability of his to care for him at home. Pt should greatly benefit from skilled therapy focusing on improving activity tolerance, gait, balance, and LE/UE strength. Very important to decrease falls risk going forward, and decrease burden of care to the point pt can safely return home. Physical Therapy Plan Frequency and Duration Frequency of Treatment 2x/Week Plan of Care Start Date 02/05/23 Plan of Care End Date 05/06/23 Therapeutic Interventions Therapeutic Interventions Balance Training,Gait Training ,Home Exercise Program,Manual Therapy,Neuromuscular Re- education,Patient/Caregiver Education,Self-Care/Home Management,Soft Tissue Mobilization,Therapeutic Activities,Therapeutic Exercises,Wheelchair Management Modalities Cold Pack/Ice Massage,Hot Packs Next Visit Focus/Plan Next Note Type Treatment Note Next Visit Plan LE/UE strengthening, activity tolerance, gait training, AD use, balance challenges
--- NOTE | 2023-02-05 15:28 | PT.OPPOC ---
Physical, Occupational & Speech Therapy At [facility] Current Diagnoses Muscle weakness (generalized) (02/05/23) Unsteadiness on feet (02/05/23) Other fatigue (02/05/23) History of falling (02/05/23) Visit Care Team Role Provider Type Armando Lu MD Attending Provider Physician Family Provider Primary Care Provider Referring Provider Specialty: [facility] Address: [facility] [place], [facility] Email: [email or web address] Plan Of Care PT-OP-T Assessment and Plan Start: 02/05/23 14:49 Freq: Status: Active Protocol: Document 02/05/23 12:00 DCW (Rec: 02/05/23 15:27 DCW [id number]) Physical Therapy Assessment Rehab Potential Rehabilitation Potential Good Evaluation Complexity Number of Personal Factors/Comorbidities 3 or More Number of Body Systems Impaired 4 or More Clinical Presentation at Evaluation Unstable Impairments Impairments Activity Tolerance,Balance, Functional Activities, Functional Mobility,Gait,Soft Tissue Mobility,Strength, Transfers Goals Three Impairment TUG score of 33.35 places pt within an increased falls risk category Fci Goal (LTG) Pt should improve TUG score to a max time of 19 using the LRAD in order to demonstrate a decreasing falls risk LTG Duration 05/06/23 Two Impairment Pt ambulates 115' using a 4WW during a Two Minute Walk test Steam Boiler Fireman Goal (LTG) A gait speed less than 1.97 ft /sec is indicative of a risk of further functional decline in older adults. Pt should demonstrate ability to ambulate at least 709' during a 6MWT in order to demonstrate improved activity tolerance and an increased gait speed. LTG Duration 05/06/23 One Impairment Pt does not have an appropriate home exercise program Short Term Goal (STG) Pt to be independent and compliant with an appropriate HEP STG Duration 03/28/23 Assessment Summary Assessment Pt presents with LE weakness, increased falls risk, poor activity tolerance, gait and balance difficulty, and increased burden of care nearly 6 weeks s/p intratrochanteric fracture of the left hip, which extended into 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 Pt spent an extended time during recovery non-weight bearing, which has greatly impacted his functional mobility and level of independence. Pt currently living at [facility] due to inability of his to care for him at home. Pt should greatly benefit from skilled therapy focusing on improving activity tolerance, gait, balance, and LE/UE strength. Very important to decrease falls risk going forward, and decrease burden of care to the point pt can safely return home. Physical Therapy Plan Frequency and Duration Frequency of Treatment 2x/Week Plan of Care Start Date 02/05/23 Plan of Care End Date 05/06/23 Therapeutic Interventions Therapeutic Interventions Balance Training,Gait Training ,Home Exercise Program,Manual Therapy,Neuromuscular Re- education,Patient/Caregiver Education,Self-Care/Home Management,Soft Tissue Mobilization,Therapeutic Activities,Therapeutic Exercises,Wheelchair Management Modalities Cold Pack/Ice Massage,Hot Packs Next Visit Focus/Plan Next Note Type Treatment Note Next Visit Plan LE/UE strengthening, activity tolerance, gait training, AD use, balance challenges Plan of Care Dates Plan of Care Start Date 02/05/23 Plan of Care End Date 05/06/23 Electronically Signed by: Jaziel Uriarte, PT 02/05/23 1528 If you are in agreement with this Plan of Care, please return a signed and dated copy. I have reviewed this Plan of Care and certify that the skilled therapy services above are required to meet the patient?s needs. Physician Signature Date Printed Name and Credentials Clinical Instructor Signature Printed Name and Credentials
--- NOTE | 2023-02-10 13:36 | PT.OTN ---
Current Diagnoses Muscle weakness (generalized) (02/10/23) Unsteadiness on feet (02/10/23) Other fatigue (02/10/23) History of falling (02/10/23) Physical Therapy Treatment Note PT-OP-A Visit Information Start: 02/05/23 14:49 Freq: Status: Active Protocol: Document 02/10/23 12:49 DCW (Rec: 02/10/23 13:36 DCW [id number]) Out-Patient Physical Therapy Visit Information Visit Information Visit Type Treatment Note Visit Start Time 12:49 Visit Stop Time 13:30 Total Visit Minutes 41 Visit Number 2 Number of ETCHER PHOTOENGRAVING Visits 0 Evaluation Information Evaluation Date 02/05/23 PT-OP-B Current Condition Start: 02/05/23 14:49 Freq: Status: Active Protocol: Document 02/05/23 12:00 DCW (Rec: 02/05/23 15:11 DCW [id number]) Current Condition History of Current Condition Onset Date 08/17/22 Current Complaints Decreased mobility, gait difficulty, poor activity tolerance, weakness History of Current Condition Pt is an 87 year old male presenting to skilled therapy nearly six month after a fall at home, resulting in an intratrochanteric fracture of the left hip, which extended into 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 Following in-patient stay, pt was put on NWB status, and was discharged to a SNF due to inability for his family to care for him at home. Pt was NWB for approximately 3 months , and is now staying at [facility], attempting to return to prior levels of ambulation, strength, and activity tolerance in order to return home. Pt has finished home health pt at [facility], and patient, family, and [facility] feel he will benefit most from participating in out-patient therapy at this time. Has had multiple falls recently. Notes through this ordeal, he has not been moving much, and actually reports a 50 pound weight loss. Currently mostly gets around using a manual wheelchair, which he can self- propel using his LEs, does get up and walk a few hundred feet at [facility], usually with a w/c follow due to fatigue. Has had multiple falls since this all began in August. Treatment Goals Patient/Caregiver Goals Strengthen his legs, improve his gait, and decrease falls in order to be able to safely return home with family. PT-OP-C Subjective Start: 02/05/23 14:49 Freq: Status: Active Protocol: Document 02/10/23 12:49 DCW (Rec: 02/10/23 13:36 DCW [id number]) OP-PT Subjective Patient Comments Patient Comments Pt notes he was asleep until about 20 minutes ago, didn't sleep wel last night. PT-OP-E Functional Tests Start: 02/05/23 14:49 Freq: Status: Active Protocol: Document 02/05/23 12:00 DCW (Rec: 02/05/23 15:11 DCW [id number]) Functional Tests 2 Minute Walk Test Distance 115' Device Used 4WW Comments 0.95 ft/sec 30 Second Sit to Stand Test Score x5 repetitions Comments Raised table to height of 21.5 Timed Up and Go (TUG) Score 33.35 /c 4WW Comments Single Trial - required repeated instructions TUG Impairment Rating 100% Impaired (Score 20) PT-OP-M Strength Start: 02/05/23 14:49 Freq: Status: Active Protocol: Document 02/05/23 12:00 DCW (Rec: 02/05/23 15:11 DCW [id number]) Hip Strength Hip Manual Muscle Testing Right Flexion (L2) 4 Good Abduction 3+ Fair+ Adduction 4- Good- External Rotation 4 Good Internal Rotation 4 Good Left Flexion (L2) 4 Good Abduction 3+ Fair+ Adduction 4- Good- External Rotation 3+ Fair+ Internal Rotation 4 Good Knee Strength Knee Manual Muscle Testing Right Flexion (S2) 5 Normal Extension (L3) 5 Normal Left Flexion (S2) 5 Normal Extension (L3) 5 Normal Ankle/Foot Strength Ankle and Foot Manual Muscle Testing Right Dorsiflexion (L4) 4+ Good+ Left Dorsiflexion (L4) 4- Good- PT-OP-Q Treatments Start: 02/05/23 14:49 Freq: Status: Active Protocol: Document 02/10/23 12:49 DCW (Rec: 02/10/23 13:36 DCW [id number]) Cardio Equipment Recumbent Elliptical (Biodex) Duration (Minutes) 5 Resistance 5 Seat Position 13 Gym Equipment Shuttle Recovery Bilateral Heel Raises Resistance 50# Reps/Time Tactile cues for knee extension Unilateral Squats Resistance 37# L, 25# R Shuttle Recovery Platform Stable Reps/Time x10 Bilateral Squats Resistance 62# Shuttle Recovery Platform Stable Therapeutic Exercises Standing Exercises Toe-taps Standing Exercise Name Toe-taps Side bilateral Resistance 4# Hip Extension Standing Exercise Name Extension Side bilateral Resistance Yellow Hip Abduction Standing Exercise Name Abduction Side bilateral Resistance Yellow Gait Training Gait Activity 4WW Description 4WW ambulation between equipment Device Used 4WW Level of Assistance Min Ax1 Distance/Duration 40', 20', 20', 30' PT-OP-T Assessment and Plan Start: 02/05/23 14:49 Freq: Status: Active Protocol: Document 02/10/23 12:49 DCW (Rec: 02/10/23 13:36 DCW [id number]) Physical Therapy Assessment Impairments Impairments Activity Tolerance,Balance, Functional Activities, Functional Mobility,Gait,Soft Tissue Mobility,Strength, Transfers Goals Three Impairment TUG score of 33.35 places pt within an increased falls risk category Remedial Teacher Goal (LTG) Pt should improve TUG score to a max time of 19 using the LRAD in order to demonstrate a decreasing falls risk LTG Duration 05/06/23 Two Impairment Pt ambulates 115' using a 4WW during a Two Minute Walk test Remedial Teacher Goal (LTG) A gait speed less than 1.97 ft /sec is indicative of a risk of further functional decline in older adults. Pt should demonstrate ability to ambulate at least 709' during a 6MWT in order to demonstrate improved activity tolerance and an increased gait speed. LTG Duration 05/06/23 One Impairment Pt does not have an appropriate home exercise program Short Term Goal (STG) Pt to be independent and compliant with an appropriate HEP STG Duration 03/28/23 Assessment Summary Assessment Pt clearly very fatigued at start of session, increased difficulty with his sit<-> stand today, required increased verbal cues for sequencing and hand placement. Put in fairly good effort overall despite fatigue, did require repeated short rest breaks. Sent home with band for hip abduction and extension Physical Therapy Plan Frequency and Duration Frequency of Treatment 2x/Week Plan of Care Start Date 02/05/23 Plan of Care End Date 05/06/23 Therapeutic Interventions Therapeutic Interventions Balance Training,Gait Training ,Home Exercise Program,Manual Therapy,Neuromuscular Re- education,Patient/Caregiver Education,Self-Care/Home Management,Soft Tissue Mobilization,Therapeutic Activities,Therapeutic Exercises,Wheelchair Management Modalities Cold Pack/Ice Massage,Hot Packs Next Visit Focus/Plan Next Note Type Treatment Note Next Visit Plan LE/UE strengthening, activity tolerance, gait training, AD use, balance challenges
--- NOTE | 2023-02-12 13:34 | PT.OTN ---
Current Diagnoses Muscle weakness (generalized) (02/12/23) Unsteadiness on feet (02/12/23) Other fatigue (02/12/23) History of falling (02/12/23) Physical Therapy Treatment Note PT-OP-A Visit Information Start: 02/05/23 14:49 Freq: Status: Active Protocol: Document 02/12/23 12:45 DCW (Rec: 02/12/23 13:34 DCW [id number]) Out-Patient Physical Therapy Visit Information Visit Information Visit Type Treatment Note Visit Start Time 12:45 Visit Stop Time 13:30 Total Visit Minutes 45 Visit Number 2 Number of IMPROVEMENT DIRECTOR Visits 0 Evaluation Information Evaluation Date 02/05/23 PT-OP-B Current Condition Start: 02/05/23 14:49 Freq: Status: Active Protocol: Document 02/05/23 12:00 DCW (Rec: 02/05/23 15:11 DCW [id number]) Current Condition History of Current Condition Onset Date 08/17/22 Current Complaints Decreased mobility, gait difficulty, poor activity tolerance, weakness History of Current Condition Pt is an 87 year old male presenting to skilled therapy nearly six month after a fall at home, resulting in an intratrochanteric fracture of the left hip, which extended into 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 Following in-patient stay, pt was put on NWB status, and was discharged to a SNF due to inability for his family to care for him at home. Pt was NWB for approximately 3 months , and is now staying at [facility], attempting to return to prior levels of ambulation, strength, and activity tolerance in order to return home. Pt has finished home health pt at [facility], and patient, family, and [facility] feel he will benefit most from participating in out-patient therapy at this time. Has had multiple falls recently. Notes through this ordeal, he has not been moving much, and actually reports a 50 pound weight loss. Currently mostly gets around using a manual wheelchair, which he can self- propel using his LEs, does get up and walk a few hundred feet at [facility], usually with a w/c follow due to fatigue. Has had multiple falls since this all began in August. Treatment Goals Patient/Caregiver Goals Strengthen his legs, improve his gait, and decrease falls in order to be able to safely return home with family. PT-OP-C Subjective Start: 02/05/23 14:49 Freq: Status: Active Protocol: Document 02/12/23 12:45 DCW (Rec: 02/12/23 13:34 DCW [id number]) OP-PT Subjective Patient Comments Patient Comments Pt feeling better overall today. PT-OP-E Functional Tests Start: 02/05/23 14:49 Freq: Status: Active Protocol: Document 02/05/23 12:00 DCW (Rec: 02/05/23 15:11 DCW [id number]) Functional Tests 2 Minute Walk Test Distance 115' Device Used 4WW Comments 0.95 ft/sec 30 Second Sit to Stand Test Score x5 repetitions Comments Raised table to height of 21.5 Timed Up and Go (TUG) Score 33.35 /c 4WW Comments Single Trial - required repeated instructions TUG Impairment Rating 100% Impaired (Score 20) PT-OP-M Strength Start: 02/05/23 14:49 Freq: Status: Active Protocol: Document 02/05/23 12:00 DCW (Rec: 02/05/23 15:11 DCW [id number]) Hip Strength Hip Manual Muscle Testing Right Flexion (L2) 4 Good Abduction 3+ Fair+ Adduction 4- Good- External Rotation 4 Good Internal Rotation 4 Good Left Flexion (L2) 4 Good Abduction 3+ Fair+ Adduction 4- Good- External Rotation 3+ Fair+ Internal Rotation 4 Good Knee Strength Knee Manual Muscle Testing Right Flexion (S2) 5 Normal Extension (L3) 5 Normal Left Flexion (S2) 5 Normal Extension (L3) 5 Normal Ankle/Foot Strength Ankle and Foot Manual Muscle Testing Right Dorsiflexion (L4) 4+ Good+ Left Dorsiflexion (L4) 4- Good- PT-OP-Q Treatments Start: 02/05/23 14:49 Freq: Status: Active Protocol: Document 02/12/23 12:45 DCW (Rec: 02/12/23 13:34 DCW [id number]) Cardio Equipment Recumbent Elliptical (Biodex) Duration (Minutes) 5 Resistance 5 Seat Position 13 Gym Equipment Shuttle Recovery Bilateral Heel Raises Resistance 50# Reps/Time Tactile cues for knee extension Unilateral Squats Resistance 37# Shuttle Recovery Platform Stable Reps/Time x15 Bilateral Squats Resistance 75# (No new) Shuttle Recovery Platform Stable Reps/Time x20 Therapeutic Activity Therapeutic Activity Sit Stand Name StS Reps/Minutes x5 Gait Training Gait Activity Stairs Device Used 6 step, B rail Distance/Duration 4 steps x2 Comments Step-to Ascend/Descend 4WW Description 4WW ambulation between equipment Device Used 4WW Level of Assistance Min Ax1 Distance/Duration 73', 30', 30' Neuro Re-Education Treatment Balance Activities Tandem Details Semi-tandem Foam Stance Details DL stance Surface Blue foam PT-OP-T Assessment and Plan Start: 02/05/23 14:49 Freq: Status: Active Protocol: Document 02/12/23 12:45 DCW (Rec: 02/12/23 13:34 DCW [id number]) Physical Therapy Assessment Impairments Impairments Activity Tolerance,Balance, Functional Activities, Functional Mobility,Gait,Soft Tissue Mobility,Strength, Transfers Goals Three Impairment TUG score of 33.35 places pt within an increased falls risk category Lacquer Sizer Goal (LTG) Pt should improve TUG score to a max time of 19 using the LRAD in order to demonstrate a decreasing falls risk LTG Duration 05/06/23 Two Impairment Pt ambulates 115' using a 4WW during a Two Minute Walk test Lacquer Sizer Goal (LTG) A gait speed less than 1.97 ft /sec is indicative of a risk of further functional decline in older adults. Pt should demonstrate ability to ambulate at least 709' during a 6MWT in order to demonstrate improved activity tolerance and an increased gait speed. LTG Duration 05/06/23 One Impairment Pt does not have an appropriate home exercise program Short Term Goal (STG) Pt to be independent and compliant with an appropriate HEP STG Duration 03/28/23 Assessment Summary Assessment Pt continues to fatigue, but did much better today with activity tolerance and controlled sit<->stand. Does complain regularly if he feels a chair is too low, and would prefer higher chairs to sit on. Physical Therapy Plan Frequency and Duration Frequency of Treatment 2x/Week Plan of Care Start Date 02/05/23 Plan of Care End Date 05/06/23 Therapeutic Interventions Therapeutic Interventions Balance Training,Gait Training ,Home Exercise Program,Manual Therapy,Neuromuscular Re- education,Patient/Caregiver Education,Self-Care/Home Management,Soft Tissue Mobilization,Therapeutic Activities,Therapeutic Exercises,Wheelchair Management Modalities Cold Pack/Ice Massage,Hot Packs Next Visit Focus/Plan Next Note Type Treatment Note Next Visit Plan LE/UE strengthening, activity tolerance, gait training, AD use, balance challenges
--- NOTE | 2023-02-18 11:52 | PT.OTN ---
Current Diagnoses Muscle weakness (generalized) (02/18/23) Unsteadiness on feet (02/18/23) Other fatigue (02/18/23) History of falling (02/18/23) Physical Therapy Treatment Note PT-OP-A Visit Information Start: 02/05/23 14:49 Freq: Status: Active Protocol: Document 02/18/23 11:00 DCW (Rec: 02/18/23 11:52 DCW [id number]) Out-Patient Physical Therapy Visit Information Visit Information Visit Type Treatment Note Visit Start Time 11:00 Visit Stop Time 11:45 Total Visit Minutes 45 Visit Number 4 Number of ELECTROCHEMIST Visits 0 Evaluation Information Evaluation Date 02/05/23 PT-OP-B Current Condition Start: 02/05/23 14:49 Freq: Status: Active Protocol: Document 02/05/23 12:00 DCW (Rec: 02/05/23 15:11 DCW [id number]) Current Condition History of Current Condition Onset Date 08/17/22 Current Complaints Decreased mobility, gait difficulty, poor activity tolerance, weakness History of Current Condition Pt is an 87 year old male presenting to skilled therapy nearly six month after a fall at home, resulting in an intratrochanteric fracture of the left hip, which extended into 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 Following in-patient stay, pt was put on NWB status, and was discharged to a SNF due to inability for his family to care for him at home. Pt was NWB for approximately 3 months , and is now staying at [facility], attempting to return to prior levels of ambulation, strength, and activity tolerance in order to return home. Pt has finished home health pt at [facility], and patient, family, and [facility] feel he will benefit most from participating in out-patient therapy at this time. Has had multiple falls recently. Notes through this ordeal, he has not been moving much, and actually reports a 50 pound weight loss. Currently mostly gets around using a manual wheelchair, which he can self- propel using his LEs, does get up and walk a few hundred feet at [facility], usually with a w/c follow due to fatigue. Has had multiple falls since this all began in August. Treatment Goals Patient/Caregiver Goals Strengthen his legs, improve his gait, and decrease falls in order to be able to safely return home with family. PT-OP-C Subjective Start: 02/05/23 14:49 Freq: Status: Active Protocol: Document 02/18/23 11:00 DCW (Rec: 02/18/23 11:52 DCW [id number]) OP-PT Subjective Patient Comments Patient Comments Pt feeling marginal today, notes he felt sick yesterday. PT-OP-E Functional Tests Start: 02/05/23 14:49 Freq: Status: Active Protocol: Document 02/05/23 12:00 DCW (Rec: 02/05/23 15:11 DCW [id number]) Functional Tests 2 Minute Walk Test Distance 115' Device Used 4WW Comments 0.95 ft/sec 30 Second Sit to Stand Test Score x5 repetitions Comments Raised table to height of 21.5 Timed Up and Go (TUG) Score 33.35 /c 4WW Comments Single Trial - required repeated instructions TUG Impairment Rating 100% Impaired (Score 20) PT-OP-M Strength Start: 02/05/23 14:49 Freq: Status: Active Protocol: Document 02/05/23 12:00 DCW (Rec: 02/05/23 15:11 DCW [id number]) Hip Strength Hip Manual Muscle Testing Right Flexion (L2) 4 Good Abduction 3+ Fair+ Adduction 4- Good- External Rotation 4 Good Internal Rotation 4 Good Left Flexion (L2) 4 Good Abduction 3+ Fair+ Adduction 4- Good- External Rotation 3+ Fair+ Internal Rotation 4 Good Knee Strength Knee Manual Muscle Testing Right Flexion (S2) 5 Normal Extension (L3) 5 Normal Left Flexion (S2) 5 Normal Extension (L3) 5 Normal Ankle/Foot Strength Ankle and Foot Manual Muscle Testing Right Dorsiflexion (L4) 4+ Good+ Left Dorsiflexion (L4) 4- Good- PT-OP-Q Treatments Start: 02/05/23 14:49 Freq: Status: Active Protocol: Document 02/18/23 11:00 DCW (Rec: 02/18/23 11:52 DCW [id number]) Cardio Equipment Recumbent Stepper (Sci-Fit) Duration (Minutes) 5 Resistance 3 Seat Position 13 Gym Equipment Shuttle Recovery Bilateral Heel Raises Resistance 50# Reps/Time Tactile cues for knee extension Unilateral Squats Resistance 37# Shuttle Recovery Platform Stable Reps/Time x20 Bilateral Squats Resistance 75# (No new) Shuttle Recovery Platform Stable Reps/Time x20 Therapeutic Exercises Supine Exercises Hamstring Stretch Supine Exercise Name HS stretch Side bilateral Comments Manual SLR Prone Exercises Hip Flexor stretch Prone Exercise Name Prone hip flexor stretch Standing Exercises Hamstring Curls Standing Exercise Name HS Curls Side bilateral Resistance 5# Toe-taps Standing Exercise Name Toe-taps Side bilateral Resistance 4# Gait Training Gait Activity 4WW Description 4WW ambulation between equipment Device Used 4WW Level of Assistance Min Ax1 Distance/Duration 73', 30', 30' PT-OP-T Assessment and Plan Start: 02/05/23 14:49 Freq: Status: Active Protocol: Document 02/18/23 11:00 DCW (Rec: 02/18/23 11:52 DCW [id number]) Physical Therapy Assessment Assessment Summary Assessment Pt struggling more today with extending hips and knees to get straight legs in standing. Worked some on hamstring and hip flexor stretching. Appears to have good response to stretch, knees extended better afterward. Physical Therapy Plan Frequency and Duration Frequency of Treatment 2x/Week Plan of Care Start Date 02/05/23 Plan of Care End Date 05/06/23 Therapeutic Interventions Therapeutic Interventions Balance Training,Gait Training ,Home Exercise Program,Manual Therapy,Neuromuscular Re- education,Patient/Caregiver Education,Self-Care/Home Management,Soft Tissue Mobilization,Therapeutic Activities,Therapeutic Exercises,Wheelchair Management Modalities Cold Pack/Ice Massage,Hot Packs Next Visit Focus/Plan Next Note Type Treatment Note Next Visit Plan Hip/knee stretching, LE/UE strengthening, activity tolerance, gait training, AD use, balance challenges
--- NOTE | 2023-02-24 13:35 | PT.OTN ---
Current Diagnoses Muscle weakness (generalized) (02/24/23) Unsteadiness on feet (02/24/23) Other fatigue (02/24/23) History of falling (02/24/23) Physical Therapy Treatment Note PT-OP-A Visit Information Start: 02/05/23 14:49 Freq: Status: Active Protocol: Document 02/24/23 12:52 SP (Rec: 02/24/23 13:36 SP [id number]) Out-Patient Physical Therapy Visit Information Visit Information Visit Type Treatment Note Visit Note arrived with pt, went to make phone call beginnging. Visit Start Time 12:52 Visit Stop Time 13:35 Total Visit Minutes 43 Visit Number 5 Number of MILLED RUBBER TENDER Visits 1 Evaluation Information Evaluation Date 02/05/23 PT-OP-B Current Condition Start: 02/05/23 14:49 Freq: Status: Active Protocol: Document 02/05/23 12:00 DCW (Rec: 02/05/23 15:11 DCW [id number]) Current Condition History of Current Condition Onset Date 08/17/22 Current Complaints Decreased mobility, gait difficulty, poor activity tolerance, weakness History of Current Condition Pt is an 87 year old male presenting to skilled therapy nearly six month after a fall at home, resulting in an intratrochanteric fracture of the left hip, which extended into 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 Following in-patient stay, pt was put on NWB status, and was discharged to a SNF due to inability for his family to care for him at home. Pt was NWB for approximately 3 months , and is now staying at [facility], attempting to return to prior levels of ambulation, strength, and activity tolerance in order to return home. Pt has finished home health pt at [facility], and patient, family, and [facility] feel he will benefit most from participating in out-patient therapy at this time. Has had multiple falls recently. Notes through this ordeal, he has not been moving much, and actually reports a 50 pound weight loss. Currently mostly gets around using a manual wheelchair, which he can self- propel using his LEs, does get up and walk a few hundred feet at [facility], usually with a w/c follow due to fatigue. Has had multiple falls since this all began in August. Treatment Goals Patient/Caregiver Goals Strengthen his legs, improve his gait, and decrease falls in order to be able to safely return home with family. PT-OP-C Subjective Start: 02/05/23 14:49 Freq: Status: Active Protocol: Document 02/24/23 12:52 SP (Rec: 02/24/23 13:36 SP [id number]) OP-PT Subjective Patient Comments Patient Comments Pt reports went to the hospital yesterday and had a serious test and when got back to the room, had some show and tell. PT-OP-E Functional Tests Start: 02/05/23 14:49 Freq: Status: Active Protocol: Document 02/05/23 12:00 DCW (Rec: 02/05/23 15:11 DCW [id number]) Functional Tests 2 Minute Walk Test Distance 115' Device Used 4WW Comments 0.95 ft/sec 30 Second Sit to Stand Test Score x5 repetitions Comments Raised table to height of 21.5 Timed Up and Go (TUG) Score 33.35 /c 4WW Comments Single Trial - required repeated instructions TUG Impairment Rating 100% Impaired (Score 20) PT-OP-M Strength Start: 02/05/23 14:49 Freq: Status: Active Protocol: Document 02/05/23 12:00 DCW (Rec: 02/05/23 15:11 DCW [id number]) Hip Strength Hip Manual Muscle Testing Right Flexion (L2) 4 Good Abduction 3+ Fair+ Adduction 4- Good- External Rotation 4 Good Internal Rotation 4 Good Left Flexion (L2) 4 Good Abduction 3+ Fair+ Adduction 4- Good- External Rotation 3+ Fair+ Internal Rotation 4 Good Knee Strength Knee Manual Muscle Testing Right Flexion (S2) 5 Normal Extension (L3) 5 Normal Left Flexion (S2) 5 Normal Extension (L3) 5 Normal Ankle/Foot Strength Ankle and Foot Manual Muscle Testing Right Dorsiflexion (L4) 4+ Good+ Left Dorsiflexion (L4) 4- Good- PT-OP-Q Treatments Start: 02/05/23 14:49 Freq: Status: Active Protocol: Document 02/24/23 12:52 SP (Rec: 02/24/23 13:36 SP [id number]) Cardio Equipment Recumbent Stepper (Sci-Fit) Duration (Minutes) 7 Other 44mph, 0.79 miles (UBE/BLEs) Gym Equipment Shuttle Recovery Unilateral Squats Details challenged with TKE, tires quickly R>L Resistance 37# (old bands) Shuttle Recovery Platform Stable Reps/Time x10 Bilateral Squats Details cued quad improve extension last few reps Resistance 75# (old bands) >62# (1new band) Shuttle Recovery Platform Stable Reps/Time x20 Therapeutic Exercises Standing Exercises Hamstring Curls Standing Exercise Name HS Curls Side bilateral Resistance 5# leg wt Equipment Used //bars Reps/Minutes x10 Comments cued for taller posturing improved TKE on opp LE Toe-taps Standing Exercise Name Toe-taps Side bilateral Resistance 5# leg wt Equipment Used //bars, 6step Reps/Minutes x10 Comments cued for taller posturing improved TKE on opp LE Therapeutic Activity Therapeutic Activity SSPT, squat pivot transfer Name w/c<>scifit, gait>sit on shuttle recovery (Min w/ AD, Mod A squat pivot) Comments cued for 4WW, hand placement, body positioning w/ marching step and back up fully to seat , increased taller posturing improved TKE stance LE. Gait Training Gait Activity 4WW Description 4WW ambulation hallway, around clinic Device Used 4WW, w/c follow for seated rest (PT AIde followed) Level of Assistance CG-10% Ax1 Distance/Duration 74', 90' Treatment Focus increase stride, foot clearance, safety w/4WW Comments Occasional cues for proximity to 4WW and brake mgt for pacing. PT-OP-T Assessment and Plan Start: 02/05/23 14:49 Freq: Status: Active Protocol: Document 02/24/23 12:52 SP (Rec: 02/24/23 13:36 SP [id number]) Physical Therapy Assessment Goals Three Impairment TUG score of 33.35 places pt within an increased falls risk category Group Home Goal (LTG) Pt should improve TUG score to a max time of 19 using the LRAD in order to demonstrate a decreasing falls risk LTG Duration 05/06/23 Two Impairment Pt ambulates 115' using a 4WW during a Two Minute Walk test Group Home Goal (LTG) A gait speed less than 1.97 ft /sec is indicative of a risk of further functional decline in older adults. Pt should demonstrate ability to ambulate at least 709' during a 6MWT in order to demonstrate improved activity tolerance and an increased gait speed. LTG Duration 05/06/23 One Impairment Pt does not have an appropriate home exercise program Short Term Goal (STG) Pt to be independent and compliant with an appropriate HEP STG Duration 03/28/23 Assessment Summary Assessment Pt decreased strength requiring reduction in resistance and reps today on shuttle recovery (end tx). He was able to increase distance gait w/ 4WW, occasional cues for posturing/proximity brake mgt with seated rest between stances and hydration requests needed. Physical Therapy Plan Frequency and Duration Frequency of Treatment 2x/Week Plan of Care Start Date 02/05/23 Plan of Care End Date 05/06/23 Therapeutic Interventions Therapeutic Interventions Balance Training,Gait Training ,Home Exercise Program,Manual Therapy,Neuromuscular Re- education,Patient/Caregiver Education,Self-Care/Home Management,Soft Tissue Mobilization,Therapeutic Activities,Therapeutic Exercises,Wheelchair Management Modalities Cold Pack/Ice Massage,Hot Packs Next Visit Focus/Plan Next Note Type Treatment Note Next Visit Plan Continue stretching and use of AD during transfers for increased functional I in mobility. TKE and glut strength standing. POC: Hip/knee stretching, LE/ UE strengthening, activity tolerance, gait training, AD use, balance challenges
--- NOTE | 2023-02-26 13:42 | PT.OTN ---
Current Diagnoses Muscle weakness (generalized) (02/26/23) Unsteadiness on feet (02/26/23) Other fatigue (02/26/23) History of falling (02/26/23) Physical Therapy Treatment Note PT-OP-A Visit Information Start: 02/05/23 14:49 Freq: Status: Active Protocol: Document 02/26/23 12:51 SP (Rec: 02/26/23 14:24 SP [id number]) Out-Patient Physical Therapy Visit Information Visit Information Visit Type Treatment Note Visit Note observed and TREASURER initiated CGT including transfer training with pt assimulation to 180deg positioned chair and SPT 90 deg in bathroom use grab bar across from toilet at [facility] . Visit Start Time 12:51 Visit Stop Time 13:42 Total Visit Minutes 51 Visit Number 6 Number of TREASURER Visits 2 Evaluation Information Evaluation Date 02/05/23 PT-OP-B Current Condition Start: 02/05/23 14:49 Freq: Status: Active Protocol: Document 02/05/23 12:00 DCW (Rec: 02/05/23 15:11 DCW [id number]) Current Condition History of Current Condition Onset Date 08/17/22 Current Complaints Decreased mobility, gait difficulty, poor activity tolerance, weakness History of Current Condition Pt is an 87 year old male presenting to skilled therapy nearly six month after a fall at home, resulting in an intratrochanteric fracture of the left hip, which extended into 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 Following in-patient stay, pt was put on NWB status, and was discharged to a SNF due to inability for his family to care for him at home. Pt was NWB for approximately 3 months , and is now staying at [facility], attempting to return to prior levels of ambulation, strength, and activity tolerance in order to return home. Pt has finished home health pt at [facility], and patient, family, and [facility] feel he will benefit most from participating in out-patient therapy at this time. Has had multiple falls recently. Notes through this ordeal, he has not been moving much, and actually reports a 50 pound weight loss. Currently mostly gets around using a manual wheelchair, which he can self- propel using his LEs, does get up and walk a few hundred feet at [facility], usually with a w/c follow due to fatigue. Has had multiple falls since this all began in August. Treatment Goals Patient/Caregiver Goals Strengthen his legs, improve his gait, and decrease falls in order to be able to safely return home with family. PT-OP-C Subjective Start: 02/05/23 14:49 Freq: Status: Active Protocol: Document 02/26/23 12:51 SP (Rec: 02/26/23 14:24 SP [id number]) OP-PT Subjective Patient Comments Patient Comments Pt report I felt ok after last time. PT-OP-E Functional Tests Start: 02/05/23 14:49 Freq: Status: Active Protocol: Document 02/05/23 12:00 DCW (Rec: 02/05/23 15:11 DCW [id number]) Functional Tests 2 Minute Walk Test Distance 115' Device Used 4WW Comments 0.95 ft/sec 30 Second Sit to Stand Test Score x5 repetitions Comments Raised table to height of 21.5 Timed Up and Go (TUG) Score 33.35 /c 4WW Comments Single Trial - required repeated instructions TUG Impairment Rating 100% Impaired (Score 20) PT-OP-M Strength Start: 02/05/23 14:49 Freq: Status: Active Protocol: Document 02/05/23 12:00 DCW (Rec: 02/05/23 15:11 DCW [id number]) Hip Strength Hip Manual Muscle Testing Right Flexion (L2) 4 Good Abduction 3+ Fair+ Adduction 4- Good- External Rotation 4 Good Internal Rotation 4 Good Left Flexion (L2) 4 Good Abduction 3+ Fair+ Adduction 4- Good- External Rotation 3+ Fair+ Internal Rotation 4 Good Knee Strength Knee Manual Muscle Testing Right Flexion (S2) 5 Normal Extension (L3) 5 Normal Left Flexion (S2) 5 Normal Extension (L3) 5 Normal Ankle/Foot Strength Ankle and Foot Manual Muscle Testing Right Dorsiflexion (L4) 4+ Good+ Left Dorsiflexion (L4) 4- Good- PT-OP-Q Treatments Start: 02/05/23 14:49 Freq: Status: Active Protocol: Document 02/26/23 12:51 SP (Rec: 02/26/23 14:24 SP [id number]) Cardio Equipment Recumbent Stepper (Sci-Fit) Duration (Minutes) 7 Other 39-44mph, 0.77 miles (UBE/BLEs ) Therapeutic Exercises Standing Exercises sit<>stand Equipment Used mesh chair, personal wc, low wc (assimulate toilet w/ arms) Reps/Minutes multiple reps througout tx Comments cues for scoot forward, feet underneath him, use BUE on chair arm std>4WW Therapeutic Activity Therapeutic Activity SSPT, squat pivot transfer Name stand step pivot TFR: w/c<> scifit, w/ 4WW w/c<> other chairs Comments cued for 4WW, hand placement, body positioning w/ marching step and back up fully to seat , increased taller posturing improved TKE stance LE. Gait Training Gait Activity 4WW Description 4WW ambulation hallway, around clinic Device Used 4WW, w/c follow for seated rest (PT AIde followed) Level of Assistance CG-10% Ax1 Distance/Duration 71', 90' Treatment Focus increase stride, foot clearance, safety w/4WW Comments Occasional cues for proximity to 4WW, Mod cues for taller posture, heel toe- improved foot clearance. trailing with wc and verbal response understanding and will give pt same cues at his room in [facility]. Self-Care/Home Management Treatment Education Patient Education Body Mechanics,Fall Risk, Posture,Safety Caregiver Education extensive time spent CGT with spouse on transfer tranining strategies 180 deg and 90 deg in bathroom: her position, pt (his) proper BUE/trunk/LE positioning for increase independence/ less support required. PT-OP-T Assessment and Plan Start: 02/05/23 14:49 Freq: Status: Active Protocol: Document 02/26/23 12:51 SP (Rec: 02/26/23 14:24 SP [id number]) Physical Therapy Assessment Goals Three Impairment TUG score of 33.35 places pt within an increased falls risk category Green Jobs Trainer Goal (LTG) Pt should improve TUG score to a max time of 19 using the LRAD in order to demonstrate a decreasing falls risk LTG Duration 05/06/23 Two Impairment Pt ambulates 115' using a 4WW during a Two Minute Walk test Green Jobs Trainer Goal (LTG) A gait speed less than 1.97 ft /sec is indicative of a risk of further functional decline in older adults. Pt should demonstrate ability to ambulate at least 709' during a 6MWT in order to demonstrate improved activity tolerance and an increased gait speed. 02/26/23: able to walk 70ft 1st distance before needing to sit, then 90ft c/4WW, not timed. LTG Duration 05/06/23 progressing 02/26/23 One Impairment Pt does not have an appropriate home exercise program Short Term Goal (STG) Pt to be independent and compliant with an appropriate HEP STG Duration 03/28/23 Assessment Summary Assessment Pt provided multiple comments his 4WW is much easier to use than in PT. DIscussed with spouse if able to get his 4WW with him to PT. Tx focused on primarily stand step pivot transfer training 90 deg use of grab bar and 180 deg c/4ww including caregiver training with patient a spouse. Improved less support required from spouse post ed and cuing from TREASURER to pt and spouse for proper hand placement, body positioning and use of gait belt front and back. Pt reported B knees little sore coming to standing from low clinic w/c but was fine from his wc/. Good feedback from spouse was suprised that pt could assist himself more with improved positioning and support learned today. Pt improved steady BLE into extension during gait and transfers with cuing for stand taller, look back to center body front of the chair before reach back and slowly sit. Physical Therapy Plan Frequency and Duration Frequency of Treatment 2x/Week Plan of Care Start Date 02/05/23 Plan of Care End Date 05/06/23 Therapeutic Interventions Therapeutic Interventions Balance Training,Gait Training ,Home Exercise Program,Manual Therapy,Neuromuscular Re- education,Patient/Caregiver Education,Self-Care/Home Management,Soft Tissue Mobilization,Therapeutic Activities,Therapeutic Exercises,Wheelchair Management Modalities Cold Pack/Ice Massage,Hot Packs Next Visit Focus/Plan Next Note Type Treatment Note Next Visit Plan Continue transfer training with spouse smaller space ( bathroom set up), stretching and use of AD/grab bar during transfers for increased functional I in mobility and toileting. Cue taller posture, TKE in standing. POC: Hip/knee stretching, LE/ UE strengthening, activity tolerance, gait training, AD use, balance challenges
--- NOTE | 2023-03-03 11:12 | PT.OTN ---
Current Diagnoses Muscle weakness (generalized) (03/03/23) Unsteadiness on feet (03/03/23) Other fatigue (03/03/23) History of falling (03/03/23) Physical Therapy Treatment Note PT-OP-A Visit Information Start: 02/05/23 14:49 Freq: Status: Active Protocol: Document 03/03/23 10:15 DCW (Rec: 03/03/23 11:11 DCW [id number]) Out-Patient Physical Therapy Visit Information Visit Information Visit Type Treatment Note Visit Note observed treatment session Visit Start Time 10:15 Visit Stop Time 11:00 Total Visit Minutes 45 Visit Number 7 Number of COP Visits 0 Evaluation Information Evaluation Date 02/05/23 PT-OP-B Current Condition Start: 02/05/23 14:49 Freq: Status: Active Protocol: Document 02/05/23 12:00 DCW (Rec: 02/05/23 15:11 DCW [id number]) Current Condition History of Current Condition Onset Date 08/17/22 Current Complaints Decreased mobility, gait difficulty, poor activity tolerance, weakness History of Current Condition Pt is an 87 year old male presenting to skilled therapy nearly six month after a fall at home, resulting in an intratrochanteric fracture of the left hip, which extended into 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 Following in-patient stay, pt was put on NWB status, and was discharged to a SNF due to inability for his family to care for him at home. Pt was NWB for approximately 3 months , and is now staying at [facility], attempting to return to prior levels of ambulation, strength, and activity tolerance in order to return home. Pt has finished home health pt at [facility], and patient, family, and [facility] feel he will benefit most from participating in out-patient therapy at this time. Has had multiple falls recently. Notes through this ordeal, he has not been moving much, and actually reports a 50 pound weight loss. Currently mostly gets around using a manual wheelchair, which he can self- propel using his LEs, does get up and walk a few hundred feet at [facility], usually with a w/c follow due to fatigue. Has had multiple falls since this all began in August. Treatment Goals Patient/Caregiver Goals Strengthen his legs, improve his gait, and decrease falls in order to be able to safely return home with family. PT-OP-C Subjective Start: 02/05/23 14:49 Freq: Status: Active Protocol: Document 03/03/23 10:15 DCW (Rec: 03/03/23 11:12 DCW [id number]) OP-PT Subjective Patient Comments Patient Comments Pt's reports that he had his FLu and COVID shots Thursday , and was a little more lethargic afterward, but seems to be perking up today. PT-OP-E Functional Tests Start: 02/05/23 14:49 Freq: Status: Active Protocol: Document 02/05/23 12:00 DCW (Rec: 02/05/23 15:11 DCW [id number]) Functional Tests 2 Minute Walk Test Distance 115' Device Used 4WW Comments 0.95 ft/sec 30 Second Sit to Stand Test Score x5 repetitions Comments Raised table to height of 21.5 Timed Up and Go (TUG) Score 33.35 /c 4WW Comments Single Trial - required repeated instructions TUG Impairment Rating 100% Impaired (Score 20) PT-OP-M Strength Start: 02/05/23 14:49 Freq: Status: Active Protocol: Document 02/05/23 12:00 DCW (Rec: 02/05/23 15:11 DCW [id number]) Hip Strength Hip Manual Muscle Testing Right Flexion (L2) 4 Good Abduction 3+ Fair+ Adduction 4- Good- External Rotation 4 Good Internal Rotation 4 Good Left Flexion (L2) 4 Good Abduction 3+ Fair+ Adduction 4- Good- External Rotation 3+ Fair+ Internal Rotation 4 Good Knee Strength Knee Manual Muscle Testing Right Flexion (S2) 5 Normal Extension (L3) 5 Normal Left Flexion (S2) 5 Normal Extension (L3) 5 Normal Ankle/Foot Strength Ankle and Foot Manual Muscle Testing Right Dorsiflexion (L4) 4+ Good+ Left Dorsiflexion (L4) 4- Good- PT-OP-Q Treatments Start: 02/05/23 14:49 Freq: Status: Active Protocol: Document 03/03/23 10:15 DCW (Rec: 03/03/23 11:11 DCW [id number]) Cardio Equipment Recumbent Stepper (Sci-Fit) Duration (Minutes) 7 Resistance 4 Seat Position 14 Other 0.73 miles Gym Equipment Shuttle Recovery Unilateral Squats Details challenged with TKE, tires quickly R>L Resistance 37# (one new band) Shuttle Recovery Platform Stable Reps/Time x10 Bilateral Squats Details cued quad improve extension last few reps Resistance 62# (2 new bands) Shuttle Recovery Platform Stable Reps/Time x20 Therapeutic Exercises Sitting Exercises Hamstring stretch Sitting Exercise Name Hamstring Stretch Side bilateral Marching Sitting Exercise Name Marching Side bilateral Resistance 5# LAQ Sitting Exercise Name LAQ Side bilateral Resistance 5# Therapeutic Activity Therapeutic Activity Using 4WW as seat Name Turning at 4WW to use as a seat Comments Struggled standing from 4WW Gait Training Gait Activity 4WW Description 4WW ambulation hallway, around clinic Device Used 4WW, w/c follow for seated rest (PT AIde followed) Level of Assistance CG-10% Ax1 Distance/Duration 136', 194' Treatment Focus increase stride, foot clearance, safety w/4WW Comments Occasional cues for proximity to 4WW, Mod cues for taller posture, heel toe- improved foot clearance. trailing with wc PT-OP-T Assessment and Plan Start: 02/05/23 14:49 Freq: Status: Active Protocol: Document 03/03/23 10:15 DCW (Rec: 03/03/23 11:11 DCW [id number]) Physical Therapy Assessment Goals Three Impairment TUG score of 33.35 places pt within an increased falls risk category Bedspread Cutter Hand Goal (LTG) Pt should improve TUG score to a max time of 19 using the LRAD in order to demonstrate a decreasing falls risk LTG Duration 05/06/23 Two Impairment Pt ambulates 115' using a 4WW during a Two Minute Walk test Retirement Goal (LTG) A gait speed less than 1.97 ft /sec is indicative of a risk of further functional decline in older adults. Pt should demonstrate ability to ambulate at least 709' during a 6MWT in order to demonstrate improved activity tolerance and an increased gait speed. 02/26/23: able to walk 70ft 1st distance before needing to sit, then 90ft c/4WW, not timed. LTG Duration 05/06/23 progressing 02/26/23 One Impairment Pt does not have an appropriate home exercise program Short Term Goal (STG) Pt to be independent and compliant with an appropriate HEP STG Duration 03/28/23 Assessment Summary Assessment Pt showing improvement with gait, activity tolerance, and transfers, requires fewer verbal cues for taller posture . Physical Therapy Plan Frequency and Duration Frequency of Treatment 2x/Week Plan of Care Start Date 02/05/23 Plan of Care End Date 05/06/23 Therapeutic Interventions Therapeutic Interventions Balance Training,Gait Training ,Home Exercise Program,Manual Therapy,Neuromuscular Re- education,Patient/Caregiver Education,Self-Care/Home Management,Soft Tissue Mobilization,Therapeutic Activities,Therapeutic Exercises,Wheelchair Management Modalities Cold Pack/Ice Massage,Hot Packs Next Visit Focus/Plan Next Note Type Treatment Note Next Visit Plan Continue transfer training with spouse smaller space ( bathroom set up), stretching and use of AD/grab bar during transfers for increased functional I in mobility and toileting. Cue taller posture, TKE in standing. POC: Hip/knee stretching, LE/ UE strengthening, turning at 4WW to allow pt and to walk without w/c follow.
--- NOTE | 2023-03-05 11:03 | PT.OTN ---
Current Diagnoses Muscle weakness (generalized) (03/05/23) Unsteadiness on feet (03/05/23) Other fatigue (03/05/23) History of falling (03/05/23) Physical Therapy Treatment Note PT-OP-A Visit Information Start: 02/05/23 14:49 Freq: Status: Active Protocol: Document 03/05/23 10:15 DCW (Rec: 03/05/23 11:03 DCW [id number]) Out-Patient Physical Therapy Visit Information Visit Information Visit Type Treatment Note Visit Note observed treatment session Visit Start Time 10:15 Visit Stop Time 11:00 Total Visit Minutes 45 Visit Number 8 Number of DIRECTOR TALENT Visits 0 Evaluation Information Evaluation Date 02/05/23 PT-OP-B Current Condition Start: 02/05/23 14:49 Freq: Status: Active Protocol: Document 02/05/23 12:00 DCW (Rec: 02/05/23 15:11 DCW [id number]) Current Condition History of Current Condition Onset Date 08/17/22 Current Complaints Decreased mobility, gait difficulty, poor activity tolerance, weakness History of Current Condition Pt is an 87 year old male presenting to skilled therapy nearly six month after a fall at home, resulting in an intratrochanteric fracture of the left hip, which extended into 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 Following in-patient stay, pt was put on NWB status, and was discharged to a SNF due to inability for his family to care for him at home. Pt was NWB for approximately 3 months , and is now staying at [facility], attempting to return to prior levels of ambulation, strength, and activity tolerance in order to return home. Pt has finished home health pt at [facility], and patient, family, and [facility] feel he will benefit most from participating in out-patient therapy at this time. Has had multiple falls recently. Notes through this ordeal, he has not been moving much, and actually reports a 50 pound weight loss. Currently mostly gets around using a manual wheelchair, which he can self- propel using his LEs, does get up and walk a few hundred feet at [facility], usually with a w/c follow due to fatigue. Has had multiple falls since this all began in August. Treatment Goals Patient/Caregiver Goals Strengthen his legs, improve his gait, and decrease falls in order to be able to safely return home with family. PT-OP-C Subjective Start: 02/05/23 14:49 Freq: Status: Active Protocol: Document 03/05/23 10:15 DCW (Rec: 03/05/23 11:03 DCW [id number]) OP-PT Subjective Patient Comments Patient Comments Pt's reports she was very happy with how much walking he was last visit. PT-OP-E Functional Tests Start: 02/05/23 14:49 Freq: Status: Active Protocol: Document 02/05/23 12:00 DCW (Rec: 02/05/23 15:11 DCW [id number]) Functional Tests 2 Minute Walk Test Distance 115' Device Used 4WW Comments 0.95 ft/sec 30 Second Sit to Stand Test Score x5 repetitions Comments Raised table to height of 21.5 Timed Up and Go (TUG) Score 33.35 /c 4WW Comments Single Trial - required repeated instructions TUG Impairment Rating 100% Impaired (Score 20) PT-OP-M Strength Start: 02/05/23 14:49 Freq: Status: Active Protocol: Document 02/05/23 12:00 DCW (Rec: 02/05/23 15:11 DCW [id number]) Hip Strength Hip Manual Muscle Testing Right Flexion (L2) 4 Good Abduction 3+ Fair+ Adduction 4- Good- External Rotation 4 Good Internal Rotation 4 Good Left Flexion (L2) 4 Good Abduction 3+ Fair+ Adduction 4- Good- External Rotation 3+ Fair+ Internal Rotation 4 Good Knee Strength Knee Manual Muscle Testing Right Flexion (S2) 5 Normal Extension (L3) 5 Normal Left Flexion (S2) 5 Normal Extension (L3) 5 Normal Ankle/Foot Strength Ankle and Foot Manual Muscle Testing Right Dorsiflexion (L4) 4+ Good+ Left Dorsiflexion (L4) 4- Good- PT-OP-Q Treatments Start: 02/05/23 14:49 Freq: Status: Active Protocol: Document 03/05/23 10:15 DCW (Rec: 03/05/23 11:03 DCW [id number]) Cardio Equipment Recumbent Stepper (Sci-Fit) Duration (Minutes) 7 Resistance 4 Seat Position 14 Other 0.73 miles Gym Equipment Shuttle Recovery Unilateral Squats Details VCs for TKE Resistance 37# (one new band) Shuttle Recovery Platform Stable Reps/Time x10 Bilateral Squats Details VCs for TKE Resistance 62# (2 new bands) Shuttle Recovery Platform Stable Reps/Time x20 Therapeutic Activity Therapeutic Activity Using 4WW as seat Name Turning at 4WW to use as a seat Reps/Minutes x3 Comments Struggled standing from 4WW Gait Training Gait Activity 4WW Description 4WW ambulation hallway, around clinic Device Used 4WW, w/c follow for seated rest (PT AIde followed) Level of Assistance CG-10% Ax1 Distance/Duration 70', 30', 82', 105' Treatment Focus increase stride, foot clearance, safety w/4WW Comments Occasional cues for proximity to 4WW, Mod cues for taller posture, heel toe- improved foot clearance. trailing with wc PT-OP-T Assessment and Plan Start: 02/05/23 14:49 Freq: Status: Active Protocol: Document 03/05/23 10:15 DCW (Rec: 03/05/23 11:03 DCW [id number]) Physical Therapy Assessment Impairments Impairments Activity Tolerance,Balance, Functional Activities, Functional Mobility,Gait,Soft Tissue Mobility,Strength, Transfers Goals Three Impairment TUG score of 33.35 places pt within an increased falls risk category Alf Goal (LTG) Pt should improve TUG score to a max time of 19 using the LRAD in order to demonstrate a decreasing falls risk LTG Duration 05/06/23 Two Impairment Pt ambulates 115' using a 4WW during a Two Minute Walk test Alf Goal (LTG) A gait speed less than 1.97 ft /sec is indicative of a risk of further functional decline in older adults. Pt should demonstrate ability to ambulate at least 709' during a 6MWT in order to demonstrate improved activity tolerance and an increased gait speed. 02/26/23: able to walk 70ft 1st distance before needing to sit, then 90ft c/4WW, not timed. LTG Duration 05/06/23 progressing 02/26/23 One Impairment Pt does not have an appropriate home exercise program Short Term Goal (STG) Pt to be independent and compliant with an appropriate HEP STG Duration 03/28/23 Assessment Summary Assessment Pt a bit more fatigued today, not doing as well with ambulation tolerance, but did show good improvement with sit <->stand transfers while using his 4WW to rest during ambulation. Physical Therapy Plan Frequency and Duration Frequency of Treatment 2x/Week Plan of Care Start Date 02/05/23 Plan of Care End Date 05/06/23 Therapeutic Interventions Therapeutic Interventions Balance Training,Gait Training ,Home Exercise Program,Manual Therapy,Neuromuscular Re- education,Patient/Caregiver Education,Self-Care/Home Management,Soft Tissue Mobilization,Therapeutic Activities,Therapeutic Exercises,Wheelchair Management Modalities Cold Pack/Ice Massage,Hot Packs Next Visit Focus/Plan Next Note Type Treatment Note Next Visit Plan Continue transfer training with spouse smaller space ( bathroom set up), stretching and use of AD/grab bar during transfers for increased functional I in mobility and toileting. Cue taller posture, TKE in standing. POC: Hip/knee stretching, LE/ UE strengthening, turning at 4WW to allow pt and to walk without w/c follow.
--- NOTE | 2023-03-12 14:24 | PT.OTN ---
Current Diagnoses Muscle weakness (generalized) (03/12/23) Unsteadiness on feet (03/12/23) Other fatigue (03/12/23) History of falling (03/12/23) Physical Therapy Treatment Note PT-OP-A Visit Information Start: 02/05/23 14:49 Freq: Status: Active Protocol: Document 03/12/23 14:20 ED (Rec: 03/12/23 14:24 ED [id number]) Out-Patient Physical Therapy Visit Information Visit Information Visit Type Treatment Note Visit Note observed treatment session Visit Start Time 12:45 Visit Stop Time 13:30 Total Visit Minutes 45 Visit Number 9 Number of TRACK LAYER HEAD Visits 0 PT-OP-B Current Condition Start: 02/05/23 14:49 Freq: Status: Active Protocol: Document 02/05/23 12:00 DCW (Rec: 02/05/23 15:11 DCW [id number]) Current Condition History of Current Condition Onset Date 08/17/22 Current Complaints Decreased mobility, gait difficulty, poor activity tolerance, weakness History of Current Condition Pt is an 87 year old male presenting to skilled therapy nearly six month after a fall at home, resulting in an intratrochanteric fracture of the left hip, which extended into 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 Following in-patient stay, pt was put on NWB status, and was discharged to a SNF due to inability for his family to care for him at home. Pt was NWB for approximately 3 months , and is now staying at [facility], attempting to return to prior levels of ambulation, strength, and activity tolerance in order to return home. Pt has finished home health pt at [facility], and patient, family, and [facility] feel he will benefit most from participating in out-patient therapy at this time. Has had multiple falls recently. Notes through this ordeal, he has not been moving much, and actually reports a 50 pound weight loss. Currently mostly gets around using a manual wheelchair, which he can self- propel using his LEs, does get up and walk a few hundred feet at [facility], usually with a w/c follow due to fatigue. Has had multiple falls since this all began in August. Treatment Goals Patient/Caregiver Goals Strengthen his legs, improve his gait, and decrease falls in order to be able to safely return home with family. PT-OP-C Subjective Start: 02/05/23 14:49 Freq: Status: Active Protocol: Document 03/12/23 14:20 ED (Rec: 03/12/23 14:24 ED [id number]) OP-PT Subjective Patient Comments Patient Comments bring 4WW for patient to use for walking today. States he still has a way to go before she feels comfortable taking care of him at home. PT-OP-E Functional Tests Start: 02/05/23 14:49 Freq: Status: Active Protocol: Document 02/05/23 12:00 DCW (Rec: 02/05/23 15:11 DCW [id number]) Functional Tests 2 Minute Walk Test Distance 115' Device Used 4WW Comments 0.95 ft/sec 30 Second Sit to Stand Test Score x5 repetitions Comments Raised table to height of 21.5 Timed Up and Go (TUG) Score 33.35 /c 4WW Comments Single Trial - required repeated instructions TUG Impairment Rating 100% Impaired (Score 20) PT-OP-M Strength Start: 02/05/23 14:49 Freq: Status: Active Protocol: Document 02/05/23 12:00 DCW (Rec: 02/05/23 15:11 DCW [id number]) Hip Strength Hip Manual Muscle Testing Right Flexion (L2) 4 Good Abduction 3+ Fair+ Adduction 4- Good- External Rotation 4 Good Internal Rotation 4 Good Left Flexion (L2) 4 Good Abduction 3+ Fair+ Adduction 4- Good- External Rotation 3+ Fair+ Internal Rotation 4 Good Knee Strength Knee Manual Muscle Testing Right Flexion (S2) 5 Normal Extension (L3) 5 Normal Left Flexion (S2) 5 Normal Extension (L3) 5 Normal Ankle/Foot Strength Ankle and Foot Manual Muscle Testing Right Dorsiflexion (L4) 4+ Good+ Left Dorsiflexion (L4) 4- Good- PT-OP-Q Treatments Start: 02/05/23 14:49 Freq: Status: Active Protocol: Document 03/12/23 14:20 ED (Rec: 03/12/23 14:24 ED [id number]) Cardio Equipment Recumbent Stepper (Sci-Fit) Duration (Minutes) 7 Resistance 4 Seat Position 14 Therapeutic Activity Therapeutic Activity Sit Stand Name STS Reps/Minutes 3x10 Comments raised seat height no UE assist CGA - Reanna required Gait Training Gait Activity 4WW Description 4WW ambulation hallway, around clinic Device Used 4WW, w/c follow for seated rest (PT AIde followed) Level of Assistance CG-10% Ax1 Distance/Duration 1x80', 1x120' Treatment Focus increase stride, foot clearance, safety w/4WW Comments Occasional cues for proximity to 4WW, Mod cues for taller posture, heel toe- improved foot clearance. trailing with wc PT-OP-T Assessment and Plan Start: 02/05/23 14:49 Freq: Status: Active Protocol: Document 03/12/23 14:20 ED (Rec: 03/12/23 14:24 ED [id number]) Physical Therapy Assessment Goals Three Impairment TUG score of 33.35 places pt within an increased falls risk category Snf Goal (LTG) Pt should improve TUG score to a max time of 19 using the LRAD in order to demonstrate a decreasing falls risk LTG Duration 05/06/23 Two Impairment Pt ambulates 115' using a 4WW during a Two Minute Walk test Snf Goal (LTG) A gait speed less than 1.97 ft /sec is indicative of a risk of further functional decline in older adults. Pt should demonstrate ability to ambulate at least 709' during a 6MWT in order to demonstrate improved activity tolerance and an increased gait speed. 02/26/23: able to walk 70ft 1st distance before needing to sit, then 90ft c/4WW, not timed. LTG Duration 05/06/23 progressing 02/26/23 One Impairment Pt does not have an appropriate home exercise program Short Term Goal (STG) Pt to be independent and compliant with an appropriate HEP STG Duration 03/28/23 Assessment Summary Assessment Pt worked on sit <> stands and ambulating primarily. Pt performed 2x10 sit<>stands from elevated seat height w/o UE assistance. PT provided CGA - min A during movement. Pt consistently retropulsive when in standing and did not respond to verbal and tactile cues to bring weight more forward towards toes. Ambulated well using 4WW for distances of 80' and 120'. Physical Therapy Plan Frequency and Duration Frequency of Treatment 2x/Week Plan of Care Start Date 02/05/23 Plan of Care End Date 05/06/23 Therapeutic Interventions Therapeutic Interventions Balance Training,Gait Training ,Home Exercise Program,Manual Therapy,Neuromuscular Re- education,Patient/Caregiver Education,Self-Care/Home Management,Soft Tissue Mobilization,Therapeutic Activities,Therapeutic Exercises,Wheelchair Management Modalities Cold Pack/Ice Massage,Hot Packs Next Visit Focus/Plan Next Note Type Treatment Note Next Visit Plan Continue transfer training with spouse smaller space ( bathroom set up), stretching and use of AD/grab bar during transfers for increased functional I in mobility and toileting. Cue taller posture, TKE in standing. POC: Hip/knee stretching, LE/ UE strengthening, turning at 4WW to allow pt and to walk without w/c follow.
--- NOTE | 2023-03-17 14:33 | PT.OTN ---
Current Diagnoses Muscle weakness (generalized) (03/17/23) Unsteadiness on feet (03/17/23) Other fatigue (03/17/23) History of falling (03/17/23) Physical Therapy Treatment Note PT-OP-A Visit Information Start: 02/05/23 14:49 Freq: Status: Active Protocol: Document 03/17/23 13:47 SP (Rec: 03/17/23 16:47 SP [id number]) Out-Patient Physical Therapy Visit Information Visit Information Visit Type Treatment Note Visit Note observed treatment session, feedback on bathroom set up Visit Start Time 13:47 Visit Stop Time 14:33 Total Visit Minutes 44 Visit Number 10 Number of SHANKER OUT Visits 1 Evaluation Information Evaluation Date 02/05/23 PT-OP-B Current Condition Start: 02/05/23 14:49 Freq: Status: Active Protocol: Document 02/05/23 12:00 DCW (Rec: 02/05/23 15:11 DCW [id number]) Current Condition History of Current Condition Onset Date 08/17/22 Current Complaints Decreased mobility, gait difficulty, poor activity tolerance, weakness History of Current Condition Pt is an 87 year old male presenting to skilled therapy nearly six month after a fall at home, resulting in an intratrochanteric fracture of the left hip, which extended into 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 Following in-patient stay, pt was put on NWB status, and was discharged to a SNF due to inability for his family to care for him at home. Pt was NWB for approximately 3 months , and is now staying at [facility], attempting to return to prior levels of ambulation, strength, and activity tolerance in order to return home. Pt has finished home health pt at [facility], and patient, family, and [facility] feel he will benefit most from participating in out-patient therapy at this time. Has had multiple falls recently. Notes through this ordeal, he has not been moving much, and actually reports a 50 pound weight loss. Currently mostly gets around using a manual wheelchair, which he can self- propel using his LEs, does get up and walk a few hundred feet at [facility], usually with a w/c follow due to fatigue. Has had multiple falls since this all began in August. Treatment Goals Patient/Caregiver Goals Strengthen his legs, improve his gait, and decrease falls in order to be able to safely return home with family. PT-OP-C Subjective Start: 02/05/23 14:49 Freq: Status: Active Protocol: Document 03/17/23 13:47 SP (Rec: 03/17/23 16:47 SP [id number]) OP-PT Subjective Patient Comments Patient Comments Pt's reported hoping to get pt stronger in standing to allow bathroom transfers with less assistance. She states his pants fall down when he comes to standing from toilet and afraid will trip him up. He has to reach far forward for grab bar front toilet support come to stand. PT-OP-E Functional Tests Start: 02/05/23 14:49 Freq: Status: Active Protocol: Document 02/05/23 12:00 DCW (Rec: 02/05/23 15:11 DCW [id number]) Functional Tests 2 Minute Walk Test Distance 115' Device Used 4WW Comments 0.95 ft/sec 30 Second Sit to Stand Test Score x5 repetitions Comments Raised table to height of 21.5 Timed Up and Go (TUG) Score 33.35 /c 4WW Comments Single Trial - required repeated instructions TUG Impairment Rating 100% Impaired (Score 20) PT-OP-M Strength Start: 02/05/23 14:49 Freq: Status: Active Protocol: Document 02/05/23 12:00 DCW (Rec: 02/05/23 15:11 DCW [id number]) Hip Strength Hip Manual Muscle Testing Right Flexion (L2) 4 Good Abduction 3+ Fair+ Adduction 4- Good- External Rotation 4 Good Internal Rotation 4 Good Left Flexion (L2) 4 Good Abduction 3+ Fair+ Adduction 4- Good- External Rotation 3+ Fair+ Internal Rotation 4 Good Knee Strength Knee Manual Muscle Testing Right Flexion (S2) 5 Normal Extension (L3) 5 Normal Left Flexion (S2) 5 Normal Extension (L3) 5 Normal Ankle/Foot Strength Ankle and Foot Manual Muscle Testing Right Dorsiflexion (L4) 4+ Good+ Left Dorsiflexion (L4) 4- Good- PT-OP-Q Treatments Start: 02/05/23 14:49 Freq: Status: Active Protocol: Document 03/17/23 13:47 SP (Rec: 03/17/23 16:47 SP [id number]) Cardio Equipment Recumbent Stepper (Sci-Fit) Duration (Minutes) 7 Resistance 4 Seat Position 14 Other cues 55 RPMs Therapeutic Exercises Standing Exercises step ups Standing Exercise Name initiated inPT Resistance AROM Equipment Used bottom 4 stairs, BUE support on B HRs Reps/Minutes 10 reps each LE, step to patterning Comments Intermittent cue each step, tall posture, TKE and glut firing pelvis under Therapeutic Activity Therapeutic Activity static stand, pant mgt assimulation Name mini squat, lateral reach side of knee (assimulate pull up pants) Reps/Minutes 2x5 reps each side Comments -bottom 4 stairs, 1 UE on rail -cued taller posture, TKE, glut firing coming to stand- no BLEs buckle -CGA, Max cues for performance SSPT, squat pivot transfer Name stand step pivot TFR assimulation commode >w/c Reps/Minutes 2 reps Comments assimulated seated on toilet, feet stride stance with increase EVA (allow pants to maintain at knees come to stand), hand placement reach forward for rail front, pull 1 UE/push from chair opp UE, reach down lateral knee each UE and opp UE on rail, after each side BUE on rail and steps fwd, body positioning w / marching lateral and back up fully to seat on R ( assimulate where wc sits in bathroom). Cued as needed for increased taller posturing during stepping (BUE on R rail ) noted improved TKE and reach back slow sit. Gait Training Gait Activity 4WW Description 4WW ambulation gym Device Used 4WW, w/c follow for seated rest ( followed) Level of Assistance CG-20% Ax1 Distance/Duration 124 ft Treatment Focus increase stride, foot clearance, safety w/4WW Comments Occasional cues for proximity to 4WW, Mod cues for taller posture, TKE, heel toe- improved foot clearance. trailing with wc PT-OP-T Assessment and Plan Start: 02/05/23 14:49 Freq: Status: Active Protocol: Document 03/17/23 13:47 SP (Rec: 03/17/23 16:47 SP [id number]) Physical Therapy Assessment Goals Three Impairment TUG score of 33.35 places pt within an increased falls risk category Spool Maker Goal (LTG) Pt should improve TUG score to a max time of 19 using the LRAD in order to demonstrate a decreasing falls risk LTG Duration 05/06/23 Two Impairment Pt ambulates 115' using a 4WW during a Two Minute Walk test Fpc Goal (LTG) A gait speed less than 1.97 ft /sec is indicative of a risk of further functional decline in older adults. Pt should demonstrate ability to ambulate at least 709' during a 6MWT in order to demonstrate improved activity tolerance and an increased gait speed. 02/26/23: able to walk 70ft 1st distance before needing to sit, then 90ft c/4WW, not timed. LTG Duration 05/06/23 progressing 02/26/23 One Impairment Pt does not have an appropriate home exercise program Short Term Goal (STG) Pt to be independent and compliant with an appropriate HEP STG Duration 03/28/23 Assessment Summary Assessment Pt improved TKE and ability to follow 1 step instructions to allow assimulation pant mgt in standing this tx for decrease risk if pants falling down and tripping him during transition commode>stand>w/c. Will continue to work on this. Good quad&glut firing during step ups with cues for posture and TKE. Physical Therapy Plan Frequency and Duration Frequency of Treatment 2x/Week Plan of Care Start Date 02/05/23 Plan of Care End Date 05/06/23 Therapeutic Interventions Therapeutic Interventions Balance Training,Gait Training ,Home Exercise Program,Manual Therapy,Neuromuscular Re- education,Patient/Caregiver Education,Self-Care/Home Management,Soft Tissue Mobilization,Therapeutic Activities,Therapeutic Exercises,Wheelchair Management Modalities Cold Pack/Ice Massage,Hot Packs Next Visit Focus/Plan Next Note Type Treatment Note Next Visit Plan PN in 2 visits. Continue transfer training with spouse smaller space ( bathroom set up), use of AD/ grab bar during transfers for increased functional I in mobility and toileting, include pants mgt during sequence for increase I and stability standing. POC: stretching and Cue taller posture, TKE in standing. POC: Hip/knee stretching, LE/ UE strengthening, turning at 4WW to allow pt and to walk without w/c follow.
--- NOTE | 2023-03-19 09:45 | PT.OTN ---
Current Diagnoses Muscle weakness (generalized) (03/19/23) Unsteadiness on feet (03/19/23) Other fatigue (03/19/23) History of falling (03/19/23) Physical Therapy Treatment Note PT-OP-A Visit Information Start: 02/05/23 14:49 Freq: Status: Active Protocol: Document 03/19/23 09:05 SP (Rec: 03/19/23 09:49 SP [id number]) Out-Patient Physical Therapy Visit Information Visit Information Visit Type Treatment Note Visit Note observed treatment session, feedback on bathroom set up. Visit Start Time 09:05 Visit Stop Time 09:45 Total Visit Minutes 40 Visit Number 11 Number of SENIOR JAVA SOFTWARE DEVELOPER Visits 2 Evaluation Information Evaluation Date 02/05/23 PT-OP-B Current Condition Start: 02/05/23 14:49 Freq: Status: Active Protocol: Document 02/05/23 12:00 DCW (Rec: 02/05/23 15:11 DCW [id number]) Current Condition History of Current Condition Onset Date 08/17/22 Current Complaints Decreased mobility, gait difficulty, poor activity tolerance, weakness History of Current Condition Pt is an 87 year old male presenting to skilled therapy nearly six month after a fall at home, resulting in an intratrochanteric fracture of the left hip, which extended into 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 Following in-patient stay, pt was put on NWB status, and was discharged to a SNF due to inability for his family to care for him at home. Pt was NWB for approximately 3 months , and is now staying at [facility], attempting to return to prior levels of ambulation, strength, and activity tolerance in order to return home. Pt has finished home health pt at [facility], and patient, family, and [facility] feel he will benefit most from participating in out-patient therapy at this time. Has had multiple falls recently. Notes through this ordeal, he has not been moving much, and actually reports a 50 pound weight loss. Currently mostly gets around using a manual wheelchair, which he can self- propel using his LEs, does get up and walk a few hundred feet at [facility], usually with a w/c follow due to fatigue. Has had multiple falls since this all began in August. Treatment Goals Patient/Caregiver Goals Strengthen his legs, improve his gait, and decrease falls in order to be able to safely return home with family. PT-OP-C Subjective Start: 02/05/23 14:49 Freq: Status: Active Protocol: Document 03/19/23 09:05 SP (Rec: 03/19/23 09:49 SP [id number]) OP-PT Subjective Patient Comments Patient Comments Pt reports doing ok today. PT-OP-E Functional Tests Start: 02/05/23 14:49 Freq: Status: Active Protocol: Document 02/05/23 12:00 DCW (Rec: 02/05/23 15:11 DCW [id number]) Functional Tests 2 Minute Walk Test Distance 115' Device Used 4WW Comments 0.95 ft/sec 30 Second Sit to Stand Test Score x5 repetitions Comments Raised table to height of 21.5 Timed Up and Go (TUG) Score 33.35 /c 4WW Comments Single Trial - required repeated instructions TUG Impairment Rating 100% Impaired (Score 20) PT-OP-M Strength Start: 02/05/23 14:49 Freq: Status: Active Protocol: Document 02/05/23 12:00 DCW (Rec: 02/05/23 15:11 DCW [id number]) Hip Strength Hip Manual Muscle Testing Right Flexion (L2) 4 Good Abduction 3+ Fair+ Adduction 4- Good- External Rotation 4 Good Internal Rotation 4 Good Left Flexion (L2) 4 Good Abduction 3+ Fair+ Adduction 4- Good- External Rotation 3+ Fair+ Internal Rotation 4 Good Knee Strength Knee Manual Muscle Testing Right Flexion (S2) 5 Normal Extension (L3) 5 Normal Left Flexion (S2) 5 Normal Extension (L3) 5 Normal Ankle/Foot Strength Ankle and Foot Manual Muscle Testing Right Dorsiflexion (L4) 4+ Good+ Left Dorsiflexion (L4) 4- Good- PT-OP-Q Treatments Start: 02/05/23 14:49 Freq: Status: Active Protocol: Document 03/19/23 09:05 SP (Rec: 03/19/23 09:49 SP [id number]) Cardio Equipment Recumbent Elliptical (Biodex) Duration (Minutes) 5 Resistance 3 Seat Position 13 Other LEs only, 35RPM Gym Equipment Shuttle Recovery Unilateral Squats Details VCs for TKE Resistance 37# > 25#(one new band) 03/19 Shuttle Recovery Platform Stable Reps/Time 2x10 LLE, 8 reps and 10 reps RLE Bilateral Squats Details VCs for TKE Resistance 62#>50 (2 new bands) Shuttle Recovery Platform Stable Reps/Time 2x10 Therapeutic Exercises Supine Exercises LTR Supine Exercise Name LS rotation stretch Resistance AAROM Comments manual Piriformis Supine Exercise Name stretch Comments manual Hamstring Stretch Supine Exercise Name HS stretch Side bilateral Comments Manual SLR Standing Exercises step ups Standing Exercise Name in PT Resistance AROM Equipment Used bottom 4 stairs, BUE support on B HRs Reps/Minutes 10 reps each LE, step to patterning Comments Intermittent cue tall posture, improved glut and ES fac Gait Training Gait Activity 4WW Description 4WW ambulation gym Device Used 4WW, w/c follow for seated rest ( followed) Level of Assistance CG-20% Ax1 Distance/Duration 124 ft Treatment Focus increase stride, foot clearance, safety w/4WW Comments Occasional cues for proximity to 4WW, Mod cues for taller posture, TKE, heel toe- improved foot clearance. trailing with wc PT-OP-T Assessment and Plan Start: 02/05/23 14:49 Freq: Status: Active Protocol: Document 03/19/23 09:05 SP (Rec: 03/19/23 09:49 SP [id number]) Physical Therapy Assessment Goals Three Impairment TUG score of 33.35 places pt within an increased falls risk category Electroneurodiagnostic Technologist Goal (LTG) Pt should improve TUG score to a max time of 19 using the LRAD in order to demonstrate a decreasing falls risk LTG Duration 05/06/23 Two Impairment Pt ambulates 115' using a 4WW during a Two Minute Walk test [facility] Goal (LTG) A gait speed less than 1.97 ft /sec is indicative of a risk of further functional decline in older adults. Pt should demonstrate ability to ambulate at least 709' during a 6MWT in order to demonstrate improved activity tolerance and an increased gait speed. 02/26/23: able to walk 70ft 1st distance before needing to sit, then 90ft c/4WW, not timed. LTG Duration 05/06/23 progressing 02/26/23 One Impairment Pt does not have an appropriate home exercise program Short Term Goal (STG) Pt to be independent and compliant with an appropriate HEP STG Duration 03/28/23 Assessment Summary Assessment Pt improved taller posture and improved TKE and hip extension post manual support stretching with less cues for glut squeeze during step ups. Pt was able to increase gait 124 ft after seated rest post ther ex. Physical Therapy Plan Frequency and Duration Frequency of Treatment 2x/Week Plan of Care Start Date 02/05/23 Plan of Care End Date 05/06/23 Therapeutic Interventions Therapeutic Interventions Balance Training,Gait Training ,Home Exercise Program,Manual Therapy,Neuromuscular Re- education,Patient/Caregiver Education,Self-Care/Home Management,Soft Tissue Mobilization,Therapeutic Activities,Therapeutic Exercises,Wheelchair Management Modalities Cold Pack/Ice Massage,Hot Packs Next Visit Focus/Plan Next Note Type Progress Note Next Visit Plan 11th visit next tx. POC: Continue transfer training with spouse smaller space (bathroom set up), use of AD/grab bar during transfers for increased functional I in mobility and toileting, include pants mgt during sequence for increase I and stability standing. POC: stretching and Cue taller posture, TKE in standing. POC: Hip/knee stretching, LE/ UE strengthening, turning at 4WW to allow pt and to walk without w/c follow.
--- NOTE | 2023-03-23 14:30 | PT.OTN ---
Current Diagnoses Muscle weakness (generalized) (03/23/23) Unsteadiness on feet (03/23/23) Other fatigue (03/23/23) History of falling (03/23/23) Physical Therapy Treatment Note PT-OP-A Visit Information Start: 02/05/23 14:49 Freq: Status: Active Protocol: Document 03/23/23 13:52 SP (Rec: 03/23/23 14:35 SP [id number]) Out-Patient Physical Therapy Visit Information Visit Information Visit Type Treatment Note Visit Note observed treatment session, feedback on bathroom set up. Visit Start Time 13:52 Visit Stop Time 14:30 Total Visit Minutes 38 Visit Number 12 Number of PHYSICIAN PRACTICE CONSULTANT Visits 3 Evaluation Information Evaluation Date 02/05/23 PT-OP-B Current Condition Start: 02/05/23 14:49 Freq: Status: Active Protocol: Document 02/05/23 12:00 DCW (Rec: 02/05/23 15:11 DCW [id number]) Current Condition History of Current Condition Onset Date 08/17/22 Current Complaints Decreased mobility, gait difficulty, poor activity tolerance, weakness History of Current Condition Pt is an 87 year old male presenting to skilled therapy nearly six month after a fall at home, resulting in an intratrochanteric fracture of the left hip, which extended into 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 Following in-patient stay, pt was put on NWB status, and was discharged to a SNF due to inability for his family to care for him at home. Pt was NWB for approximately 3 months , and is now staying at [facility], attempting to return to prior levels of ambulation, strength, and activity tolerance in order to return home. Pt has finished home health pt at [facility], and patient, family, and [facility] feel he will benefit most from participating in out-patient therapy at this time. Has had multiple falls recently. Notes through this ordeal, he has not been moving much, and actually reports a 50 pound weight loss. Currently mostly gets around using a manual wheelchair, which he can self- propel using his LEs, does get up and walk a few hundred feet at [facility], usually with a w/c follow due to fatigue. Has had multiple falls since this all began in August. Treatment Goals Patient/Caregiver Goals Strengthen his legs, improve his gait, and decrease falls in order to be able to safely return home with family. PT-OP-C Subjective Start: 02/05/23 14:49 Freq: Status: Active Protocol: Document 03/23/23 13:52 SP (Rec: 03/23/23 14:35 SP [id number]) OP-PT Subjective Patient Comments Patient Comments reported he took a TYlenol later in the evening due to R lateral quad discomfort/pull feeling. She reported PT-OP-E Functional Tests Start: 02/05/23 14:49 Freq: Status: Active Protocol: Document 02/05/23 12:00 DCW (Rec: 02/05/23 15:11 DCW [id number]) Functional Tests 2 Minute Walk Test Distance 115' Device Used 4WW Comments 0.95 ft/sec 30 Second Sit to Stand Test Score x5 repetitions Comments Raised table to height of 21.5 Timed Up and Go (TUG) Score 33.35 /c 4WW Comments Single Trial - required repeated instructions TUG Impairment Rating 100% Impaired (Score 20) PT-OP-M Strength Start: 02/05/23 14:49 Freq: Status: Active Protocol: Document 02/05/23 12:00 DCW (Rec: 02/05/23 15:11 DCW [id number]) Hip Strength Hip Manual Muscle Testing Right Flexion (L2) 4 Good Abduction 3+ Fair+ Adduction 4- Good- External Rotation 4 Good Internal Rotation 4 Good Left Flexion (L2) 4 Good Abduction 3+ Fair+ Adduction 4- Good- External Rotation 3+ Fair+ Internal Rotation 4 Good Knee Strength Knee Manual Muscle Testing Right Flexion (S2) 5 Normal Extension (L3) 5 Normal Left Flexion (S2) 5 Normal Extension (L3) 5 Normal Ankle/Foot Strength Ankle and Foot Manual Muscle Testing Right Dorsiflexion (L4) 4+ Good+ Left Dorsiflexion (L4) 4- Good- PT-OP-Q Treatments Start: 02/05/23 14:49 Freq: Status: Active Protocol: Document 03/23/23 13:52 SP (Rec: 03/23/23 14:35 SP [id number]) Therapeutic Exercises Standing Exercises ankle strategy rocking Standing Exercise Name reviewed self HEP: ankle DF/PF Resistance AROM Equipment Used KENNEDY, facing //bar (#39) Reps/Minutes 2x10 Comments Max cues elongated posture, occasional B TKE, not to close to bar side stepping Side bilateral Equipment Used //bars (#39), BUE> 1 UE Reps/Minutes 2 laps before required sit rest Comments Mod cues for taller posturing, TKE Therapeutic Activity Therapeutic Activity Using 4WW as seat Name pivot turns to sit on 4WW, ed position if available against facing wall Reps/Minutes x4 reps between gait distances Comments Struggled standing from 4WW Mod A, cued scoot fwd and trunk wt shift fwd, downward pressure through handles and added support come to stand completed on on 3rd attempt, tends lean back and unsafely tip 4WW back. Gait Training Gait Activity 4WW Description 4WW ambulation gym Device Used 4WW, w/c follow for seated rest ( followed) Level of Assistance CG-20% Ax1 Distance/Duration 107, 32, 87ft Treatment Focus increase stride, foot clearance, safety w/4WW Comments Max cues for proximity to 4WW, Mod cues for taller posture, TKE, heel toe- improved foot clearance. trailing with wc but not needed. PT-OP-T Assessment and Plan Start: 02/05/23 14:49 Freq: Status: Active Protocol: Document 03/23/23 13:52 SP (Rec: 03/23/23 14:35 SP [id number]) Physical Therapy Assessment Goals Three Impairment TUG score of 33.35 places pt within an increased falls risk category Correction Goal (LTG) Pt should improve TUG score to a max time of 19 using the LRAD in order to demonstrate a decreasing falls risk LTG Duration 05/06/23 Two Impairment Pt ambulates 115' using a 4WW during a Two Minute Walk test Correction Goal (LTG) A gait speed less than 1.97 ft /sec is indicative of a risk of further functional decline in older adults. Pt should demonstrate ability to ambulate at least 709' during a 6MWT in order to demonstrate improved activity tolerance and an increased gait speed. 02/26/23: able to walk 70ft 1st distance before needing to sit, then 90ft c/4WW, not timed. LTG Duration 05/06/23 progressing 02/26/23 One Impairment Pt does not have an appropriate home exercise program Short Term Goal (STG) Pt to be independent and compliant with an appropriate HEP STG Duration 03/28/23 Assessment Summary Assessment Tx focused safe transfers and proper positioning use of 4ww to sit on if needed while in community and around his PATT[place]. Pt improved taller posture and marching pivot turns within 4WW when preparing to sit and stand with max 1 step cues. He struggles to come to stand without additional support and max cues for hip hinge and wt shift fwd with BUE downward pressure to complet come to stand Mod A throught gait belt. Pt continues to require cuing for proximity to 4WW, increase posture and TKE which assists support improved foot clearnace and stride. Pt would benefit from continued stretching and step up strengthening, which noted is performing ankle strategy rocking over KENNEDY wedge in his room with CGA and reviewed today in tx for safety, good to support strengthening standing bathroom endurance for pericare/pants mgt. Physical Therapy Plan Frequency and Duration Frequency of Treatment 2x/Week Plan of Care Start Date 02/05/23 Plan of Care End Date 05/06/23 Therapeutic Interventions Therapeutic Interventions Balance Training,Gait Training ,Home Exercise Program,Manual Therapy,Neuromuscular Re- education,Patient/Caregiver Education,Self-Care/Home Management,Soft Tissue Mobilization,Therapeutic Activities,Therapeutic Exercises,Wheelchair Management Modalities Cold Pack/Ice Massage,Hot Packs Next Visit Focus/Plan Next Note Type Progress Note Next Visit Plan PN 13th visit 03/30. POC: Continue transfer training with 4WW and with spouse smaller space (bathroom set up), use of AD/grab bar during transfers for increased functional I in mobility and toileting, include pants mgt during sequence for increase I and stability standing. POC: stretching and Cue taller posture, TKE in standing. POC: Hip/knee stretching, LE/ UE strengthening, turning at 4WW to allow pt and to walk without w/c follow.
--- NOTE | 2023-03-30 16:07 | PT.OTN ---
Current Diagnoses Muscle weakness (generalized) (03/30/23) Unsteadiness on feet (03/30/23) Other fatigue (03/30/23) History of falling (03/30/23) Physical Therapy Treatment Note PT-OP-A Visit Information Start: 02/05/23 14:49 Freq: Status: Active Protocol: Document 03/30/23 15:15 DCW (Rec: 03/30/23 16:07 DCW [id number]) Out-Patient Physical Therapy Visit Information Visit Information Visit Type Progress Note Visit Note observed treatment session Visit Start Time 15:15 Visit Stop Time 16:00 Total Visit Minutes 45 Visit Number 13 Number of TOOL REPAIRER Visits 0 Evaluation Information Evaluation Date 02/05/23 PT-OP-B Current Condition Start: 02/05/23 14:49 Freq: Status: Active Protocol: Document 02/05/23 12:00 DCW (Rec: 02/05/23 15:11 DCW [id number]) Current Condition History of Current Condition Onset Date 08/17/22 Current Complaints Decreased mobility, gait difficulty, poor activity tolerance, weakness History of Current Condition Pt is an 87 year old male presenting to skilled therapy nearly six month after a fall at home, resulting in an intratrochanteric fracture of the left hip, which extended into 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 Following in-patient stay, pt was put on NWB status, and was discharged to a SNF due to inability for his family to care for him at home. Pt was NWB for approximately 3 months , and is now staying at [facility], attempting to return to prior levels of ambulation, strength, and activity tolerance in order to return home. Pt has finished home health pt at [facility], and patient, family, and [facility] feel he will benefit most from participating in out-patient therapy at this time. Has had multiple falls recently. Notes through this ordeal, he has not been moving much, and actually reports a 50 pound weight loss. Currently mostly gets around using a manual wheelchair, which he can self- propel using his LEs, does get up and walk a few hundred feet at [facility], usually with a w/c follow due to fatigue. Has had multiple falls since this all began in August. Treatment Goals Patient/Caregiver Goals Strengthen his legs, improve his gait, and decrease falls in order to be able to safely return home with family. PT-OP-C Subjective Start: 02/05/23 14:49 Freq: Status: Active Protocol: Document 03/30/23 15:15 DCW (Rec: 03/30/23 16:07 DCW [id number]) OP-PT Subjective Patient Comments Patient Comments Pt had his best Thanksgiving ever last week. PT-OP-E Functional Tests Start: 02/05/23 14:49 Freq: Status: Active Protocol: Document 02/05/23 12:00 DCW (Rec: 02/05/23 15:11 DCW [id number]) Functional Tests 2 Minute Walk Test Distance 115' Device Used 4WW Comments 0.95 ft/sec 30 Second Sit to Stand Test Score x5 repetitions Comments Raised table to height of 21.5 Timed Up and Go (TUG) Score 33.35 /c 4WW Comments Single Trial - required repeated instructions TUG Impairment Rating 100% Impaired (Score 20) PT-OP-M Strength Start: 02/05/23 14:49 Freq: Status: Active Protocol: Document 02/05/23 12:00 DCW (Rec: 02/05/23 15:11 DCW [id number]) Hip Strength Hip Manual Muscle Testing Right Flexion (L2) 4 Good Abduction 3+ Fair+ Adduction 4- Good- External Rotation 4 Good Internal Rotation 4 Good Left Flexion (L2) 4 Good Abduction 3+ Fair+ Adduction 4- Good- External Rotation 3+ Fair+ Internal Rotation 4 Good Knee Strength Knee Manual Muscle Testing Right Flexion (S2) 5 Normal Extension (L3) 5 Normal Left Flexion (S2) 5 Normal Extension (L3) 5 Normal Ankle/Foot Strength Ankle and Foot Manual Muscle Testing Right Dorsiflexion (L4) 4+ Good+ Left Dorsiflexion (L4) 4- Good- PT-OP-Q Treatments Start: 02/05/23 14:49 Freq: Status: Active Protocol: Document 03/30/23 15:15 DCW (Rec: 03/30/23 16:07 DCW [id number]) Cardio Equipment Recumbent Elliptical (Biodex) Duration (Minutes) 6 Resistance 3 Seat Position 13 Other LEs only, 319 steps Gym Equipment Shuttle Recovery Unilateral Squats Details VCs for TKE Resistance 37# (One new band) Shuttle Recovery Platform Stable Reps/Time 2x10 LLE, 8 reps and 10 reps RLE Bilateral Squats Details VCs for TKE Resistance 75# (Three new bands) Shuttle Recovery Platform Stable Reps/Time x15 Gait Training Gait Activity 4WW Description 4WW ambulation gym Device Used 4WW, w/c follow for seated rest ( followed) Level of Assistance CG-20% Ax1 Distance/Duration 70', 180', 30' Treatment Focus increase stride, foot clearance, safety w/4WW Comments Occasional cues for proximity to 4WW, Mod cues for taller posture, TKE. trailing with wc but not needed. Neuro Re-Education Treatment Balance Activities Hurdles Details Hurdles Equipment // bars Comments Fwd, Side-stepping PT-OP-T Assessment and Plan Start: 02/05/23 14:49 Freq: Status: Active Protocol: Document 03/30/23 15:15 DCW (Rec: 03/30/23 16:07 DCW [id number]) Physical Therapy Assessment Impairments Impairments Activity Tolerance,Balance, Functional Activities, Functional Mobility,Gait,Soft Tissue Mobility,Strength, Transfers Goals Three Impairment TUG score of 33.35 places pt within an increased falls risk category Marketing Consultant Goal (LTG) Pt should improve TUG score to a max time of 19 using the LRAD in order to demonstrate a decreasing falls risk LTG Duration 05/06/23 Two Impairment Pt ambulates 115' using a 4WW during a Two Minute Walk test Marketing Consultant Goal (LTG) A gait speed less than 1.97 ft /sec is indicative of a risk of further functional decline in older adults. Pt should demonstrate ability to ambulate at least 709' during a 6MWT in order to demonstrate improved activity tolerance and an increased gait speed. 02/26/23: able to walk 70ft 1st distance before needing to sit, then 90ft c/4WW, not timed. LTG Duration 05/06/23 progressing 02/26/23 One Impairment Pt does not have an appropriate home exercise program Short Term Goal (STG) Pt to be independent and compliant with an appropriate HEP STG Duration 03/28/23 Assessment Summary Assessment Pt did better today with keeping 4WW closer to himself when ambulating, and did well with new activity of hurdles. VCs to pick feet up higher to clear celine, especially with forward ambulation. Pt increasing gait distance, appears to be improving activity tolerance after getting treatment for previously undiagnosed UTI. Continue to focus on strength, activity tolerance, gait, and balance. Physical Therapy Plan Frequency and Duration Frequency of Treatment 2x/Week Plan of Care Start Date 02/05/23 Plan of Care End Date 05/06/23 Therapeutic Interventions Therapeutic Interventions Balance Training,Gait Training ,Home Exercise Program,Manual Therapy,Neuromuscular Re- education,Patient/Caregiver Education,Self-Care/Home Management,Soft Tissue Mobilization,Therapeutic Activities,Therapeutic Exercises,Wheelchair Management Modalities Cold Pack/Ice Massage,Hot Packs Next Visit Focus/Plan Next Note Type Treatment Note Next Visit Plan POC: Continue transfer training with 4WW and with spouse smaller space (bathroom set up), use of AD/grab bar during transfers for increased functional I in mobility and toileting, include pants mgt during sequence for increase I and stability standing. POC: stretching and Cue taller posture, TKE in standing. POC: Hip/knee stretching, LE/ UE strengthening, turning at 4WW to allow pt and to walk without w/c follow.
--- NOTE | 2023-04-02 12:47 | PT.OTN ---
Current Diagnoses Muscle weakness (generalized) (04/02/23) Unsteadiness on feet (04/02/23) Other fatigue (04/02/23) History of falling (04/02/23) Physical Therapy Treatment Note PT-OP-A Visit Information Start: 02/05/23 14:49 Freq: Status: Active Protocol: Document 04/02/23 12:03 DCW (Rec: 04/02/23 12:47 DCW [id number]) Out-Patient Physical Therapy Visit Information Visit Information Visit Type Treatment Note Visit Note observed treatment session Visit Start Time 12:03 Visit Stop Time 12:45 Total Visit Minutes 42 Visit Number 14 Number of UMBRELLA SUPERVISOR Visits 0 Evaluation Information Evaluation Date 02/05/23 PT-OP-B Current Condition Start: 02/05/23 14:49 Freq: Status: Active Protocol: Document 02/05/23 12:00 DCW (Rec: 02/05/23 15:11 DCW [id number]) Current Condition History of Current Condition Onset Date 08/17/22 Current Complaints Decreased mobility, gait difficulty, poor activity tolerance, weakness History of Current Condition Pt is an 87 year old male presenting to skilled therapy nearly six month after a fall at home, resulting in an intratrochanteric fracture of the left hip, which extended into 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 Following in-patient stay, pt was put on NWB status, and was discharged to a SNF due to inability for his family to care for him at home. Pt was NWB for approximately 3 months , and is now staying at [facility], attempting to return to prior levels of ambulation, strength, and activity tolerance in order to return home. Pt has finished home health pt at [facility], and patient, family, and [facility] feel he will benefit most from participating in out-patient therapy at this time. Has had multiple falls recently. Notes through this ordeal, he has not been moving much, and actually reports a 50 pound weight loss. Currently mostly gets around using a manual wheelchair, which he can self- propel using his LEs, does get up and walk a few hundred feet at [facility], usually with a w/c follow due to fatigue. Has had multiple falls since this all began in August. Treatment Goals Patient/Caregiver Goals Strengthen his legs, improve his gait, and decrease falls in order to be able to safely return home with family. PT-OP-C Subjective Start: 02/05/23 14:49 Freq: Status: Active Protocol: Document 04/02/23 12:03 DCW (Rec: 04/02/23 12:47 DCW [id number]) OP-PT Subjective Patient Comments Patient Comments Truthfully, I'm still asleep today. PT-OP-E Functional Tests Start: 02/05/23 14:49 Freq: Status: Active Protocol: Document 02/05/23 12:00 DCW (Rec: 02/05/23 15:11 DCW [id number]) Functional Tests 2 Minute Walk Test Distance 115' Device Used 4WW Comments 0.95 ft/sec 30 Second Sit to Stand Test Score x5 repetitions Comments Raised table to height of 21.5 Timed Up and Go (TUG) Score 33.35 /c 4WW Comments Single Trial - required repeated instructions TUG Impairment Rating 100% Impaired (Score 20) PT-OP-M Strength Start: 02/05/23 14:49 Freq: Status: Active Protocol: Document 02/05/23 12:00 DCW (Rec: 02/05/23 15:11 DCW [id number]) Hip Strength Hip Manual Muscle Testing Right Flexion (L2) 4 Good Abduction 3+ Fair+ Adduction 4- Good- External Rotation 4 Good Internal Rotation 4 Good Left Flexion (L2) 4 Good Abduction 3+ Fair+ Adduction 4- Good- External Rotation 3+ Fair+ Internal Rotation 4 Good Knee Strength Knee Manual Muscle Testing Right Flexion (S2) 5 Normal Extension (L3) 5 Normal Left Flexion (S2) 5 Normal Extension (L3) 5 Normal Ankle/Foot Strength Ankle and Foot Manual Muscle Testing Right Dorsiflexion (L4) 4+ Good+ Left Dorsiflexion (L4) 4- Good- PT-OP-Q Treatments Start: 02/05/23 14:49 Freq: Status: Active Protocol: Document 04/02/23 12:03 DCW (Rec: 04/02/23 12:47 DCW [id number]) Cardio Equipment Recumbent Elliptical (Biodex) Duration (Minutes) 6 Resistance 3 Seat Position 13 Other LEs only, 319 steps Therapeutic Exercises Standing Exercises ankle strategy rocking Standing Exercise Name reviewed self HEP: ankle DF/PF Resistance AROM Equipment Used KENNEDY, facing //bar (#39) Reps/Minutes 2x10 Comments Max cues elongated posture, occasional B TKE, not to close to bar Gait Training Gait Activity Stairs Device Used 6 step, B rail Distance/Duration 4 steps x1 Comments Step-to Ascend/Descend 4WW Description 4WW ambulation gym Device Used 4WW, w/c follow for seated rest ( followed) Level of Assistance CG-20% Ax1 Distance/Duration 70', 340', 30' Treatment Focus increase stride, foot clearance, safety w/4WW Comments Occasional cues for proximity to 4WW, Mod cues for taller posture, TKE. trailing with wc but not needed. Neuro Re-Education Treatment Balance Activities Hurdles Details Hurdles Equipment // bars Comments Fwd, Side-stepping PT-OP-T Assessment and Plan Start: 02/05/23 14:49 Freq: Status: Active Protocol: Document 04/02/23 12:03 DCW (Rec: 04/02/23 12:47 DCW [id number]) Physical Therapy Assessment Impairments Impairments Activity Tolerance,Balance, Functional Activities, Functional Mobility,Gait,Soft Tissue Mobility,Strength, Transfers Goals Three Impairment TUG score of 33.35 places pt within an increased falls risk category Baseball Glove Shaper Goal (LTG) Pt should improve TUG score to a max time of 19 using the LRAD in order to demonstrate a decreasing falls risk LTG Duration 05/06/23 Two Impairment Pt ambulates 115' using a 4WW during a Two Minute Walk test Baseball Glove Shaper Goal (LTG) A gait speed less than 1.97 ft /sec is indicative of a risk of further functional decline in older adults. Pt should demonstrate ability to ambulate at least 709' during a 6MWT in order to demonstrate improved activity tolerance and an increased gait speed. 02/26/23: able to walk 70ft 1st distance before needing to sit, then 90ft c/4WW, not timed. LTG Duration 05/06/23 progressing 02/26/23 One Impairment Pt does not have an appropriate home exercise program Short Term Goal (STG) Pt to be independent and compliant with an appropriate HEP STG Duration 03/28/23 Assessment Summary Assessment Significant increase in ambulation distance today, 180 ' last visit vs 340' today. Continue to focus on improving gait, balance, and activity tolerance. Physical Therapy Plan Frequency and Duration Frequency of Treatment 2x/Week Plan of Care Start Date 02/05/23 Plan of Care End Date 05/06/23 Therapeutic Interventions Therapeutic Interventions Balance Training,Gait Training ,Home Exercise Program,Manual Therapy,Neuromuscular Re- education,Patient/Caregiver Education,Self-Care/Home Management,Soft Tissue Mobilization,Therapeutic Activities,Therapeutic Exercises,Wheelchair Management Modalities Cold Pack/Ice Massage,Hot Packs Next Visit Focus/Plan Next Note Type Treatment Note Next Visit Plan POC: Continue transfer training with 4WW and with spouse smaller space (bathroom set up), use of AD/grab bar during transfers for increased functional I in mobility and toileting, include pants mgt during sequence for increase I and stability standing. POC: stretching and Cue taller posture, TKE in standing. POC: Hip/knee stretching, LE/ UE strengthening, turning at 4WW to allow pt and to walk without w/c follow.
--- NOTE | 2023-04-07 13:45 | PT.OTN ---
Current Diagnoses Muscle weakness (generalized) (04/07/23) Unsteadiness on feet (04/07/23) Other fatigue (04/07/23) History of falling (04/07/23) Physical Therapy Treatment Note PT-OP-A Visit Information Start: 02/05/23 14:49 Freq: Status: Active Protocol: Document 04/07/23 13:02 SP (Rec: 04/07/23 13:49 SP [id number]) Out-Patient Physical Therapy Visit Information Visit Information Visit Type Treatment Note Visit Note observed treatment session Visit Start Time 13:02 Visit Stop Time 13:45 Total Visit Minutes 43 Visit Number 15 Number of INFLATED PAD BUFFER Visits 1 Evaluation Information Evaluation Date 02/05/23 PT-OP-B Current Condition Start: 02/05/23 14:49 Freq: Status: Active Protocol: Document 02/05/23 12:00 DCW (Rec: 02/05/23 15:11 DCW [id number]) Current Condition History of Current Condition Onset Date 08/17/22 Current Complaints Decreased mobility, gait difficulty, poor activity tolerance, weakness History of Current Condition Pt is an 87 year old male presenting to skilled therapy nearly six month after a fall at home, resulting in an intratrochanteric fracture of the left hip, which extended into 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 Following in-patient stay, pt was put on NWB status, and was discharged to a SNF due to inability for his family to care for him at home. Pt was NWB for approximately 3 months , and is now staying at [facility], attempting to return to prior levels of ambulation, strength, and activity tolerance in order to return home. Pt has finished home health pt at [facility], and patient, family, and [facility] feel he will benefit most from participating in out-patient therapy at this time. Has had multiple falls recently. Notes through this ordeal, he has not been moving much, and actually reports a 50 pound weight loss. Currently mostly gets around using a manual wheelchair, which he can self- propel using his LEs, does get up and walk a few hundred feet at [facility], usually with a w/c follow due to fatigue. Has had multiple falls since this all began in August. Treatment Goals Patient/Caregiver Goals Strengthen his legs, improve his gait, and decrease falls in order to be able to safely return home with family. PT-OP-C Subjective Start: 02/05/23 14:49 Freq: Status: Active Protocol: Document 04/07/23 13:02 SP (Rec: 04/07/23 13:49 SP [id number]) OP-PT Subjective Patient Comments Patient Comments Pt reports I am here, what are we doing today. PT-OP-E Functional Tests Start: 02/05/23 14:49 Freq: Status: Active Protocol: Document 02/05/23 12:00 DCW (Rec: 02/05/23 15:11 DCW [id number]) Functional Tests 2 Minute Walk Test Distance 115' Device Used 4WW Comments 0.95 ft/sec 30 Second Sit to Stand Test Score x5 repetitions Comments Raised table to height of 21.5 Timed Up and Go (TUG) Score 33.35 /c 4WW Comments Single Trial - required repeated instructions TUG Impairment Rating 100% Impaired (Score 20) PT-OP-M Strength Start: 02/05/23 14:49 Freq: Status: Active Protocol: Document 02/05/23 12:00 DCW (Rec: 02/05/23 15:11 DCW [id number]) Hip Strength Hip Manual Muscle Testing Right Flexion (L2) 4 Good Abduction 3+ Fair+ Adduction 4- Good- External Rotation 4 Good Internal Rotation 4 Good Left Flexion (L2) 4 Good Abduction 3+ Fair+ Adduction 4- Good- External Rotation 3+ Fair+ Internal Rotation 4 Good Knee Strength Knee Manual Muscle Testing Right Flexion (S2) 5 Normal Extension (L3) 5 Normal Left Flexion (S2) 5 Normal Extension (L3) 5 Normal Ankle/Foot Strength Ankle and Foot Manual Muscle Testing Right Dorsiflexion (L4) 4+ Good+ Left Dorsiflexion (L4) 4- Good- PT-OP-Q Treatments Start: 02/05/23 14:49 Freq: Status: Active Protocol: Document 04/07/23 13:02 SP (Rec: 04/07/23 13:49 SP [id number]) Cardio Equipment Recumbent Elliptical (Biodex) Duration (Minutes) 8 Resistance 3 Seat Position 13 Other LEs only, 599 steps, 30-35RPMs Therapeutic Exercises Sitting Exercises LAQ Sitting Exercise Name LAQ Side bilateral Resistance 5# leg wt Reps/Minutes 2x 1 min Gait Training Gait Activity Stairs Device Used CG/ Min A Distance/Duration 6 steps staircase /c B HRs Treatment Focus taller Comments Step-to Ascend/Descend 4WW Description 4WW ambulation gym Device Used 4WW, w/c follow for seated rest ( followed) Level of Assistance CG>SBA Distance/Duration 324ft Treatment Focus increase stride, foot clearance, safety w/4WW Comments Occasional cues for proximity to 4WW, Mod cues for taller posture, TKE. trailing with wc but not needed. Neuro Re-Education Treatment Balance Activities obstacle course /c 4WW Details initiated in PT Equipment 4WW, 12 cones, golf balls Comments drive skills- ran over 3 cones , squat bean picker machine operator golf ball on cones while stabilizing stance little sways but no LOB CGA-5 %A, able bean picker machine operator 8/12 before needed to sit due to LE tiring . PT-OP-T Assessment and Plan Start: 02/05/23 14:49 Freq: Status: Active Protocol: Document 04/07/23 13:02 SP (Rec: 04/07/23 13:49 SP [id number]) Physical Therapy Assessment Goals Three Impairment TUG score of 33.35 places pt within an increased falls risk category Occupational Therapist Per Diem Goal (LTG) Pt should improve TUG score to a max time of 19 using the LRAD in order to demonstrate a decreasing falls risk LTG Duration 05/06/23 Two Impairment Pt ambulates 115' using a 4WW during a Two Minute Walk test Occupational Therapist Per Diem Goal (LTG) A gait speed less than 1.97 ft /sec is indicative of a risk of further functional decline in older adults. Pt should demonstrate ability to ambulate at least 709' during a 6MWT in order to demonstrate improved activity tolerance and an increased gait speed. 02/26/23: able to walk 70ft 1st distance before needing to sit, then 90ft c/4WW, not timed. LTG Duration 05/06/23 progressing 02/26/23 One Impairment Pt does not have an appropriate home exercise program Short Term Goal (STG) Pt to be independent and compliant with an appropriate HEP STG Duration 03/28/23 Assessment Summary Assessment Pt good effort this tx, able to progress gait 324 ft without seated rest and ableto ascend/descend stairs, cues for improved elongated posturing to allow increase hip and LS extension COG over EVA. Pt demonstrated increase endurance by 2 min on bike to 8 min with slight decrease cues for continued maintain pacing. Pt improved hip hinge squat activity, demonstrated improved stability to squat bean picker machine operator items while slight additional contact support from INFLATED PAD BUFFER and cues for squeeze brake on 4WW stationary positioning for safety. Physical Therapy Plan Frequency and Duration Frequency of Treatment 2x/Week Plan of Care Start Date 02/05/23 Plan of Care End Date 05/06/23 Therapeutic Interventions Therapeutic Interventions Balance Training,Gait Training ,Home Exercise Program,Manual Therapy,Neuromuscular Re- education,Patient/Caregiver Education,Self-Care/Home Management,Soft Tissue Mobilization,Therapeutic Activities,Therapeutic Exercises,Wheelchair Management Modalities Cold Pack/Ice Massage,Hot Packs Next Visit Focus/Plan Next Note Type Treatment Note Next Visit Plan POC: Continue transfer training with 4WW and with spouse smaller space (bathroom set up), use of AD/grab bar during transfers for increased functional I in mobility and toileting, include pants mgt during sequence for increase I and stability standing. POC: stretching and Cue taller posture, TKE in standing. POC: Hip/knee stretching, LE/ UE strengthening, turning at 4WW to allow pt and to walk without w/c follow.
--- NOTE | 2023-04-09 13:00 | PT.OTN ---
Current Diagnoses Muscle weakness (generalized) (04/09/23) Unsteadiness on feet (04/09/23) Other fatigue (04/09/23) History of falling (04/09/23) Physical Therapy Treatment Note PT-OP-A Visit Information Start: 02/05/23 14:49 Freq: Status: Active Protocol: Document 04/09/23 12:17 SP (Rec: 04/09/23 13:07 SP [id number]) Out-Patient Physical Therapy Visit Information Visit Information Visit Type Treatment Note Visit Note observed treatment session Visit Start Time 12:17 Visit Stop Time 13:00 Total Visit Minutes 43 Visit Number 16 Number of PLANT CULTURE MANAGER Visits 2 Evaluation Information Evaluation Date 02/05/23 PT-OP-B Current Condition Start: 02/05/23 14:49 Freq: Status: Active Protocol: Document 02/05/23 12:00 DCW (Rec: 02/05/23 15:11 DCW [id number]) Current Condition History of Current Condition Onset Date 08/17/22 Current Complaints Decreased mobility, gait difficulty, poor activity tolerance, weakness History of Current Condition Pt is an 87 year old male presenting to skilled therapy nearly six month after a fall at home, resulting in an intratrochanteric fracture of the left hip, which extended into 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 Following in-patient stay, pt was put on NWB status, and was discharged to a SNF due to inability for his family to care for him at home. Pt was NWB for approximately 3 months , and is now staying at [facility], attempting to return to prior levels of ambulation, strength, and activity tolerance in order to return home. Pt has finished home health pt at [facility], and patient, family, and [facility] feel he will benefit most from participating in out-patient therapy at this time. Has had multiple falls recently. Notes through this ordeal, he has not been moving much, and actually reports a 50 pound weight loss. Currently mostly gets around using a manual wheelchair, which he can self- propel using his LEs, does get up and walk a few hundred feet at [facility], usually with a w/c follow due to fatigue. Has had multiple falls since this all began in August. Treatment Goals Patient/Caregiver Goals Strengthen his legs, improve his gait, and decrease falls in order to be able to safely return home with family. PT-OP-C Subjective Start: 02/05/23 14:49 Freq: Status: Active Protocol: Document 04/09/23 12:17 SP (Rec: 04/09/23 13:07 SP [id number]) OP-PT Subjective Patient Comments Patient Comments Pt had nothing to report. PT-OP-E Functional Tests Start: 02/05/23 14:49 Freq: Status: Active Protocol: Document 02/05/23 12:00 DCW (Rec: 02/05/23 15:11 DCW [id number]) Functional Tests 2 Minute Walk Test Distance 115' Device Used 4WW Comments 0.95 ft/sec 30 Second Sit to Stand Test Score x5 repetitions Comments Raised table to height of 21.5 Timed Up and Go (TUG) Score 33.35 /c 4WW Comments Single Trial - required repeated instructions TUG Impairment Rating 100% Impaired (Score 20) PT-OP-M Strength Start: 02/05/23 14:49 Freq: Status: Active Protocol: Document 02/05/23 12:00 DCW (Rec: 02/05/23 15:11 DCW [id number]) Hip Strength Hip Manual Muscle Testing Right Flexion (L2) 4 Good Abduction 3+ Fair+ Adduction 4- Good- External Rotation 4 Good Internal Rotation 4 Good Left Flexion (L2) 4 Good Abduction 3+ Fair+ Adduction 4- Good- External Rotation 3+ Fair+ Internal Rotation 4 Good Knee Strength Knee Manual Muscle Testing Right Flexion (S2) 5 Normal Extension (L3) 5 Normal Left Flexion (S2) 5 Normal Extension (L3) 5 Normal Ankle/Foot Strength Ankle and Foot Manual Muscle Testing Right Dorsiflexion (L4) 4+ Good+ Left Dorsiflexion (L4) 4- Good- PT-OP-Q Treatments Start: 02/05/23 14:49 Freq: Status: Active Protocol: Document 04/09/23 12:17 SP (Rec: 04/09/23 13:07 SP [id number]) Cardio Equipment Recumbent Elliptical (Biodex) Duration (Minutes) 8 Resistance 3 Seat Position 13 Other LEs only, 599 steps, 30-35RPMs Therapeutic Exercises Standing Exercises ankle strategy rocking Standing Exercise Name reviewed self HEP: ankle DF/PF Resistance AROM Equipment Used KENNEDY, facing //bar (#39) Reps/Minutes 2x10 Comments Max cues elongated posture, occasional B TKE, not to close to bar step ups Standing Exercise Name in PT Resistance AROM Equipment Used bottom 4 stairs, BUE support on B HRs Reps/Minutes 10 reps each LE, step to patterning Comments Intermittent cue tall posture, improved glut and ES fac Therapeutic Activity Therapeutic Activity Using 4WW as seat Name pivot turns to sit on 4WW, ed position if available against facing wall Reps/Minutes x2 reps between gait distances Comments Struggled standing from 4WW Mod A, cued scoot fwd and trunk wt shift fwd, downward pressure through handles and added support come to stand completed on on 2nd attempt, tends lean back and unsafely tip 4WW back. Gait Training Gait Activity 4WW Description 4WW ambulation gym Device Used 4WW, w/c follow for seated rest ( followed) Level of Assistance CG>SBA Distance/Duration 110 ft, 80 ft, 10 ft x2 between chairs Treatment Focus increase stride, foot clearance, safety w/4WW Comments Occasional cues for proximity to 4WW, Mod cues for taller posture, TKE. trailing with wc. Neuro Re-Education Treatment Balance Activities TUG Equipment 4WW, mesh chair + blue foam Comments 46 sec, 40 sec fall into chair w/BUE on 4WW, 41 sec, improve pivot and slow descent PT-OP-T Assessment and Plan Start: 02/05/23 14:49 Freq: Status: Active Protocol: Document 04/09/23 12:17 SP (Rec: 04/09/23 13:07 SP [id number]) Physical Therapy Assessment Goals Three Impairment TUG score of 33.35 places pt within an increased falls risk category Jail Goal (LTG) Pt should improve TUG score to a max time of 19 using the LRAD in order to demonstrate a decreasing falls risk LTG Duration 05/06/23 Two Impairment Pt ambulates 115' using a 4WW during a Two Minute Walk test Jail Goal (LTG) A gait speed less than 1.97 ft /sec is indicative of a risk of further functional decline in older adults. Pt should demonstrate ability to ambulate at least 709' during a 6MWT in order to demonstrate improved activity tolerance and an increased gait speed. 02/26/23: able to walk 70ft 1st distance before needing to sit, then 90ft c/4WW, not timed. LTG Duration 05/06/23 progressing 02/26/23 One Impairment Pt does not have an appropriate home exercise program Short Term Goal (STG) Pt to be independent and compliant with an appropriate HEP STG Duration 03/28/23 Assessment Summary Assessment Pt decreased endurance today, required rest breaks between activities today due to tiring quicker. Pt requires max cues today for sequencing pivot turn to sit on 4WW. End tx, discussed working together with for transfers using 4WW and short distance gait to progress carryover at [facility], unsure how much staff at facility assists him. She doesnt' feel he is 100% safe transfering himself in his appt and would like to help him more when she is visiting. Physical Therapy Plan Frequency and Duration Frequency of Treatment 2x/Week Plan of Care Start Date 02/05/23 Plan of Care End Date 05/06/23 Therapeutic Interventions Therapeutic Interventions Balance Training,Gait Training ,Home Exercise Program,Manual Therapy,Neuromuscular Re- education,Patient/Caregiver Education,Self-Care/Home Management,Soft Tissue Mobilization,Therapeutic Activities,Therapeutic Exercises,Wheelchair Management Modalities Cold Pack/Ice Massage,Hot Packs Next Visit Focus/Plan Next Note Type Treatment Note Next Visit Plan POC: Continue transfer training with 4WW and with spouse smaller space (bathroom set up, short room distances) , use of AD/grab bar during transfers for increased functional I in mobility and toileting, include pants mgt during sequence for increase I and stability standing. POC: stretching and Cue taller posture, TKE in standing. POC: Hip/knee stretching, LE/ UE strengthening, turning at 4WW to allow pt and to walk without w/c follow.
--- NOTE | 2023-04-14 14:35 | PT.OTN ---
Current Diagnoses Muscle weakness (generalized) (04/14/23) Unsteadiness on feet (04/14/23) Other fatigue (04/14/23) History of falling (04/14/23) Physical Therapy Treatment Note PT-OP-A Visit Information Start: 02/05/23 14:49 Freq: Status: Active Protocol: Document 04/14/23 13:45 DCW (Rec: 04/14/23 14:34 DCW [id number]) Out-Patient Physical Therapy Visit Information Visit Information Visit Type Treatment Note Visit Note observed treatment session Visit Start Time 13:45 Visit Stop Time 14:30 Total Visit Minutes 45 Visit Number 17 Number of QUOTE CLERK Visits 0 Evaluation Information Evaluation Date 02/05/23 PT-OP-B Current Condition Start: 02/05/23 14:49 Freq: Status: Active Protocol: Document 02/05/23 12:00 DCW (Rec: 02/05/23 15:11 DCW [id number]) Current Condition History of Current Condition Onset Date 08/17/22 Current Complaints Decreased mobility, gait difficulty, poor activity tolerance, weakness History of Current Condition Pt is an 87 year old male presenting to skilled therapy nearly six month after a fall at home, resulting in an intratrochanteric fracture of the left hip, which extended into 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 Following in-patient stay, pt was put on NWB status, and was discharged to a SNF due to inability for his family to care for him at home. Pt was NWB for approximately 3 months , and is now staying at [facility], attempting to return to prior levels of ambulation, strength, and activity tolerance in order to return home. Pt has finished home health pt at [facility], and patient, family, and [facility] feel he will benefit most from participating in out-patient therapy at this time. Has had multiple falls recently. Notes through this ordeal, he has not been moving much, and actually reports a 50 pound weight loss. Currently mostly gets around using a manual wheelchair, which he can self- propel using his LEs, does get up and walk a few hundred feet at [facility], usually with a w/c follow due to fatigue. Has had multiple falls since this all began in August. Treatment Goals Patient/Caregiver Goals Strengthen his legs, improve his gait, and decrease falls in order to be able to safely return home with family. PT-OP-C Subjective Start: 02/05/23 14:49 Freq: Status: Active Protocol: Document 04/14/23 13:45 DCW (Rec: 04/14/23 14:35 DCW [id number]) OP-PT Subjective Patient Comments Patient Comments PT doing well today. PT-OP-E Functional Tests Start: 02/05/23 14:49 Freq: Status: Active Protocol: Document 02/05/23 12:00 DCW (Rec: 02/05/23 15:11 DCW [id number]) Functional Tests 2 Minute Walk Test Distance 115' Device Used 4WW Comments 0.95 ft/sec 30 Second Sit to Stand Test Score x5 repetitions Comments Raised table to height of 21.5 Timed Up and Go (TUG) Score 33.35 /c 4WW Comments Single Trial - required repeated instructions TUG Impairment Rating 100% Impaired (Score 20) PT-OP-M Strength Start: 02/05/23 14:49 Freq: Status: Active Protocol: Document 02/05/23 12:00 DCW (Rec: 02/05/23 15:11 DCW [id number]) Hip Strength Hip Manual Muscle Testing Right Flexion (L2) 4 Good Abduction 3+ Fair+ Adduction 4- Good- External Rotation 4 Good Internal Rotation 4 Good Left Flexion (L2) 4 Good Abduction 3+ Fair+ Adduction 4- Good- External Rotation 3+ Fair+ Internal Rotation 4 Good Knee Strength Knee Manual Muscle Testing Right Flexion (S2) 5 Normal Extension (L3) 5 Normal Left Flexion (S2) 5 Normal Extension (L3) 5 Normal Ankle/Foot Strength Ankle and Foot Manual Muscle Testing Right Dorsiflexion (L4) 4+ Good+ Left Dorsiflexion (L4) 4- Good- PT-OP-Q Treatments Start: 02/05/23 14:49 Freq: Status: Active Protocol: Document 04/14/23 13:45 DCW (Rec: 04/14/23 14:34 DCW [id number]) Cardio Equipment Recumbent Elliptical (Biodex) Duration (Minutes) 8 Resistance 6 Seat Position 13 Therapeutic Exercises Standing Exercises Hip Extension Standing Exercise Name Extension Side bilateral Resistance Lv 2 Equipment Used // bars Other Exercises Resisted Ambulation Other Exercise Name Resisted side-stepping Resistance Lv 2 Equipment Used // bars Gait Training Gait Activity 4WW Description 4WW ambulation gym Device Used 4WW, w/c follow for seated rest ( followed) Level of Assistance CG>SBA Distance/Duration 60', 365' Treatment Focus increase stride, foot clearance, safety w/4WW Comments Occasional cues for proximity to 4WW, Mod cues for taller posture, TKE. trailing with wc. Neuro Re-Education Treatment Balance Activities obstacle course /c 4WW Details initiated in PT Equipment 4WW, 12 cones, golf balls Comments Placing balls on cones, using 4WW to stabilize as bending over. cones Hurdles Details Hurdles Equipment // bars Comments Fwd, Side-stepping PT-OP-T Assessment and Plan Start: 02/05/23 14:49 Freq: Status: Active Protocol: Document 04/14/23 13:45 DCW (Rec: 04/14/23 14:34 DCW [id number]) Physical Therapy Assessment Goals Three Impairment TUG score of 33.35 places pt within an increased falls risk category Management Trainee Marketing Goal (LTG) Pt should improve TUG score to a max time of 19 using the LRAD in order to demonstrate a decreasing falls risk LTG Duration 05/06/23 Two Impairment Pt ambulates 115' using a 4WW during a Two Minute Walk test Management Trainee Marketing Goal (LTG) A gait speed less than 1.97 ft /sec is indicative of a risk of further functional decline in older adults. Pt should demonstrate ability to ambulate at least 709' during a 6MWT in order to demonstrate improved activity tolerance and an increased gait speed. 02/26/23: able to walk 70ft 1st distance before needing to sit, then 90ft c/4WW, not timed. LTG Duration 05/06/23 progressing 02/26/23 One Impairment Pt does not have an appropriate home exercise program Short Term Goal (STG) Pt to be independent and compliant with an appropriate HEP STG Duration 03/28/23 Assessment Summary Assessment Continues to show overall improvement with gait tolerance, still requesting multiple breaks throughout session. Physical Therapy Plan Frequency and Duration Frequency of Treatment 2x/Week Plan of Care Start Date 02/05/23 Plan of Care End Date 05/06/23 Therapeutic Interventions Therapeutic Interventions Balance Training,Gait Training ,Home Exercise Program,Manual Therapy,Neuromuscular Re- education,Patient/Caregiver Education,Self-Care/Home Management,Soft Tissue Mobilization,Therapeutic Activities,Therapeutic Exercises,Wheelchair Management Modalities Cold Pack/Ice Massage,Hot Packs Next Visit Focus/Plan Next Note Type Treatment Note Next Visit Plan POC: Continue transfer training with 4WW and with spouse smaller space (bathroom set up, short room distances) , use of AD/grab bar during transfers for increased functional I in mobility and toileting, include pants mgt during sequence for increase I and stability standing. POC: stretching and Cue taller posture, TKE in standing. POC: Hip/knee stretching, LE/ UE strengthening, turning at 4WW to allow pt and to walk without w/c follow.
--- NOTE | 2023-04-16 17:11 | PT.OTN ---
Current Diagnoses Muscle weakness (generalized) (04/16/23) Unsteadiness on feet (04/16/23) Other fatigue (04/16/23) History of falling (04/16/23) Physical Therapy Treatment Note PT-OP-A Visit Information Start: 02/05/23 14:49 Freq: Status: Active Protocol: Document 04/16/23 14:40 SW (Rec: 04/16/23 15:17 SW [id number]) Out-Patient Physical Therapy Visit Information Visit Information Visit Type Treatment Note Visit Note observed treatment session Visit Start Time 14:30 Visit Stop Time 15:15 Total Visit Minutes 45 Visit Number 18 Number of SHELTER SUPERVISOR Visits 1 PT-OP-B Current Condition Start: 02/05/23 14:49 Freq: Status: Active Protocol: Document 02/05/23 12:00 DCW (Rec: 02/05/23 15:11 DCW [id number]) Current Condition History of Current Condition Onset Date 08/17/22 Current Complaints Decreased mobility, gait difficulty, poor activity tolerance, weakness History of Current Condition Pt is an 87 year old male presenting to skilled therapy nearly six month after a fall at home, resulting in an intratrochanteric fracture of the left hip, which extended into 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 Following in-patient stay, pt was put on NWB status, and was discharged to a SNF due to inability for his family to care for him at home. Pt was NWB for approximately 3 months , and is now staying at [facility], attempting to return to prior levels of ambulation, strength, and activity tolerance in order to return home. Pt has finished home health pt at [facility], and patient, family, and [facility] feel he will benefit most from participating in out-patient therapy at this time. Has had multiple falls recently. Notes through this ordeal, he has not been moving much, and actually reports a 50 pound weight loss. Currently mostly gets around using a manual wheelchair, which he can self- propel using his LEs, does get up and walk a few hundred feet at [facility], usually with a w/c follow due to fatigue. Has had multiple falls since this all began in August. Treatment Goals Patient/Caregiver Goals Strengthen his legs, improve his gait, and decrease falls in order to be able to safely return home with family. PT-OP-C Subjective Start: 02/05/23 14:49 Freq: Status: Active Protocol: Document 04/16/23 14:40 SW (Rec: 04/16/23 15:17 SW [id number]) OP-PT Subjective Patient Comments Patient Comments Pt reports nothing new between sessions this week. PT-OP-E Functional Tests Start: 02/05/23 14:49 Freq: Status: Active Protocol: Document 02/05/23 12:00 DCW (Rec: 02/05/23 15:11 DCW [id number]) Functional Tests 2 Minute Walk Test Distance 115' Device Used 4WW Comments 0.95 ft/sec 30 Second Sit to Stand Test Score x5 repetitions Comments Raised table to height of 21.5 Timed Up and Go (TUG) Score 33.35 /c 4WW Comments Single Trial - required repeated instructions TUG Impairment Rating 100% Impaired (Score 20) PT-OP-M Strength Start: 02/05/23 14:49 Freq: Status: Active Protocol: Document 02/05/23 12:00 DCW (Rec: 02/05/23 15:11 DCW [id number]) Hip Strength Hip Manual Muscle Testing Right Flexion (L2) 4 Good Abduction 3+ Fair+ Adduction 4- Good- External Rotation 4 Good Internal Rotation 4 Good Left Flexion (L2) 4 Good Abduction 3+ Fair+ Adduction 4- Good- External Rotation 3+ Fair+ Internal Rotation 4 Good Knee Strength Knee Manual Muscle Testing Right Flexion (S2) 5 Normal Extension (L3) 5 Normal Left Flexion (S2) 5 Normal Extension (L3) 5 Normal Ankle/Foot Strength Ankle and Foot Manual Muscle Testing Right Dorsiflexion (L4) 4+ Good+ Left Dorsiflexion (L4) 4- Good- PT-OP-Q Treatments Start: 02/05/23 14:49 Freq: Status: Active Protocol: Document 04/16/23 14:40 SW (Rec: 04/16/23 15:17 SW [id number]) Cardio Equipment Recumbent Elliptical (Thinker Thing) Duration (Minutes) 8 Resistance 6 Seat Position 13 Therapeutic Exercises Standing Exercises Hip Extension Standing Exercise Name Extension Side bilateral Resistance Lv 2 Equipment Used // bars Other Exercises Resisted Ambulation Other Exercise Name Resisted side-stepping Resistance Lv 2 Equipment Used // bars Gait Training Gait Activity 4WW Description 4WW ambulation gym Device Used 4WW, w/c follow for seated rest ( followed) Level of Assistance CG>SBA Distance/Duration 62', 83' Treatment Focus increase stride, foot clearance, safety w/4WW Comments Occasional cues for proximity to 4WW, Mod cues for taller posture, TKE. trailing with wc. Neuro Re-Education Treatment Balance Activities Hurdles Details Hurdles Equipment // bars Comments Fwd, Side-stepping, vc for posture and foot clearance PT-OP-T Assessment and Plan Start: 02/05/23 14:49 Freq: Status: Active Protocol: Document 04/16/23 14:40 SW (Rec: 04/16/23 15:17 SW [id number]) Physical Therapy Assessment Goals Three Impairment TUG score of 33.35 places pt within an increased falls risk category Half-Way Goal (LTG) Pt should improve TUG score to a max time of 19 using the LRAD in order to demonstrate a decreasing falls risk LTG Duration 05/06/23 Two Impairment Pt ambulates 115' using a 4WW during a Two Minute Walk test Cylinder Loader Goal (LTG) A gait speed less than 1.97 ft /sec is indicative of a risk of further functional decline in older adults. Pt should demonstrate ability to ambulate at least 709' during a 6MWT in order to demonstrate improved activity tolerance and an increased gait speed. 02/26/23: able to walk 70ft 1st distance before needing to sit, then 90ft c/4WW, not timed. LTG Duration 05/06/23 progressing 02/26/23 One Impairment Pt does not have an appropriate home exercise program Short Term Goal (STG) Pt to be independent and compliant with an appropriate HEP STG Duration 03/28/23 Assessment Summary Assessment Pt required multiple seated rest breaks throughout sesssion. Pt requires multiple verbal cues for safe handling with AD, brakes and proximity to seat prior to descending. Continued ther exercises to increase endurance, strength for progress toward goals within POC. Continued gait training this session, decreased ambulation distance during gait training, though gait training was executed at EOS contributing to increased pt fatigued. Physical Therapy Plan Frequency and Duration Frequency of Treatment 2x/Week Plan of Care Start Date 02/05/23 Plan of Care End Date 05/06/23 Therapeutic Interventions Therapeutic Interventions Balance Training,Gait Training ,Home Exercise Program,Manual Therapy,Neuromuscular Re- education,Patient/Caregiver Education,Self-Care/Home Management,Soft Tissue Mobilization,Therapeutic Activities,Therapeutic Exercises,Wheelchair Management Modalities Cold Pack/Ice Massage,Hot Packs Next Visit Focus/Plan Next Note Type Treatment Note Next Visit Plan POC: Continue transfer training with 4WW and with spouse smaller space (bathroom set up, short room distances) , use of AD/grab bar during transfers for increased functional I in mobility and toileting, include pants mgt during sequence for increase I and stability standing. POC: stretching and Cue taller posture, TKE in standing. POC: Hip/knee stretching, LE/ UE strengthening, turning at 4WW to allow pt and to walk without w/c follow.
--- NOTE | 2023-04-22 16:01 | PT.OPDS ---
Current Diagnoses Muscle weakness (generalized) (04/16/23) Unsteadiness on feet (04/16/23) Other fatigue (04/16/23) History of falling (04/16/23) Visit Care Team Role Provider Type Armando Lu MD Attending Provider Physician Family Provider Primary Care Provider Referring Provider Specialty: Family Practice Address: [facility] [place], [address] Email: [email or web address] Visit Number Visit Number 18 Discharge Summary PT-OP-B Current Condition Start: 02/05/23 14:49 Freq: Status: Active Protocol: Document 02/05/23 12:00 DCW (Rec: 02/05/23 15:11 DCW [id number]) Current Condition History of Current Condition Onset Date 08/17/22 Current Complaints Decreased mobility, gait difficulty, poor activity tolerance, weakness History of Current Condition Pt is an 87 year old male presenting to skilled therapy nearly six month after a fall at home, resulting in an intratrochanteric fracture of the left hip, which extended into 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 Following in-patient stay, pt was put on NWB status, and was discharged to a SNF due to inability for his family to care for him at home. Pt was NWB for approximately 3 months , and is now staying at [facility], attempting to return to prior levels of ambulation, strength, and activity tolerance in order to return home. Pt has finished home health pt at [facility], and patient, family, and [facility] feel he will benefit most from participating in out-patient therapy at this time. Has had multiple falls recently. Notes through this ordeal, he has not been moving much, and actually reports a 50 pound weight loss. Currently mostly gets around using a manual wheelchair, which he can self- propel using his LEs, does get up and walk a few hundred feet at [facility], usually with a w/c follow due to fatigue. Has had multiple falls since this all began in August. Treatment Goals Patient/Caregiver Goals Strengthen his legs, improve his gait, and decrease falls in order to be able to safely return home with family. PT-OP-C Subjective Start: 02/05/23 14:49 Freq: Status: Active Protocol: Document 12/14/23 14:40 SW (Rec: 04/16/23 15:17 SW [id number]) OP-PT Subjective Patient Comments Patient Comments Pt reports nothing new between sessions this week. PT-OP-E Functional Tests Start: 02/05/23 14:49 Freq: Status: Active Protocol: Document 02/05/23 12:00 DCW (Rec: 02/05/23 15:11 DCW [id number]) Functional Tests 2 Minute Walk Test Distance 115' Device Used 4WW Comments 0.95 ft/sec 30 Second Sit to Stand Test Score x5 repetitions Comments Raised table to height of 21.5 Timed Up and Go (TUG) Score 33.35 /c 4WW Comments Single Trial - required repeated instructions TUG Impairment Rating 100% Impaired (Score 20) PT-OP-M Strength Start: 02/05/23 14:49 Freq: Status: Active Protocol: Document 02/05/23 12:00 DCW (Rec: 02/05/23 15:11 DCW [id number]) Hip Strength Hip Manual Muscle Testing Right Flexion (L2) 4 Good Abduction 3+ Fair+ Adduction 4- Good- External Rotation 4 Good Internal Rotation 4 Good Left Flexion (L2) 4 Good Abduction 3+ Fair+ Adduction 4- Good- External Rotation 3+ Fair+ Internal Rotation 4 Good Knee Strength Knee Manual Muscle Testing Right Flexion (S2) 5 Normal Extension (L3) 5 Normal Left Flexion (S2) 5 Normal Extension (L3) 5 Normal Ankle/Foot Strength Ankle and Foot Manual Muscle Testing Right Dorsiflexion (L4) 4+ Good+ Left Dorsiflexion (L4) 4- Good- PT-OP-T Assessment and Plan Start: 02/05/23 14:49 Freq: Status: Active Protocol: Document 04/22/23 15:59 DCW (Rec: 04/22/23 16:01 DCW [id number]) Physical Therapy Assessment Assessment Summary Assessment Unfortunately, pt has been hospitalized for pneumonia the past ten days. Pt's stopped by clinic to report he was admitted on 04/17/23. Due to change in medical status, pt will be discharged from skilled PT at this time, will require a new referral in order to return in the future. Physical Therapy Plan Discharge Physical Therapy Discharge Reasons Change in Medical Status
== END 2023-04-29 15:05 | disposition home or self-care (01) ==
LOC: PHYS 14:30
PROVIDERS: Family Provider Family Medicine; PCP Family Medicine; Referring Provider Family Medicine; Visit Provider Family Medicine
DX: R26.81 Unsteadiness on feet (principal); Z91.81 History of falling; M62.81 Muscle weakness (generalized); R53.83 Other fatigue
CPT/HCPCS: 97110; 97112; 97116; 97140; 97163; 97530

== ENCOUNTER 2023-04-17 07:31 | Inpatient (IN) | payer MEDICARE, OTHER, SELFPAY ==
[2022-10-29 22:47] VITALS: BMI 24.5
[2023-04-17] VITALS (14 sets, daily range): BP systolic 92–128; BP diastolic 52–61; PULSE 72–83; RESP 19–30; TEMP 36.2–37.1; O2SAT 94–98; BMI 25.3; BMI 24.2
--- NOTE | 2023-04-17 07:38 | ED.SOB ---
HPI - SOB/Dyspnea General Chief Complaint: Shortness of Breath/Dyspnea Stated Complaint: SOB Time Seen by Provider: 04/17/23 07:38 History of Present Illness HPI Narrative: Patient 87-year-old male history of type 2 diabetes coronary artery disease prior pulmonary embolism on warfarin, CKD presenting today with increasing shortness of breath hypoxia. Unclear how long he is had difficulty breathing. [facility]. Per EMS he is a DNR, found to have difficulty breathing immediately placed on CPAP and given a DuoNeb treatment. He appears much more comfortable but is warm and diaphoretic with obvious coarse breath. No abdominal pain. Seems weak and confused. But able to follow commands. Related Data Home Medications Medication Instructions Recorded Confirmed atorvastatin 40 mg tablet 40 mg PO QPM 08/13/21 10/29/22 cholecalciferol (vitamin D3) 50 2,000 mcg PO DAILY 08/13/21 10/29/22 mcg (2,000 unit) capsule insulin glargine 100 unit/mL (3 10 unit SUBCUT BEDTIME 08/13/21 10/29/22 mL) subcutaneous pen (Parrutaglar KwikPen U-100 Insulin) metoprolol succinate 25 mg 37.5 mg PO BID 08/13/21 10/29/22 tablet,extended release 24 hr multivitamin 1 tab PO QAM 08/13/21 10/29/22 polyethylene glycol 3350 17 gram 17 g PO DAILY 08/13/21 10/29/22 oral powder packet (Miralax) gabapentin 100 mg capsule 100 mg PO QPM 08/18/22 10/29/22 isosorbide mononitrate 60 mg 80 mg PO DAILY 08/18/22 10/29/22 tablet,extended release 24 hr sertraline 100 mg tablet 125 mg PO DAILY 08/18/22 10/29/22 acetaminophen 500 mg tablet 1,000 mg PO TID PRN Pain (Scale 10/29/22 10/29/22 Score 1-3) bisacodyl 10 mg rectal suppository 10 mg AR DAILY PRN Constipation 10/29/22 10/29/22 (Dulcolax (bisacodyl)) warfarin 1 mg tablet 1 mg PO DAILY 10/29/22 10/29/22 Previous Rx's Medication Instructions Recorded cefdinir 300 mg capsule 300 mg PO BID #10 caps 11/01/22 tamsulosin 0.4 mg capsule (Flomax) 0.4 mg PO BEDTIME #30 caps 11/01/22 Allergies Allergy/AdvReac Type Severity Reaction Status Date / Time metoclopramide [From REGLAN] AdvReac Severe Dyskinesia Verified 04/17/23 07:50 morphine [MORPHINE] AdvReac Unknown Hallucinati Verified 04/17/23 07:50 ons narcotics AdvReac Severe Hallucinati Uncoded 04/17/23 07:50 ng Patient History Medical History Vitamin D deficiency Depression with anxiety Obesity Gout Low back pain Arthritis Vertigo Vertigo Ataxia CKD (chronic kidney disease), stage IV Peripheral neuropathy Type II diabetes mellitus Obstructive sleep apnea Anticoagulation therapy continued upon discharge Pulmonary embolism Hypertension Hyperlipidemia History of aortic valvular stenosis Chest pain ASCVD (arteriosclerotic cardiovascular disease) Surgical History Aortic valve replaced Social History household members: spouse Smoking Status: Former smoker alcohol intake: never Smoking Status: Former smoker alcohol intake frequency: 0-2 drinks per day Substance Use Type: does not use Exam Initial Vital Signs Initial Vital Signs: Vital Signs Temperature 98.7 F 04/17/23 07:35 Pulse Rate 75 04/17/23 07:35 Respiratory Rate 27 H 04/17/23 07:35 Blood Pressure 122/59 L 04/17/23 07:35 Pulse Oximetry 98 04/17/23 07:35 Oxygen Delivery Method Room Air 04/17/23 07:35 GENERAL: Alert week 87-year-old HEENT: Head atraumatic,EOMI, pupils reactive, face symmetric, moist mucous membranes CARDIOVASCULAR: Regular rate and rhythm without murmurs, rubs or gallops. RESPIRATORY: Coarse breath sounds ABDOMEN: Soft, nontender. Normoactive bowel sounds all 4 quadrants. No guarding or rebound. EXTREMITIES: Normal range of motion, no clubbing or edema. Neurovascularly intact NEUROLOGICAL: Alert and oriented x2. No facial droop diffusely weak in all extremities without focal SKIN: Warm, dry, no laceration, no petechiae, no rashes or lesions. Course Orders Ordered: ED Orders 04/17/23 07:34 Complete Blood Count AUTO DIFF Stat Comprehensive Metabolic Panel Stat Lactate (Lactic Acid) Stat Lipase Stat NT-proBNP (BNP-Adult 18+) Stat PTT Partial Thromboplastin Rodrigo Stat Procalcitonin Stat Prothrombin Time INR Stat Troponin & CK Cardiac Panel Stat 04/17/23 07:38 XR chest 1V Stat Respiratory Panel (Film Array) Stat 04/17/23 07:52 Blood Culture Stat 04/17/23 08:17 EKG-12 Lead Stat Atorvastatin Calcium (Atorvastatin 20 Mg Tablet) 40 mg PO QPM KASSANDRA Sodium Chloride (Normal Saline 0.9%) 1,000 mls @ 150 mls/hr IV CONT KASSANDRA Last Admin: 04/17/23 07:57 Dose: 150 mls/hr Documented By: TC Tamsulosin HCl (Tamsulosin 0.4 Mg Capsule) 0.4 mg PO BEDTIME KASSANDRA Discontinued Medications Acetaminophen (Acetaminophen 325 Mg Tablet) 650 mg PO Q6H PRN PRN Reason: Fever/Mild Pain (1-3) Hydrocodone Bitart/Acetaminophen (Hydrocodone/Acet 5/325 Tablet) 1 tab PO Q4H PRN PRN Reason: Pain, Moderate (4-6) Docusate Sodium (Docusate 100 Mg Capsule) 100 mg PO BID KASSANDRA Piperacillin Sod/Tazobactam (Sod 4.5 gm/ Sodium Chloride) 100 mls @ 200 mls/hr IV NOW ONE Stop: 04/17/23 07:59 Last Infusion: 04/17/23 08:57 Dose: Infused Documented By: Admin: 04/17/23 08:18 Dose: 200 mls/hr Documented By: MIKHAIL Dextrose ([email or web address]) 100 mls @ 1,200 mls/hr IV PRN PRN PRN Reason: Hypoglycemia Insulin Human Lispro (Insulin Lispro 100 Unit/Ml 3ml Vial) 0 unit SUBCUT ACHS KASSANDRA; Protocol Naloxone HCl (Naloxone 0.4 Mg/Ml Vial) 0.2 mg IV Q2MIN PRN PRN Reason: Opiate Reversal Vital Signs Vital signs: Vital Signs - 8 hr 04/17/23 07:35 04/17/23 07:35 04/17/23 07:40 Temperature 98.7 F Pulse Rate 75 74 Respiratory Rate 27 H Blood Pressure 122/59 L 122/59 L Pulse Oximetry 98 97 Oxygen Delivery Method Room Air Oxygen Flow Rate 04/17/23 07:40 04/17/23 08:00 04/17/23 08:00 Temperature Pulse Rate 76 79 Respiratory Rate 26 H 30 H Blood Pressure Pulse Oximetry 97 95 94 Oxygen Delivery Method Oxygen Flow Rate 5 04/17/23 08:30 04/17/23 08:51 04/17/23 08:51 Temperature Pulse Rate 83 83 Respiratory Rate 24 25 H Blood Pressure 112/53 L Pulse Oximetry 95 96 Oxygen Delivery Method High Flow Nasal Cannula High Flow Nasal Cannula Oxygen Flow Rate 5 5 04/17/23 09:00 04/17/23 09:00 Temperature Pulse Rate 82 Respiratory Rate 25 H Blood Pressure 113/58 L Pulse Oximetry Oxygen Delivery Method Nasal Cannula Oxygen Flow Rate 5 MDM - SOB/Dyspnea Lab Data 04/17/23 07:34 04/17/23 07:34 Labs: Lab Results 04/17/23 04/17/23 Range/Units 07:34 07:38 WBC 12.6 H (4.5-11.0) X10^3/uL RBC 3.37 L (4.5-5.9) X10^6/uL Hgb 10.4 L (13.5-17.5) g/dL Hct 31.0 L (41-53) % MCV 91.9 (80-100) fL MCH 30.8 (26-34) PG MCHC 33.5 (30-36) % RDW 15.2 H (11.6-14.8) % Plt Count 96 L (150-400) X10^3/uL Neut % (Auto) 83.4 H (50-75) % Lymph % (Auto) 12.1 L (25-40) % [place] % (Auto) 4.2 (3-14) % Eos % (Auto) 0.0 L (2-4) % Baso % (Auto) 0.3 (0-2) % Neut # (Auto) 83012 H (2842-9253) /uL Lymph # (Auto) 1500 (4758-2185) /uL [place] # (Auto) 500 (0-900) /uL Eos # (Auto) 0 (0-450) /uL Baso # (Auto) 0 (0-100) /uL PT 15.2 H (9.4-12.5) SECONDS INR 1.3 (0.9-1.3) APTT 34 (25.1-36.5) SECONDS Sodium 139 (137-145) mmol/L Potassium 5.4 H (3.4-5.1) mmol/L Chloride 108 H (98-107) mmol/L Carbon Dioxide 20 L (22-32) mmol/L BUN 88 H (9-20) mg/dL Creatinine 3.06 H (0.66-1.25) mg/dL Estimated GFR 19 L (>60) mL/min BUN/Creatinine Ratio 28.8 H (6-22) Glucose 135 H (80-110) mg/dL Lactate 1.5 (0.7-2.1) mmol/L Calcium 8.9 (8.4-10.2) mg/dL Total Bilirubin 0.8 (0.2-1.3) mg/dL AST 22 (17-59) IU/L ALT 16 (<50) IU/L Alkaline Phosphatase 73 (38-126) U/L Total Creatine Kinase 20 L (55-170) U/L Troponin I 0.112 H (0.01-0.034) ng/mL NT-Pro-B Natriuret Pep 6300 H (<450) pg/mL Total Protein 7.1 (6.3-8.2) g/dL Albumin 3.7 (3.5-5.0) g/dL Globulin 3.4 (1.7-4.1) g/dL Albumin/Globulin Ratio 1.1 (1.0-2.8) Lipase 47 (23-300) U/L Procalcitonin 5.36 H (<0.5) ng/mL Chlamy pneumoniae PCR Not detected (Not Detect) Adenovirus (PCR) Not detected (Not Detect) B.parapertussis DNA PCR Not detected (Not Detecte) Coronavirus OC43 (PCR) Not detected (Not Detect) Coronavirus HKU1 (PCR) Not detected (Not Detect) Coronavirus 229E (PCR) Not detected (Not Detect) SARS-CoV-2 (PCR) Not detected (Not Detecte) Coronavirus NL63 (PCR) Not detected (Not Detect) Human Metapneumovir PCR Not detected (Not Detect) Influenza Type A (PCR) Not detected (Not Detect) Influenza Type B (PCR) Not detected (Not Detect) M. pneumoniae (PCR) Not detected (Not Detect) Parainfluenza 1 (PCR) Not detected (Not Detect) Parainfluenza 2 (PCR) Not detected (Not Detect) Parainfluenza 3 (PCR) Not detected (Not Detect) Parainfluenza 4 (PCR) Not detected (Not Detect) RSV (PCR) Not detected (Not Detect) Entero/Rhino (PCR) Not detected (Not Detect) Imaging Data Chest x-ray: Radiologist's Impression: PROCEDURE: XR CHEST 1V INDICATIONS: Shortness of breath and fever TECHNIQUE: One view of the chest was acquired. COMPARISON: [facility], CR, XR CHEST 1V, 12/11/2022, 8:41. [facility], CR, XR CHEST 2V, 10/29/2022, 14:11. FINDINGS: Surgical changes and devices: Post median sternotomy and TAVR. Lungs and pleura: New patchy opacity most pronounced in the right mid lung field. No pleural effusions or pneumothorax. Mediastinum: Mediastinal contours appear unchanged. Heart size is normal. Bones and chest wall: No suspicious bony lesions. Overlying soft tissues appear unremarkable. IMPRESSION: Patchy opacity most pronounced in the right mid lung field. Suspect pneumonia. Dictated by: Anil Pgae M.D. on 04/17/2023 at 8:37 Approved by: Anil Page M.D. on 04/17/2023 at 8:39 ECG Data Interpretation: Sinus rhythm rate 76 AR interval 272 QRS [address] changes no ischemia noted MDM Narrative Medical decision making narrative: Patient 87-year-old male resides at assisted living history of CAD, diabetes, pulmonary embolism, presents today with difficulty breathing. On exam he definitely has coarse breath sounds was hypoxic for EMS required a CPAP however upon arrival was quickly de-escalated to nasal cannula but still required 4-5 L. x-ray confirms pneumonia. He is a negative viral panel. Other blood work reviewed showed leukocytosis 12.6 lactate 1.5 procalcitonin 5.36 correlating with pneumonia. He has chronic kidney disease with stable creatinine of 3.0, with potassium of 5.4 previously 5.9. Troponin indeterminate at 0.112 previously 0.048. He has a BNP of 6300 which seems to be baseline for him previously was 6180. He has no other evidence of volume overload. No peripheral edema. I suspect troponin is indeterminate secondary to sepsis in the setting of chronic kidney disease. Although patient does have history of coronary artery disease EKG does not show any ischemic changes. Long discussion with family about goals of care. No aggressive measures to be taken he has a pulsed form to confirm this. at bedside and I spoke to her on the phone agrees with supportive measures including fluids and antibiotics as needed. Patient not tachycardic or hypotensive with a normal lactic acid, normal bilirubin no concern for severe sepsis, sepsis fluids not given, but was started on maintenance fluids. There was also concern of potentially congestive heart failure initially. Patient does have a history of pulmonary embolism on warfarin with a subtherapeutic INR of 1.3. However based on x-ray and physical exam I suspect more of pneumonia rather than PE. Dr. Lu in ED to see and evaluate patient. Discharge Plan Departure Patient Disposition: Admitted As Inpatient Clinical Impression: Pneumonia Admit Date/Time: 04/17/23 09:20 Admit Provider: Armando Lu
[2023-04-17 07:47] LABS: Add Manual Diff / Slide Review NO; Basophils Absolute Auto 0 /uL (0-100); Basophils Percent Auto 0.3 % (0-2); Eosinophils Absolute Auto 0 /uL (0-450); Hemoglobin 10.4 g/dL (13.5-17.5); Lymphocytes Absolute Auto 1500 /uL (1100-4500); Lymphocytes Percent Auto 12.1 % (25-40); Mean Corpuscular HGB Conc 33.5 % (30-36); Mean Corpuscular Hemoglobin 30.8 PG (26-34); Mean Corpuscular Volume 91.9 fL (80-100); Monocytes Absolute Auto 500 /uL (0-900); Monocytes Percent Auto 4.2 % (3-14); Neutrophils Absolute Auto 10500 /uL (1500-7000); Neutrophils Percent Auto 83.4 % (50-75); Platelet Count 96 X10^3/uL (150-400); Red Blood Cell Count 3.37 X10^6/uL (4.5-5.9); Red Cell Distribution Width 15.2 % (11.6-14.8); White Blood Cell Count 12.6 X10^3/uL (4.5-11.0)
[2023-04-17 07:57] LABS: Alanine Aminotransferase 16 IU/L (<50); Albumin 3.7 g/dL (3.5-5.0); Albumin Globulin Ratio 1.1 (1.0-2.8); Alkaline Phosphatase 73 U/L (38-126); Aspartate Aminotransferase 22 IU/L (17-59); BUN Creatinine Ratio 28.8 (6-22); Bilirubin Total 0.8 mg/dL (0.2-1.3); Blood Urea Nitrogen 88 mg/dL (9-20); Calcium 8.9 mg/dL (8.4-10.2); Carbon Dioxide 20 mmol/L (22-32); Chloride 108 mmol/L (98-107); Creatine Kinase 20 U/L (55-170); Estimated Glomerular Filt Rate 19 mL/min (>60); Globulin 3.4 g/dL (1.7-4.1); Glucose 135 mg/dL (80-110); HEMOLYSIS < 15 (0-50); Lipase 47 U/L (23-300); Sodium 139 mmol/L (137-145); Total Protein 7.1 g/dL (6.3-8.2)
[2023-04-17] MEDS: SODIUM CHLORIDE 0.9% 1,000 ML 150 ML IV ×2 (07:57→14:35)
[2023-04-17 07:58] LABS: Lactate (Lactic Acid) 1.5 mmol/L (0.7-2.1); Potassium 5.4 mmol/L (3.4-5.1)
[2023-04-17 08:00] LABS: INR 1.3 (0.9-1.3); Prothrombin Time 15.2 SECONDS (9.4-12.5)
[2023-04-17 08:02] LABS: PTT Partial Thromboplastin Tim 34 SECONDS (25.1-36.5)
[2023-04-17 08:06] LABS: NT-proBNP (BNP-Adult 18+) 6300 pg/mL (<450)
[2023-04-17 08:09] LABS: Troponin I 0.112 ng/mL (0.01-0.034)
[2023-04-17 08:14] LABS: Procalcitonin 5.36 ng/mL (<0.5)
[2023-04-17] MEDS: PIPERACILLIN/TAZO 4.5 GM in SODIUM CHLORIDE 0.9% 100 ML IV (08:18)
--- NOTE | 2023-04-17 09:05 | RT ---
Called to bedside for resp distress pt. Pt bilat course and nts left nare for large amounts thick secretions, pt jovanny well with no bleeding or distress post suctioning.. Pt placed on 5 lpm nc and jovanny well.Bipap on stby per Dr. Burris
[2023-04-17 09:20] LABS: Adenovirus Not Detected (Not Detect); B. parapertussis Not Detected (Not Detecte); Bordetella pertussis Not Detected (Not Detect); Chlamydophila pneumoniae Not Detected (Not Detect); Coronavirus 229E Not Detected (Not Detect); Coronavirus HKU1 Not Detected (Not Detect); Coronavirus NL 63 Not Detected (Not Detect); Coronavirus OC43 Not Detected (Not Detect); Human Metapneumovirus Not Detected (Not Detect); Human Rhinovirus/Enterovirus Not Detected (Not Detect); Influenza A Not Detected (Not Detect); Influenza B Not Detected (Not Detect); Mycoplasma pneumoniae Not Detected (Not Detect); Parainfluenza Virus 1 Not Detected (Not Detect); Parainfluenza Virus 2 Not Detected (Not Detect); Parainfluenza Virus 3 Not Detected (Not Detect); Parainfluenza Virus 4 Not Detected (Not Detect); Respiratory Syncytial Virus Not Detected (Not Detect); SARS- CoV-2 Not Detected (Not Detecte)
--- NOTE | 2023-04-17 12:11 | PM.HP.1 ---
History of Present Illness History of Present Illness Date Patient Seen: 04/17/23 Time Patient Seen: 10:00 Date of Onset of Symptoms: 04/16/23 Chief complaint: SOB Narrative: Presents with from his assisted living facility. Started having cough/SOB last night and then deteriorated quickly, presented to ED needing a lot of oxygen, currently stable with fluids and zosyn on 5Ls via NC. Having some fevers which come down with tylenol. feels hungry. XR shows pneumonia. He has been working on his mobilization with PT at the facility and usually does pretty well with a RW around the facility. [facility] Medical History Vitamin D deficiency Depression with anxiety Obesity Gout Low back pain Arthritis Vertigo Vertigo Ataxia CKD (chronic kidney disease), stage IV Peripheral neuropathy Type II diabetes mellitus Obstructive sleep apnea Anticoagulation therapy continued upon discharge Pulmonary embolism Hypertension Hyperlipidemia History of aortic valvular stenosis Chest pain ASCVD (arteriosclerotic cardiovascular disease) Surgical History Aortic valve replaced Social History household members: spouse Smoking Status: Former smoker alcohol intake: never Meds Home Medications and Allergies Home Medications Medication Instructions Recorded Confirmed Type atorvastatin 40 mg tablet 40 mg PO QPM 08/13/21 04/17/23 History cholecalciferol (vitamin D3) 50 2,000 mcg PO DAILY 08/13/21 04/17/23 History mcg (2,000 unit) capsule insulin glargine 100 unit/mL (3 10 unit SUBCUT BEDTIME 08/13/21 04/17/23 History mL) subcutaneous pen (Basaglar KwikPen U-100 Insulin) multivitamin 1 tab PO QAM 08/13/21 04/17/23 History polyethylene glycol 3350 17 gram 17 g PO DAILY 08/13/21 04/17/23 History oral powder packet (Miralax) gabapentin 100 mg capsule 100 mg PO QPM 08/18/22 04/17/23 History isosorbide mononitrate 60 mg 80 mg PO DAILY 08/18/22 04/17/23 History tablet,extended release 24 hr sertraline 100 mg tablet 125 mg PO DAILY 08/18/22 04/17/23 History acetaminophen 500 mg tablet 1,000 mg PO TID PRN Pain (Scale 10/29/22 04/17/23 History Score 1-3) bisacodyl 10 mg rectal suppository 10 mg CA DAILY PRN Constipation 10/29/22 04/17/23 History (Dulcolax (bisacodyl)) tamsulosin 0.4 mg capsule (Flomax) 0.4 mg PO BEDTIME #30 caps 11/01/22 04/17/23 Rx Allergies Allergy/AdvReac Type Severity Reaction Status Date / Time metoclopramide [From REGLAN] AdvReac Severe Dyskinesia Verified 04/17/23 07:50 morphine [MORPHINE] AdvReac Unknown Hallucinati Verified 04/17/23 07:50 ons narcotics AdvReac Severe Hallucinati Uncoded 04/17/23 07:50 ng Review of Systems Review of Systems Narrative: all systems reviewed and negative except as otherwise documented in HPI Exam Vital Signs (past 8 hours): - 04/17/23 07:35 04/17/23 07:35 04/17/23 07:40 Temperature 98.7 F Pulse Rate 75 74 Respiratory Rate 27 H Blood Pressure 122/59 L 122/59 L Pulse Oximetry 98 97 Oxygen Delivery Method Room Air Oxygen Flow Rate 04/17/23 07:40 04/17/23 08:00 04/17/23 08:00 Temperature Pulse Rate 76 79 Respiratory Rate 26 H 30 H Blood Pressure Pulse Oximetry 97 95 94 Oxygen Delivery Method Oxygen Flow Rate 5 04/17/23 08:30 04/17/23 08:51 04/17/23 08:51 Temperature Pulse Rate 83 83 Respiratory Rate 24 25 H Blood Pressure 112/53 L Pulse Oximetry 95 96 Oxygen Delivery Method High Flow Nasal Cannula High Flow Nasal Cannula Oxygen Flow Rate 5 5 04/17/23 09:00 04/17/23 09:00 04/17/23 09:30 Temperature Pulse Rate 82 79 Respiratory Rate 25 H 23 Blood Pressure 113/58 L Pulse Oximetry 96 Oxygen Delivery Method Nasal Cannula Oxygen Flow Rate 5 04/17/23 09:30 04/17/23 09:49 04/17/23 10:00 Temperature Pulse Rate 77 Respiratory Rate 24 Blood Pressure 101/56 L Pulse Oximetry 96 96 Oxygen Delivery Method Nasal Cannula Oxygen Flow Rate 5 04/17/23 10:00 04/17/23 10:30 04/17/23 10:35 Temperature 97.1 F L Pulse Rate 75 74 Respiratory Rate 20 Blood Pressure 103/56 L 92/54 L Pulse Oximetry 98 Oxygen Delivery Method Oxygen Flow Rate 04/17/23 10:45 04/17/23 10:55 Temperature Pulse Rate Respiratory Rate Blood Pressure Pulse Oximetry 95 Oxygen Delivery Method Nasal Cannula Nasal Cannula Oxygen Flow Rate 5 Oxygen Delivery Method Nasal Cannula Oxygen Flow Rate 5 Narrative Exam Narrative: pale laying in bed looks weak Const General: cooperative, well developed and in distress [facility] Head: normocephalic and atraumatic Resp Other: 5L via NC, moving air ok lot of mouth breathing, auscultation is grossly junky bilaterally Cardio Other: regular rate, S1/S2 GI Other: soft nontender active bowel sounds Neuro Other: alert awake interactive moving all limbs Extrem Other: moving all four limbs, no pedal edema Objective Labs 04/17/23 07:34 04/17/23 07:34 Labs: Laboratory Results - last 24 hr 04/17/23 04/17/23 07:34 07:38 WBC 12.6 H RBC 3.37 L Hgb 10.4 L Hct 31.0 L MCV 91.9 MCH 30.8 MCHC 33.5 RDW 15.2 H Plt Count 96 L Neut % (Auto) 83.4 H Lymph % (Auto) 12.1 L [place] % (Auto) 4.2 Eos % (Auto) 0.0 L Baso % (Auto) 0.3 Neut # (Auto) 59721 H Lymph # (Auto) 1500 [place] # (Auto) 500 Eos # (Auto) 0 Baso # (Auto) 0 PT 15.2 H INR 1.3 APTT 34 Sodium 139 Potassium 5.4 H Chloride 108 H Carbon Dioxide 20 L BUN 88 H Creatinine 3.06 H Estimated GFR 19 L BUN/Creatinine Ratio 28.8 H Glucose 135 H Lactate 1.5 Calcium 8.9 Total Bilirubin 0.8 AST 22 ALT 16 Alkaline Phosphatase 73 Total Creatine Kinase 20 L Troponin I 0.112 H NT-Pro-B Natriuret Pep 6300 H Total Protein 7.1 Albumin 3.7 Globulin 3.4 Albumin/Globulin Ratio 1.1 Lipase 47 Procalcitonin 5.36 H Chlamy pneumoniae PCR Not detected Adenovirus (PCR) Not detected B.parapertussis DNA PCR Not detected Coronavirus OC43 (PCR) Not detected Coronavirus HKU1 (PCR) Not detected Coronavirus 229E (PCR) Not detected SARS-CoV-2 (PCR) Not detected Coronavirus NL63 (PCR) Not detected Human Metapneumovir PCR Not detected Influenza Type A (PCR) Not detected Influenza Type B (PCR) Not detected M. pneumoniae (PCR) Not detected Parainfluenza 1 (PCR) Not detected Parainfluenza 2 (PCR) Not detected Parainfluenza 3 (PCR) Not detected Parainfluenza 4 (PCR) Not detected RSV (PCR) Not detected Entero/Rhino (PCR) Not detected Assessment & Plan Assessment & Plan narrative: #community acquired pneumonia continue fluids and zosyn encourage IS use #hx of dvt/pe continue eliquis 2.5 bid #CAD s/p CABG #CKD 4 #aortic stenosis s/p TAVR #HTN stable continue home amlodipine and isosorbide #BPH w/obstruction continue home flomax #MDD stable continue home sertraline 150 #deconditioning PT/OT consult, try to mobilize as able to #NIDDM Taking reduced insulin lately maybe 5U's per day from maybe 3Us from staff will track sugars with [facility] and see how he's doing. she trhinks he has been running high the last couple weeks. code: DNR Dispo: inpt for abx and fluids PCP: Tabitha MDM: [phone] DVT: on eliquis with SCDs diet: diabetic Quality VTE Deep Vein Thrombosis/Pulmonary Embolism Present on Admission: No
--- NOTE | 2023-04-17 14:38 | PT-IP ANOTE ---
PT eval received. EMR reviewed. talked with nurse and stated that pt is sleepy and just got up on the acute floor. checked on pt. attempted to eval but pt is lethargic and unable to keep his eyes open. will f/u.
[2023-04-17] MEDS: SERTRALINE 50 MG TABLET 125 MG PO (16:42)
--- NOTE | 2023-04-17 17:25 | DIET.PN1 ---
Dietary Progress Note Assessment: 87M admitted with SOB and found to have community acquired pneumonia. RD screen due to MNA score of 7. at bedside assisted with assessment today. She reports weight loss since a fall/hip fx. Three months of reduced mobility, though is working with PT. Reports <50% of meals and only eats twice per day. States he skips carb option, eats mostly veg and some protein. States most of the reduced appetite has occurred over 1-2 months. Pt unable to tell me etiology of loss of appetite exactly. NFPE indicates severe depressed temporal and oral regions, boxed shoulders, and protruding clavicle indicating muscle/fat losses. weight hx indicates 14.5% loss over 8 months and 7.2% loss since December though indicates most of which occurred in the last 1-2 months. Review of labs indicates CKD with elevated K+ at 5.4, GFR of 19L, and last phos high at 4.1. Will change diet to renal with CCD. would like more info on diabetes education and potential for CGM placement. Provided her my contact info. Ht: 190.5 cm Wt: 88 kg BMI: 24.2 UBW: 114kg reported Last BM: 04/17/23 (04/17/23 11:27) MNA: 7 James Score: 17 Diet: 04/18/23 Breakfast Renal Diet Diet Modifications: CCD 4 Renal Specifics: 2gm Sodium Restriction 2gm Potassium Restrictio Limited Phosphorus Food Texture: Level 7 - Regular Liquid Consistency: Level 0 - Thin Nutrition Percent Meal Consumed 0% 04/17/23 15:03 Labs: RBC 3.37 X10^6/uL (4.5-5.9) L 04/17/23 07:34 Hgb 10.4 g/dL (13.5-17.5) L 04/17/23 07:34 Hct 31.0 % (41-53) L 04/17/23 07:34 Creatinine 3.06 mg/dL (0.66-1.25) H 04/17/23 07:34 Lactate 1.5 mmol/L (0.7-2.1) 04/17/23 07:34 NT-Pro-B Natriuret Pep 6300 pg/mL (<450) H 04/17/23 07:34 Nutrition Diagnosis: Acute on chronic severe protein calorie malnutrition r/t inadequate energy intake aeb 7.2% weight loss in 1-2 months, physical signs of muscle/fat losses, and reported PO <50% EER for the last month. -The patient is at much higher risk for medical and surgical complications because malnutrition.? This increases the difficulty and complexity of medical and surgical interventions and increases the chances of poor outcomes such as morbidity and mortality. Interventions: 1. Reviewed options for protein given CKD status 2. Changed diet to include renal considerations EER: 2400-2500kcal (28kcal/kg per BMI) 50-55g PRO (0.6g/kg per renal) Monitoring/Evaluations: RD follow-up 3-5 days Electronically Signed by: Kaur López 04/17/23 17:25 Clinical Dietitian [address] [id number]
[2023-04-17] MEDS: SODIUM CHLORIDE 0.9% 1,000 ML 84 ML IV ×2 (19:23→23:17)
[2023-04-17] MEDS: ATORVASTATIN 20 MG TABLET 40 MG PO (20:00)
[2023-04-17] MEDS: APIXABAN 5 MG TABLET 2.5 MG PO (20:04)
[2023-04-17] MEDS: PIPERACILLIN/TAZO 3.375 GM in SODIUM CHLORIDE 0.9% 100 ML IV (20:04)
[2023-04-17] MEDS: TAMSULOSIN 0.4 MG CAPSULE PO (20:04)
[2023-04-17] MEDS: GABAPENTIN 100 MG CAPSULE PO (20:05)
--- NOTE | 2023-04-17 22:35 | PC.NURSE ---
pt confused and agitated with care. trying to remove his telemetry and O2 sat oximeter. pt sating in the mids 90's. Spoke to Dr. Fuchs over the phone, orders taken to discontinue telemetry and continues O2 SAT MONITOR.
[2023-04-18] VITALS: BP 138/61; PULSE 77; RESP 21; TEMP 36.5; O2SAT 96
[2023-04-18 04:00] VITALS: BP 140/45; PULSE 84; RESP 23; TEMP 36.9; O2SAT 96
[2023-04-18 05:00] LABS: Add Manual Diff / Slide Review NO; Basophils Absolute Auto 0 /uL (0-100); Basophils Percent Auto 0.3 % (0-2); Eosinophils Absolute Auto 200 /uL (0-450); Eosinophils Percent Auto 1.8 % (2-4); Hematocrit 25.7 % (41-53); Hemoglobin 8.8 g/dL (13.5-17.5); Lymphocytes Absolute Auto 1600 /uL (1100-4500); Lymphocytes Percent Auto 15.8 % (25-40); Mean Corpuscular HGB Conc 34.4 % (30-36); Mean Corpuscular Hemoglobin 31.6 PG (26-34); Mean Corpuscular Volume 91.8 fL (80-100); Monocytes Absolute Auto 400 /uL (0-900); Monocytes Percent Auto 3.8 % (3-14); Neutrophils Absolute Auto 7900 /uL (1500-7000); Neutrophils Percent Auto 78.3 % (50-75); Platelet Count 79 X10^3/uL (150-400); Red Cell Distribution Width 15.3 % (11.6-14.8)
[2023-04-18 05:04] LABS: Alanine Aminotransferase 14 IU/L (<50); Albumin Globulin Ratio 0.9 (1.0-2.8); Alkaline Phosphatase 67 U/L (38-126); Aspartate Aminotransferase 21 IU/L (17-59); BUN Creatinine Ratio 28.4 (6-22); Bilirubin Total 0.7 mg/dL (0.2-1.3); Blood Urea Nitrogen 84 mg/dL (9-20); Calcium 8.6 mg/dL (8.4-10.2); Carbon Dioxide 21 mmol/L (22-32); Chloride 110 mmol/L (98-107); Estimated Glomerular Filt Rate 20 mL/min (>60); Globulin 3.2 g/dL (1.7-4.1); Glucose 105 mg/dL (80-110); HEMOLYSIS < 15 (0-50); Potassium 5.1 mmol/L (3.4-5.1); Sodium 139 mmol/L (137-145); Total Protein 6.2 g/dL (6.3-8.2)
[2023-04-18 08:00] VITALS: BP 135/60; PULSE 83; RESP 24; TEMP 36.7; O2SAT 95
[2023-04-18] MEDS: PIPERACILLIN/TAZO 3.375 GM in SODIUM CHLORIDE 0.9% 100 ML IV ×2 (08:05→19:33)
[2023-04-18] MEDS: SERTRALINE 50 MG TABLET 125 MG PO (08:07)
[2023-04-18] MEDS: APIXABAN 5 MG TABLET 2.5 MG PO ×2 (08:08→19:33)
[2023-04-18] MEDS: ISOSORBIDE MONONITRATE ER 30 MG TABLET 75 MG PO (08:08)
--- NOTE | 2023-04-18 10:06 | P.PN_ITS ---
Subjective Subjective Date Patient Seen: 04/18/23 Time Patient Seen: 10:07 Interval history: Feeling slightly better today compared to yesterday. Still with significant cough though denies much SOB at rest. No fever or pain. Exam Vital Signs (past 8 hours): - 04/18/23 04:00 04/18/23 08:00 Temperature 98.5 F 98.1 F Pulse Rate 84 83 Respiratory Rate 23 24 Blood Pressure 140/45 L 135/60 Pulse Oximetry 96 95 Oxygen Flow Rate 4 4 Oxygen Delivery Method Nasal Cannula Oxygen Flow Rate 4 Narrative Exam Narrative: General: Elderly male, frail appearing, no distress HEENT: Normocephalic, atraumatic, EOMI, external ears and nose normal- appearing, moist mucous membranes Resp: 4L via NC, bilateral rhonchi worse in right lower lobe, good air movement CV: Regular rate and rhythm, no murmur auscultated Abdomen: Soft, nontender, nondistended, bowel sounds present Extremities: Normal-appearing, no clubbing or edema Skin: No rash or lesions noted Neuro: Alert, awake, interactive, moves all extremities Objective Labs 04/18/23 04:38 04/18/23 04:38 Labs: Laboratory Results - last 24 hr 04/18/23 04:38 WBC 10.0 RBC 2.80 L Hgb 8.8 L Hct 25.7 L MCV 91.8 MCH 31.6 MCHC 34.4 RDW 15.3 H Plt Count 79 L Neut % (Auto) 78.3 H Lymph % (Auto) 15.8 L [place] % (Auto) 3.8 Eos % (Auto) 1.8 L Baso % (Auto) 0.3 Neut # (Auto) 7900 H Lymph # (Auto) 1600 [place] # (Auto) 400 Eos # (Auto) 200 Baso # (Auto) 0 Sodium 139 Potassium 5.1 Chloride 110 H Carbon Dioxide 21 L BUN 84 H Creatinine 2.96 H Estimated GFR 20 L BUN/Creatinine Ratio 28.4 H Glucose 105 Calcium 8.6 Total Bilirubin 0.7 AST 21 ALT 14 Alkaline Phosphatase 67 Total Protein 6.2 L Albumin 3.0 L Globulin 3.2 Albumin/Globulin Ratio 0.9 L [facility] Medical History (Updated 04/18/23 @ 13:29 by Oni Fuchs MD) Closed intertrochanteric fracture of left hip Type 2 diabetes mellitus without complication (03/01/15) Mixed hyperlipidemia (03/01/15) Essential hypertension (03/01/15) Vitamin D deficiency Depression with anxiety Obesity Gout Low back pain Arthritis Vertigo Vertigo Ataxia CKD (chronic kidney disease), stage IV Peripheral neuropathy Type II diabetes mellitus Obstructive sleep apnea Anticoagulation therapy continued upon discharge Pulmonary embolism History of aortic valvular stenosis Chest pain ASCVD (arteriosclerotic cardiovascular disease) Surgical History Aortic valve replaced Social History household members: spouse Smoking Status: Former smoker alcohol intake: never Assessment & Plan Assessment and plan (1) Community acquired pneumonia: Qualifiers: Laterality: right Lung location: middle lobe of lung Qualified Code(s): J18.9 - Pneumonia, unspecified organism Status: Acute (2) History of pulmonary embolism: Status: Acute (3) ASCVD (arteriosclerotic cardiovascular disease): Status: Acute (4) CKD (chronic kidney disease), stage IV: Status: Acute (5) Essential hypertension: Status: None (6) Type 2 diabetes mellitus without complication: Qualifiers: Diabetes mellitus longterm insulin use: without longterm use Qualified Code(s): E11.9 - Type 2 diabetes mellitus without complications Status: None (7) Depression: Qualifiers: Depression Type: major depressive disorder Major depression recurrence: unspecified whether recurrent Active/Remission status: currently active Major depression episode severity: unspecified Qualified Code(s): F32.9 - Major depressive disorder, single episode, unspecified Status: None (8) BPH with obstruction/lower urinary tract symptoms: Status: Acute Assessment & Plan narrative: 87-year-old male admitted for community-acquired pneumonia #CAP -continue IV Zosyn q.12 hours -mIVF: NS at 84 mL/hour -encourage IS use -wean O2 as tolerated #H/o PE -home Eliquis 2.5 mg b.i.d. #CAD s/p CABG #CKD 4 #H/o aortic stenosis s/p TAVR #HTN -BP adequately controlled -home isosorbide mononitrate 75 mg, atorvastatin 40 mg daily #NIDDM -monitor glucose ACHS #BPH w/obstruction -home tamsulosin 0.4 mg daily #MDD -home sertraline 150 mg daily Diet: Diabetic DVT ppx: Eliquis as above GI ppx: Not indicated Code: DNR Dispo: Back to assisted living facility once pneumonia adequately treated and weaned from supplemental oxygen Time Spent With Patient Time with patient: less than 30 minutes Quality VTE Deep Vein Thrombosis/Pulmonary Embolism Present on Admission: No
--- NOTE | 2023-04-18 10:17 | CM.DANOTE ---
DCP: Case received, EMR reviewed and met with patient. Spouse, Jacy, was at bedside. Introduced self and role. Was able to obtain information regarding patient's baseline activity status prior to hospitalization. Patient is an 87 year old male who came to the hospital yesterday morning to the care of the hospitalist team. PCP: Dr. Lu. Payer: confirmed: Medicare/[facility]. Patient came to the hospital via ambulance secondary to having increased shortness of breath. Patient has history of diabetes, CAD. Patient resides at [facility]. Patent was diagnosed with pneumonia, he is currently on oxygen. Met with patient and spouse, Jacy. Patient was sitting up in bed, oxygen in place. Confirmed that he resides at [facility], in [facility]. He has been there about 4 months, was at [facility] prior. Patient goes to [facility], spouse takes him weekly. He does use a FWW, not on oxygen at baseline. P: DCP to continue to follow. Patient should be able to return to [facility] once stable and no longer has oxygen needs. Almita Coleman RN/Ward Aide Discharge Planning/Care Management CM Discharge Assessment Start: 04/18/23 10:06 Freq: Status: Active Protocol: Document 04/18/23 10:11 (Rec: 04/18/23 10:15 [id number]) Discharge Planning Assessment Assigned Election Clerk Almita Coleman RN/Ward Aide Advance Directives? Yes: POLST Advance Directives on File Yes: pt states is on file from previous admission History Provided By Patient,Medical Record Prior Living Arrangements Assisted Living Household Members spouse Type of transporation used prior to Relies on Others admit Facility Name Admitted From: [facility] Willing to Return to Facility? Yes Independent with ADL's Yes Is patient alert and oriented? Yes Needs Assistance With Bathing,Meal Prep,Managing Medications,Home Chores / Shopping Caregiver for Another No DME Already Rented / Owned FWW / Walker Patient/Family Preference OP PT Therapy Comment Patient is currently under [facility] outpatient services. Barriers to Discharge No Comment See narrative Discharge Plan Home Transportation Arrangement facility Referrals Initiated None needed Whiteboard Updated in Patient Room with Yes name and ext. # of Election Clerk Review Status In Process Next Review Type Continued Stay Review
[2023-04-18] MEDS: SODIUM CHLORIDE 0.9% 1,000 ML 84 ML IV ×2 (11:04→23:10)
--- NOTE | 2023-04-18 11:17 | PT.IIE ---
Current Diagnoses Type 2 diabetes mellitus without complications (04/17/23) Major depressive disorder, single episode, unspecified (04/17/23) Essential (primary) hypertension (04/17/23) Atherosclerotic heart disease of [place] coronary artery without angina pectoris (04/17/23) Pneumonia, unspecified organism (04/17/23) Other obstructive and reflux uropathy (04/17/23) Chronic kidney disease, stage 4 (severe) (04/17/23) Benign prostatic hyperplasia with lower urinary tract symptoms (04/17/23) Personal history of pulmonary embolism (04/17/23) Surgical History (Last Reviewed 04/17/23 @ 08:10 by Shantal Burris DO) Aortic valve replaced Medical History (Last Updated 04/18/23 @ 13:10 by Oni Fuchs MD) Anticoagulation therapy continued upon discharge Arthritis ASCVD (arteriosclerotic cardiovascular disease) Ataxia Chest pain CKD (chronic kidney disease), stage IV Closed intertrochanteric fracture of left hip Depression with anxiety Essential hypertension (03/01/15) Gout History of aortic valvular stenosis Low back pain Mixed hyperlipidemia (03/01/15) Obesity Obstructive sleep apnea Peripheral neuropathy Pulmonary embolism Type 2 diabetes mellitus without complication (03/01/15) Type II diabetes mellitus Vertigo Vertigo Vitamin D deficiency Physical Therapy Inpatient Evaluation/Re-Eval M1 PT/OT-IP Prior Functional Status Start: 04/18/23 13:58 Freq: NEEDED Status: Active Protocol: Document 04/18/23 11:17 AB (Rec: 04/18/23 14:15 AB [id number]) Medical Review Prior Functional Status Medical History Reviewed Yes Communication able to make needs known; pt with confusion Mobility and Gait pt stated that he was modified independent with all mobilities and ambulation using either a FWW or a 4WW. pt with h/o falls Social History Household Members spouse Living Arrangements Assisted Living Number of Stairs To Enter/Railing? pt resides at [facility]: first floor Home Environment Standard Height Toilet Home Equipment Front Wheel Walker,Four Wheel Walker,Shower Seat with Backrest,Hand Held Shower,Grab Bars Near Toilet,Grab Bars In Shower M2 PT-IP Current Condition Start: 04/18/23 13:58 Freq: NEEDED Status: Active Protocol: Document 04/18/23 11:17 AB (Rec: 04/18/23 14:15 AB [email or web address]) Physical Therapy Current Condition Current Condition Evaluation Date 04/18/23 Treatment Diagnosis PNA; difficulty in walking Onset Date 04/17/23 M3 PT-IP Subjective Start: 04/18/23 13:58 Freq: NEEDED Status: Active Protocol: Document 04/18/23 11:17 AB (Rec: 04/18/23 14:15 AB [email or web address]) Subjective Physical Therapy Visit Type Type Initial Evaluation Visit Start Time 11:17 Visit Stop Time 11:50 Total Visit Minutes 33 Number of DESIGN ENGINEER MARINE EQUIPMENT Visits 0 Physical Therapy Visit Comments Patient Comments agreeable to do PT M4 PT-IP Mobility and Gait Start: 04/18/23 13:58 Freq: NEEDED Status: Active Protocol: Document 04/18/23 11:17 AB (Rec: 04/18/23 14:15 AB [email or web address]) PT-Bed Mobility Assessment Supine to Sit Supine to Sit Maximum Assistance,1 Person Assistance,Head of Bed Elevated,Bedrails PT-Transfer Assessment Sit to and From Stand Sit to and from Stand Maximum Assistance,1 Person Assistance,Use of Upper Extremities Equipment Transfer Assistive Device Front Wheeled Walker Orthotic/Prosthetic Devices or Brace: No Transfers Transfer Destination Chair Transfer Ability Level of Assist Maximum Assistance,1 Person Assistance,Use of Upper Extremities Comments Mobility Comments pt supine in bed and agreeable to do PT. pt with confusion and needs max cues with all tasks. pt completed supine to sit max a and max cues. HOB elevated. pt also used bed rail to assist. (+) SOB. O2 sat with 4L/min O2: 97%. pt completed sit to stand max A and max cues. presents with increase posterior trunk lean requiring max A for standing balance using FWW. instructed pt to ambulate and only able to completed ~ 5 ft using FWW max a and max cues. presents with unsteady shuffling gait. positioned chair behind pt to sit and required max A for controlled descent. positioned pt on the chair. call light and table placed within reach. informed nurse regarding pt's mobility assistance needs and also will need a chair alarm. Gait Assessment Gait Gait Assistance Required: Maximum Assistance Distance (Feet) 5 Able to Maintain Weight Bearing Status Yes During Gait Assistive Devices Assistive Device Gait Belt,Front Wheeled Walker Orthotic/Prosthetic Devices or Brace: No Gait Deviations General Gait Pattern Antalgic,Decreased Stride Length,Decreased Feet Clearance,Step-to Gait Factors Limiting Gait Function Factors Limiting Gait Function Decreased Activity Tolerance, Decreased Strength,Difficulty Following Directions,Limited Range of Motion,Poor Balance, Poor Safety Awareness, Respiratory Distress PT-Balance Assessment Sitting Balance and Reactions Static Sitting Balance Ability Poor Dynamic Sitting Balance Ability Poor Standing Balance and Reactions Static Standing Balance Ability Poor Dynamic Standing Balance Ability Poor Device Used FWW M5 PT-IP Objective Assessments Start: 04/18/23 13:58 Freq: NEEDED Status: Active Protocol: Document 04/18/23 11:17 AB (Rec: 04/18/23 14:15 AB [email or web address]) Orientation Orientation/Cognition Level of Alertness Confusional State Language Function Ability Hard of Hearing Safety Awareness Decreased Safety Awareness Memory Description Short Term Impaired,Ship Pilot Impaired Gross Range of Motion Lower Extremity ROM Assessment Within Functional Limits Impairments pt with difficulty with RLE movement initially but able to complete after a few heel slides Strength Lower Extremity Strength Assessment Bilaterally Impaired Comments Strength Comments LLE: 4-/5 R hip: 3+/5 R knee: 4-/5 Muscle Tone Muscle Tone WNL Yes M6 PT-IP Treatment Start: 04/18/23 13:58 Freq: NEEDED Status: Active Protocol: Document 04/18/23 11:17 AB (Rec: 04/18/23 14:15 AB [email or web address]) Physical Therapy Treatment Education Education Provided Safety M7 PT-IP Assessment and Plan Start: 04/18/23 13:58 Freq: NEEDED Status: Active Protocol: Document 04/18/23 11:17 AB (Rec: 04/18/23 14:15 AB [email or web address]) PT Summary Assessment and Plan Potential Rehabilitation Potential Fair Status of Condition at Evaluation Evolving Summary Impairments Pain,ROM,Strength,Balance, Coordination,Sensation,Tone, Cognition,Bed Mobility, Transfers,Gait,Activity Tolerance Assessment Summary pt is an 87 y/o M who presented to the ED for increase SOB. pt admitted for PNA. pt currently on 4L/min O2 and requiring max A with all mobility using FWW. pt unable to ambulate much and only completed ~ 5ft using a FWW. pt will require SNF rehab to improve strength and mobility independence. will continue to assess progress. Goals Bed Mobility Goal Independent Transfer Goal Independent,Front Wheeled Walker,Four Wheeled Walker Gait Goal Independent,Four Wheel Walker Gait Distance 300 Days to Meet Goals 10 Frequency of Treatment Frequency Of Treatment Once a Day Treatment Plan Physical Therapy Treatment Plan Bed Mobility Training,Transfer Training,Gait Training, Therapeutic Exercise,Balance Retraining,Discharge Planning, Hot or Cold Pack,Neuromuscular Re-ed,Coordination Retraining ,Manual Therapy Precautions Other Precautions falls, O2 sat Recommendations To Nursing Amount of Assist Needed 1 Person Assist Discharge Recommendations PT Discharge Recommendations SNF Rehab Transportation Needs at Discharge Private Vehicle,Wheelchair/ Cabulance
[2023-04-18 13:46] VITALS: BP 110/53; PULSE 78; RESP 16; TEMP 36.3; O2SAT 96
[2023-04-18] MEDS: GABAPENTIN 100 MG CAPSULE PO (16:19)
[2023-04-18] MEDS: ATORVASTATIN 20 MG TABLET 40 MG PO (16:19)
[2023-04-18] MEDS: TAMSULOSIN 0.4 MG CAPSULE PO (19:33)
[2023-04-18 20:00] VITALS: BP 125/59; PULSE 66; RESP 24; TEMP 36.4; O2SAT 98
[2023-04-19] VITALS: BP 155/70; PULSE 77; RESP 23; TEMP 36.9; O2SAT 98
[2023-04-19 04:00] VITALS: BP 146/73; PULSE 79; RESP 22; TEMP 36.7; O2SAT 96
[2023-04-19 05:01] LABS: Add Manual Diff / Slide Review NO; Basophils Absolute Auto 0 /uL (0-100); Basophils Percent Auto 0.2 % (0-2); Eosinophils Absolute Auto 200 /uL (0-450); Eosinophils Percent Auto 1.5 % (2-4); Hematocrit 25.8 % (41-53); Hemoglobin 8.7 g/dL (13.5-17.5); Lymphocytes Absolute Auto 1800 /uL (1100-4500); Lymphocytes Percent Auto 17.4 % (25-40); Mean Corpuscular HGB Conc 33.8 % (30-36); Mean Corpuscular Hemoglobin 31.2 PG (26-34); Mean Corpuscular Volume 92.4 fL (80-100); Monocytes Absolute Auto 600 /uL (0-900); Monocytes Percent Auto 5.5 % (3-14); Neutrophils Absolute Auto 8000 /uL (1500-7000); Neutrophils Percent Auto 75.4 % (50-75); Platelet Count 80 X10^3/uL (150-400); Red Blood Cell Count 2.79 X10^6/uL (4.5-5.9); Red Cell Distribution Width 15.3 % (11.6-14.8); White Blood Cell Count 10.6 X10^3/uL (4.5-11.0)
[2023-04-19 05:08] LABS: Alanine Aminotransferase 14 IU/L (<50); Albumin 3.2 g/dL (3.5-5.0); Albumin Globulin Ratio 0.9 (1.0-2.8); Alkaline Phosphatase 85 U/L (38-126); Aspartate Aminotransferase 20 IU/L (17-59); BUN Creatinine Ratio 27.6 (6-22); Bilirubin Total 0.7 mg/dL (0.2-1.3); Blood Urea Nitrogen 80 mg/dL (9-20); Calcium 9.2 mg/dL (8.4-10.2); Carbon Dioxide 20 mmol/L (22-32); Chloride 112 mmol/L (98-107); Estimated Glomerular Filt Rate 20 mL/min (>60); Globulin 3.5 g/dL (1.7-4.1); Glucose 157 mg/dL (80-110); HEMOLYSIS < 15 (0-50); Potassium 4.3 mmol/L (3.4-5.1); Sodium 141 mmol/L (137-145); Total Protein 6.7 g/dL (6.3-8.2)
--- NOTE | 2023-04-19 06:39 | PC.NURSE ---
Pt continues to be confused and a wet non-productive cough, concerned that her might be aspirating when eating. Pt at times cough when taking liquids.
[2023-04-19 08:00] VITALS: BP 163/85; PULSE 86; RESP 23; TEMP 36.9; O2SAT 94
[2023-04-19] MEDS: PIPERACILLIN/TAZO 3.375 GM in SODIUM CHLORIDE 0.9% 100 ML IV ×2 (08:29→21:05)
[2023-04-19] MEDS: APIXABAN 5 MG TABLET 2.5 MG PO ×2 (08:30→21:06)
[2023-04-19] MEDS: ISOSORBIDE MONONITRATE ER 30 MG TABLET 75 MG PO (08:31)
[2023-04-19] MEDS: SERTRALINE 50 MG TABLET 125 MG PO (08:32)
--- NOTE | 2023-04-19 10:40 | P.PN_ITS ---
Subjective Subjective Date Patient Seen: 04/19/23 Time Patient Seen: 10:41 Interval history: Feeling slightly better today compared to prior. Still with significant cough though denies much SOB at rest. No fever, nausea, vomiting, or pain. Exam Vital Signs (past 8 hours): - 04/19/23 04:00 Temperature 98.0 F Pulse Rate 79 Respiratory Rate 22 Blood Pressure 146/73 H Pulse Oximetry 96 Oxygen Flow Rate 4 Oxygen Delivery Method Nasal Cannula Oxygen Flow Rate 4 Narrative Exam Narrative: General: Elderly male, frail appearing, no distress HEENT: Normocephalic, atraumatic, EOMI, external ears and nose normal- appearing, moist mucous membranes Resp: 4L via NC decreased to 3L without noticeable change in O2 sat, bilateral rhonchi worse in right lower lobe, good air movement CV: Regular rate and rhythm, no murmur auscultated Abdomen: Soft, nontender, nondistended, bowel sounds present Extremities: Normal-appearing, no clubbing or edema Skin: No rash or lesions noted Neuro: Alert, awake, interactive, moves all extremities Objective Labs 04/19/23 04:30 04/19/23 04:30 Labs: Laboratory Results - last 24 hr 04/19/23 04:30 WBC 10.6 RBC 2.79 L Hgb 8.7 L Hct 25.8 L MCV 92.4 MCH 31.2 MCHC 33.8 RDW 15.3 H Plt Count 80 L Neut % (Auto) 75.4 H Lymph % (Auto) 17.4 L [place] % (Auto) 5.5 Eos % (Auto) 1.5 L Baso % (Auto) 0.2 Neut # (Auto) 8000 H Lymph # (Auto) 1800 [place] # (Auto) 600 Eos # (Auto) 200 Baso # (Auto) 0 Sodium 141 Potassium 4.3 Chloride 112 H Carbon Dioxide 20 L BUN 80 H Creatinine 2.90 H Estimated GFR 20 L BUN/Creatinine Ratio 27.6 H Glucose 157 H Calcium 9.2 Total Bilirubin 0.7 AST 20 ALT 14 Alkaline Phosphatase 85 Total Protein 6.7 Albumin 3.2 L Globulin 3.5 Albumin/Globulin Ratio 0.9 L PFSH Medical History (Updated 04/19/23 @ 10:45 by Oni Fuchs MD) Closed intertrochanteric fracture of left hip Type 2 diabetes mellitus without complication (03/01/15) Mixed hyperlipidemia (03/01/15) Essential hypertension (03/01/15) Vitamin D deficiency Depression with anxiety Obesity Gout Low back pain Arthritis Vertigo Vertigo Ataxia CKD (chronic kidney disease), stage IV Peripheral neuropathy Type II diabetes mellitus Obstructive sleep apnea Anticoagulation therapy continued upon discharge Pulmonary embolism History of aortic valvular stenosis Chest pain ASCVD (arteriosclerotic cardiovascular disease) Surgical History Aortic valve replaced Social History household members: spouse Smoking Status: Former smoker alcohol intake: never Assessment & Plan Assessment and plan (1) Community acquired pneumonia: Qualifiers: Laterality: right Lung location: middle lobe of lung Qualified Code(s): J18.9 - Pneumonia, unspecified organism Status: Acute (2) Acute hypoxemic respiratory failure: Status: Acute (3) History of pulmonary embolism: Status: Acute (4) ASCVD (arteriosclerotic cardiovascular disease): Status: Acute (5) CKD (chronic kidney disease), stage IV: Status: Acute (6) Essential hypertension: Status: None (7) Type 2 diabetes mellitus without complication: Qualifiers: Diabetes mellitus intermediate card tender insulin use: without intermediate card tender use Qualified Code(s): E11.9 - Type 2 diabetes mellitus without complications Status: None (8) Depression: Qualifiers: Depression Type: major depressive disorder Major depression recurrence: unspecified whether recurrent Active/Remission status: currently active Major depression episode severity: unspecified Qualified Code(s): F32.9 - Major depressive disorder, single episode, unspecified Status: None (9) BPH with obstruction/lower urinary tract symptoms: Status: Acute Assessment & Plan narrative: 87-year-old male admitted for community-acquired pneumonia #CAP -continue IV Zosyn q.12 hours -added PO levofoloxacin 750mg once then 250 mg daily for atypical coverage -mIVF: NS at 84 mL/hour -encourage IS use #Respiratory failure -initially required CPAP on in ED, currently on 3L O2 via NC -wean O2 as tolerated #H/o PE -home Eliquis 2.5 mg b.i.d. #CAD s/p CABG #CKD 4 #H/o aortic stenosis s/p TAVR #HTN -BP adequately controlled -home isosorbide mononitrate 75 mg, atorvastatin 40 mg daily #NIDDM -monitor glucose ACHS #BPH w/obstruction -home tamsulosin 0.4 mg daily #MDD -home sertraline 150 mg daily Diet: Diabetic DVT ppx: Eliquis as above GI ppx: Not indicated Code: DNR Dispo: PT recommending sniff placement given degree of deconditioning until strong enough to return to assisted living facility Time Spent With Patient Time with patient: less than 30 minutes Quality VTE Deep Vein Thrombosis/Pulmonary Embolism Present on Admission: No
--- NOTE | 2023-04-19 10:40 | PT.IPTN ---
Current Diagnoses Type 2 diabetes mellitus without complications (04/17/23) Major depressive disorder, single episode, unspecified (04/17/23) Essential (primary) hypertension (04/17/23) Atherosclerotic heart disease of [place] coronary artery without angina pectoris (04/17/23) Pneumonia, unspecified organism (04/17/23) Acute respiratory failure with hypoxia (04/17/23) Other obstructive and reflux uropathy (04/17/23) Chronic kidney disease, stage 4 (severe) (04/17/23) Benign prostatic hyperplasia with lower urinary tract symptoms (04/17/23) Personal history of pulmonary embolism (04/17/23) Physical Therapy Treatment Note M2 PT-IP Current Condition Start: 04/18/23 13:58 Freq: NEEDED Status: Active Protocol: Document 04/18/23 11:17 AB (Rec: 04/18/23 14:15 AB [id number]) Physical Therapy Current Condition Current Condition Evaluation Date 04/18/23 Treatment Diagnosis PNA; difficulty in walking Onset Date 04/17/23 M3 PT-IP Subjective Start: 04/18/23 13:58 Freq: NEEDED Status: Active Protocol: Document 04/19/23 12:14 KJ (Rec: 04/19/23 12:20 KJ [id number]) Subjective Physical Therapy Visit Type Type Treatment Note Visit Start Time 09:55 Visit Stop Time 10:40 Total Visit Minutes 45 Physical Therapy Visit Comments Patient Comments Pt speech is garbled,difficult to comprehend M4 PT-IP Mobility and Gait Start: 04/18/23 13:58 Freq: NEEDED Status: Active Protocol: Document 04/19/23 12:14 KJ (Rec: 04/19/23 12:20 KJ [id number]) PT-Bed Mobility Assessment Rolling Type of Rolling Roll to Right Level of Assist Moderate Assistance Supine to Sit Supine to Sit Moderate Assistance Scooting Scooting to Edge of Bed Moderate Assistance Scooting Up and Down in Bed Moderate Assistance PT-Transfer Assessment Sit to and From Stand Sit to and from Stand Moderate Assistance Equipment Transfer Assistive Device Gait Belt,Front Wheeled Walker Transfers Transfer Destination Chair Transfer Technique Stand Step Pivot Transfer Ability Level of Assist Moderate Assistance Comments Mobility Comments Pt required mod assist of 2 to stand and pivot. Pt required repeated cuing to accomplish task. Pt performed repetitions of sit to stand from chair w/ mod assist Gait Assessment Factors Limiting Gait Function Factors Limiting Gait Function Decreased Activity Tolerance, Difficulty Following Directions,Poor Balance,Poor Safety Awareness PT-Balance Assessment Sitting Balance and Reactions Static Sitting Balance Ability Good Dynamic Sitting Balance Ability Fair Standing Balance and Reactions Static Standing Balance Ability Fair Dynamic Standing Balance Ability Poor M5 PT-IP Objective Assessments Start: 04/18/23 13:58 Freq: NEEDED Status: Active Protocol: Document 04/18/23 11:17 AB (Rec: 04/18/23 14:15 AB [id number]) Orientation Orientation/Cognition Level of Alertness Confusional State Language Function Ability Hard of Hearing Safety Awareness Decreased Safety Awareness Memory Description Short Term Impaired,Check Writer Salesperson Impaired Gross Range of Motion Lower Extremity ROM Assessment Within Functional Limits Impairments pt with difficulty with RLE movement initially but able to complete after a few heel slides Strength Lower Extremity Strength Assessment Bilaterally Impaired Comments Strength Comments LLE: 4-/5 R hip: 3+/5 R knee: 4-/5 Muscle Tone Muscle Tone WNL Yes M6 PT-IP Treatment Start: 04/18/23 13:58 Freq: NEEDED Status: Active Protocol: Document 04/19/23 12:14 KJ (Rec: 04/19/23 12:20 KJ [id number]) Physical Therapy Treatment Exercises Exercises Ankle Pumps,Heel Slides, Shoulder Flexion,Elbow Flexion /Extension,Wrist ROM,Hand ROM Other Treatments Other Treatment Performed Ther ex: instructed pt on exercises to perform while in chair. Instructed pt on deep breathing. M7 PT-IP Assessment and Plan Start: 04/18/23 13:58 Freq: NEEDED Status: Active Protocol: Document 04/19/23 12:14 KJ (Rec: 04/19/23 12:20 KJ [id number]) PT Summary Assessment and Plan Potential Rehabilitation Potential Good Status of Condition at Evaluation Stable Summary Impairments Strength,Balance,Cognition,Bed Mobility,Transfers,Gait, Activity Tolerance Progress Towards Goals Progressing Toward Goals Assessment Summary Pt required assist of 2 for mobility, improved from yesterday when he required 2 assists. Goals Bed Mobility Goal Contact Guard Assistance Transfer Goal Contact Guard Assistance Gait Goal Contact Guard Assistance Gait Distance 100' Days to Meet Goals 5 Frequency of Treatment Frequency Of Treatment Once a Day Treatment Plan Physical Therapy Treatment Plan Bed Mobility Training,Transfer Training,Gait Training, Therapeutic Exercise Recommendations To Nursing Amount of Assist Needed 2 Person Assist Discharge Recommendations PT Discharge Recommendations SNF Rehab
[2023-04-19] MEDS: SODIUM CHLORIDE 0.9% 1,000 ML 84 ML IV ×2 (10:43→22:10)
[2023-04-19] MEDS: levoFLOXacin 250 MG TABLET 750 MG PO (11:42)
[2023-04-19 12:30] VITALS: BP 134/72; PULSE 78; RESP 23; TEMP 36.6; O2SAT 97
--- NOTE | 2023-04-19 14:06 | CM.DPC ---
Addendum entered by RANDAL Spain 04/19/23 15:54: ADD: Return call from Kala, she confirms she will review in the AM and will do bedside sometime around 1000 Mon but thinking pt will likely need SNF BF Original Note: [facility] SNF vs [facility] Per MD, pt still on oxygen and getting IV-Abx and not yet stable for d/c today but possibly tomorrow Mon pending progress. Per PT, pt below baseline and currently 2PA and recommending SNF rehab. SW attempted to meet bedside with pt and discuss SNF recommendation as he has a hx of SNF at [facility] a few months ago and pt somewhat confused and had difficulty with forming his thoughts and questions and discharge planning. SW met again bedside once spouse arrived and discussed current SNF recommendation and the process of [facility] RN needing to review pt's clinicals and do bedside assessment to determine if they can accept him right back at d/c. Spouse acknowledges understanding but is hopeful to be bedside for MD rounding in the AM and also [facility] RN bedside assess so she can determine if they would accept pt back with HH and her to be in the facility more for assist initially. Spouse aware SNF may still be needed before return to [facility] and is uncertain if she would want pt to go to [facility] SNF again or not as she was not fully pleased with their facility space but she would like to have him in [place]. SW made referral to [facility] in case SNF needed and both confirm they could accept and have beds if needed. They will continue to follow and await update after [facility] determines if they can accept pt at d/c or if SNF needed. CARIDAD completed but will need Dr. Lu signature tomorrow Mon when he rounds if SNF needed for [facility]. JARROD faxed clinicals to [facility] to review and left detailed msg on BEATRIS Armendariz's cell phone requesting review and call in AM as spouse plans to be bedside from [phone] and can make herself available to be bedside whenever Kala can do bedside assessment. Plan: SW to follow closely in AM with Kala at [facility] to confirm she can do bedside assessment with pt in AM and to update spouse so she can be bedside as well to determine SNF vs return to [facility]. RANDAL Spain
[2023-04-19] MEDS: ATORVASTATIN 20 MG TABLET 40 MG PO (17:07)
[2023-04-19] MEDS: GABAPENTIN 100 MG CAPSULE PO (17:07)
[2023-04-19] MEDS: INSULIN LISPRO 100 UNIT/ML 3ML VIAL SUBCUT (17:44)
[2023-04-19 20:00] VITALS: BP 140/70; PULSE 77; RESP 24; TEMP 36.7; O2SAT 96
[2023-04-19] MEDS: TAMSULOSIN 0.4 MG CAPSULE PO (21:06)
--- NOTE | 2023-04-19 22:12 | PC.NURSE ---
Addendum entered by Les Clark R.N. 04/21/23 00:04: LATE ENTRY: 04/20 0700 hand mounter: Patient has increased work of breathing, belly breathing, SiO2 95% 3LNC RR 30s. Patient very confused, restless, pulling blankets off. Dr Fuchs made aware, .25mg oral suspension ativan ordered one time dose, administered. Patient did not sleep this shift, continued to be restless and confused. Original Note: 1930: Patient's , Jacy, helping patient drink water when patient immediately started coughing. Sounding of aspiration. Night Coordinator Dr. Fuchs notified, NPO ordered, meds tonight okay in dding. Patient has speech consult placed already. Updated patient and on plan of care, verbalized understanding.
[2023-04-20] VITALS: BP 134/74; PULSE 84; RESP 35; TEMP 36.7; O2SAT 97
[2023-04-20] MEDS: LORazepam 2 MG/ML ORAL SOL 0.25 MG PO (00:36)
[2023-04-20 05:34] LABS: Add Manual Diff / Slide Review NO; Basophils Absolute Auto 0 /uL (0-100); Basophils Percent Auto 0.1 % (0-2); Eosinophils Absolute Auto 100 /uL (0-450); Eosinophils Percent Auto 0.9 % (2-4); Hematocrit 23.8 % (41-53); Hemoglobin 8.1 g/dL (13.5-17.5); Lymphocytes Absolute Auto 1400 /uL (1100-4500); Lymphocytes Percent Auto 15.9 % (25-40); Mean Corpuscular HGB Conc 33.9 % (30-36); Mean Corpuscular Hemoglobin 31.2 PG (26-34); Mean Corpuscular Volume 92.2 fL (80-100); Monocytes Absolute Auto 600 /uL (0-900); Monocytes Percent Auto 6.3 % (3-14); Neutrophils Absolute Auto 6900 /uL (1500-7000); Neutrophils Percent Auto 76.8 % (50-75); Platelet Count 81 X10^3/uL (150-400); Red Blood Cell Count 2.58 X10^6/uL (4.5-5.9)
[2023-04-20 05:46] LABS: Alanine Aminotransferase 13 IU/L (<50); Albumin 2.9 g/dL (3.5-5.0); Albumin Globulin Ratio 0.9 (1.0-2.8); Alkaline Phosphatase 68 U/L (38-126); Aspartate Aminotransferase 20 IU/L (17-59); BUN Creatinine Ratio 26.9 (6-22); Bilirubin Total 0.7 mg/dL (0.2-1.3); Blood Urea Nitrogen 73 mg/dL (9-20); Carbon Dioxide 18 mmol/L (22-32); Chloride 115 mmol/L (98-107); Estimated Glomerular Filt Rate 22 mL/min (>60); Globulin 3.2 g/dL (1.7-4.1); Glucose 157 mg/dL (80-110); HEMOLYSIS < 15 (0-50); Potassium 4.3 mmol/L (3.4-5.1); Sodium 141 mmol/L (137-145); Total Protein 6.1 g/dL (6.3-8.2)
[2023-04-20 06:00] VITALS: BP 135/72; PULSE 89; RESP 32; TEMP 36.6; O2SAT 95
[2023-04-20 07:55] VITALS: O2SAT 95
[2023-04-20 08:00] VITALS: BP 130/70; PULSE 89; RESP 26; TEMP 36.6; O2SAT 96
[2023-04-20] MEDS: SODIUM CHLORIDE 0.9% 1,000 ML 84 ML IV ×2 (09:25→23:12)
[2023-04-20] MEDS: PIPERACILLIN/TAZO 3.375 GM in SODIUM CHLORIDE 0.9% 100 ML IV ×2 (09:25→16:00)
--- NOTE | 2023-04-20 13:15 | ST.IPCSEOM ---
Visit Care Team Role Provider Type Shantal Burris DO Emergency Provider Physician Referring Provider Specialty: Emergency Medicine Address: [address] [place] [address], [id number] Email: [email or web address] Armando Lu MD Admit Provider Physician Attending Provider Family Provider Primary Care Provider Specialty: Family Practice Address: [facility] [place], [address] Email: [email or web address] Current Diagnoses Type 2 diabetes mellitus without complications (04/17/23) Major depressive disorder, single episode, unspecified (04/17/23) Essential (primary) hypertension (04/17/23) Atherosclerotic heart disease of [place] coronary artery without angina pectoris (04/17/23) Pneumonia, unspecified organism (04/17/23) Acute respiratory failure with hypoxia (04/17/23) Other obstructive and reflux uropathy (04/17/23) Chronic kidney disease, stage 4 (severe) (04/17/23) Benign prostatic hyperplasia with lower urinary tract symptoms (04/17/23) Personal history of pulmonary embolism (04/17/23) Past Medical History (Last Updated 04/18/23 @ 13:10 by Oni Fuchs MD) Anticoagulation therapy continued upon discharge (Medical) Arthritis (Medical) ASCVD (arteriosclerotic cardiovascular disease) (Medical) Ataxia (Medical) Chest pain (Medical) CKD (chronic kidney disease), stage IV (Medical) Closed intertrochanteric fracture of left hip (Medical) Depression with anxiety (Medical) Essential hypertension (Medical 03/01/15) Gout (Medical) History of aortic valvular stenosis (Medical) Low back pain (Medical) Mixed hyperlipidemia (Medical 03/01/15) Obesity (Medical) Obstructive sleep apnea (Medical) Peripheral neuropathy (Medical) Lower extremity Pulmonary embolism (Medical) Type 2 diabetes mellitus without complication (Medical 03/01/15) Type II diabetes mellitus (Medical) Vertigo (Medical) Vertigo (Medical) Vitamin D deficiency (Medical) Speech-Language 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 Oni Fuchs Reason for Referral coughing thin liquids Setting Assessment Location Acute Care Visit Type Note Type Initial evaluation Next Note Type Next Note Type Treatment Note Patient Information Identification Type Name History Per H&P: Presents with from his assisted living facility. Started having cough/SOB last night and then deteriorated quickly, presented to ED needing a lot of oxygen, currently stable with fluids and zosyn on 5Ls via NC. Having some fevers which come down with tylenol. feels hungry. XR shows pneumonia. He has been working on his mobilization with PT at the facility and usually does pretty well with a RW around the facility. PMHx significant for: Vitamin D deficiency Depression with anxiety Obesity Gout Low back pain Arthritis Vertigo Vertigo Ataxia CKD (chronic kidney disease), stage IV Peripheral neuropathy Type II diabetes mellitus Obstructive sleep apnea Anticoagulation therapy continued upon discharge Pulmonary embolism Hypertension Hyperlipidemia History of aortic valvular stenosis Chest pain ASCVD (arteriosclerotic cardiovascular disease) Pt referred for ST evaluation d/t, Patient's , Jacy, helping patient drink water when patient immediately started coughing. Sounding of aspiration. Icer Machine Dr. Fuchs notified, NPO ordered, meds tonight okay in pudding. Patient has speech consult placed already. Nursing reports Pt did well with meds in applesauce. Subjective Observations Pt present during evaluation. Pt resides in [facility]. She reports he was consuming ground food, however now consumes regular, however states meat is cut into small pieces. She denies any PNA prior to admission or swallowing difficulties. She reports Pt feeding self prior to admission. Pt laying reclined in bed, however repositioned upright with assistance from aid and nurse. Pt reports Pt cognition waxes and wanes. Pt with open mouth posture, with SOB and gurgly tracheal congestion. Pt LOC waxing and waning throughout evaluation. Pt attempted to verbalize Piter when asked what his name is, however difficulties communicating d/t current medical status and SOB. Reported by Patient/Caregiver Other Symptoms Coughing Current Diet Regular (IDDSI 7) Baseline Feeding Method Independent in self-feeding The IDDSI Framework Protocol: IDDSI.1 Objective Assessment Mental Status Lethargic Oral Integrity Oral residue Dentition Within normal limits Comment Oral motor exam completed informally d/t Pt unable to follow directions given cognitive/medical status. ST provided oral care utilizing oral care swab with Pt exhibiting oral residue in mouth. Swallow trigger not elicited during oral care. Pt with natural dentition, missing some, good condition. Generalized weakness with oromusculature strength and ROM. Food and Liquid Trials Position During Assessment Upright (90 degrees) Liquids Trialed Thin (IDDSI 0) Administration Type Tea spoon Oral Impairment Moderately impaired Oral Phase Comments Pt presented with thin water via tsp x2 d/t Pt LOC waxing and waning and ST determining PO trials not safe until Pt is awake and alert. Pt with open mouth posture accepting trial of water via tsp given max cues. Pt with weak lip seal, left sided spillage, suspected loss of bolus resulting in premature spillage. Pharyngeal Phase Comments ST unable to comment much on pharyngeal phase of the swallow d/t limited trials. Pt with reduced laryngeal elevation and suspected delay in swallow, tracheal congestion noted prior to PO trials. ST cued Pt to cough with Pt demonstrating understanding however weak/ unproductive cough. No coughing observed. ST suspects pharyngeal dysphagia given nursing/Pt report and Pt currently medical status. The IDDSI Framework Protocol: IDDSI.1 Findings Swallowing Function Oropharyngeal phase dysphagia Severity of Swallow Impairment Moderately impaired Contributing Factors to Swallow Reduced alertness or attention Impairment Prognosis Fair Based on Family support Comment Limited PO trials during evaluation d/t Pt LOC waxing and waning and Pt falling asleep throughout evaluation. Impact on Safety and Functioning Risk for aspiration Recommendations Instrumental Assessment No Swallowing Treatment Yes Frequency During inpatient stay Recommended Solids NPO Other Recommendations ST recommends no safe PO diet at this time. Medications administered via discretion of MD/nursing. ST recommends consistent oral hygiene and Pt sitting upright at least [address] communicated recommendations with Pt and nursing. Safety Precautions/Swallowing Strict oral care after intake Recommendations Education Patient/Caregiver Education Described results of evaluation,Family/caregivers expressed understanding of evaluation,Family/caregivers expressed agreement with goals & treatment plans,Family/ caregivers expressed understanding of safety precautions Goals Short-term Goals STG 1: Patient will tolerate therapeutic PO trials of IDDSI 4/5/6/7 solids with no clinical s/s of dysphagia 100% of the time in order to consume least restrictive diet . STG 2: Patient will tolerate therapeutic PO trials of IDDSI 0/2 liquids with no clinical s/s of aspiration 100% of the time in order to consume least restrictive diet. Long-term Goals LTG: Patient will tolerate safest and most efficient diet with no clinical s/s of aspiration or dysphagia 100% of the time in order to consume least restrictive diet .
--- NOTE | 2023-04-20 14:06 | CM.DPNOTE ---
DCP Note SOCCER COACH reviewed EMR. SOCCER COACH spoke with Kala RN at [facility]. Kala reports unable to accept pt back without additional support due to not being stable and predictable. Per provider, spouse interested in Hospice services. Kala confirms able to accept pt back with hospice support. Kala suggests likely equipment needs at bedside table, commode, and urinal. Pt has a electric bed at [facility]. SOCCER COACH spoke with intake a [facility]. Confirm they can accept pt for services. SOCCER COACH had a lengthy conversation with at bedside. appears not interested in [facility], but interested in either back to [facility] with Hospice or home with PP caregivers and Hospice support. 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 SOCCER COACH provided [facility] brochure and well as [employer] brochure for PP caregiving support as well as other brochures for various PP caregiver support. Spouse reports she would be interested in caregiver training from PT/OT in case in the future she were to be able to bring him home on hospice with additional PP caregiver support. ZEESHAN Angelic kindly agreed to send initial ref to [facility]. SOCCER COACH spoke with Deena at [facility]. Updated her on equip needs. Deena reports they are booked out in [place] and is unsure when they could potentially start services. SOCCER COACH updated PT/OT on spouse desires for CG training. Arranged for CG training with PT/OT and spouse at 1400 today. Plan: likely return to [facility] when medically stable with [facility] support. CM team will continue to follow closely. RANDAL Arias
--- NOTE | 2023-04-20 14:29 | OT.IPNOTE ---
Went to see pt for OT eval. Per pt's now deciding on Hospice either to go back to [facility] or home. Pt not appropriate for OT eval. Pt will requires 24/ available assist for all needs at this time. Discharge pt for OT services, case management aware.
--- NOTE | 2023-04-20 14:43 | PT.IPTN ---
Current Diagnoses Type 2 diabetes mellitus without complications (04/17/23) Major depressive disorder, single episode, unspecified (04/17/23) Essential (primary) hypertension (04/17/23) Atherosclerotic heart disease of [place] coronary artery without angina pectoris (04/17/23) Pneumonia, unspecified organism (04/17/23) Acute respiratory failure with hypoxia (04/17/23) Other obstructive and reflux uropathy (04/17/23) Chronic kidney disease, stage 4 (severe) (04/17/23) Benign prostatic hyperplasia with lower urinary tract symptoms (04/17/23) Personal history of pulmonary embolism (04/17/23) Physical Therapy Treatment Note M2 PT-IP Current Condition Start: 04/18/23 13:58 Freq: NEEDED Status: Active Protocol: Document 04/18/23 11:17 AB (Rec: 04/18/23 14:15 AB [id number]) Physical Therapy Current Condition Current Condition Evaluation Date 04/18/23 Treatment Diagnosis PNA; difficulty in walking Onset Date 04/17/23 M3 PT-IP Subjective Start: 04/18/23 13:58 Freq: NEEDED Status: Active Protocol: Document 04/20/23 14:00 MB (Rec: 04/20/23 14:43 MB [id number]) Subjective Physical Therapy Visit Type Type Treatment Note Visit Start Time 14:00 Visit Stop Time 14:38 Total Visit Minutes 38 Physical Therapy Visit Comments Patient Comments Pt without much verbalizations this afternoon. M4 PT-IP Mobility and Gait Start: 04/18/23 13:58 Freq: NEEDED Status: Active Protocol: Document 04/19/23 12:14 KJ (Rec: 04/19/23 12:20 KJ [id number]) PT-Bed Mobility Assessment Rolling Type of Rolling Roll to Right Level of Assist Moderate Assistance Supine to Sit Supine to Sit Moderate Assistance Scooting Scooting to Edge of Bed Moderate Assistance Scooting Up and Down in Bed Moderate Assistance PT-Transfer Assessment Sit to and From Stand Sit to and from Stand Moderate Assistance Equipment Transfer Assistive Device Gait Belt,Front Wheeled Walker Transfers Transfer Destination Chair Transfer Technique Stand Step Pivot Transfer Ability Level of Assist Moderate Assistance Comments Mobility Comments Pt required mod assist of 2 to stand and pivot. Pt required repeated cuing to accomplish task. Pt performed repetitions of sit to stand from chair w/ mod assist Gait Assessment Factors Limiting Gait Function Factors Limiting Gait Function Decreased Activity Tolerance, Difficulty Following Directions,Poor Balance,Poor Safety Awareness PT-Balance Assessment Sitting Balance and Reactions Static Sitting Balance Ability Good Dynamic Sitting Balance Ability Fair Standing Balance and Reactions Static Standing Balance Ability Fair Dynamic Standing Balance Ability Poor M5 PT-IP Objective Assessments Start: 04/18/23 13:58 Freq: NEEDED Status: Active Protocol: Document 04/18/23 11:17 AB (Rec: 04/18/23 14:15 AB [id number]) Orientation Orientation/Cognition Level of Alertness Confusional State Language Function Ability Hard of Hearing Safety Awareness Decreased Safety Awareness Memory Description Short Term Impaired,Custodial Impaired Gross Range of Motion Lower Extremity ROM Assessment Within Functional Limits Impairments pt with difficulty with RLE movement initially but able to complete after a few heel slides Strength Lower Extremity Strength Assessment Bilaterally Impaired Comments Strength Comments LLE: 4-/5 R hip: 3+/5 R knee: 4-/5 Muscle Tone Muscle Tone WNL Yes M6 PT-IP Treatment Start: 04/18/23 13:58 Freq: NEEDED Status: Active Protocol: Document 04/20/23 14:00 MB (Rec: 04/20/23 14:43 MB [id number]) Physical Therapy Treatment Other Treatments Other Treatment Performed +2 assistance to pull up to HOB, pt is total assistance. PT spends extensive time speaking with about pt's presentation and needs for 24 hour assistance at this time and how this currently looks for pt who is bedbound today and total assistance to scoot up to HOB. PT is unsure if pt is understanding that pt is hospice level/what trajectory is and PT is able to speak with who is very kind to come and try to speak with again. PT recommends hospice home or [facility] with hospice at d/c. Will check on pt one more time tomorrow to see if pt is improving and if not, will d/c PT. M7 PT-IP Assessment and Plan Start: 04/18/23 13:58 Freq: NEEDED Status: Active Protocol: Document 04/20/23 14:00 MB (Rec: 04/20/23 14:43 MB [id number]) PT Summary Assessment and Plan Potential Rehabilitation Potential Poor Status of Condition at Evaluation Unstable Summary Impairments Strength,Cognition,Bed Mobility,Transfers,Gait, Activity Tolerance Progress Towards Goals Slow Progress due to Medical Issues,Slow Progress due to Activity Tolerance Assessment Summary Pt cannot participate well with therapies and is total assistance for bed mobility. See PT comments for PT recommendations. Will check on him one more time tomorrow as appropriate. Sats are in the low 90s on 3L this p.m. and pt with wet sounding breaths. Goals Bed Mobility Goal Minimal Assistance Transfer Goal Minimal Assistance Gait Goal Minimal Assistance Gait Distance 25 Days to Meet Goals 1 Frequency of Treatment Frequency Of Treatment Once a Day Treatment Plan Physical Therapy Treatment Plan Bed Mobility Training,Transfer Training,Gait Training, Therapeutic Exercise Precautions Other Precautions falls, O2 sat Recommendations To Nursing Amount of Assist Needed Mechanical Lift Discharge Recommendations Other Discharge Recommendations Hospice home or [facility] with hospice Transportation Needs at Discharge Stretcher/Ambulance
[2023-04-20 16:00] VITALS: BP 141/77; PULSE 82; RESP 24; TEMP 36.4; O2SAT 96
--- NOTE | 2023-04-20 17:19 | PM.PN.1 ---
Subjective Subjective Interval history: Chief Complaint pneumonia She got some Ativan last night and was quite subdued today starting to perk up by dinner able to 1. Little bit breathing still sounds junky but stable on 3 L. infectious labs are improving is considering options for discharge PT is recommended sniff is considering home with home hospice versus back to [facility] for hospice. Exam Vital Signs (past 8 hours): - 04/20/23 16:00 Temperature 97.5 F L Pulse Rate 82 Respiratory Rate 24 Blood Pressure 141/77 H Pulse Oximetry 96 Fraction of Inspired Oxygen 34 SaO2/FiO2 Ratio 279 Oxygen Delivery Method Nasal Cannula Oxygen Flow Rate 3.5 Narrative Exam Narrative: In bed able to communicate Resp Other: Moving air okay 3 L via nasal cannula doing a lot of mouth breathing very junky bilaterally Cardio Other: Regular rate well-perfused GI Other: Tender nondistended active bowel sounds Neuro Other: Alert good eye contact attempts to speak unable to make words coherently Objective Labs 04/20/23 05:26 04/20/23 05:26 Labs: Laboratory Results - last 24 hr 04/20/23 05:26 WBC 9.0 RBC 2.58 L Hgb 8.1 L Hct 23.8 L MCV 92.2 MCH 31.2 MCHC 33.9 RDW 15.0 H Plt Count 81 L Neut % (Auto) 76.8 H Lymph % (Auto) 15.9 L [place] % (Auto) 6.3 Eos % (Auto) 0.9 L Baso % (Auto) 0.1 Neut # (Auto) 6900 Lymph # (Auto) 1400 [place] # (Auto) 600 Eos # (Auto) 100 Baso # (Auto) 0 Sodium 141 Potassium 4.3 Chloride 115 H Carbon Dioxide 18 L BUN 73 H Creatinine 2.71 H Estimated GFR 22 L BUN/Creatinine Ratio 26.9 H Glucose 157 H Calcium 9.0 Total Bilirubin 0.7 AST 20 ALT 13 Alkaline Phosphatase 68 Total Protein 6.1 L Albumin 2.9 L Globulin 3.2 Albumin/Globulin Ratio 0.9 L [facility] Medical History (Updated 04/19/23 @ 10:45 by Oni Fuchs MD) Closed intertrochanteric fracture of left hip Type 2 diabetes mellitus without complication (03/01/15) Mixed hyperlipidemia (03/01/15) Essential hypertension (03/01/15) Vitamin D deficiency Depression with anxiety Obesity Gout Low back pain Arthritis Vertigo Vertigo Ataxia CKD (chronic kidney disease), stage IV Peripheral neuropathy Type II diabetes mellitus Obstructive sleep apnea Anticoagulation therapy continued upon discharge Pulmonary embolism History of aortic valvular stenosis Chest pain ASCVD (arteriosclerotic cardiovascular disease) Surgical History Aortic valve replaced Social History household members: spouse Smoking Status: Former smoker alcohol intake: never Assessment & Plan Assessment & Plan narrative: #HCAP Improved, likely ok to discharge on oral levaquin encourage IS use #Acute respiratory failure, present on admission initially required CPAP on in ED, currently on 3L O2 via NC, continue to wean O2 as tolerated #hx of PE continue home Eliquis 2.5 mg b.i.d. #CAD s/p CABG #CKD 4 #H/o aortic stenosis s/p TAVR #HTN BP adequately controlled, continue home isosorbide mononitrate 75 mg, atorvastatin 40 mg daily #NIDDM monitor glucose ACHS with SSI #BPH w/obstruction continue home tamsulosin 0.4 mg daily #MDD continue home sertraline 150 mg daily Diet: Diabetic DVT ppx: Eliquis as above PCP: [facility] ppx: Not indicated Code: DNR Dispo: SNF vs [facility] with hospice vs home with hospice. is going to talk to [facility] nurse tomorrow about how that might work. Quality VTE Deep Vein Thrombosis/Pulmonary Embolism Present on Admission: No
[2023-04-20 20:00] VITALS: BP 148/81; PULSE 84; RESP 29; TEMP 36.7; O2SAT 95
[2023-04-21] VITALS: BP 153/86; PULSE 86; RESP 19; TEMP 36.8; O2SAT 95
[2023-04-21] MEDS: PIPERACILLIN/TAZO 3.375 GM in SODIUM CHLORIDE 0.9% 100 ML IV ×3 (00:47→16:19)
[2023-04-21 04:00] VITALS: BP 143/86; PULSE 96; RESP 36; TEMP 36.1; O2SAT 92
--- NOTE | 2023-04-21 04:55 | PC.NURSE ---
Patient confused and restless all shift, unable to get any rest tonight. Asking staff for help with flat tire and to help find a place for my to stay the night. Patient redirectable for a minute or two, then continued to go back to previous conversations. Patient continues to be short of breath, RR in 30s sats 95% 3LNC.
--- NOTE | 2023-04-21 07:53 | PT.IPTN ---
Current Diagnoses Type 2 diabetes mellitus without complications (04/17/23) Major depressive disorder, single episode, unspecified (04/17/23) Essential (primary) hypertension (04/17/23) Atherosclerotic heart disease of [place] coronary artery without angina pectoris (04/17/23) Pneumonia, unspecified organism (04/17/23) Acute respiratory failure with hypoxia (04/17/23) Other obstructive and reflux uropathy (04/17/23) Chronic kidney disease, stage 4 (severe) (04/17/23) Benign prostatic hyperplasia with lower urinary tract symptoms (04/17/23) Personal history of pulmonary embolism (04/17/23) Physical Therapy Treatment Note M2 PT-IP Current Condition Start: 04/18/23 13:58 Freq: NEEDED Status: Active Protocol: Document 04/18/23 11:17 AB (Rec: 04/18/23 14:15 AB [id number]) Physical Therapy Current Condition Current Condition Evaluation Date 04/18/23 Treatment Diagnosis PNA; difficulty in walking Onset Date 04/17/23 M3 PT-IP Subjective Start: 04/18/23 13:58 Freq: NEEDED Status: Active Protocol: Document 04/20/23 14:00 MB (Rec: 04/20/23 14:43 MB [id number]) Subjective Physical Therapy Visit Type Type Treatment Note Visit Start Time 14:00 Visit Stop Time 14:38 Total Visit Minutes 38 Physical Therapy Visit Comments Patient Comments Pt without much verbalizations this afternoon. M4 PT-IP Mobility and Gait Start: 04/18/23 13:58 Freq: NEEDED Status: Active Protocol: Document 04/19/23 12:14 KJ (Rec: 04/19/23 12:20 KJ [id number]) PT-Bed Mobility Assessment Rolling Type of Rolling Roll to Right Level of Assist Moderate Assistance Supine to Sit Supine to Sit Moderate Assistance Scooting Scooting to Edge of Bed Moderate Assistance Scooting Up and Down in Bed Moderate Assistance PT-Transfer Assessment Sit to and From Stand Sit to and from Stand Moderate Assistance Equipment Transfer Assistive Device Gait Belt,Front Wheeled Walker Transfers Transfer Destination Chair Transfer Technique Stand Step Pivot Transfer Ability Level of Assist Moderate Assistance Comments Mobility Comments Pt required mod assist of 2 to stand and pivot. Pt required repeated cuing to accomplish task. Pt performed repetitions of sit to stand from chair w/ mod assist Gait Assessment Factors Limiting Gait Function Factors Limiting Gait Function Decreased Activity Tolerance, Difficulty Following Directions,Poor Balance,Poor Safety Awareness PT-Balance Assessment Sitting Balance and Reactions Static Sitting Balance Ability Good Dynamic Sitting Balance Ability Fair Standing Balance and Reactions Static Standing Balance Ability Fair Dynamic Standing Balance Ability Poor M5 PT-IP Objective Assessments Start: 04/18/23 13:58 Freq: NEEDED Status: Active Protocol: Document 04/18/23 11:17 AB (Rec: 04/18/23 14:15 AB [id number]) Orientation Orientation/Cognition Level of Alertness Confusional State Language Function Ability Hard of Hearing Safety Awareness Decreased Safety Awareness Memory Description Short Term Impaired,Mcfp Impaired Gross Range of Motion Lower Extremity ROM Assessment Within Functional Limits Impairments pt with difficulty with RLE movement initially but able to complete after a few heel slides Strength Lower Extremity Strength Assessment Bilaterally Impaired Comments Strength Comments LLE: 4-/5 R hip: 3+/5 R knee: 4-/5 Muscle Tone Muscle Tone WNL Yes M6 PT-IP Treatment Start: 04/18/23 13:58 Freq: NEEDED Status: Active Protocol: Document 04/20/23 14:00 MB (Rec: 04/20/23 14:43 MB [id number]) Physical Therapy Treatment Other Treatments Other Treatment Performed +2 assistance to pull up to HOB, pt is total assistance. PT spends extensive time speaking with about pt's presentation and needs for 24 hour assistance at this time and how this currently looks for pt who is bedbound today and total assistance to scoot up to HOB. PT is unsure if pt is understanding that pt is hospice level/what trajectory is and PT is able to speak with who is very kind to come and try to speak with again. PT recommends hospice home or [facility] with hospice at d/c. Will check on pt one more time tomorrow to see if pt is improving and if not, will d/c PT. M7 PT-IP Assessment and Plan Start: 04/18/23 13:58 Freq: NEEDED Status: Active Protocol: Document 04/21/23 07:52 MB (Rec: 04/21/23 07:53 MB [id number]) PT Summary Assessment and Plan Potential Rehabilitation Potential Poor Status of Condition at Evaluation Unstable Summary Assessment Summary Pt does not appear to have improved overnight per notes and MD spoke to pt's again about hospice. Pt is unable to tolerate any further skilled therapies. Recommend d/c with hospice and 24 hour assistance. PT explained to last date that pt requires total assistance for bed mobility at this time. Frequency of Treatment Frequency Of Treatment Discharge
--- NOTE | 2023-04-21 08:36 | PM.PN.1 ---
Subjective Subjective Interval history: This is an 87-year-old male who is under the primary care of Dr. Menjivar and seen in [facility]. Patient has history of dementia, PE, coronary artery disease and was admitted for acute respiratory failure secondary to pneumonia. Patient continues to wax and wane in terms of pulmonary status. He continues on 3 L nasal cannula oxygen. He is IV fluids running. He is increased work of breathing at night. 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 He in the vital bed in no apparent distress. is at bedside Patient is afebrile vital signs stable. O2 sat 92% on 3 L nasal cannula Patient awakens and looks at me but is not able to say his 's name and really not able to answer questions but reports much more awake than he was yesterday Patient is obviously gurgling HEENT unremarkable Neck: Supple Chest: Rhonchi, crackles and decreased breath sounds in the bases diffusely but no intercostal retraction or nasal flaring Abdomen: Positive bowel sounds, soft, nontender Extremities: No edema, pulses intact Objective Labs 04/20/23 05:26 04/20/23 05:26 [facility] Medical History (Updated 04/19/23 @ 10:45 by Oni Fuchs MD) Closed intertrochanteric fracture of left hip Type 2 diabetes mellitus without complication (03/01/15) Mixed hyperlipidemia (03/01/15) Essential hypertension (03/01/15) Vitamin D deficiency Depression with anxiety Obesity Gout Low back pain Arthritis Vertigo Vertigo Ataxia CKD (chronic kidney disease), stage IV Peripheral neuropathy Type II diabetes mellitus Obstructive sleep apnea Anticoagulation therapy continued upon discharge Pulmonary embolism History of aortic valvular stenosis Chest pain ASCVD (arteriosclerotic cardiovascular disease) Surgical History Aortic valve replaced Social History household members: spouse Smoking Status: Former smoker alcohol intake: never Assessment & Plan Assessment & Plan narrative: Assessment & Plan narrative: #HCAP Improved, likely ok to discharge on oral levaquin encourage IS use Unclear if aspiration is involved here. Will attempt swallow evaluation again today. Lengthy discussion with his in terms of long-term plan and goal. Will have Care management discussed options. will discuss with [facility] to see about what it would look like if hospice came in. Clearly patient is full care now and I do not think can go to assisted care at this time unless we were withdrawing all support which at this point we have not determined. In the meantime will continue with IV Zosyn. Will decrease IV fluids. If he is able to tolerate p.o. we will stop the IV fluids. #Acute respiratory failure, present on admission initially required CPAP on in ED, currently on 3L O2 via NC, continue to wean O2 as tolerated Suspect possibility of fluid overload. Will stop IV fluids. IV fluids were not stopped because patient is NPO. Will do swallow eval hopefully he can take p.o. and then we can stop IV fluids. I will give Lasix 20 mg IV now. Lengthy discussion with . #hx of PE continue home Eliquis 2.5 mg b.i.d. #CAD s/p CABG no acute symptoms at this time #CKD 4 will reassess labs #H/o aortic stenosis s/p TAVR #HTN BP adequately controlled, continue home isosorbide mononitrate 75 mg, atorvastatin 40 mg daily. Patient did not receive medications yesterday #NIDDM monitor glucose ACHS with SSI #BPH w/obstruction continue home tamsulosin 0.4 mg daily. Patient did not get his oral medications yesterday because of concerns with swallowing. Hopefully he will be able to participate in swallow study. #MDD continue home sertraline 150 mg daily Diet: Diabetic DVT ppx: Eliquis as above PCP: [facility] ppx: Not indicated Code: DNR Dispo: SNF vs [facility] with hospice vs home with hospice. is going to talk to [facility] nurse tomorrow about how that might work. 56 minutes was spent with patient in discussing with physician, nursing, meeting with patient and his , reviewing chart, formulating a plan and documentation Quality VTE Deep Vein Thrombosis/Pulmonary Embolism Present on Admission: No
[2023-04-21] MEDS: FUROSEMIDE 20 MG/2 ML VIAL IV (09:10)
--- NOTE | 2023-04-21 12:08 | ST.IPTN ---
Visit Care Team Role Provider Type Shantal Burris DO Emergency Provider Physician Referring Provider Address: [address] [place] [address], [id number] Armando Lu MD Admit Provider Physician Attending Provider Family Provider Primary Care Provider Address: [address], [place], [address] THERMAL CUTTER HELPER Treatment Note THERMAL CUTTER HELPER Treatment Note Start: 04/21/23 11:25 Freq: Status: Active Protocol: Document 04/21/23 11:25 MA (Rec: 04/21/23 12:08 MA [id number]) Speech Pathology Treatment Note Session Time Visit Start Time 09:15 Visit Stop Time 09:45 Total Visit Minutes 30 Visit Information Visit Number 2 Setting Treatment Setting Acute Care Visit Type Note Type Treatment Note General Information Patient History Per H&P: Presents with from his assisted living facility. Started having cough/SOB last night and then deteriorated quickly, presented to ED needing a lot of oxygen, currently stable with fluids and zosyn on 5Ls via NC. Having some fevers which come down with tylenol. feels hungry. XR shows pneumonia. He has been working on his mobilization with PT at the facility and usually does pretty well with a RW around the facility. PMHx significant for: Vitamin D deficiency Depression with anxiety Obesity Gout Low back pain Arthritis Vertigo Vertigo Ataxia CKD (chronic kidney disease), stage IV Peripheral neuropathy Type II diabetes mellitus Obstructive sleep apnea Anticoagulation therapy continued upon discharge Pulmonary embolism Hypertension Hyperlipidemia History of aortic valvular stenosis Chest pain ASCVD (arteriosclerotic cardiovascular disease) Pt referred for ST evaluation d/t, Patient's , Jacy, helping patient drink water when patient immediately started coughing. Sounding of aspiration. Die Sinker Apprentice Dr. Fuchs notified, NPO ordered, meds tonight okay in pudding. Patient has speech consult placed already. Nursing reports Pt did well with meds in applesauce. Subjective Observations/Patient Presentation Pt laying in bed, awake and alert. Nursing reports Pt with increase in alertness this date. Pt oriented to name and place. ST positioned Pt upright utilizing bed controls . Pt with open mouth posture and wheezing sounds. O2 in place via nasal cannula. Pt not present, however ST f /u after session when back in room. Chief Complaint(s) Swallowing Objective Treatment Activities PO trials, education safe swallowing strategies Assessment Patient Response to Treatment Fair Rehab Potential Fair Assessment of Improvement ST assessed swallow function with therapeutic PO trials of pureed solids and thin and nectar thick liquids in order to determine safest and most efficient least restrictive diet. Pt attempted to drink from cup independently, however demonstrated difficulities tilting cup at mouth. Pt benefited from feeding assistance for the rest of the evaluation. Pt consumed about 3 oz of pudding and 4 oz of nectar thick juice via cup and 2 oz of thin water via cup and a few bites of ice chips. Pt requesting ice water and reporting he was thirsty. For thin water via cup, Pt demonstrated good oral acceptance and containment, suspected loss of bolus resulting in premature spillage, suspected delay in swallow, immediate cough reflex x2, increase in SOB. Pt with strong cough reflex. For pudding, Pt demonstrated adequate bolus formation and control, extended ap transport , suspected delay in swallow, reduced laryngeal elevation, no cough reflex. For nectar liquids, Pt demonstrated good oral acceptance and containment, suspected loss of bolus resulting in premature spillage, suspected delay in swallow, no overt s/s of aspiration. Pt with incoordinated breathing, which may be d/t SOB. Pt demonstrated no overt s/s of aspiration with ice chips. ST recommends initiation of PO diet IDDSI 4 pureed solids and IDDSI 2 mildly thick liquids with safe swallowing strategies in place, which include: 100% supervision and feeding assistance, upright 90 degrees for all meals, slow rate, small bites/sips, consistent oral hygiene before /after meals, upright at least 30 minutes after meals. Pt with high aspiration risk with ST recommending discontinuation of PO diet if change in respiratory status occurs. ST educated nursing and Pt on recommendations . Pt had a MBSS performed on 10/08 with the following impressions/recommendations: Pt presents with moderately severe oropharyngeal dysphagia characterized by poor OM ROM and strength, reduced coordination of the tongue muscles. Further, the pt appears unaware that the bolus has entered the pharynx to swallow and/or hasa significant difficulty initiating a swallow. Pt is currently on a minced/moist diet texture, which is recommended to continue. [place] thick liquids are recommended as the pt demonstrated improved swallow over thin liquids. Pt was observed to present with neurological s/sx that indicate further assessment. These include bilateral lingual weakness, a lingual tremor at rest and with protrusion, reduced coordination and/or sensation within the oropharyngeal structures. Additionally, the pt presented with flattened affect and a soft voice. A neurological referral and evaluation is recommended. Rehabilitation Potential Good Patient Appropriate for Therapy Yes: Pt is currently receiving THERMAL CUTTER HELPER services at [facility] Recommendations Diet Liquids Order Mildly Thick ( IDDSI 2) Diet Order Minced & Moist ( IDDSI 5) Plan Length of Session 30 Minutes
[2023-04-21] MEDS: SODIUM CHLORIDE 0.9% 1,000 ML 84 ML IV (16:19)
[2023-04-21 16:25] VITALS: BP 130/78; PULSE 70; RESP 17; TEMP 36.6; O2SAT 94
--- NOTE | 2023-04-21 18:36 | CM.DPNOTE ---
DCP note FLIPPING MACHINE OPERATOR reviewed EMR. FLIPPING MACHINE OPERATOR had lengthy conversation with spouse in room. Per spouse, spoke with RN at [facility], RN not able to accept pt back, even with hospice support, and recommends SNF placement. This FLIPPING MACHINE OPERATOR was unable to coordinate/confirm with Kala RN at [facility] due to triaging needs. Spouse preference at this time is to dc to [facility]. Pt began to cough and ask for help, this FLIPPING MACHINE OPERATOR notified RN, who entered room and addressed concerns. FLIPPING MACHINE OPERATOR spoke with Sonya at . Believes they can continue to accept patient but will have to double check with team. Per PT/OT yesterday, report pt is not an ideal candidate for rehab. FLIPPING MACHINE OPERATOR will need to confirm with [facility] they are able to meet his needs. Plan: 1) [facility] for buttermilk drier operator care potentially 2) [facility] with hospice support. CM team will likely need an updated PASSR if SNF. CM team will continue to follow closely. RANDAL Arias
[2023-04-21] MEDS: MORPHINE 2 MG/ML INJ IV ×2 (18:54→22:30)
[2023-04-21] MEDS: SCOPOLAMINE 1 PATCH TOP (18:54)
[2023-04-21 19:49] VITALS: BP 143/95; PULSE 89; RESP 20; TEMP 35.9; O2SAT 98
--- NOTE | 2023-04-21 20:19 | PC.NURSE ---
Event Note 1000- Patient experiencing difficulty swallowing after drinking nectar thick water. Unable to tolerate new diet restrictions and strict aspiration precautions. Coughing after swallow attempts, suctioned for comfort. Patient refusing intake of fluids and medication due to swallowing difficulties. Will reattempt during lunch time. 1200- Patient with continued swallowing difficulties, coughing after intake of fluids or nutrition, suctioned for comfort. Patient frustrated and refusing intake of meds in carrier or nutrition/fluids. 1830- Patient calling out of room for help. Patient complaint of pain, shortness of breath and fatigued. Patient with continued refusal of oral intake. Patient breathing gurgled at baseline and tachypneic. MD called and updated. Orders for scope patch and morphine for air hunger/pain. This RN at bedside with patient , updated and answered questions. aware of patients significant decline in past few days and states that comfort is goal of care for patient, aware that patient may not improve. Patient medicated by this RN and repositioned. Will update maintenance mechanic 2nd shift nurse.
[2023-04-21 23:58] VITALS: BP 144/81; PULSE 87; RESP 20; TEMP 36; O2SAT 99
[2023-04-22] MEDS: PIPERACILLIN/TAZO 3.375 GM in SODIUM CHLORIDE 0.9% 100 ML IV ×4 (00:45→23:37)
[2023-04-22 03:53] VITALS: BP 144/91; PULSE 84; RESP 30; TEMP 36.2; O2SAT 98
[2023-04-22 05:03] LABS: Add Manual Diff / Slide Review NO; Basophils Absolute Auto 0 /uL (0-100); Basophils Percent Auto 0.3 % (0-2); Eosinophils Absolute Auto 0 /uL (0-450); Eosinophils Percent Auto 0.1 % (2-4); Hematocrit 27.7 % (41-53); Hemoglobin 9.3 g/dL (13.5-17.5); Lymphocytes Absolute Auto 1600 /uL (1100-4500); Lymphocytes Percent Auto 15.2 % (25-40); Mean Corpuscular HGB Conc 33.7 % (30-36); Mean Corpuscular Volume 91.9 fL (80-100); Monocytes Absolute Auto 900 /uL (0-900); Monocytes Percent Auto 8.6 % (3-14); Neutrophils Absolute Auto 8000 /uL (1500-7000); Neutrophils Percent Auto 75.8 % (50-75); Platelet Count 118 X10^3/uL (150-400); Red Blood Cell Count 3.01 X10^6/uL (4.5-5.9); Red Cell Distribution Width 15.2 % (11.6-14.8); White Blood Cell Count 10.6 X10^3/uL (4.5-11.0)
[2023-04-22 05:13] LABS: BUN Creatinine Ratio 26.7 (6-22); Blood Urea Nitrogen 80 mg/dL (9-20); Calcium 9.3 mg/dL (8.4-10.2); Carbon Dioxide 17 mmol/L (22-32); Estimated Glomerular Filt Rate 20 mL/min (>60); Glucose 177 mg/dL (80-110); HEMOLYSIS < 15 (0-50); Potassium 4.3 mmol/L (3.4-5.1); Sodium 149 mmol/L (137-145)
[2023-04-22 05:31] LABS: Chloride 121 mmol/L (98-107)
[2023-04-22] MEDS: MORPHINE 2 MG/ML INJ IV ×5 (07:55→22:25)
[2023-04-22] MEDS: SODIUM CHLORIDE 0.9% 1,000 ML 60 ML IV (08:03)
[2023-04-22 08:32] VITALS: BP 126/71; PULSE 79; RESP 24; TEMP 36.3; O2SAT 97
--- NOTE | 2023-04-22 09:24 | SLP.IPNOTE ---
Pt not appropriate for PO trials at this time d/t current medical status. Nursing reports meal trays are being held unless Pt is awake and alert and medically stable for PO trials.
[2023-04-22] MEDS: SODIUM CHLORIDE 0.45% 1,000 ML 84 ML IV ×2 (10:19→22:13)
--- NOTE | 2023-04-22 11:00 | P.PN_ITS ---
Subjective Subjective Interval history: chief complaint: trouble breathing Piter is doing ok today still on 3L still very rattley breath and junky lungs. Alert and interactive today but nonverbal. is exploring discharge plans for later. We reviewed a DNR/comfort care POLST form our clinic had on file from 2016 that Piter had signed which she believes has been since superseded. Exam Vital Signs (past 8 hours): - 04/22/23 03:53 04/22/23 08:32 Temperature 97.1 F L 97.3 F L Pulse Rate 84 79 Respiratory Rate 30 H 24 Blood Pressure 144/91 H 126/71 Pulse Oximetry 98 97 Oxygen Flow Rate 3 4 Fraction of Inspired Oxygen 34 SaO2/FiO2 Ratio 279 Oxygen Delivery Method Nasal Cannula Oxygen Flow Rate 4 Narrative Exam Narrative: alert awake laying in bed with at bedside Resp Other: junky lungs bilaterally on auscultation, Cardio Other: regular rate, s1/s2 GI Other: soft nontender nondistended Other: yellow draining to Damian Neuro Other: alert awake unable to communicate Extrem Other: no pedal edema, moves all limbs Objective Labs 04/22/23 04:35 04/22/23 04:35 Labs: Laboratory Results - last 24 hr 04/22/23 04:35 WBC 10.6 RBC 3.01 L Hgb 9.3 L Hct 27.7 L MCV 91.9 MCH 31.0 MCHC 33.7 RDW 15.2 H Plt Count 118 L Neut % (Auto) 75.8 H Lymph % (Auto) 15.2 L [place] % (Auto) 8.6 Eos % (Auto) 0.1 L Baso % (Auto) 0.3 Neut # (Auto) 8000 H Lymph # (Auto) 1600 [place] # (Auto) 900 Eos # (Auto) 0 Baso # (Auto) 0 Sodium 149 H Potassium 4.3 Chloride 121 H Carbon Dioxide 17 L BUN 80 H Creatinine 3.00 H Estimated GFR 20 L BUN/Creatinine Ratio 26.7 H Glucose 177 H Calcium 9.3 PFSH Medical History (Updated 04/19/23 @ 10:45 by Oni Fuchs MD) Closed intertrochanteric fracture of left hip Type 2 diabetes mellitus without complication (03/01/15) Mixed hyperlipidemia (03/01/15) Essential hypertension (03/01/15) Vitamin D deficiency Depression with anxiety Obesity Gout Low back pain Arthritis Vertigo Vertigo Ataxia CKD (chronic kidney disease), stage IV Peripheral neuropathy Type II diabetes mellitus Obstructive sleep apnea Anticoagulation therapy continued upon discharge Pulmonary embolism History of aortic valvular stenosis Chest pain ASCVD (arteriosclerotic cardiovascular disease) Surgical History Aortic valve replaced Social History household members: spouse Smoking Status: Former smoker alcohol intake: never Assessment & Plan Assessment & Plan narrative: #HCAP Improved, likely ok to discharge on levaquin encourage IS use Unclear if aspiration is involved here. Swallow evaluation pending. Lengthy discussion with his nursing and CM regarding discharge planning. Options are coming up. #Acute respiratory failure, present on admission initially required CPAP on in ED, currently on 3L O2 via NC, continue to wean O2 as tolerated he is not on O2 at baseline #dysphagia swallow eval pending #severe protein calorie malnutrition #hyperchloremia/hypertnatremia switching IVF to 1/2NS, monitor #hx of PE continue home Eliquis 2.5 mg b.i.d. #CAD s/p CABG stable no acute symptoms at this time takes statin/asa #CKD 4 stable monitor #H/o aortic stenosis s/p TAVR stable monitor #HTN BP adequately controlled, continue home isosorbide mononitrate 75 mg, atorvastatin 40 mg daily. #NIDDM monitor glucose ACHS with SSI #BPH w/obstruction continue home tamsulosin 0.4 mg daily. #MDD continue home sertraline 150 mg daily Diet: per ST DVT ppx: Eliquis as above PCP: [facility] ppx: Not indicated Code: DNR Dispo: SNF vs [facility] with hospice vs home with hospice vs ?? CM exploring options Time spent: 63 min Quality VTE Deep Vein Thrombosis/Pulmonary Embolism Present on Admission: No
[2023-04-22 14:32] VITALS: PULSE 91; RESP 30; O2SAT 98
--- NOTE | 2023-04-22 16:40 | CM.DPNOTE ---
DCP Note BALANCING MACHINE OPERATOR reviewed EMR. BALANCING MACHINE OPERATOR coordinated often with provider and pt spouse throughout the day. Multiple lengthy dcp conversations. Pt primarily resting in bed and only input was appearing to say home repeatedly. Four options were discussed with spouse, Jacy, in length multiple times throughout the day. A summary of the potential plans, their barriers, and this CM teams efforts made throughout the day are as follows in order of spouse current preference: 1) return to [facility] with [facility] support. Kala, RN at [facility], reports unable to accept pt back due to pt's need. Even with [facility] support. BALANCING MACHINE OPERATOR left 3 voicemails with Kala throughout the day to attempt to coordinate a plan, no response. Spoke with Angelika at [facility], reports their earliest available open date is Thursday. [facility] has referral and will be in touch for updates 2) dc to [facility] for comfort care. Medicare covers only 5 days comfort care, and then the rest would be private pay. Sonya at can accept pt and has bed availability. Unclear if pt spouse would continue to pay privately from there on, or, if pt would transition to Hospice at home with PP caregiver support. 3) dc home with [facility] support and [facility] Caregivers. Spouse hesitant due to not having the home set up. Spouse has not given preference for PP caregivers nor called any agencies for more information. She has senior resources booklet with list of options. 4) dc to [facility], where they seem to be able to provide a higher level of care than [facility](?), with HNW support. Tia from [facility] has clinicals. Tia is attempting to figure out why [facility] cannot accept him back and reported will coordinate with Kala. This BALANCING MACHINE OPERATOR lvm with Tia in the afternoon to inquire about an update, no response. Plan: dcp continues to unfold. CM team will continue to follow closely. Barrier includes pt spouse/POA continue to grabble with a decision for pt at this time. RANDAL Arias
--- NOTE | 2023-04-22 17:30 | DIET.PN1 ---
Dietary Progress Note Assessment: Pt not safe for PO at this time per staff notes and RN r/t risk of aspiration. Given length of time with poor PO pt would be candidate for nutrition support; however goals of care being determined currently with CM, , and provider. Will continue to follow. Ht: 190.5 cm Wt: 88 kg BMI: 24.2 Last BM: 04/18/23 (04/18/23 14:20) MNA: 7 James Score: 16 Diet: 04/21/23 Lunch Dysphagia Diet Diet Modifications: Food Texture: Level 4 - Pureed Liquid Consistency: Level 2 - Mildly Thick Nutrition Percent Meal Consumed pt is NPO 04/20/23 18:00 Electronically Signed by: Kaur López 04/22/23 17:30 Clinical Diet[address] [address]
[2023-04-22 17:58] VITALS: BP 141/81; PULSE 95; RESP 32; TEMP 36.3; O2SAT 96
--- NOTE | 2023-04-22 18:21 | PC.NURSE ---
Shift note Pt. breathing labored this AM, lungs coarse with moist rattle noted, PRN orders obtained for NT suction which was done by RT in afternoon. Pt. lethargic and not following commands well, PO intake and PO medications held, provider notified. Given IV morphine several times this shift for breathing and comfort, FLACC pain score noted at 5-6 prior to administration.
[2023-04-22 20:00] VITALS: BP 140/82; PULSE 97; RESP 21; TEMP 36.9; O2SAT 98
[2023-04-23] VITALS: BP 100/61; PULSE 101; RESP 25; TEMP 38.1; O2SAT 93
[2023-04-23] MEDS: MORPHINE 2 MG/ML INJ IV ×6 (00:15→23:43)
[2023-04-23 04:00] VITALS: BP 101/54; PULSE 94; RESP 24; TEMP 37.8; O2SAT 93
[2023-04-23 08:00] VITALS: BP 90/48; PULSE 89; RESP 20; TEMP 36.9; O2SAT 97
[2023-04-23] MEDS: PIPERACILLIN/TAZO 3.375 GM in SODIUM CHLORIDE 0.9% 100 ML IV (08:46)
[2023-04-23 08:48] VITALS: O2SAT 97
--- NOTE | 2023-04-23 13:17 | SLP.IPNOTE ---
Pt not seen by [facility] this date d/t current medical status and not safe/appropriate for PO trials this date.
--- NOTE | 2023-04-23 14:20 | CM.DPNOTE ---
DCP Cont Working today with Kala at [facility], Neema at [facility], Dr Lu and spouse Jacy; plan is for discharge Thursday back to [facility], [facility] to open services between [phone]. patient will need BB transport. Updated Dr Lu with final plan, patient will need comfort order set and transition off IV meds for this plan to work. Updated Silke at [facility] team following closely for coordination. Spouse very pleased to hear patient can return to [facility]. JW
[2023-04-23] MEDS: MORPHINE 10 MG/0.5 ML ORAL SYRINGE SL (16:32)
--- NOTE | 2023-04-23 18:44 | PM.PN.1 ---
Subjective Subjective Interval history: chief complaint: pneumonia Extensive conversation with today. Piter continues to not take PO meals or meds and is becoming less and less conscious. She is in agreement today that we shift to comfort care measures with a plan to discharge back to [facility] on Thursday when hospice will be able to start up for him that morning. With her approval we will withdraw IV meds and stop blood draws. He enjoys [employer] music. Exam Vital Signs (past 8 hours): Fraction of Inspired Oxygen 34 SaO2/FiO2 Ratio 279 Oxygen Delivery Method Oximask Oxygen Flow Rate 3 Narrative Exam Narrative: laying in bed with 3L via NC Const Other: well developed, too thin Resp Other: moving air well, lungs still junky but noticeably less than before Cardio Other: regular rate, s1/s2 GI Other: soft nontender Neuro Other: decreased level of consciousness not verbally responsive Objective Labs 04/22/23 04:35 04/22/23 04:35 [facility] Medical History (Updated 04/19/23 @ 10:45 by Oni Fuchs MD) Closed intertrochanteric fracture of left hip Type 2 diabetes mellitus without complication (03/01/15) Mixed hyperlipidemia (03/01/15) Essential hypertension (03/01/15) Vitamin D deficiency Depression with anxiety Obesity Gout Low back pain Arthritis Vertigo Vertigo Ataxia CKD (chronic kidney disease), stage IV Peripheral neuropathy Type II diabetes mellitus Obstructive sleep apnea Anticoagulation therapy continued upon discharge Pulmonary embolism History of aortic valvular stenosis Chest pain ASCVD (arteriosclerotic cardiovascular disease) Surgical History Aortic valve replaced Social History household members: spouse Smoking Status: Former smoker alcohol intake: never Assessment & Plan Assessment & Plan narrative: #HCAP #Acute respiratory failure, present on admission currently on 3L O2 via NC, supplemental O2 prn #dysphagia #severe protein calorie malnutrition #hyperchloremia/hypertnatremia #hx of PE #CAD s/p CABG #CKD 4 #H/o aortic stenosis s/p TAVR #HTN #NIDDM #BPH w/obstruction #MDD #end of life counseling comfort measures ordered dispo: decision made today for comfort care/withdrawal of care MDM: PCP: Tabitha FRANCOIS ppx: Not indicated Code: DNR - comfort care Dispo: sonya on thursday with hospice Quality VTE Deep Vein Thrombosis/Pulmonary Embolism Present on Admission: No
[2023-04-24] MEDS: MORPHINE 2 MG/ML INJ IV ×2 (01:51→05:09)
--- NOTE | 2023-04-24 09:46 | PM.DS.1 ---
History of Present Illness History of Present Illness Date Patient Seen: 04/24/23 Chief complaint: SOB Narrative: . Discharge Providers Provider Date of admission: 04/17/23 09:20 Discharge Date: 04/24/23 Primary care physician: Armando Lu MD Consults: 04/17/23 10:04 Consult to Occupational Therapy Evaluate & Treat Comment: Physician Instructions: Evaluate and treat Consult to Physical Therapy Evaluate & Treat Comment: Physician Instructions: Evaluate and Treat 04/19/23 10:40 Consult to Speech Therapy Evaluate & Treat Comment: Physician Instructions: Evaluate and treat 04/23/23 15:56 Consult to Discharge Planning Routine Comment: Consult to Hospice Referral Urgent Comment: Discharge provider: Armando Lu MD Summary Hospital Course Discharge Diagnosis: #HCAP #Acute respiratory failure, present on admission #dysphagia #severe protein calorie malnutrition #hyperchloremia/hypertnatremia #hx of PE #CAD s/p CABG #CKD 4 #H/o aortic stenosis s/p TAVR #HTN #NIDDM #BPH w/obstruction #MDD #end of life counseling Hospital Course: Mr. Renee was admitted from his home at [facility] living with respiratory failure and bacterial pneumonia. she was treated with IVf and abx and improved however he was unable to recover enough to get out of bed and his ability to swallow meds and food declined. In consultation with his we honored his wishes for no heroic interventions and plans were made to discharge him back to his home on hospice. In he was placed on comfort care protocol and he peacefully this morning. Exam Vital Signs (past 8 hours): Fraction of Inspired Oxygen 34 SaO2/FiO2 Ratio 279 Oxygen Delivery Method Oximask Oxygen Flow Rate 3 Objective Labs 04/22/23 04:35 04/22/23 04:35 [facility] Medical History (Updated 04/19/23 @ 10:45 by Oni Fuchs MD) Closed intertrochanteric fracture of left hip Type 2 diabetes mellitus without complication (03/01/15) Mixed hyperlipidemia (03/01/15) Essential hypertension (03/01/15) Vitamin D deficiency Depression with anxiety Obesity Gout Low back pain Arthritis Vertigo Vertigo Ataxia CKD (chronic kidney disease), stage IV Peripheral neuropathy Type II diabetes mellitus Obstructive sleep apnea Anticoagulation therapy continued upon discharge Pulmonary embolism History of aortic valvular stenosis Chest pain ASCVD (arteriosclerotic cardiovascular disease) Surgical History Aortic valve replaced Social History household members: spouse Smoking Status: Former smoker alcohol intake: never Discharge Assessment & Plan Assessment and Plan Assessment: #HCAP #Acute respiratory failure, present on admission #dysphagia #severe protein calorie malnutrition #hyperchloremia/hypertnatremia #hx of PE #CAD s/p CABG #CKD 4 #H/o aortic stenosis s/p TAVR #HTN #NIDDM #BPH w/obstruction #MDD #end of life counseling comfort measures ordered dispo: this morning MDM: PCP: Tabitha Discharge Plan Discharge Plan Patient Disposition: Discharge Data Primary Care Provider: Armando uL VTE Deep Vein Thrombosis/Pulmonary Embolism Present on Admission: No
== END 2023-04-24 09:30 | disposition expired | DRG 193 ==
LOC: ED 08:58 → AC 09:21
PROVIDERS: Family Medicine; Admitting Provider Family Medicine; Emergency Provider Emergency Medicine; Family Provider Family Medicine; PCP Family Medicine; Referring Provider Emergency Medicine; Visit Provider Family Medicine
DX: J18.9 Pneumonia, unspecified organism (principal); E43 Unspecified severe protein-calorie malnutrition; J96.01 Acute respiratory failure with hypoxia; N18.4 Chronic kidney disease, stage 4 (severe); N13.8 Other obstructive and reflux uropathy; I25.10 Atherosclerotic heart disease of native coronary artery without angina pectoris; I12.9 Hypertensive chronic kidney disease with stage 1 through stage 4 chronic kidney disease, or unspecified chronic kidney disease; E11.22 Type 2 diabetes mellitus with diabetic chronic kidney disease; F32.9 Major depressive disorder, single episode, unspecified; N40.1 Benign prostatic hyperplasia with lower urinary tract symptoms; R13.10 Dysphagia, unspecified; Z95.1 Presence of aortocoronary bypass graft; Z51.5 Encounter for palliative care; Z86.718 Personal history of other venous thrombosis and embolism; Z87.891 Personal history of nicotine dependence; Z79.01 Long term (current) use of anticoagulants; Z68.24 Body mass index [BMI] 24.0-24.9, adult; Z86.711 Personal history of pulmonary embolism; Z66 Do not resuscitate; Z95.2 Presence of prosthetic heart valve; Z79.4 Long term (current) use of insulin
CPT/HCPCS: 36415; 71045; 80048; 80053; 82550; 82962; 83605; 83690; 83880; 84145; 84484; 85025; 85610; 85730; 87040; 87633; 92526; 92610; 93005; 93010; 94760; 94762; 94799; 96365; 97110; 97112; 97116; 97162; 97535; 99232; 99284; J1815; J1940; J2270; J2543; J7050